=== PATIENT | female | born 1950 | race African-American/Black ===

== ENCOUNTER 2017-02-17 12:38 | Inpatient (IN) | payer MEDICARE, MEDICAID ==
[~2017-02-17] VITALS: Ht 162.6 cm; Wt 47.2 kg
[~2017-02-17 12:38] MED LIST: ALBUTEROL2.5 MG/3 M INH; ASPIRIN EC81 MG ORAL; ASPIRIN81 MG ORAL; ATORVASTATIN CA10 MG ORAL; ATROVENT HFA12.9 GM IH; AZITHROMYCIN250 MG ORAL; AZOR 10-20 MG1 EACH ORAL; BENICAR HCT 201 EACH ORAL; CELEBREX100 MG ORAL; INDOCIN25 MG ORAL; INDOMETHACIN75 MG ORAL; JANUVIA100 MG ORAL; JANUVIA50 MG ORAL; LEVAQUIN500 MG ORAL; LEXAPRO10 MG ORAL; MEDROL DOSEPAK4 MG ORAL; METFORMIN HCL500 M1 ORAL; NEURONTIN100 MG ORAL; NEURONTIN600 MG ORAL; NEXIUM40 MG ORAL; NORCO 10/3251 EA ORAL; NORCO 5-325 TA1 EAC1 ORAL; NORCO 5-325 TA1 EACH ORAL; NORVASC5 MG ORAL; OXYCODONE HCL15 M1 ORAL; PHENAZOPYRIDIN100 MG ORAL; PREDNISONE20 M1 PO; PREDNISONE20 MG ORAL; PROAIR HFA8.5 GM INH; PROMETHAZINE-C118 M1 ORAL; SOMA350 MG PO; SPIRIVA18 MCG INH; STARLIX120 MG ORAL; SUCRALFATE1 GM ORAL; SYMBICORT 1601 PUFFS INH; THEOPHYLLINE A100 MG ORAL; VIGAMOX1 DROP RIGHT EYE
[2017-02-17 12:45] VITALS: BP 164/75
[2017-02-17] MEDS ORDERED: Glucagon 1mg Inj IV ONE (13:00)
[2017-02-17] MEDS ORDERED: Ipratropium 0.02% Inh Soln 2.5ml UD HHN ONE (13:00)
[2017-02-17] MEDS ORDERED: Albuterol ud Inhalation HHN ONE (13:00)
[2017-02-17] MEDS ORDERED: Promethazine/Codeine 5ml UD ORAL PRN (13:30)
[2017-02-17 13:50] LABS: BASOPHILS % (AUTO) 0.9 % (0.0-2.0); EOSINOPHILS % (AUTO) 0.7 % (0.0-3.0); LYMPHOCYTES % (AUTO) 16.1 % (20.0-45.0); MEAN CORPUSCULAR HEMOGLOBIN 32.1 PG (27.0-31.0); MEAN CORPUSCULAR HGB CONC 31.4 G/DL (32.0-36.0); MEAN CORPUSCULAR VOLUME 102 FL (80-99); MEAN PLATELET VOLUME 5.8 FL (6.5-10.1); MONOCYTES % (AUTO) 3.3 % (1.0-10.0); NEUTROPHILS % (AUTO) 78.9 % (45.0-75.0); PLATELET COUNT 388 K/UL (150-450); RED BLOOD COUNT 4.14 M/UL (4.20-5.40)
[2017-02-17 14:00] VITALS: BP 158/68
[2017-02-17 14:09] LABS: TROPONIN I < 0.30 ng/mL (<=0.30)
[2017-02-17 14:12] LABS: ACETAMINOPHEN < 10 ug/mL (10-30); ALANINE AMINOTRANSFERASE 12 U/L (3-33); ALBUMIN/GLOBULIN RATIO 1.2 (1.0-2.7); ALCOHOL < 10 mg/dL; ANION GAP 16 (5-15); ASPARTATE AMINO TRANSFERASE 23 U/L (5-40); CALCIUM 10.9 mg/dL (8.6-10.2); CARBON DIOXIDE 28 mEQ/L (20-30); CHLORIDE 100 mEQ/L (98-107); CREATININE 0.7 mg/dL (0.5-0.9); GLOMERULAR FILTRATION RATE > 60 mL/min (>60); HEMOLYSIS 2; POTASSIUM 3.5 mEQ/L (3.4-4.9); SODIUM 144 mEQ/L (135-145); TOTAL PROTEIN 8.5 g/dL (6.6-8.7)
[2017-02-17 14:15] LABS: REFLEX LACTIC ACID YES OR NO YES
[2017-02-17 14:22] LABS: CKMB 1.7 ng/mL (< 3.8)
[2017-02-17 14:45] LABS: APPEARANCE,URINE CLEAR; KETONES,URINE NEGATIVE (NEGATIVE); LEUKOCYTE ESTERASE ,URINE 1+ (NEGATIVE); NITRITE,URINE NEGATIVE (NEGATIVE); PH,URINE 5 (4.5-8.0); PROTEIN,URINE NEGATIVE (NEGATIVE); UROBILINOGEN,URINE NORMAL MG/DL (0.0-1.0)
[2017-02-17 14:50] LABS: BACTERIA,URINE FEW /HPF; RBC,URINE 0-2 /HPF (0 - 2); SQUAMOUS EPITHELIAL CELL,UR FEW /LPF (NONE/OCC)
--- NOTE | 2017-02-17 15:21 | Diagnostic Imaging Report ---
Indication: Chest Pain Comparison: 06/06/15 A single view chest radiograph was obtained. Findings: No definite infiltrate or pulmonary vascular congestion identified. The heart is enlarged. The aorta is mildly enlarged consistent with atherosclerotic vascular disease. The bones are osteopenic. Impression: No acute disease
[2017-02-17 16:00] VITALS: BP 112/58
--- NOTE | 2017-02-17 16:09 | Emergency Room Report ---
History of Present Illness General Chief Complaint: Generalized Weakness Source: Family Member, EMS Present Illness HPI 66-year-old female presents ED her evaluation. Patient was brought in by EMS from doctor's office. Patient was very lethargic. PMD called 911. Patient Accu-Chek was 71. Patient has history of COPD. Patient has history of substance abuse as per PMD. Son is at bedside and states that patient recent left from a rehabilitation facility. Patient was there after being admitted to [facility] for seizures. Seizures a new onset. Son states that patient's blood sugar this morning was greater than 400 and patient took insulin. No other aggravating or relieving factors. Denies any other associated symptoms Allergies: Coded Allergies: No Known Allergies (Unverified , 08/24/14) Patient History Past Medical History: DM, HTN, asthma, COPD, CVA/TIA, psych hx Past Surgical History: none Pertinent Family History: none Social History: Reports: drug use, Denies: alcohol use, smoking Now: No Immunizations: UTD Reviewed Nursing Documentation: PMH: Agreed, PSxH: Agreed Nursing Documentation-PMH Past Medical History: No History, Except For Hx Cardiac Problems: Yes Hx Hypertension: Yes Hx Pacemaker: No Hx Asthma: Yes Hx COPD: Yes Hx Diabetes: Yes Hx Cancer: No Hx Gastrointestinal Problems: Yes Hx Dialysis: No History Of Psychiatric Problem: Yes - SUBSTANCE ABUSE Hx Neurological Problems: Yes Hx Cerebrovascular Accident: Yes Hx Seizures: Yes Hx Paralysis: Yes - RIGHT SIDE OF THE BODY Hx Speech Problem: Yes - s/p CVA Hx Syncope: Yes Hx Weakness: Yes - RIGHT SIDE Review of Systems All Other Systems: negative except mentioned in HPI Physical Exam Vital Signs Date Time Temp Pulse Resp B/P Pulse Ox O2 Delivery O2 Flow Rate FiO2 02/17/17 12:33 98.2 89 20 199/102 98 Room Air 02/17/17 14:39 21 Sp02 EP Interpretation: reviewed, normal General Appearance: lethargic, thin Head: normocephalic Eyes: bilateral eye PERRL, bilateral eye normal inspection ENT: normal ENT inspection Neck: normal inspection Respiratory: wheezing Cardiovascular #1: regular rate, rhythm, no edema Gastrointestinal: normal bowel sounds, non tender, soft, non-distended, no guarding, no rebound Rectal: deferred Genitourinary: no CVA tenderness Musculoskeletal: normal inspection Neurologic: other - lethargic Psychiatric: other - lethargic Skin: normal inspection Lymphatic: normal inspection Procedures Critical Care Time Critical Care Time i. I feel this is a highly complex case requiring extensive working including EKG/Rhythm strip, Xray/CT/US, Blood/urine lab work, repeat exams while in ED, and administration of strong opiates/narcotics for pain control, admission to hospital or close patient follow up. Total time: 30 min bedside evaluation and treatment excludes procedures (EKG). Reason for critical care: Hypoglycemic, altered Possible complications: hypotension, hypertension, [place], shock, arrhythmias, metabolic acidosis, end organ damage, respiratory failure. Interventions: labs, food. glucagon. utox. nebulizer treatments Course: Patient given food and juice. Given glucagon Accu-Chek critically low. Labs show glucose 24. U. tox negative. Accu-Chek improving after giving food and glucagon. Patient more awake Consultations: nursing staff, EMS, family Performed by: Dr Richardson Tolerated well condition = serious j. because of unstable vital signs this patient had a condition that could potentially threaten life or limb. I feel this is a critical patient who required my full attention while patient was considered critical. Total Critical Care Time excluding procedures was greater than 35 minutes Medical Decision Making Diagnostic Impression: Primary Impression: Hypoglycemia Additional Impressions: Altered level of consciousness COPD exacerbation ER Course Hospital Course 66-year-old female presenting to ED with generalized weakness, low FS in field Differential diagnoses include: dehyration, sepsis, hypoglycemia Clinical course Patient placed on stretcher. 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 After initial history and physical I ordered food, glucagon, labs, nebulizer treatments Labs-glucose 24, electrolytes ok, no leukocytosis, hb/hct stable, Utox negative EKG-normal sinus rhythm no acute changes Chest x-ray unremarkable Repeat Accu-Chek improved. Patient more awake Dr Frost consulted regarding glycemic control Case discussed with Dr. Mendoza and he agreed to accept the patient to his service for further care and support i. I feel this is a highly complex case requiring extensive working including EKG/Rhythm strip, Xray/CT/US, Blood/urine lab work, repeat exams while in ED, and administration of strong opiates/narcotics for pain control, admission to hospital or close patient follow up. diagnosis - hypoglycemia, ALOC, COPD admitted to telemetry in serious condition Labs Test 02/17/17 13:21 5/10/17 14:07 White Blood Count 11.0 K/UL (4.8-10.8) Red Blood Count 4.14 M/UL (4.20-5.40) Hemoglobin 13.3 G/DL (12.0-16.0) Hematocrit 42.3 % (37.0-47.0) Mean Corpuscular Volume 102 FL (80-99) Mean Corpuscular Hemoglobin 32.1 PG (27.0-31.0) Mean Corpuscular Hemoglobin Concent 31.4 G/DL (32.0-36.0) Red Cell Distribution Width 13.0 % (11.6-14.8) Platelet Count 388 K/UL (150-450) Mean Platelet Volume 5.8 FL (6.5-10.1) Neutrophils (%) (Auto) 78.9 % (45.0-75.0) Lymphocytes (%) (Auto) 16.1 % (20.0-45.0) Monocytes (%) (Auto) 3.3 % (1.0-10.0) Eosinophils (%) (Auto) 0.7 % (0.0-3.0) Basophils (%) (Auto) 0.9 % (0.0-2.0) Sodium Level 144 mEQ/L (135-145) Potassium Level 3.5 mEQ/L (3.4-4.9) Chloride Level 100 mEQ/L (98-107) Carbon Dioxide Level 28 mEQ/L (20-30) Anion Gap 16 (5-15) Blood Urea Nitrogen 11 mg/dL (7-23) Creatinine 0.7 mg/dL (0.5-0.9) Estimat Glomerular Filtration Rate > 60 mL/min (>60) Glucose Level 24 mg/dL (74-106) Lactic Acid Level 2.10 mmol/L (0.66-2.22) Calcium Level 10.9 mg/dL (8.6-10.2) Total Bilirubin < 0.2 mg/dL (0.0-1.2) Aspartate Amino Transf (AST/SGOT) 23 U/L (5-40) Alanine Aminotransferase (ALT/SGPT) 12 U/L (3-33) Alkaline Phosphatase 105 U/L (35-104) Total Creatine Kinase 49 U/L (26-140) Creatine Kinase MB 1.7 ng/mL (< 3.8) Creatine Kinase MB Relative Index 3.4 Troponin I < 0.30 ng/mL (<=0.30) Total Protein 8.5 g/dL (6.6-8.7) Albumin 4.8 g/dL (3.5-5.2) Globulin 3.7 g/dL Albumin/Globulin Ratio 1.2 (1.0-2.7) Salicylates Level < 1 mg/dL (10-30) Acetaminophen Level < 10 ug/mL (10-30) Serum Alcohol < 10 mg/dL Urine Color Pale yellow Urine Appearance Clear Urine pH 5 (4.5-8.0) Urine Specific [place] 1.020 (1.005-1.035) Urine Protein Negative (NEGATIVE) Urine Glucose (UA) Negative (NEGATIVE) Urine Ketones Negative (NEGATIVE) Urine Occult Blood Negative (NEGATIVE) Urine Nitrite Negative (NEGATIVE) Urine Bilirubin Negative (NEGATIVE) Urine Urobilinogen Normal MG/DL (0.0-1.0) Urine Leukocyte Esterase 1+ (NEGATIVE) Urine RBC 0-2 /HPF (0 - 2) Urine WBC 2-4 /HPF (0 - 2) Urine Squamous Epithelial Cells Few /LPF (NONE/OCC) Urine Bacteria Few /HPF (NONE) Urine Opiates Screen Negative (NEGATIVE) Urine Barbiturates Screen Negative (NEGATIVE) Phencyclidine (PCP) Screen Negative (NEGATIVE) Urine Amphetamines Screen Negative (NEGATIVE) Urine Benzodiazepines Screen Negative (NEGATIVE) Urine Cocaine Screen Negative (NEGATIVE) Urine Marijuana (THC) Screen Negative (NEGATIVE) EKG Diagnostic Results Rate: normal Rhythm: NSR ST Segments: no acute changes ASA given to the pt in ED: No Rhythm Strip Diag. Results EP Interpretation: yes Rhythm: NSR, no PVC's, no ectopy Chest X-Ray Diagnostic Results EP Interpretation: Yes Findings: no consolidation, no effusion, no pneumothorax, no acute cardiopulmonary disease Number of Views: 1 Last Vital Signs Date Time Temp Pulse Resp B/P Pulse Ox O2 Delivery O2 Flow Rate FiO2 02/17/17 14:53 65 16 98 Room Air 21 02/17/17 12:33 98.2 199/102 Status: improved Disposition: ADMITTED INPATIENT Condition: Serious Referrals: CARLOS A MENDOZA (PCP) PATRICK RICHARDSON M.D. February 17, 2017 16:09
[2017-02-17] MEDS ORDERED: DuoNeb 0.5-3(2.5)mg/3ml neb HHN PRN (18:00)
[2017-02-17 18:47] VITALS: BP 132/72
[2017-02-17] MEDS: DuoNeb 0.5-3(2.5)mg/3ml neb HHN SCH (19:37)
[2017-02-17 20:19] VITALS: BP 133/74
[2017-02-17] MEDS ORDERED: Milk of Magnesia 30ml Ud ORAL PRN (21:00)
[2017-02-17] MEDS: NovoLOG Insulin Flexpen SUBQ SCH (21:29)
[2017-02-17] MEDS: Heparin 5000 units/ml inj SUBQ SCH (21:29)
--- NOTE | 2017-02-17 23:16 | Consultation ---
History of Present Illness General Date patient seen: February 17, 2017 Chief Complaint: Generalized Weakness Referring physician: Dr. Horner Reason for Consultation: Inpatient management Present Illness HPI 66-year-old female with hx of DM, emphysema presents ED with CC of being lethargic with BS of 71. Son is at bedside and states that patient recent left from a rehabilitation facility. No other aggravating or relieving factors. Denies any other associated symptoms Allergies: Coded Allergies: No Known Allergies (Unverified , 08/24/14) Medication History Scheduled Albuterol Sulfate* (Proair Hfa*), 1-2 PUFFS INH Q6H, (Reported) Amlodipine Besylate (Norvasc), 5 MG ORAL DAILY Aspirin Ec* (Aspirin Ec*), 81 MG ORAL DAILY Budesonide/Formoterol Fumarate (Symbicort 160-4.5 Mcg Inhaler), 1 PUFF INH TWICE A DAY Carisoprodol* (Soma*), 350 MG PO BID, (Reported) Escitalopram Oxalate* (Lexapro*), 10 MG ORAL DAILY Esomeprazole Magnesium (Nexium), 40 MG ORAL DAILY, (Reported) Gabapentin* (Neurontin*), 300 MG ORAL THREE TIMES A DAY Indomethacin (Indomethacin), 25 MG ORAL TID, (Reported) Nateglinide (Starlix), 120 MG ORAL THREE TIMES A DAY, (Reported) Sitagliptin (Januvia), 100 MG ORAL DAILY, (Reported) Theophylline (Theodur*), 200 MG ORAL EVERY 12 HOURS Theophylline (Theodur*), 200 MG ORAL EVERY 12 HOURS Tiotropium [place]* (Spiriva*), 1 PUFF INH DAILY Scheduled PRN Hydrocodone Bit/Acetaminophen 5-325* ([place] 5-325 Tablet*), 1 TAB ORAL BID PRN for For Pain, (Reported) Patient History Healthcare decision maker patient Resuscitation status Full Code Advanced Directive on File Past Medical/Surgical History Past Medical/Surgical History: (1) 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 (3) Cocaine abuse (4) HTN (hypertension) (5) CVA, old, ataxia Review of Systems All Other Systems: negative except mentioned in HPI Physical Exam General Appearance: WD/WN Lines, tubes and drains: peripheral HEENT: normocephalic, atraumatic Neck: non-tender, normal alignment Respiratory/Chest: chest wall non-tender Abdomen: normal bowel sounds Genitourinary/Rectal: normal genital exam Extremities: normal range of motion Skin Exam: normal pigmentation 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 Last 24 Hour Vital Signs Date Time Temp Pulse Resp B/P Pulse Ox O2 Delivery O2 Flow Rate FiO2 02/17/17 20:19 97.0 80 20 133/74 100 Room Air 02/17/17 20:00 93 02/17/17 19:45 78 16 99 Room Air 02/17/17 19:37 76 16 97 Room Air 02/17/17 19:11 90 132/72 02/17/17 18:47 97.0 90 18 132/72 98 Room Air 02/17/17 18:40 80 17 122/55 100 Room Air 02/17/17 16:00 98.6 80 18 112/58 100 Room Air 02/17/17 14:53 65 16 98 Room Air 02/17/17 14:39 21 02/17/17 14:39 75 16 95 Room Air 02/17/17 14:39 75 16 Room Air 02/17/17 14:00 98.3 88 17 158/68 100 Room Air 02/17/17 12:45 98.0 77 19 164/75 100 Room Air 02/17/17 12:33 98.2 89 20 199/102 98 Room Air Laboratory Tests Test 02/17/17 13:21 02/17/17 14:07 02/17/17 16:10 White Blood Count 11.0 K/UL (4.8-10.8) H Red Blood Count 4.14 M/UL (4.20-5.40) L Hemoglobin 13.3 G/DL (12.0-16.0) Hematocrit 42.3 % (37.0-47.0) Mean Corpuscular Volume 102 FL (80-99) H Mean Corpuscular Hemoglobin 32.1 PG (27.0-31.0) H Mean Corpuscular Hemoglobin Concent 31.4 G/DL (32.0-36.0) L Red Cell Distribution Width 13.0 % (11.6-14.8) Platelet Count 388 K/UL (150-450) Mean Platelet Volume 5.8 FL (6.5-10.1) L Neutrophils (%) (Auto) 78.9 % (45.0-75.0) H Lymphocytes (%) (Auto) 16.1 % (20.0-45.0) L Monocytes (%) (Auto) 3.3 % (1.0-10.0) Eosinophils (%) (Auto) 0.7 % (0.0-3.0) Basophils (%) (Auto) 0.9 % (0.0-2.0) Sodium Level 144 mEQ/L (135-145) Potassium Level 3.5 mEQ/L (3.4-4.9) Chloride Level 100 mEQ/L (98-107) Carbon Dioxide Level 28 mEQ/L (20-30) Anion Gap 16 (5-15) H Blood Urea Nitrogen 11 mg/dL (7-23) Creatinine 0.7 mg/dL (0.5-0.9) Estimat Glomerular Filtration Rate > 60 mL/min (>60) Glucose Level 24 mg/dL (74-106) *L Lactic Acid Level 2.10 mmol/L (0.66-2.22) 1.90 mmol/L (0.66-2.22) Calcium Level 10.9 mg/dL (8.6-10.2) H Total Bilirubin < 0.2 mg/dL (0.0-1.2) Aspartate Amino Transf (AST/SGOT) 23 U/L (5-40) Alanine Aminotransferase (ALT/SGPT) 12 U/L (3-33) Alkaline Phosphatase 105 U/L (35-104) H Total Creatine Kinase 49 U/L (26-140) Creatine Kinase MB 1.7 ng/mL (< 3.8) Creatine Kinase MB Relative Index 3.4 Troponin I < 0.30 ng/mL (<=0.30) Total Protein 8.5 g/dL (6.6-8.7) Albumin 4.8 g/dL (3.5-5.2) Globulin 3.7 g/dL Albumin/Globulin Ratio 1.2 (1.0-2.7) Salicylates Level < 1 mg/dL (10-30) L Acetaminophen Level < 10 ug/mL (10-30) L Serum Alcohol < 10 mg/dL Urine Color Pale yellow Urine Appearance Clear Urine pH 5 (4.5-8.0) Urine Specific [place] 1.020 (1.005-1.035) Urine Protein Negative (NEGATIVE) Urine Glucose (UA) Negative (NEGATIVE) Urine Ketones Negative (NEGATIVE) Urine Occult Blood Negative (NEGATIVE) Urine Nitrite Negative (NEGATIVE) Urine Bilirubin Negative (NEGATIVE) Urine Urobilinogen Normal MG/DL (0.0-1.0) Urine Leukocyte Esterase 1+ (NEGATIVE) H Urine RBC 0-2 /HPF (0 - 2) Urine WBC 2-4 /HPF (0 - 2) Urine Squamous Epithelial Cells Few /LPF (NONE/OCC) Urine Bacteria Few /HPF (NONE) Urine Opiates Screen Negative (NEGATIVE) Urine Barbiturates Screen Negative (NEGATIVE) Phencyclidine (PCP) Screen Negative (NEGATIVE) Urine Amphetamines Screen Negative (NEGATIVE) Urine Benzodiazepines Screen Negative (NEGATIVE) Urine Cocaine Screen Negative (NEGATIVE) Urine Marijuana (THC) Screen Negative (NEGATIVE) Height (Feet): 5 Height (Inches): 5.00 Weight (Pounds): 104 Medications Current Medications Medications (Trade) Dose Ordered Sig/Sarahi Route PRN Reason Start Time Stop Time Status Last Admin Dose Admin Albuterol/ Ipratropium (DuoNeb 0.5-3(2.5)mg/3ml) 3 ml Q4H PRN HHN Shortness of Breath 02/17/17 18:00 02/22/17 17:59 Albuterol/ Ipratropium (DuoNeb 0.5-3(2.5)mg/3ml) 3 ml Q6HRT HHN 02/17/17 19:00 02/22/17 18:59 02/17/17 19:37 Aspirin (ASA) 81 mg DAILY ORAL 02/18/17 09:00 03/20/17 08:59 Dextrose (Dextrose 50%) STAT PRN IV Hypoglycemia 02/17/17 17:45 03/19/17 17:44 Dextrose (Dextrose 50%) STAT PRN IV Hypoglycemia 02/17/17 18:30 03/19/17 18:29 Heparin Sodium (Porcine) (Heparin 5000 units/ml) 5,000 units EVERY 12 HOURS SUBQ 02/17/17 21:00 03/19/17 20:59 02/17/17 21:29 Insulin Aspart (NovoLOG) BEFORE MEALS AND HS SUBQ 02/17/17 21:00 03/19/17 20:59 02/17/17 21:29 Levetiracetam (Keppra) 500 mg Q12HR ORAL 02/17/17 21:00 03/19/17 20:59 02/17/17 20:15 Lidocaine (Lidoderm 5% PATCH) 1 patch DAILY TDERMAL 02/18/17 09:00 03/20/17 08:59 UNV Magnesium Hydroxide (Mom) 30 ml HSPRN PRN ORAL Constipation 02/17/17 21:00 03/19/17 20:59 Montelukast Sodium (Singulair) 10 mg DAILY@1800 ORAL 02/18/17 21:00 03/20/17 20:59 Pravastatin Sodium (Pravachol) 40 mg BEDTIME ORAL 02/17/17 21:00 03/19/17 20:59 02/17/17 20:15 Promethazine HCl/ Codeine (Phenergan with Codeine) 5 ml Q4H PRN ORAL For Cough 02/17/17 13:30 03/19/17 13:29 Sitagliptin Phosphate (Januvia) 50 mg ACBREAKFAST ORAL 02/18/17 06:30 03/20/17 06:29 Tiotropium [place] (Spiriva Inhaler) 1 puff DAILY INH 02/18/17 09:00 03/20/17 08:59 Assessment/Plan Problem List: (1) Hypoglycemia ICD Codes: E16.2 - Hypoglycemia, unspecified SNOMED: 257827786 (2) End stage COPD ICD Codes: J44.9 - Chronic obstructive pulmonary disease, unspecified SNOMED: 656189016 (3) Severe protein-calorie malnutrition ICD Codes: E43 - Unspecified severe protein-calorie malnutrition SNOMED: 342492232 (4) HTN (hypertension) ICD Codes: I10 - HTN (hypertension) SNOMED: 54457559 Assessment/Plan respiratory treatment sliding scale sputum if any endocrinology evaluation GREG CHAVEZ February 17, 2017 23:16
[2017-02-18] VITALS (7 sets, daily range): BP systolic 104–117; BP diastolic 58–70
[2017-02-18] MEDS: DuoNeb 0.5-3(2.5)mg/3ml neb HHN SCH ×4 (01:12→19:59)
[2017-02-18] MEDS: Norco 5mg/325mg tab ORAL PRN ×4 (01:16→21:17)
[2017-02-18] MEDS: NovoLOG Insulin Flexpen SUBQ SCH ×5 (06:30→21:05)
[2017-02-18] MEDS: sitaGLIPtin 50mg tab ORAL SCH (06:38)
--- NOTE | 2017-02-18 06:52 | General Progress Note ---
Assessment/Plan Problem List: (1) Diabetes mellitus out of control ICD Codes: E11.65 - Diabetes mellitus out of control SNOMED: 733731882 (2) Hypoglycemia ICD Codes: E16.2 - Hypoglycemia, unspecified SNOMED: 928686767 (3) Altered level of consciousness ICD Codes: R40.4 - Transient alteration of awareness SNOMED: 9964733 Assessment/Plan add Levemir 6 units daily continue Januvia 50 mg daily continue Novolog sliding scale ac / hs Subjective Allergies: Coded Allergies: No Known Allergies (Unverified , 08/24/14) All Systems: reviewed and negative except above Subjective admitted with hypoglycemia she is known to me from recent admission to [facility] with COPD exacerbation diabetes was treated with Lantus and Humalog - received diabetes teaching Objective Last 24 Hour Vital Signs Date Time Temp Pulse Resp B/P Pulse Ox O2 Delivery O2 Flow Rate FiO2 02/18/17 04:08 98.1 71 20 104/64 100 Room Air 02/18/17 04:00 100 02/18/17 01:21 89 16 99 Room Air 02/18/17 01:12 90 16 98 Room Air 02/18/17 00:09 97.9 80 20 117/63 100 Room Air 02/18/17 00:00 81 02/17/17 20:19 97.0 80 20 133/74 100 Room Air 02/17/17 20:00 93 02/17/17 19:45 78 16 99 Room Air 02/17/17 19:37 76 16 97 Room Air 02/17/17 19:11 90 132/72 02/17/17 18:47 97.0 90 18 132/72 98 Room Air 02/17/17 18:40 80 17 122/55 100 Room Air 02/17/17 16:00 98.6 80 18 112/58 100 Room Air 21 02/17/17 14:53 65 16 98 Room Air 21 02/17/17 14:39 21 02/17/17 14:39 75 16 95 Room Air 21 02/17/17 14:39 75 16 Room Air 21 02/17/17 14:00 98.3 88 17 158/68 100 Room Air 02/17/17 12:45 98.0 77 19 164/75 100 Room Air 02/17/17 12:33 98.2 89 20 199/102 98 Room Air Intake and Output 02/17/17 02/18/17 19:00 07:00 Intake Total 200 ml Output Total 1150 ml Balance 200 ml -1150 ml Intake Oral 200 ml Output Urine Total 1150 ml # Voids 3 Laboratory Tests 02/17/17 13:21: White Blood Count 11.0H, Red Blood Count 4.14L, Hemoglobin 13.3, Hematocrit 42.3 , Mean Corpuscular Volume 102H, Mean Corpuscular Hemoglobin 32.1H, Mean Corpuscular Hemoglobin Concent 31.4L, Red Cell Distribution Width 13.0, Platelet Count 388, Mean Platelet Volume 5.8L, Neutrophils (%) (Auto) 78.9H, Lymphocytes (%) (Auto) 16.1L, Monocytes (%) (Auto) 3.3, Eosinophils (%) (Auto) 0.7, Basophils (%) (Auto) 0.9, Sodium Level 144, Potassium Level 3.5, Chloride Level 100, Carbon Dioxide Level 28, Anion Gap 16H, Blood Urea Nitrogen 11, Creatinine 0.7, Estimat Glomerular Filtration Rate > 60, Glucose Level 24*L, Lactic Acid Level 2.10, Calcium Level 10.9H, Total Bilirubin < 0.2, Aspartate Amino Transf (AST/SGOT) 23, Alanine Aminotransferase (ALT/SGPT) 12, Alkaline Phosphatase 105H, Total Creatine Kinase 49, Creatine Kinase MB 1.7, Creatine Kinase MB Relative Index 3.4, Troponin I < 0.30, Total Protein 8.5, Albumin 4.8 , Globulin 3.7, Albumin/Globulin Ratio 1.2, Salicylates Level < 1L, Acetaminophen Level < 10L, Serum Alcohol < 10 02/17/17 14:07: Urine Color Pale yellow, Urine Appearance Clear, Urine pH 5, Urine Specific [place] 1.020, Urine Protein Negative, Urine Glucose (UA) Negative, Urine Ketones Negative, Urine Occult Blood Negative, Urine Nitrite Negative, Urine Bilirubin Negative, Urine Urobilinogen Normal, Urine Leukocyte Esterase 1+H, Urine RBC 0-2, Urine WBC 2-4, Urine Squamous Epithelial Cells Few, Urine Bacteria Few, Urine Opiates Screen Negative, Urine Barbiturates Screen Negative , Phencyclidine (PCP) Screen Negative, Urine Amphetamines Screen Negative, Urine Benzodiazepines Screen Negative, Urine Cocaine Screen Negative, Urine Marijuana (THC) Screen Negative 02/17/17 16:10: Lactic Acid Level 1.90 Height (Feet): 5 Height (Inches): 5.00 Weight (Pounds): 104 General Appearance: no apparent distress EENT: pale conjunctivae Neck: normal alignment Cardiovascular: normal rate Respiratory/Chest: decreased breath sounds Abdomen: normal bowel sounds Edema: no edema noted Arm (L), no edema noted Arm (R), no edema noted Leg (L), no edema noted Leg (R), no edema noted Pedal (L), no edema noted Pedal (R), no edema noted Generalized Objective Current Medications Medications (Trade) Dose Ordered Sig/Sarahi Route PRN Reason Start Time Stop Time Status Last Admin Dose Admin Acetaminophen/ Hydrocodone Bitart ([place] 5/325) 1 tab Q4H PRN ORAL Moderate Pain (Pain Scale 4-6) 02/18/17 01:15 02/25/17 01:14 02/18/17 01:16 Albuterol/ Ipratropium (DuoNeb 0.5-3(2.5)mg/3ml) 3 ml Q4H PRN HHN Shortness of Breath 02/17/17 18:00 02/22/17 17:59 Albuterol/ Ipratropium (DuoNeb 0.5-3(2.5)mg/3ml) 3 ml Q6HRT HHN 02/17/17 19:00 02/22/17 18:59 02/18/17 01:12 Aspirin (ASA) 81 mg DAILY ORAL 02/18/17 09:00 03/20/17 08:59 Dextrose (Dextrose 50%) STAT PRN IV Hypoglycemia 02/17/17 17:45 03/19/17 17:44 Heparin Sodium (Porcine) (Heparin 5000 units/ml) 5,000 units EVERY 12 HOURS SUBQ 02/17/17 21:00 03/19/17 20:59 02/17/17 21:29 Insulin Aspart (NovoLOG) BEFORE MEALS AND HS SUBQ 02/17/17 21:00 03/19/17 20:59 02/17/17 21:29 Levetiracetam (Keppra) 500 mg Q12HR ORAL 02/17/17 21:00 03/19/17 20:59 02/17/17 20:15 Lidocaine (Lidoderm 5% PATCH) 1 patch DAILY TDERMAL 02/18/17 09:00 03/20/17 08:59 Magnesium Hydroxide (Mom) 30 ml HSPRN PRN ORAL Constipation 02/17/17 21:00 03/19/17 20:59 Montelukast Sodium (Singulair) 10 mg DAILY@1800 ORAL 02/18/17 21:00 03/20/17 20:59 Pravastatin Sodium (Pravachol) 40 mg BEDTIME ORAL 02/17/17 21:00 03/19/17 20:59 02/17/17 20:15 Promethazine HCl/ Codeine (Phenergan with Codeine) 5 ml Q4H PRN ORAL For Cough 02/17/17 13:30 03/19/17 13:29 Sitagliptin Phosphate (Januvia) 50 mg ACBREAKFAST ORAL 02/18/17 06:30 03/20/17 06:29 02/18/17 06:38 Tiotropium [place] (Spiriva Inhaler) 1 puff DAILY INH 02/18/17 09:00 03/20/17 08:59 Item Value Date Time Bedside Blood Glucose 102 mg/dl 02/18/17 0637 Bedside Blood Glucose 242 mg/dl H 02/17/172128 Bedside Blood Glucose 145 mg/dl H 02/17/17 1809 CHE ALLEN February 18, 2017 06:52
[2017-02-18 08:05] LABS: BASOPHILS % (AUTO) 1.5 % (0.0-2.0); EOSINOPHILS % (AUTO) 1.9 % (0.0-3.0); LYMPHOCYTES % (AUTO) 35.4 % (20.0-45.0); MEAN CORPUSCULAR HGB CONC 32.5 G/DL (32.0-36.0); MEAN CORPUSCULAR VOLUME 99 FL (80-99); MEAN PLATELET VOLUME 6.1 FL (6.5-10.1); MONOCYTES % (AUTO) 6.3 % (1.0-10.0); PLATELET COUNT 283 K/UL (150-450); RED BLOOD COUNT 3.03 M/UL (4.20-5.40); RED CELL DISTRIBUTION WIDTH 12.3 % (11.6-14.8)
[2017-02-18 08:17] LABS: ANION GAP 9 (5-15); CALCIUM 9.6 mg/dL (8.6-10.2); CARBON DIOXIDE 31 mEQ/L (20-30); CHLORIDE 103 mEQ/L (98-107); CHOLESTEROL 198 mg/dL (< 200); CHOLESTEROL/HDL RATIO 2.8 (3.3-4.4); CREATININE 0.6 mg/dL (0.5-0.9); GLOMERULAR FILTRATION RATE > 60 mL/min (>60); HEMOLYSIS 1; LDL CHOLESTEROL (CALC.) 110 mg/dL (60-99); POTASSIUM 3.8 mEQ/L (3.4-4.9); SODIUM 143 mEQ/L (135-145)
[2017-02-18 09:03] LABS: HEMOGLOBIN A1C 9.5 % (< 6.0)
[2017-02-18] MEDS: Aspirin Baby 81mg ORAL SCH (09:10)
[2017-02-18] MEDS: Heparin 5000 units/ml inj SUBQ SCH ×2 (09:14→21:03)
[2017-02-18] MEDS: Levemir Flexpen SUBQ SCH (09:14)
--- NOTE | 2017-02-18 12:46 | Cardiology Report ---
APPROVED REPORT EKG Measurement Heart [id number] MI 130P68 [id number] Normal sinus rhythm Normal ECG
--- NOTE | 2017-02-18 15:49 | Pulmonology Progress Note ---
Assessment/Plan Problems: (1) Hypoglycemia (2) End stage COPD (3) Severe protein-calorie malnutrition (4) HTN (hypertension) Assessment/Plan endo consult appreciated bs better titrate fio2 to sat of 92% med/surg dc planning Subjective ROS Limited/Unobtainable: No Interval Events: comfortable Allergies: Coded Allergies: No Known Allergies (Unverified , 08/24/14) Objective Last 24 Hour Vital Signs Date Time Temp Pulse Resp B/P Pulse Ox O2 Delivery O2 Flow Rate FiO2 02/18/17 13:20 97 16 98 Room Air 02/18/17 13:17 82 14 99 Room Air 02/18/17 12:00 97.0 86 17 117/62 95 Room Air 02/18/17 08:09 91 15 99 Room Air 02/18/17 08:00 84 02/18/17 08:00 98.4 85 17 108/67 99 Room Air 02/18/17 07:58 88 15 99 Room Air 02/18/17 04:08 98.1 71 20 104/64 100 Room Air 02/18/17 04:00 100 02/18/17 01:21 89 16 99 Room Air 02/18/17 01:12 90 16 98 Room Air 02/18/17 00:09 97.9 80 20 117/63 100 Room Air 02/18/17 00:00 81 02/17/17 20:19 97.0 80 20 133/74 100 Room Air 02/17/17 20:00 93 02/17/17 19:45 78 16 99 Room Air 02/17/17 19:37 76 16 97 Room Air 02/17/17 19:11 90 132/72 02/17/17 18:47 97.0 90 18 132/72 98 Room Air 02/17/17 18:40 80 17 122/55 100 Room Air 02/17/17 16:00 98.6 80 18 112/58 100 Room Air 21 Intake and Output 02/17/17 02/18/17 19:00 07:00 Intake Total 200 ml Output Total 1150 ml Balance 200 ml -1150 ml Intake Oral 200 ml Output Urine Total 1150 ml # Voids 3 General Appearance: cachetic HEENT: normocephalic, atraumatic Respiratory/Chest: chest wall non-tender, lungs clear, normal breath sounds Cardiovascular: normal peripheral pulses, normal rate Abdomen: no organomegaly Laboratory Tests 02/17/17 16:10: Lactic Acid Level 1.90 02/18/17 06:55: White Blood Count 5.0#, Red Blood Count 3.03L, Hemoglobin 9.7L, Hematocrit 29.8L , Mean Corpuscular Volume 99, Mean Corpuscular Hemoglobin 32.0H, Mean Corpuscular Hemoglobin Concent 32.5, Red Cell Distribution Width 12.3, Platelet Count 283, Mean Platelet Volume 6.1L, Neutrophils (%) (Auto) 55.0, Lymphocytes ( %) (Auto) 35.4, Monocytes (%) (Auto) 6.3, Eosinophils (%) (Auto) 1.9, Basophils (%) (Auto) 1.5, Sodium Level 143, Potassium Level 3.8, Chloride Level 103, Carbon Dioxide Level 31H, Anion Gap 9, Blood Urea Nitrogen 10, Creatinine 0.6, Estimat Glomerular Filtration Rate > 60, Glucose Level 89, Hemoglobin A1c 9.5H, Calcium Level 9.6, Triglycerides Level 79, Cholesterol Level 198, LDL Cholesterol 110H, HDL Cholesterol 72H, Cholesterol/HDL Ratio 2.8L Current Medications Medications (Trade) Dose Ordered Sig/Sarahi Route PRN Reason Start Time Stop Time Status Last Admin Dose Admin Acetaminophen/ Hydrocodone Bitart ([place] 5/325) 1 tab Q4H PRN ORAL Moderate Pain (Pain Scale 4-6) 02/18/17 01:15 02/25/17 01:14 02/18/17 09:31 Albuterol/ Ipratropium (DuoNeb 0.5-3(2.5)mg/3ml) 3 ml Q4H PRN HHN Shortness of Breath 02/17/17 18:00 02/22/17 17:59 Albuterol/ Ipratropium (DuoNeb 0.5-3(2.5)mg/3ml) 3 ml Q6HRT HHN 02/17/17 19:00 02/22/17 18:59 02/18/17 13:17 Aspirin (ASA) 81 mg DAILY ORAL 02/18/17 09:00 03/20/17 08:59 02/18/17 09:10 Dextrose (Dextrose 50%) STAT PRN IV Hypoglycemia 02/17/17 17:45 03/19/17 17:44 Heparin Sodium (Porcine) (Heparin 5000 units/ml) 5,000 units EVERY 12 HOURS SUBQ 02/17/17 21:00 03/19/17 20:59 02/18/17 09:14 Insulin Aspart (NovoLOG) BEFORE MEALS AND HS SUBQ 02/17/17 21:00 03/19/17 20:59 02/18/17 11:42 Insulin Aspart (NovoLOG) 5 units NOVOTIAC SUBQ 02/18/17 16:50 03/20/17 16:49 Insulin Detemir (Levemir) 6 units DAILY SUBQ 02/18/17 09:00 03/20/17 08:59 02/18/17 09:14 Levetiracetam (Keppra) 500 mg Q12HR ORAL 02/17/17 21:00 03/19/17 20:59 02/18/17 09:09 Lidocaine (Lidoderm 5% PATCH) 1 patch DAILY TDERMAL 02/18/17 09:00 03/20/17 08:59 Magnesium Hydroxide (Mom) 30 ml HSPRN PRN ORAL Constipation 02/17/17 21:00 03/19/17 20:59 Montelukast Sodium (Singulair) 10 mg DAILY@1800 ORAL 02/18/17 21:00 03/20/17 20:59 Pravastatin Sodium (Pravachol) 40 mg BEDTIME ORAL 02/17/17 21:00 03/19/17 20:59 02/17/17 20:15 Promethazine HCl/ Codeine (Phenergan with Codeine) 5 ml Q4H PRN ORAL For Cough 02/17/17 13:30 03/19/17 13:29 Sitagliptin Phosphate (Januvia) 50 mg ACBREAKFAST ORAL 02/18/17 06:30 03/20/17 06:29 02/18/17 06:38 Tiotropium [place] (Spiriva Inhaler) 1 puff DAILY INH 02/18/17 09:00 03/20/17 08:59 GREG CHAVEZ February 18, 2017 15:49
[2017-02-18] MEDS ORDERED: Montelukast 10mg tablet ORAL SCH (21:00)
[2017-02-18] MEDS ORDERED: DiphenhydrAMINE 50mg/ml Inj IVP PRN (22:00)
[2017-02-19] MEDS: DuoNeb 0.5-3(2.5)mg/3ml neb HHN SCH ×4 (01:33→19:43)
[2017-02-19] MEDS: Norco 5mg/325mg tab ORAL PRN ×2 (03:24→19:34)
[2017-02-19 03:51] VITALS: BP 112/63
[2017-02-19] MEDS: NovoLOG Insulin Flexpen SUBQ SCH ×7 (06:17→20:51)
[2017-02-19] MEDS: sitaGLIPtin 50mg tab ORAL SCH (06:17)
--- NOTE | 2017-02-19 07:58 | History and Physical Report ---
DATE OF ADMISSION: 02/17/2017 History Of Present Illness: The patient is an unfortunate 66-year-old female with history of COPD, who is a smoker and continues to smoke, history of 00:29 hypersensitivity, pneumonitis, history of seizure disorder, and history of diabetes, who was recently hospitalized at [facility] with COPD exacerbation and weakness. The patient was treated and eventually transferred to a nursing facility. However, she left against medical advice a few days ago. The patient presented to my office yesterday morning very sweaty and lethargic. Blood sugars prior to that at home was 500. She was given 12 units of insulin. In my office, paramedics were called, Accu-Chek of 71. However, she is slightly lethargic and sweaty suspected hypoglycemia and thus she was taken by paramedics to [facility] where her sugars were noted to be critically low. The patient was started on some dextrose with improvement in her mental status. Cultures were also drawn and substance abuse plan 01:57. Past Medical History: Include a history of COPD, history of diabetes, history of 02:08 chronic abdominal pain, history of prior CVA, history of DJD, history of hypersensitivity, pneumonitis, history of hysterectomy, history of appendectomy, history of CAD, history of CHF with diastolic dysfunction, history of C. difficile in 2012, and history of chronic back pain, she follows with Dr. Cervantes pain management physician, history of severe lumbar stenosis as well as severe spondylosis, 02:31 with severe central canal stenosis, C3=C4, C4=C5-C5-C6 disk bulges and arthropathy, mild bilateral foraminal narrowing seen before by Dr. Ponce and history of seizure disorder probably secondary to cocaine. ALLERGIES: None known. MEDICATIONS: Please see reconciled medication list. SOCIAL HISTORY: The patient is a smoker and continues to smoke. She also has used marijuana on occasions as well as cocaine in the past. FAMILY HISTORY: Noncontributory. REVIEW OF SYSTEMS: The patient currently awake in no apparent distress. PHYSICAL EXAMINATION: GENERAL: She is a frail appearing, in no apparent distress. VITAL SIGNS: Stable. She is afebrile. HEENT: Head normocephalic and atraumatic. Pupils are equal and reactive to light. Extraocular muscles are intact. Eyes are anicteric. NECK: Supple. Full range of motion. No JVP. No bruits. LUNGS: Decreased breath sounds. HEART: Regular rate and rhythm. ABDOMEN: Soft. Positive bowel sounds. EXTREMITIES: No clubbing, cyanosis, or edema. Laboratory And Diagnostic Data: White count of 5, hemoglobin 9,7, hematocrit 29.8, and platelet count 283,000. Her sodium is 133, potassium 3.8, chloride 102, bicarbonate 31, BUN 30, creatinine 0.6 and glucose is 189. 04:16. Lactic acid is 1.9. Troponin is less than 0.3. AST 23 and ALT 12. Calcium is 7.9. Alkaline phosphatase is 105. Albumin is 4.8. Urine 1+ leukocyte esterase, and 2 to 4 WBCs. Tox screening was negative for marijuana or cocaine, and negative for opiates as well. Chest x-ray reveals no acute disease. Assessment And Plan: The patient is an unfortunate 66-year-old female, presented to my office with lethargy and sweaty suspected hypoglycemia. Her blood sugars in the morning were 400 and she was 05:30 insulin 12 units. The patient was brought in by paramedics after noted to have critically low blood sugar starting 05:39 diabetes and hypoglycemia. We gave her respiratory treatment. The patient was given pain medications based on pain regimen. 05:55 considered as well. The patient should be on DVT and ulcer prophylaxis. Ravindra Horner M.D. DR: LENCHO JOB#: [id number] CC:
[2017-02-19 08:00] VITALS: BP 121/72
[2017-02-19] MEDS: Aspirin Baby 81mg ORAL SCH (09:39)
[2017-02-19] MEDS: Heparin 5000 units/ml inj SUBQ SCH ×2 (09:42→20:53)
[2017-02-19] MEDS: Levemir Flexpen SUBQ SCH (09:43)
[2017-02-19] MEDS ORDERED: Meclizine 25mg tab ORAL PRN ×2 (10:15→12:00)
[2017-02-19 11:24] LABS: BASOPHILS % (AUTO) 0.7 % (0.0-2.0); EOSINOPHILS % (AUTO) 5.6 % (0.0-3.0); LYMPHOCYTES % (AUTO) 29.5 % (20.0-45.0); MEAN CORPUSCULAR HEMOGLOBIN 32.2 PG (27.0-31.0); MEAN CORPUSCULAR HGB CONC 32.4 G/DL (32.0-36.0); MEAN CORPUSCULAR VOLUME 99 FL (80-99); MEAN PLATELET VOLUME 6.2 FL (6.5-10.1); MONOCYTES % (AUTO) 11.3 % (1.0-10.0); PLATELET COUNT 300 K/UL (150-450); RED BLOOD COUNT 3.26 M/UL (4.20-5.40); RED CELL DISTRIBUTION WIDTH 12.8 % (11.6-14.8); WHITE BLOOD COUNT 4.6 K/UL (4.8-10.8)
[2017-02-19] MEDS ORDERED: Hydrocortisone 1% Cr 15gm TOPIC PRN (11:30)
[2017-02-19 11:44] LABS: ANION GAP 13 (5-15); CALCIUM 10.2 mg/dL (8.6-10.2); CARBON DIOXIDE 30 mEQ/L (20-30); CHLORIDE 99 mEQ/L (98-107); CREATININE 0.6 mg/dL (0.5-0.9); GLOMERULAR FILTRATION RATE > 60 mL/min (>60); HEMOLYSIS 5; POTASSIUM 3.9 mEQ/L (3.4-4.9); SODIUM 142 mEQ/L (135-145)
[2017-02-19] MEDS ORDERED: DuoNeb 0.5-3(2.5)mg/3ml neb HHN PRN (12:00)
[2017-02-19] MEDS ORDERED: Promethazine/Codeine 5ml UD ORAL PRN (12:00)
[2017-02-19] MEDS ORDERED: DiphenhydrAMINE 50mg/ml Inj IVP PRN (12:00)
--- NOTE | 2017-02-19 13:43 | Consultation ---
Consult Note Consult Note CONSULTATION - NEUROLOGY 02/20/2016 COLORER MACHINE: Dannielle Kemp M.D. REFERRING PHYSICIAN: Ravindra Horner M.D. HISTORY: Ms Alyssa Whittington is a 66-year-old, right-handed, black lady, who does have a past history of hypertension, dyslipidemia, coronary artery disease, congestive heart failure, chronic obstructive pulmonary disease, cerebrovascular disease with a prior stroke associated with right-sided weakness, parainfluenza and influenza at the end of 2014, and episodic loss of consciousness. She was recently discharged for [facility] and was sent to a custodial. She signed out AMA from the custodial and when she got home she felt unwell. She says she did not have her medicines at home and had not taken her insulin for a few days. She was seen by Dr. Horner at his office on 02/17/17 and was feeling ill. Her blood sugars were in the 500s and she was given insulin but her blood sugar then dropped and she felt liike she was becoming hypoglycemic. The paramedics were called in and she was taken to the [facility] ER and has since been admitted. She feels better today but the mind is still not completely clear and she feels light headed when she stands or walks. At this point in time, she denies any increased weakness on one side or the other, numbness on one side or the other, problems with speech, problems with language, or problems with vision. PAST HISTORY: Significant for high blood pressure, dyslipidemia, coronary artery disease, congestive heart failure, chronic obstructive pulmonary disease , cerebrovascular disease with stroke-associated with right-sided weakness a few years ago. FAMILY HISTORY: Her mother of leukemia. Her father of a heart attack. PERSONAL HISTORY: Home: She lives alone. 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 Habits: She used to smoke in the past but stopped smoking quite a few years ago. She used to drink alcohol in moderation in the past but has not had a drink for numerous years. She denies the use of any illicit drugs. PHYSICAL EXAMINATION: GENERAL: She is a well-developed, well-nourished but lean black lady, lying in bed, in no acute distress. VITAL SIGNS: Pulse 95 per minute Blood pressure 121/72 mmHg Respirations 20 per minute Temperature 97.6 degrees Fahrenheit. HEAD: Normocephalic and atraumatic. NECK: No neck rigidity was observed. EENT: Benign. NEUROLOGICAL EXAMINATION: MENTAL STATUS EXAMINATION: She was alert and awake. She was oriented to person, place, and time except for the exact date. She was able to recall 3/3 words immediately after 1 minute, and after 3 minutes on the second trial. She was able to remember presidents Trump and Obama only. Her mathematical skills were fairly good. Her visuospatial function was preserved. SPEECH: She had a mild dysarthria, but it should be noted that numerous teeth were missing. LANGUAGE: She had no aphasia. CRANIAL NERVE EXAMINATION: II: The visual kearney were intact on confrontation testing. III, IV, : The external ocular movements were full, and the pupils 3 mm in diameter, equal, round, regular, and reactive to light. V: She had normal facial sensations, and the temporales, masseters, and pterygoids functioned normally. VII: She had a trace right 7th central facial paresis. VIII: She was able to hear well bilaterally and had no nystagmus. IX: The palate moved symmetrically on phonation. X: She had no hoarseness of voice. XI: The sternocleidomastoids and trapezii functioned normally. XII: The tongue was in the midline, without any fasciculations or atrophy. MOTOR SYSTEM: The tone was normal in all 4 extremities. Examination of muscle mass revealed no focal wasting. Examination of power revealed G 5/5 power, except for G 5-/5 power in the right finger extensors and right iliopsoas;. SENSORY EXAMINATION: She had intact sensations to pinprick, light touch, and graphesthesia. COORDINATION: She performed well on [id number] testing. She had problems performing [id number] testing. REFLEXES: 2+ and bilaterally symmetrical at the biceps, triceps, brachioradialis, and knees; trace positive at both ankles. The plantar responses were flexor bilaterally. STANCE: She needed support to stand. GAIT: She walked with a mildly ataxic gait with support on one side. DIAGNOSTIC IMPRESSION: 1. Ms. Alyssa Whittington is a 66-year-old, right-handed, black lady, who does have a past history of hypertension, diabetes mellitus, dyslipidemia, coronary artery disease, congestive heart failure, chronic obstructive pulmonary disease , and cerebrovascular disease with a prior stroke, and prior episodes of loss of consciousness. She was seen by Dr. Horner at his office on 02/17/17 and was feeling ill. Her blood sugars were in the 500s and she was given insulin but her blood sugar then dropped and she felt liike she was becoming hypoglycemic. The paramedics were called in and she was brought to the [facility] ER and has since been admitted. 2. She feels better today but is still light headed and unsteady on her feet. 3. On neurological examination at this time, she does have problems with recent and remote memory, a mild dysarthria, a mild right hemiparesis involving the face, upper and lower extremities, and an unsteady gait. 4. The patients alteredd mental state and gait unsteadiness is most probably due to a metabolic encephalopathy. RECOMMENDATIONS: 1. Agree with management thus far. 2. Correct toxic metabolic imbalances. 3. Observe closely. 4. The patient should be mobilized as soon as possible. Thank you for entrusting me with the care of Ms Whittington. I shall follow her with you. DANNIELLE KEMP M.D., M.S.P.H. DANNIELLE KEMP February 19, 2017 13:43
--- NOTE | 2017-02-19 15:57 | Pulmonology Progress Note ---
Assessment/Plan Problems: (1) Hypoglycemia (2) End stage COPD (3) Severe protein-calorie malnutrition (4) HTN (hypertension) Assessment/Plan endo consult appreciated bs better titrate fio2 to sat of 92% med/surg h/h dropping stool for OB, hem evaluation Subjective ROS Limited/Unobtainable: No Constitutional: Reports: no symptoms HEENT: Repors: no symptoms Allergies: Uncoded Allergies: electrodes (Allergy, Unknown, Itching, 02/19/17) Objective Last 24 Hour Vital Signs Date Time Temp Pulse Resp B/P Pulse Ox O2 Delivery O2 Flow Rate FiO2 02/19/17 13:53 89 18 100 Room Air 02/19/17 13:40 94 18 99 Room Air 21 02/19/17 08:00 97.6 95 20 121/72 98 Room Air 02/19/17 06:55 87 18 100 Room Air 02/19/17 06:45 87 18 97 Room Air 21 02/19/17 03:51 98.6 75 19 112/63 95 Room Air 02/19/17 01:42 88 18 98 Room Air 21 02/19/17 01:34 93 16 95 Room Air 21 02/18/17 23:51 97.7 83 18 106/68 94 Room Air 02/18/17 20:10 80 18 97 Room Air 21 02/18/17 20:09 98.4 78 19 108/58 93 Room Air 02/18/17 20:00 89 18 95 Room Air 21 02/18/17 16:00 73 02/18/17 16:00 96.8 98 17 115/70 98 Room Air Intake and Output 02/18/17 02/19/17 19:00 07:00 Intake Total 1100 ml Balance 1100 ml Intake Oral 1100 ml # Voids 1 5 General Appearance: WD/WN HEENT: normocephalic, atraumatic Respiratory/Chest: chest wall non-tender, lungs clear Breasts: no masses Cardiovascular: normal peripheral pulses Abdomen: normal bowel sounds, soft, non tender Genitourinary: normal external genitalia Skin: no rash Neurologic/Psychiatric: embossed 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 Complete 02/17/17 16:09 Rectum VRE Culture - Final Enterococcus Faecalis - Vre Complete Laboratory Tests 02/19/17 11:00: White Blood Count 4.6L, Red Blood Count 3.26L, Hemoglobin 10.5L, Hematocrit 32.4L, Mean Corpuscular Volume 99, Mean Corpuscular Hemoglobin 32.2H, Mean Corpuscular Hemoglobin Concent 32.4, Red Cell Distribution Width 12.8, Platelet Count 300, Mean Platelet Volume 6.2L, Neutrophils (%) (Auto) 53.0, Lymphocytes ( %) (Auto) 29.5, Monocytes (%) (Auto) 11.3H, Eosinophils (%) (Auto) 5.6H, Basophils (%) (Auto) 0.7, Sodium Level 142, Potassium Level 3.9, Chloride Level 99, Carbon Dioxide Level 30, Anion Gap 13, Blood Urea Nitrogen 10, Creatinine 0.6, Estimat Glomerular Filtration Rate > 60, Glucose Level 159H, Calcium Level 10.2 Current Medications Medications (Trade) Dose Ordered Sig/Sarahi Route PRN Reason Start Time Stop Time Status Last Admin Dose Admin Acetaminophen/ Hydrocodone Bitart ([place] 5/325) 1 tab Q4H PRN ORAL Moderate Pain (Pain Scale 4-6) 02/19/17 12:00 02/26/17 11:59 Albuterol/ Ipratropium (DuoNeb 0.5-3(2.5)mg/3ml) 3 ml Q4H PRN HHN Shortness of Breath 02/19/17 12:00 02/24/17 11:59 Albuterol/ Ipratropium (DuoNeb 0.5-3(2.5)mg/3ml) 3 ml Q6HRT HHN 02/19/17 13:00 02/24/17 12:59 02/19/17 13:46 Aspirin (ASA) 81 mg DAILY ORAL 02/20/17 09:00 03/22/17 08:59 Dextrose (Dextrose 50%) STAT PRN IV Hypoglycemia 02/19/17 12:00 03/21/17 11:59 Diphenhydramine HCl (Benadryl) 25 mg Q6H PRN ORAL Itching 02/19/17 11:15 03/21/17 11:14 02/19/17 12:00 Heparin Sodium (Porcine) (Heparin 5000 units/ml) 5,000 units EVERY 12 HOURS SUBQ 02/19/17 21:00 03/21/17 20:59 Hydrocortisone (Hydrocortisone) 1 applic Q6H PRN TOPIC Itching 02/19/17 11:30 03/21/17 11:29 Insulin Aspart (NovoLOG) BEFORE MEALS AND HS SUBQ 02/19/17 12:30 03/21/17 12:29 02/19/17 12:30 Insulin Aspart (NovoLOG) 5 units NOVOTIAC SUBQ 02/19/17 11:50 03/21/17 11:49 02/19/17 11:50 Insulin Detemir (Levemir) 6 units DAILY SUBQ 02/20/17 09:00 03/22/17 08:59 Levetiracetam (Keppra) 500 mg Q12HR ORAL 02/19/17 21:00 03/21/17 20:59 Lidocaine (Lidoderm 5% PATCH) 1 patch DAILY TDERMAL 02/20/17 09:00 03/22/17 08:59 Magnesium Hydroxide (Mom) 30 ml HSPRN PRN ORAL Constipation 02/19/17 21:00 03/21/17 20:59 Meclizine HCl (Antivert) 25 mg Q8H PRN ORAL for dizziness 02/19/17 12:00 03/21/17 11:59 Montelukast Sodium (Singulair) 10 mg DAILY@1800 ORAL 02/19/17 18:00 03/21/17 17:59 Pravastatin Sodium (Pravachol) 40 mg BEDTIME ORAL 02/19/17 21:00 03/21/17 20:59 Promethazine HCl/ Codeine (Phenergan with Codeine) 5 ml Q4H PRN ORAL For Cough 02/19/17 12:00 03/21/17 11:59 Sitagliptin Phosphate (Januvia) 50 mg ACBREAKFAST ORAL 02/20/17 06:30 03/22/17 06:29 Tiotropium [place] (Spiriva Inhaler) 1 puff DAILY INH 02/20/17 09:00 03/22/17 08:59 GREG CHAVEZ February 19, 2017 15:57
[2017-02-19 16:15] VITALS: BP 109/67
--- NOTE | 2017-02-19 16:19 | Consultation ---
Consult Note Assessment/Plan HEMATOLOGY EVALUATION DOS: 02/19/17 [facility]: Evaluation of anemia ID: Ms Alyssa Whittington is a 66-year-old, right-handed, black lady, who does have a past history of hypertension, dyslipidemia, coronary artery disease, congestive heart failure, chronic obstructive pulmonary disease, cerebrovascular disease with a prior stroke associated with right-sided weakness, parainfluenza and influenza at the end of 2014, and episodic loss of consciousness. She was recently discharged for [facility] and was [facility] a penitentiary. She signed out AMA from the penitentiary and when she got home she felt unwell. She says she did not have her medicines at home and had not taken her insulin for a few days. She was seen by Dr. Horner at his office on 02/17/17 and was feeling ill. Her blood sugars were in the 500s and she was given insulin but her blood sugar then dropped and she felt liike she was becoming hypoglycemic. The paramedics were called in and she was taken to the [facility] ER and has since been admitted. She was noted to be anemic, currently hgb 10.5, as well as having a decreased wbc, and hematology consult was requested. PAST HISTORY: Significant for high blood pressure, dyslipidemia, coronary artery disease, congestive heart failure, chronic obstructive pulmonary disease , cerebrovascular disease with stroke-associated with right-sided weakness a few years ago. FAMILY HISTORY: Her mother of leukemia. Her father of a heart attack. PERSONAL HISTORY: Home: She lives alone. 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 Habits: She used to smoke in the past but stopped smoking quite a few years ago. She used to drink alcohol in moderation in the past but has not had a drink for numerous years. She denies the use of any illicit drugs. ROS: Constitutional: No fever, no chills, no night sweats, no fatigue Skin: No rashes, lumps, itchiness, dryness HEENT: No KANG, ear ache, visual changes, double vision, nosebleeds, sore throat, lumps, swollen glands Breasts: No lumps, pain, discharge Pulmonary: No cough, sputum, shortness of breath, coughing up blood, hemoptysis Cardiovascular: No chest pain, tightness, palpitations, syncope, claudication, orthopnea, PND GI: No nausea, vomiting, diarrhea, melena, hematochezia, change in appetite, abdominal pain : No dysuria, frequency, urgency, urinary incontinence, foamy urine Musculoskeletal: No joint swelling or muscle pain, trauma, back pain Neurologic: No dizziness, fainting, seizures, changes in smell or taste Psychiatric: No nervousness, stress, or depression, anxiety, hallucinations Endocrine: No weight change, heat or cold intolerance, tremor, insomnia PHYSICAL EXAMINATION: GENERAL: She is a well-developed, well-nourished but lean black lady, lying in bed, in no acute distress. VITAL SIGNS: currently stable, improved PULM: CTAB, no cwr CV: no mgr Abd: soft, nt, nd Ext: No cce Assessment and Recs: #. Anemia secondary to chronic disease - anemia w/u has been sent including tsh , b12, folate, ferritin, retic, iron panel, peripheral smear, cea, currently is pending as well as occult blood of the stool #. Leukopenia - potentially 2/2 infection, will need to closely monitor, evaluate for infection, also peripheral smear ordered, current ANC >2000 # Hypertension # Diabetes mellitus # Dyslipidemia # Coronary artery disease # Congestive heart failure # Chronic obstructive pulmonary disease # Cerebrovascular disease with a prior stroke # Hyperglycemia Vincent Jasso February 19, 2017 16:19
[2017-02-19] MEDS: Hydrocortisone 1% Cr 15gm TOPIC PRN (16:30)
[2017-02-19] MEDS: Montelukast 10mg tablet ORAL SCH (16:45)
[2017-02-19 17:05] LABS: INR 0.9 (0.9-1.1); PROTHROMBIN TIME 9.3 SEC (9.30-11.50)
[2017-02-19 18:23] LABS: BAND NEUTROPHILS % (MANUAL) 0 % (0-8); BASOPHILS % (MANUAL) 1 % (0-2); EOSINOPHILS % (MANUAL) 9 % (0-3); LYMPHOCYTES % (MANUAL) 26 % (20-45); NEUTROPHILS % (MANUAL) 58 % (45-75); PLATELET ESTIMATE ADEQUATE; TOTAL CELLS COUNTED 100
[2017-02-19 18:25] LABS: PLATELET MORPHOLOGY NORMAL
[2017-02-19 18:29] LABS: URIC ACID 3.8 MG/DL (2.6-7.2)
[2017-02-19 18:44] LABS: THYROID STIMULATING HORMONE 0.184 uIU/mL (0.300-4.500)
[2017-02-19 19:19] LABS: PATH BLOOD SMEAR/OMC SENT TO PATHOLOGIST
[2017-02-19 20:00] VITALS: BP 122/71
[2017-02-19] MEDS ORDERED: Milk of Magnesia 30ml Ud ORAL PRN (21:00)
--- NOTE | 2017-02-19 22:34 | General Progress Note ---
Assessment/Plan Assessment/Plan diabetes hypoglycemia chronic back pain COPD per Endo pain control respiratory treatment monito labs patient now agreeable to snf, son looking for places Subjective Allergies: Uncoded Allergies: electrodes (Allergy, Unknown, Itching, 02/19/17) Subjective feels weak but better Objective Last 24 Hour Vital Signs Date Time Temp Pulse Resp B/P Pulse Ox O2 Delivery O2 Flow Rate FiO2 02/19/17 20:39 98.4 02/19/17 20:00 98.4 96 18 122/71 98 Room Air 02/19/17 19:45 81 18 100 Room Air 02/19/17 19:44 81 18 98 Room Air 21 02/19/17 16:15 97.3 84 21 109/67 98 Room Air 02/19/17 13:53 89 18 100 Room Air 02/19/17 13:40 94 18 99 Room Air 21 02/19/17 08:00 97.6 95 20 121/72 98 Room Air 02/19/17 06:55 87 18 100 Room Air 02/19/17 06:45 87 18 97 Room Air 21 02/19/17 03:51 98.6 75 19 112/63 95 Room Air 02/19/17 01:42 88 18 98 Room Air 21 02/19/17 01:34 93 16 95 Room Air 21 02/18/17 23:51 97.7 83 18 106/68 94 Room Air Intake and Output 02/18/17 02/19/17 19:00 07:00 Intake Total 1100 ml Balance 1100 ml Intake Oral 1100 ml # Voids 1 5 Laboratory Tests 02/19/17 11:00: White Blood Count 4.6L, Red Blood Count 3.26L, Hemoglobin 10.5L, Hematocrit 32.4L, Mean Corpuscular Volume 99, Mean Corpuscular Hemoglobin 32.2H, Mean Corpuscular Hemoglobin Concent 32.4, Red Cell Distribution Width 12.8, Platelet Count 300, Mean Platelet Volume 6.2L, Neutrophils (%) (Auto) 53.0, Lymphocytes ( %) (Auto) 29.5, Monocytes (%) (Auto) 11.3H, Eosinophils (%) (Auto) 5.6H, Basophils (%) (Auto) 0.7, Differential Total Cells Counted 100, Neutrophils % ( Manual) 58, Lymphocytes % (Manual) 26, Monocytes % (Manual) 6, Eosinophils % ( Manual) 9H, Basophils % (Manual) 1, Band Neutrophils 0, Platelet Estimate Adequate, Platelet Morphology Normal, Sodium Level 142, Potassium Level 3.9, Chloride Level 99, Carbon Dioxide Level 30, Anion Gap 13, Blood Urea Nitrogen 10 , Creatinine 0.6, Estimat Glomerular Filtration Rate > 60, Glucose Level 159H, Calcium Level 10.2 02/19/17 11:30: Reticulocyte Count 0.4, Prothrombin Time 9.3, Prothromb Time International Ratio 0.9, Fibrinogen 430H, Uric Acid 3.8, Iron Level 107, Total Iron Binding Capacity 324, Percent Iron Saturation 33, Unsaturated Iron Binding 217, Ferritin 48, Carcinoembryonic Antigen 5.7H, Vitamin B12 Level 1367H, Thyroid Stimulating Hormone (TSH) 0.184L Height (Feet): 5 Height (Inches): 5.00 Weight (Pounds): 104 General Appearance: WD/WN Neck: supple Cardiovascular: normal rate Respiratory/Chest: lungs clear Abdomen: soft Neurologic: it lead II-XII grossly normal, alert CARLOS A MENDOZA February 19, 2017 22:34
[2017-02-20] VITALS: BP 125/68
[2017-02-20] MEDS: DuoNeb 0.5-3(2.5)mg/3ml neb HHN SCH ×4 (00:57→19:30)
[2017-02-20 04:00] VITALS: BP 110/69
[2017-02-20] MEDS: NovoLOG Insulin Flexpen SUBQ SCH ×7 (05:59→21:41)
[2017-02-20] MEDS: sitaGLIPtin 50mg tab ORAL SCH (06:02)
[2017-02-20] MEDS: Norco 5mg/325mg tab ORAL PRN ×2 (06:02→13:57)
--- NOTE | 2017-02-20 07:28 | General Progress Note ---
Assessment/Plan Problem List: (1) Diabetes mellitus out of control ICD Codes: E11.65 - Diabetes mellitus out of control SNOMED: 730210677 (2) Hypoglycemia ICD Codes: E16.2 - Hypoglycemia, unspecified SNOMED: 145218626 (3) Altered level of consciousness ICD Codes: R40.4 - Transient alteration of awareness SNOMED: 3282953 (4) Thyroid function study abnormality ICD Codes: R94.6 - Abnormal results of thyroid function studies SNOMED: 041769856 Assessment/Plan glycemic control improved without hypoglycemia - continue Levemir 6 units daily - continue Januvia 50 mg daily - continue Novolog sliding scale ac / hs low TSH, no hx of thyroid disease, most likely due to sick euthyroid - repeat TSH - check free T4 and free T3 - check TSI, ATPO Subjective Allergies: Uncoded Allergies: electrodes (Allergy, Unknown, Itching, 02/19/17) All Systems: reviewed and negative except above Subjective complaining of right flank pain appetite is good glycemic control improved Objective Last 24 Hour Vital Signs Date Time Temp Pulse Resp B/P Pulse Ox O2 Delivery O2 Flow Rate FiO2 02/20/17 04:00 97.7 74 20 110/69 99 Room Air 02/20/17 00:58 85 18 98 Room Air 21 02/20/17 00:58 78 18 100 Room Air 02/20/17 00:00 98.3 93 20 125/68 99 Room Air 02/19/17 20:39 98.4 02/19/17 20:00 98.4 96 18 122/71 98 Room Air 02/19/17 19:45 81 18 100 Room Air 02/19/17 19:44 81 18 98 Room Air 21 02/19/17 16:15 97.3 84 21 109/67 98 Room Air 02/19/17 13:53 89 18 100 Room Air 02/19/17 13:40 94 18 99 Room Air 21 02/19/17 08:00 97.6 95 20 121/72 98 Room Air Intake and Output 02/19/17 02/20/17 19:00 07:00 Intake Total 470 ml 680 ml Balance 470 ml 680 ml Intake Oral 470 ml 680 ml # Voids 3 4 Laboratory Tests 02/19/17 11:00: White Blood Count 4.6L, Red Blood Count 3.26L, Hemoglobin 10.5L, Hematocrit 32.4L, Mean Corpuscular Volume 99, Mean Corpuscular Hemoglobin 32.2H, Mean Corpuscular Hemoglobin Concent 32.4, Red Cell Distribution Width 12.8, Platelet Count 300, Mean Platelet Volume 6.2L, Neutrophils (%) (Auto) 53.0, Lymphocytes ( %) (Auto) 29.5, Monocytes (%) (Auto) 11.3H, Eosinophils (%) (Auto) 5.6H, Basophils (%) (Auto) 0.7, Differential Total Cells Counted 100, Neutrophils % ( Manual) 58, Lymphocytes % (Manual) 26, Monocytes % (Manual) 6, Eosinophils % ( Manual) 9H, Basophils % (Manual) 1, Band Neutrophils 0, Platelet Estimate Adequate, Platelet Morphology Normal, Sodium Level 142, Potassium Level 3.9, Chloride Level 99, Carbon Dioxide Level 30, Anion Gap 13, Blood Urea Nitrogen 10 , Creatinine 0.6, Estimat Glomerular Filtration Rate > 60, Glucose Level 159H, Calcium Level 10.2 02/19/17 11:30: Reticulocyte Count 0.4, Prothrombin Time 9.3, Prothromb Time International Ratio 0.9, Fibrinogen 430H, Uric Acid 3.8, Iron Level 107, Total Iron Binding Capacity 324, Percent Iron Saturation 33, Unsaturated Iron Binding 217, Ferritin 48, Carcinoembryonic Antigen 5.7H, Vitamin B12 Level 1367H, Thyroid Stimulating Hormone (TSH) 0.184L Height (Feet): 5 Height (Inches): 5.00 Weight (Pounds): 104 General Appearance: no apparent distress Neck: normal alignment Cardiovascular: normal rate Respiratory/Chest: lungs clear Abdomen: normal bowel sounds Edema: no edema noted Arm (L), no edema noted Arm (R), no edema noted Leg (L), no edema noted Leg (R), no edema noted Pedal (L), no edema noted Pedal (R), no edema noted Generalized Objective Current Medications Medications (Trade) Dose Ordered Sig/Sarahi Route PRN Reason Start Time Stop Time Status Last Admin Dose Admin Acetaminophen/ Hydrocodone Bitart ([place] 5/325) 1 tab Q4H PRN ORAL Moderate Pain (Pain Scale 4-6) 02/19/17 12:00 02/26/17 11:59 02/20/17 06:02 Albuterol/ Ipratropium (DuoNeb 0.5-3(2.5)mg/3ml) 3 ml Q4H PRN HHN Shortness of Breath 02/19/17 12:00 02/24/17 11:59 Albuterol/ Ipratropium (DuoNeb 0.5-3(2.5)mg/3ml) 3 ml Q6HRT HHN 02/19/17 13:00 02/24/17 12:59 02/20/17 00:57 Aspirin (ASA) 81 mg DAILY ORAL 02/20/17 09:00 03/22/17 08:59 Dextrose (Dextrose 50%) STAT PRN IV Hypoglycemia 02/19/17 12:00 03/21/17 11:59 Diphenhydramine HCl (Benadryl) 25 mg Q6H PRN ORAL Itching 02/19/17 11:15 03/21/17 11:14 02/20/17 06:00 Heparin Sodium (Porcine) (Heparin 5000 units/ml) 5,000 units EVERY 12 HOURS SUBQ 02/19/17 21:00 03/21/17 20:59 02/19/17 20:53 Hydrocortisone (Hydrocortisone) 1 applic Q6H PRN TOPIC Itching 02/19/17 11:30 03/21/17 11:29 02/19/17 16:30 Insulin Aspart (NovoLOG) BEFORE MEALS AND HS SUBQ 02/19/17 12:30 03/21/17 12:29 02/20/17 06:00 Insulin Aspart (NovoLOG) 5 units NOVOTIAC SUBQ 02/19/17 11:50 03/21/17 11:49 02/20/17 05:59 Insulin Detemir (Levemir) 6 units DAILY SUBQ 02/20/17 09:00 03/22/17 08:59 Levetiracetam (Keppra) 500 mg Q12HR ORAL 02/19/17 21:00 03/21/17 20:59 02/19/17 20:53 Lidocaine (Lidoderm 5% PATCH) 1 patch DAILY TDERMAL 02/20/17 09:00 03/22/17 08:59 Magnesium Hydroxide (Mom) 30 ml HSPRN PRN ORAL Constipation 02/19/17 21:00 03/21/17 20:59 Meclizine HCl (Antivert) 25 mg Q8H PRN ORAL for dizziness 02/19/17 12:00 03/21/17 11:59 Montelukast Sodium (Singulair) 10 mg DAILY@1800 ORAL 02/19/17 18:00 03/21/17 17:59 02/19/17 16:45 Pravastatin Sodium (Pravachol) 40 mg BEDTIME ORAL 02/19/17 21:00 03/21/17 20:59 02/19/17 20:54 Promethazine HCl/ Codeine (Phenergan with Codeine) 5 ml Q4H PRN ORAL For Cough 02/19/17 12:00 03/21/17 11:59 Sitagliptin Phosphate (Januvia) 50 mg ACBREAKFAST ORAL 02/20/17 06:30 03/22/17 06:29 02/20/17 06:02 Tiotropium [place] (Spiriva Inhaler) 1 puff DAILY INH 02/20/17 09:00 03/22/17 08:59 Item Value Date Time Bedside Blood Glucose 122 mg/dl H 02/20/17 0631 Bedside Blood Glucose 207 mg/dl H 02/19/17 2109 Bedside Blood Glucose 88 mg/dl 02/19/17 1626 Bedside Blood Glucose 127 mg/dl H 02/19/17 1230 Bedside Blood Glucose 108 mg/dl 02/19/17 0943 Bedside Blood Glucose 108 mg/dl 02/19/17 0630 CHE ALLEN February 20, 2017 07:28
[2017-02-20 08:21] VITALS: BP 108/59
[2017-02-20] MEDS: Aspirin Baby 81mg ORAL SCH (09:02)
[2017-02-20] MEDS: Heparin 5000 units/ml inj SUBQ SCH ×2 (09:04→21:42)
[2017-02-20] MEDS: Levemir Flexpen SUBQ SCH (09:05)
[2017-02-20 10:58] LABS: THYROID STIMULATING HORMONE 0.14 uIU/mL (0.300-4.500)
[2017-02-20 12:04] VITALS: BP 107/71
[2017-02-20] MEDS: Hydrocortisone 1% Cr 15gm TOPIC PRN (12:53)
--- NOTE | 2017-02-20 13:13 | Neurology Progress Note ---
Interim History Interim History Interim History Ms. Whittington feels better. She is less light headed today. She is able to walk better. The mind is clearer. She denies any new neurologic symptoms. Review of Systems Neuro Review of Systems Benign. Objective Physical Exam Last Vital Signs Date Time Temp Pulse Resp B/P Pulse Ox O2 Delivery O2 Flow Rate FiO2 02/20/17 12:04 98.2 68 20 107/71 100 Room Air 02/20/17 10:03 21 Laboratory Tests Test 02/20/17 09:27 Thyroid Stimulating Hormone (TSH) 0.140 uIU/mL (0.300-4.500) Free Thyroxine 1.06 ng/dL (0.86-1.85) Free Triiodothyronine Pending Thyroid Stimulating Immunoglobulin Pending Neurologic Exam Objective PHYSICAL EXAMINATION: GENERAL: She is a well-developed, well-nourished but lean black lady, lying in bed, in no acute distress. HEAD: Normocephalic and atraumatic. NECK: No neck rigidity was observed. EENT: Benign. NEUROLOGICAL EXAMINATION: MENTAL STATUS EXAMINATION: She was alert and awake. She was oriented to person, place, and time except for the exact date. She was able to recall 3/3 words immediately after 1 minute, and after 3 minutes on the second trial. She was able to remember presidents Trump and Obama only. Her mathematical skills were fairly good. Her visuospatial function was preserved. SPEECH: She had a mild dysarthria, but it should be noted that numerous teeth were missing. LANGUAGE: She had no aphasia. CRANIAL NERVE EXAMINATION: II: The visual kearney were intact on confrontation testing. III, IV, : The external ocular movements were full, and the pupils 3 mm in diameter, equal, round, regular, and reactive to light. V: She had normal facial sensations, and the temporales, masseters, and pterygoids functioned normally. VII: She had a trace right 7th central facial paresis. VIII: She was able to hear well bilaterally and had no nystagmus. IX: The palate moved symmetrically on phonation. X: She had no hoarseness of voice. XI: The sternocleidomastoids and trapezii functioned normally. XII: The tongue was in the midline, without any fasciculations or atrophy. MOTOR SYSTEM: The tone was normal in all 4 extremities. Examination of muscle mass revealed no focal wasting. Examination of power revealed G 5/5 power, except for G 5-/5 power in the right finger extensors and right iliopsoas;. SENSORY EXAMINATION: She had intact sensations to pinprick, light touch, and graphesthesia. COORDINATION: She performed well on [id number] testing. She had problems performing [id number] testing. REFLEXES: 2+ and bilaterally symmetrical at the biceps, triceps, brachioradialis , and knees; trace positive at both ankles. The plantar responses were flexor bilaterally. STANCE: She needed contact guard to stand. GAIT: She walked with a mildly ataxic gait with contact guard. Her gait was significantly better. Impression/Recommendations Diagnostic Impression 1. Ms. Alyssa Whittington is a 66-year-old, right-handed, black lady, who does have a past history of hypertension, diabetes mellitus, dyslipidemia, coronary artery disease, congestive heart failure, chronic obstructive pulmonary disease , and cerebrovascular disease with a prior stroke, and prior episodes of loss of consciousness. She was seen by Dr. Horner at his office on 02/17/17 and was feeling ill. Her blood sugars were in the 500s and she was given insulin but her blood sugar then dropped and she felt like she was becoming hypoglycemic. The paramedics were called in and she was brought to the [facility] ER and has since been admitted. 2. She continues to improve and feels better. She is less light headed and steadier on her feet. 3. On neurological examination at this time, she does have problems with recent and remote memory, a mild dysarthria, a mild right hemiparesis involving the face, upper and lower extremities, and an unsteady gait. 4. The patients altered mental state and gait unsteadiness is most probably due to a metabolic encephalopathy. Her encephalopathy is improving. Recommendations 1. Continue present management. 2. Correct toxic metabolic imbalances. 3. Observe closely. 4. Mobilize rapidly. DANNIELLE KEMP M.D., M.S.P.H. DANNIELLE KEMP February 20, 2017 13:13
[2017-02-20 15:50] VITALS: BP 114/65
--- NOTE | 2017-02-20 17:00 | General Progress Note ---
Assessment/Plan Assessment/Plan Assessment and Recs: #. Anemia secondary to chronic disease - anemia w/u has been sent including tsh , b12, folate, ferritin, retic, iron panel, peripheral smear, cea, currently is pending as well as occult blood of the stool #. Leukopenia - potentially 2/2 infection, will need to closely monitor, evaluate for infection, also peripheral smear ordered, current ANC >2000 # Hypertension # Diabetes mellitus # Dyslipidemia # Coronary artery disease # Congestive heart failure # Chronic obstructive pulmonary disease # Cerebrovascular disease with a prior stroke # Hyperglycemia Romero Snow M.D. February 19, 2017 16:19 Subjective Constitutional: Reports: no symptoms HEENT: Reports: no symptoms Cardiovascular: Reports: no symptoms Respiratory: Reports: no symptoms Gastrointestinal/Abdominal: Reports: no symptoms Genitourinary: Reports: no symptoms Neurologic/Psychiatric: Reports: no symptoms Endocrine: Reports: no symptoms Allergies: Uncoded Allergies: electrodes (Allergy, Unknown, Itching, 02/19/17) Objective Last 24 Hour Vital Signs Date Time Temp Pulse Resp B/P Pulse Ox O2 Delivery O2 Flow Rate FiO2 02/20/17 15:50 97.0 90 20 114/65 99 Room Air 02/20/17 13:10 76 18 99 Room Air 02/20/17 13:03 74 14 99 Room Air 21 02/20/17 12:04 98.2 68 20 107/71 100 Room Air 02/20/17 10:03 78 18 98 Room Air 02/20/17 10:03 76 16 98 Room Air 21 02/20/17 08:27 80 18 100 Room Air 02/20/17 08:21 97.9 89 20 108/59 100 Room Air 02/20/17 08:19 86 16 98 Room Air 21 02/20/17 04:00 97.7 74 20 110/69 99 Room Air 02/20/17 00:58 85 18 98 Room Air 21 02/20/17 00:58 78 18 100 Room Air 02/20/17 00:00 98.3 93 20 125/68 99 Room Air 02/19/17 20:39 98.4 02/19/17 20:00 98.4 96 18 122/71 98 Room Air 02/19/17 19:45 81 18 100 Room Air 02/19/17 19:44 81 18 98 Room Air 21 Intake and Output 02/19/17 02/20/17 19:00 07:00 Intake Total 470 ml 680 ml Balance 470 ml 680 ml Intake Oral 470 ml 680 ml # Voids 3 4 Laboratory Tests 02/20/17 09:27: Thyroid Stimulating Hormone (TSH) 0.140L, Free Thyroxine 1.06, Free Triiodothyronine [Pending], Thyroid Stimulating Immunoglobulin [Pending] Height (Feet): 5 Height (Inches): 5.00 Weight (Pounds): 104 General Appearance: alert EENT: TMs normal Neck: supple Cardiovascular: normal rate Respiratory/Chest: lungs clear Abdomen: soft Pelvis: no masses Extremities: non-tender Edema: no edema noted Arm (L), no edema noted Arm (R), no edema noted Leg (L), no edema noted Leg (R), no edema noted Pedal (L), no edema noted Pedal (R), no edema noted Generalized Neurologic: alert Skin: warm/dry Lymphatic: normal anterior cervical (L), normal anterior cervical (R), normal axillary (L), normal axillary (R), normal inguinal (L), normal inguinal (R), normal other, normal posterior cervical (L), normal posterior cervical (R), normal submandibular (L), normal submandibular (R), normal supraclavicular (L), normal supraclavicular (R) JULIUS BRAGG February 20, 2017 17:00
[2017-02-20] MEDS: Montelukast 10mg tablet ORAL SCH (18:05)
[2017-02-20] MEDS: Morphine Sulfate 4mg/ml Inj IM PRN ×2 (18:23→22:34)
[2017-02-20 20:00] VITALS: BP 109/71
--- NOTE | 2017-02-20 22:43 | Pulmonology Progress Note ---
Assessment/Plan Problems: (1) Hypoglycemia (2) End stage COPD (3) Severe protein-calorie malnutrition (4) HTN (hypertension) Assessment/Plan endo consult appreciated bs better titrate fio2 to sat of 92% med/surg h/h dropping stool for OB, hem evaluation Subjective Allergies: Uncoded Allergies: electrodes (Allergy, Unknown, Itching, 02/19/17) Objective Last 24 Hour Vital Signs Date Time Temp Pulse Resp B/P Pulse Ox O2 Delivery O2 Flow Rate FiO2 02/20/17 20:00 97.5 86 20 109/71 100 Room Air 02/20/17 19:34 64 18 100 Room Air 21 02/20/17 19:28 99 20 97 Room Air 21 02/20/17 15:50 97.0 90 20 114/65 99 Room Air 02/20/17 13:10 76 18 99 Room Air 02/20/17 13:03 74 14 99 Room Air 21 02/20/17 12:04 98.2 68 20 107/71 100 Room Air 02/20/17 10:03 78 18 98 Room Air 02/20/17 10:03 76 16 98 Room Air 21 02/20/17 08:27 80 18 100 Room Air 02/20/17 08:21 97.9 89 20 108/59 100 Room Air 02/20/17 08:19 86 16 98 Room Air 02/20/17 04:00 97.7 74 20 110/69 99 Room Air 02/20/17 00:58 85 18 98 Room Air 02/20/17 00:58 78 18 100 Room Air 02/20/17 00:00 98.3 93 20 125/68 99 Room Air Intake and Output 02/19/17 02/20/17 19:00 07:00 Intake Total 470 ml 680 ml Balance 470 ml 680 ml Intake Oral 470 ml 680 ml # Voids 3 4 Laboratory Tests 02/20/17 09:27: Thyroid Stimulating Hormone (TSH) 0.140L, Free Thyroxine 1.06, Free Triiodothyronine [Pending], Thyroid Stimulating Immunoglobulin [Pending] Current Medications Medications (Trade) Dose Ordered Sig/Sarahi Route PRN Reason Start Time Stop Time Status Last Admin Dose Admin Acetaminophen/ Hydrocodone Bitart ([place] 5/325) 1 tab Q4H PRN ORAL Moderate Pain (Pain Scale 4-6) 02/19/17 12:00 02/26/17 11:59 02/20/17 13:57 Albuterol/ Ipratropium (DuoNeb 0.5-3(2.5)mg/3ml) 3 ml Q4H PRN HHN Shortness of Breath 02/19/17 12:00 02/24/17 11:59 Albuterol/ Ipratropium (DuoNeb 0.5-3(2.5)mg/3ml) 3 ml Q6HRT HHN 02/19/17 13:00 02/24/17 12:59 02/20/17 19:30 Aspirin (ASA) 81 mg DAILY ORAL 02/20/17 09:00 03/22/17 08:59 02/20/17 09:02 Dextrose (Dextrose 50%) STAT PRN IV Hypoglycemia 02/19/17 12:00 03/21/17 11:59 Diphenhydramine HCl (Benadryl) 25 mg Q6H PRN ORAL Itching 02/19/17 11:15 03/21/17 11:14 02/20/17 06:00 Heparin Sodium (Porcine) (Heparin 5000 units/ml) 5,000 units EVERY 12 HOURS SUBQ 02/19/17 21:00 03/21/17 20:59 02/20/17 21:42 Hydrocortisone (Hydrocortisone) 1 applic Q6H PRN TOPIC Itching 02/19/17 11:30 03/21/17 11:29 02/20/17 12:53 Insulin Aspart (NovoLOG) BEFORE MEALS AND HS SUBQ 02/19/17 12:30 03/21/17 12:29 02/20/17 21:41 Insulin Aspart (NovoLOG) 5 units NOVOTIAC SUBQ 02/19/17 11:50 03/21/17 11:49 02/20/17 12:49 Insulin Detemir (Levemir) 6 units DAILY SUBQ 02/20/17 09:00 03/22/17 08:59 02/20/17 09:05 Levetiracetam (Keppra) 500 mg Q12HR ORAL 02/19/17 21:00 03/21/17 20:59 02/20/17 21:38 Lidocaine (Lidoderm 5% PATCH) 1 patch DAILY TDERMAL 02/20/17 09:00 03/22/17 08:59 02/20/17 09:13 Magnesium Hydroxide (Mom) 30 ml HSPRN PRN ORAL Constipation 02/19/17 21:00 03/21/17 20:59 Meclizine HCl (Antivert) 25 mg Q8H PRN ORAL for dizziness 02/19/17 12:00 03/21/17 11:59 Montelukast Sodium (Singulair) 10 mg DAILY@1800 ORAL 02/19/17 18:00 03/21/17 17:59 02/20/17 18:05 Morphine Sulfate (Morphine Sulfate) 4 mg Q4H PRN IM Severe Pain (Pain Scale 7-10) 02/20/17 15:15 02/27/17 15:14 02/20/17 22:34 Pravastatin Sodium (Pravachol) 40 mg BEDTIME ORAL 02/19/17 21:00 03/21/17 20:59 02/20/17 21:38 Promethazine HCl/ Codeine (Phenergan with Codeine) 5 ml Q4H PRN ORAL For Cough 02/19/17 12:00 03/21/17 11:59 Sitagliptin Phosphate (Januvia) 50 mg ACBREAKFAST ORAL 02/20/17 06:30 03/22/17 06:29 02/20/17 06:02 Tiotropium [place] (Spiriva Inhaler) 1 puff DAILY INH 02/20/17 09:00 03/22/17 08:59 02/20/17 10:03 GREG CHAVEZ February 20, 2017 22:43
[2017-02-21] VITALS (8 sets, daily range): BP systolic 101–119; BP diastolic 64–75
--- NOTE | 2017-02-21 00:06 | General Progress Note ---
Assessment/Plan Assessment/Plan diabetes hypoglycemia chronic back pain COPD abdominal pain per Endo pain control respiratory treatment monitor labs gi evaluation patient now agreeable to snf, son looking for places Subjective Allergies: Uncoded Allergies: electrodes (Allergy, Unknown, Itching, 02/19/17) Subjective feels weak but better co abdominal pain po bm some nausea Objective Last 24 Hour Vital Signs Date Time Temp Pulse Resp B/P Pulse Ox O2 Delivery O2 Flow Rate FiO2 02/20/17 20:00 97.5 86 20 109/71 100 Room Air 02/20/17 19:34 64 18 100 Room Air 21 02/20/17 19:28 99 20 97 Room Air 21 02/20/17 15:50 97.0 90 20 114/65 99 Room Air 02/20/17 13:10 76 18 99 Room Air 02/20/17 13:03 74 14 99 Room Air 02/20/17 12:04 98.2 68 20 107/71 100 Room Air 02/20/17 10:03 78 18 98 Room Air 02/20/17 10:03 76 16 98 Room Air 02/20/17 08:27 80 18 100 Room Air 02/20/17 08:21 97.9 89 20 108/59 100 Room Air 02/20/17 08:19 86 16 98 Room Air 02/20/17 04:00 97.7 74 20 110/69 99 Room Air 02/20/17 00:58 85 18 98 Room Air 02/20/17 00:58 78 18 100 Room Air Intake and Output 02/20/17 02/21/17 19:00 07:00 Intake Total 720 ml Balance 720 ml Intake Oral 720 ml # Voids 3 Laboratory Tests 02/20/17 09:27: Thyroid Stimulating Hormone (TSH) 0.140L, Free Thyroxine 1.06, Free Triiodothyronine [Pending], Thyroid Stimulating Immunoglobulin [Pending] Height (Feet): 5 Height (Inches): 5.00 Weight (Pounds): 104 General Appearance: WD/WN, no apparent distress Neck: supple Cardiovascular: normal rate Respiratory/Chest: lungs clear Abdomen: normal bowel sounds, soft CARLOS A MENDOZA February 21, 2017 00:06
[2017-02-21] MEDS: DuoNeb 0.5-3(2.5)mg/3ml neb HHN SCH ×4 (01:21→19:39)
[2017-02-21] MEDS: sitaGLIPtin 50mg tab ORAL SCH (06:11)
[2017-02-21] MEDS: NovoLOG Insulin Flexpen SUBQ SCH ×7 (06:16→21:00)
[2017-02-21] MEDS: Morphine Sulfate 4mg/ml Inj IM PRN (08:02)
[2017-02-21] MEDS: Levemir Flexpen SUBQ SCH (09:00)
[2017-02-21] MEDS: Aspirin Baby 81mg ORAL SCH (09:06)
[2017-02-21] MEDS: Heparin 5000 units/ml inj SUBQ SCH ×2 (09:07→21:52)
[2017-02-21] MEDS ORDERED: Morphine Sulfate 4mg/ml Inj IVP PRN (10:00)
--- NOTE | 2017-02-21 10:54 | Neurology Progress Note ---
Interim History Interim History Interim History Ms. Whittington feels better generally. She just got back from a walk and feels a little light headed. She is able to walk better. The mind is clearer. She denies any new neurologic symptoms. Review of Systems Neuro Review of Systems Benign. Objective Physical Exam Last Vital Signs Date Time Temp Pulse Resp B/P Pulse Ox O2 Delivery O2 Flow Rate FiO2 02/21/17 08:55 109 18 95 Room Air 02/21/17 07:22 21 02/21/17 06:00 97.9 101/70 Neurologic Exam Objective PHYSICAL EXAMINATION: GENERAL: She is a well-developed, well-nourished but lean black lady, lying in bed, in no acute distress. HEAD: Normocephalic and atraumatic. NECK: No neck rigidity was observed. EENT: Benign. NEUROLOGICAL EXAMINATION: MENTAL STATUS EXAMINATION: She was alert and awake. She was oriented to person, place, and time. She was able to recall 3/3 words immediately after 1 minute, and after 3 minutes on the second trial. She was able to remember presidents Trump and Obama only. Her mathematical skills were fairly good. Her visuospatial function was preserved. SPEECH: She had a mild dysarthria, but it should be noted that numerous teeth were missing. LANGUAGE: She had no aphasia. CRANIAL NERVE EXAMINATION: II: The visual kearney were intact on confrontation testing. III, IV, : The external ocular movements were full, and the pupils 3 mm in diameter, equal, round, regular, and reactive to light. V: She had normal facial sensations, and the temporales, masseters, and pterygoids functioned normally. VII: She had a trace right 7th central facial paresis. VIII: She was able to hear well bilaterally and had no nystagmus. IX: The palate moved symmetrically on phonation. X: She had no hoarseness of voice. XI: The sternocleidomastoids and trapezii functioned normally. XII: The tongue was in the midline, without any fasciculations or atrophy. MOTOR SYSTEM: The tone was normal in all 4 extremities. Examination of muscle mass revealed no focal wasting. Examination of power revealed G 5/5 power, except for G 5-/5 power in the right finger extensors and right iliopsoas;. SENSORY EXAMINATION: She had intact sensations to pinprick, light touch, and graphesthesia. COORDINATION: She performed well on [id number] testing. She had problems performing [id number] testing. REFLEXES: 2+ and bilaterally symmetrical at the biceps, triceps, brachioradialis , and knees; trace positive at both ankles. The plantar responses were flexor bilaterally. STANCE: She needed contact guard to stand. GAIT: She walked with a mildly ataxic gait with contact guard. Her gait was significantly better. Impression/Recommendations Diagnostic Impression 1. Ms. Alyssa Whittington is a 66-year-old, right-handed, black lady, who does have a past history of hypertension, diabetes mellitus, dyslipidemia, coronary artery disease, congestive heart failure, chronic obstructive pulmonary disease , and cerebrovascular disease with a prior stroke, and prior episodes of loss of consciousness. She was seen by Dr. Horner at his office on 02/17/17 and was feeling ill. Her blood sugars were in the 500s and she was given insulin but her blood sugar then dropped and she felt like she was becoming hypoglycemic. The paramedics were called in and she was brought to the [facility] and has since been admitted. 2. She continues to improve and feels better. She however is a little more light headed following a walk. She conttinues to be steadier on her feet. 3. On neurological examination at this time, she does have problems with recent and remote memory, a mild dysarthria, a mild right hemiparesis involving the face, upper and lower extremities, and an unsteady gait. 4. The patients altered mental state and gait unsteadiness is most probably due to a metabolic encephalopathy. Her encephalopathy is improving. Recommendations 1. Continue present management. 2. Correct toxic metabolic imbalances. 3. Observe closely. 4. Mobilize rapidly. DANNIELLE KEMP M.D., M.S.P.H. DANNIELLE KEMP February 21, 2017 10:54
--- NOTE | 2017-02-21 13:39 | General Progress Note ---
Assessment/Plan Assessment/Plan #. Anemia secondary to iron deficiency - begin on iv iron treatment today #. Leukopenia - potentially 2/2 infection, will need to closely monitor, evaluate for infection, also peripheral smear ordered, current ANC >2000 # Hypertension # Diabetes mellitus # Dyslipidemia # Coronary artery disease # Congestive heart failure # Chronic obstructive pulmonary disease # Cerebrovascular disease with a prior stroke # Hyperglycemia Subjective Constitutional: Reports: no symptoms HEENT: Reports: no symptoms Cardiovascular: Reports: no symptoms Respiratory: Reports: no symptoms Gastrointestinal/Abdominal: Reports: poor appetite Genitourinary: Reports: no symptoms Neurologic/Psychiatric: Reports: no symptoms Endocrine: Reports: no symptoms Hematologic/Lymphatic: Reports: anemia Allergies: Uncoded Allergies: electrodes (Allergy, Unknown, Itching, 02/19/17) Subjective stable, no events overnight, no fevers or chills Objective Last 24 Hour Vital Signs Date Time Temp Pulse Resp B/P Pulse Ox O2 Delivery O2 Flow Rate FiO2 02/21/17 12:50 117 20 97 Room Air 02/21/17 12:50 21 02/21/17 12:50 117 20 98 Room Air 02/21/17 12:00 97.5 83 18 119/66 96 Room Air 02/21/17 08:55 109 18 95 Room Air 02/21/17 08:54 109 18 95 Room Air 02/21/17 08:00 96.7 100 18 114/75 98 Room Air 02/21/17 07:22 112 15 98 Room Air 02/21/17 07:12 21 02/21/17 07:12 111 15 97 Room Air 02/21/17 06:00 97.9 87 20 101/70 97 Room Air 02/21/17 04:00 97.9 87 20 101/70 Room Air 02/21/17 01:28 85 15 98 Room Air 02/21/17 01:22 21 02/21/17 01:21 86 15 98 Room Air 02/21/17 00:00 98.1 89 20 109/64 97 Room Air 02/20/17 20:00 97.5 86 20 109/71 100 Room Air 02/20/17 19:34 64 18 100 Room Air 21 02/20/17 19:28 99 20 97 Room Air 02/20/17 15:50 97.0 90 20 114/65 99 Room Air Intake and Output 02/20/17 02/21/17 19:00 07:00 Intake Total 720 ml 120 ml Balance 720 ml 120 ml Intake Oral 720 ml 120 ml # Voids 3 1 Height (Feet): 5 Height (Inches): 5.00 Weight (Pounds): 104 General Appearance: alert EENT: normal ENT inspection Neck: supple Cardiovascular: normal rate Respiratory/Chest: lungs clear Abdomen: soft Extremities: normal range of motion Edema: mild edema Neurologic: alert Skin: normal pigmentation Vincent Jasso February 21, 2017 13:39
--- NOTE | 2017-02-21 16:49 | Consultation ---
DATE OF CONSULTATION: 02/11/2017 GASTROENTEROLOGY CONSULTATION CHIEF COMPLAINT: Anemia and abdominal pain. HISTORY OF PRESENT ILLNESS: This is a very pleasant unfortunate 66-year-old female with multiple medical problems and history of polysubstance abuse. Apparently recently, she was discharged from [facility], after having seizures. Currently, the patient was at rehabilitation was brought by the family after the patient was very weak. According to the patient, she has had history of total colectomy many years ago. Since then, every time she eats she has loose stools. Denies any gastrointestinal bleeding. No nausea. No vomiting. No dysphagia. No odynophagia. PAST MEDICAL HISTORY: 1. Diabetes. 2. History of polysubstance abuse. 3. Chronic obstructive pulmonary disease. 4. Asthma. 5. Hypertension. 6. History of CVA. 7. History of psychiatric disorder. 8. Seizure disorder. PAST SURGICAL HISTORY: The patient had total colectomy. MEDICATIONS: Please see medication reconciliation list. ALLERGIES: No known drug allergies. SOCIAL HISTORY: The patient has a prior history of polysubstance abuse. There is no recent history of alcohol, tobacco, or IV drug abuse. FAMILY HISTORY: Noncontributory. REVIEW OF SYSTEMS: A 10-point review of system was performed and pertinent positives in history of present illness. PHYSICAL EXAMINATION: GENERAL: Mildly cachectic looking female, in no acute distress. VITAL SIGNS: Temperature 97.9 degrees, pulse 87, respiratory rate 20, and blood pressure . HEENT: Normocephalic and atraumatic. Sclerae anicteric. NECK: Supple. No lymphadenopathy. CARDIOVASCULAR: Regular rhythm. Plus S1 and S2. LUNGS: Decreased breath sounds bilaterally based on the supine exam. ABDOMEN: Soft. There is a minimal tenderness to palpation in the epigastric area. No rebound. No guarding. No peritoneal sign. EXTREMITIES: No cyanosis. No clubbing. No edema. LABORATORY DATA: White count is 12.6, hemoglobin 10.5, hematocrit 32, and platelet count is 300,000. Chem-7 grossly normal. ASSESSMENT AND PLAN: This is a 66-year-old female with prior history of total colectomy, admitted in the hospital with weakness, was found to be having a normocytic anemia without any obvious gastrointestinal bleeding and also some epigastric abdominal pain of unknown etiology. Given significant weight loss, we will plan to get a CT of the abdomen and pelvis with contrast for evaluation of malignancy. The patient also had one elevated CEA. Meanwhile, follow laboratories, anemia workup, and as I mentioned, we are going to order CT and follow results. I want to thank, Dr. Ravindra Horner, for this kind referral. Jc Haney M.D. DR: MEY JOB#: [id number] CC: Ravindra Horner M.D.; Fax#: [phone]
[2017-02-21] MEDS: Montelukast 10mg tablet ORAL SCH (17:34)
[2017-02-21] MEDS: Iron Sucrose 100 MG in NS 55 ML IVPB SCH (21:44)
--- NOTE | 2017-02-21 22:16 | Pulmonology Progress Note ---
Assessment/Plan Problems: (1) Hypoglycemia (2) End stage COPD (3) Severe protein-calorie malnutrition (4) HTN (hypertension) Assessment/Plan endo consult appreciated bs better titrate fio2 to sat of 92% med/surg h/h dropping stool for OB, hem evaluation Subjective Allergies: Uncoded Allergies: electrodes (Allergy, Unknown, Itching, 02/19/17) Objective Last 24 Hour Vital Signs Date Time Temp Pulse Resp B/P Pulse Ox O2 Delivery O2 Flow Rate FiO2 02/21/17 20:00 97.0 93 18 112/72 100 Room Air 02/21/17 19:50 92 18 98 Room Air 02/21/17 19:41 95 20 96 Room Air 21 02/21/17 19:41 21 02/21/17 16:00 98.4 93 21 113/67 Room Air 02/21/17 12:50 117 20 97 Room Air 02/21/17 12:50 21 02/21/17 12:50 117 20 98 Room Air 02/21/17 12:00 97.5 83 18 119/66 96 Room Air 02/21/17 08:55 109 18 95 Room Air 02/21/17 08:54 109 18 95 Room Air 02/21/17 08:00 96.7 100 18 114/75 98 Room Air 02/21/17 07:22 112 15 98 Room Air 02/21/17 07:12 21 02/21/17 07:12 111 15 97 Room Air 02/21/17 06:00 97.9 87 20 101/70 97 Room Air 02/21/17 04:00 97.9 87 20 101/70 Room Air 02/21/17 01:28 85 15 98 Room Air 02/21/17 01:22 21 02/21/17 01:21 86 15 98 Room Air 02/21/17 00:00 98.1 89 20 109/64 97 Room Air Intake and Output 02/20/17 02/21/17 19:00 07:00 Intake Total 720 ml 120 ml Balance 720 ml 120 ml Intake Oral 720 ml 120 ml # Voids 3 1 Current Medications Medications (Trade) Dose Ordered Sig/Sarahi Route PRN Reason Start Time Stop Time Status Last Admin Dose Admin Acetaminophen/ Hydrocodone Bitart ([place] 5/325) 1 tab Q4H PRN ORAL Moderate Pain (Pain Scale 4-6) 02/19/17 12:00 02/26/17 11:59 02/20/17 13:57 Albuterol/ Ipratropium (DuoNeb 0.5-3(2.5)mg/3ml) 3 ml Q4H PRN HHN Shortness of Breath 02/19/17 12:00 02/24/17 11:59 Albuterol/ Ipratropium (DuoNeb 0.5-3(2.5)mg/3ml) 3 ml Q6HRT HHN 02/19/17 13:00 02/24/17 12:59 02/21/17 19:39 Aspirin (ASA) 81 mg DAILY ORAL 02/20/17 09:00 03/22/17 08:59 02/21/17 09:06 Dextrose (Dextrose 50%) STAT PRN IV Hypoglycemia 02/19/17 12:00 03/21/17 11:59 Diphenhydramine HCl 25 mg 25 mg Q6H PRN ORAL Itching 02/19/17 11:15 03/21/17 11:14 02/20/17 06:00 Heparin Sodium (Porcine) (Heparin 5000 units/ml) 5,000 units EVERY 12 HOURS SUBQ 02/19/17 21:00 03/21/17 20:59 02/21/17 21:52 Hydrocortisone (Hydrocortisone) 1 applic Q6H PRN TOPIC Itching 02/19/17 11:30 03/21/17 11:29 02/20/17 12:53 Insulin Aspart (NovoLOG) BEFORE MEALS AND HS SUBQ 02/19/17 12:30 03/21/17 12:29 02/21/17 17:35 Insulin Aspart (NovoLOG) 5 units NOVOTIAC SUBQ 02/19/17 11:50 03/21/17 11:49 02/20/17 12:49 Insulin Detemir (Levemir) 6 units DAILY SUBQ 02/20/17 09:00 03/22/17 08:59 02/20/17 09:05 Iron Sucrose/ Sodium Chloride (Venofer/Sodium Chloride) 60 ml @ 240 mls/hr BEDTIME IVPB 02/21/17 21:00 02/25/17 21:14 02/21/17 21:44 Levetiracetam (Keppra) 500 mg Q12HR ORAL 02/19/17 21:00 03/21/17 20:59 02/21/17 09:06 Lidocaine (Lidoderm 5% PATCH) 1 patch DAILY TDERMAL 02/20/17 09:00 03/22/17 08:59 02/21/17 09:07 Magnesium Hydroxide (Mom) 30 ml HSPRN PRN ORAL Constipation 02/19/17 21:00 03/21/17 20:59 Meclizine HCl (Antivert) 25 mg Q8H PRN ORAL for dizziness 02/19/17 12:00 03/21/17 11:59 Montelukast Sodium (Singulair) 10 mg DAILY@1800 ORAL 02/19/17 18:00 03/21/17 17:59 02/21/17 17:34 Morphine Sulfate (Morphine Sulfate) 4 mg Q4H PRN IVP Severe Pain (Pain Scale 7-10) 02/21/17 20:00 02/28/17 19:59 Ondansetron HCl (Zofran) 4 mg Q4H PRN IVP Nausea & Vomiting 02/21/17 14:00 03/23/17 13:59 02/21/17 20:33 Pravastatin Sodium (Pravachol) 40 mg BEDTIME ORAL 02/19/17 21:00 03/21/17 20:59 02/20/17 21:38 Promethazine HCl/ Codeine (Phenergan with Codeine) 5 ml Q4H PRN ORAL For Cough 02/19/17 12:00 03/21/17 11:59 Sitagliptin Phosphate (Januvia) 50 mg ACBREAKFAST ORAL 02/20/17 06:30 03/22/17 06:29 02/21/17 06:11 Tiotropium [place] (Spiriva Inhaler) 1 puff DAILY INH 02/20/17 09:00 03/22/17 08:59 02/21/17 08:54 GREG CHAVEZ February 21, 2017 22:16
--- NOTE | 2017-02-21 23:22 | General Progress Note ---
Assessment/Plan Assessment/Plan diabetes hypoglycemia chronic back pain COPD abdominal pain per Endo pain control respiratory treatment monitor labs gi evaluation appreciated patient now agreeable to snf, son looking for places Subjective Allergies: Uncoded Allergies: electrodes (Allergy, Unknown, Itching, 02/19/17) Subjective feels better overall still with abdominal pain Objective Last 24 Hour Vital Signs Date Time Temp Pulse Resp B/P Pulse Ox O2 Delivery O2 Flow Rate FiO2 02/21/17 20:00 97.0 93 18 112/72 100 Room Air 02/21/17 19:50 92 18 98 Room Air 02/21/17 19:41 95 20 96 Room Air 02/21/17 19:41 21 02/21/17 16:00 98.4 93 21 113/67 Room Air 02/21/17 12:50 117 20 97 Room Air 02/21/17 12:50 21 02/21/17 12:50 117 20 98 Room Air 02/21/17 12:00 97.5 83 18 119/66 96 Room Air 02/21/17 08:55 109 18 95 Room Air 02/21/17 08:54 109 18 95 Room Air 02/21/17 08:00 96.7 100 18 114/75 98 Room Air 02/21/17 07:22 112 15 98 Room Air 02/21/17 07:12 21 02/21/17 07:12 111 15 97 Room Air 02/21/17 06:00 97.9 87 20 101/70 97 Room Air 02/21/17 04:00 97.9 87 20 101/70 Room Air 02/21/17 01:28 85 15 98 Room Air 02/21/17 01:22 21 02/21/17 01:21 86 15 98 Room Air 02/21/17 00:00 98.1 89 20 109/64 97 Room Air Intake and Output 02/20/17 02/21/17 19:00 07:00 Intake Total 720 ml 120 ml Balance 720 ml 120 ml Intake Oral 720 ml 120 ml # Voids 3 1 Height (Feet): 5 Height (Inches): 5.00 Weight (Pounds): 104 Neck: supple Cardiovascular: normal rate Respiratory/Chest: lungs clear Abdomen: normal bowel sounds Edema: no edema noted Arm (L), no edema noted Arm (R), no edema noted Leg (L), no edema noted Leg (R), no edema noted Pedal (L), no edema noted Pedal (R), no edema noted Generalized CARLOS A MENDOZA February 21, 2017 23:22
[2017-02-22] MEDS: DuoNeb 0.5-3(2.5)mg/3ml neb HHN SCH ×4 (01:12→19:57)
[2017-02-22 04:00] VITALS: BP 114/66
[2017-02-22 06:30] LABS: MAGNESIUM 1.9 mg/dL (1.7-2.5); PHOSPHORUS 4.8 mg/dL (2.5-4.8)
[2017-02-22] MEDS: NovoLOG Insulin Flexpen SUBQ SCH ×5 (06:30→21:00)
[2017-02-22 06:34] LABS: ALANINE AMINOTRANSFERASE 18 U/L (3-33); ALBUMIN/GLOBULIN RATIO 1.1 (1.0-2.7); ANION GAP 16 (5-15); ASPARTATE AMINO TRANSFERASE 33 U/L (5-40); CALCIUM 10.3 mg/dL (8.6-10.2); CARBON DIOXIDE 25 mEQ/L (20-30); CHLORIDE 94 mEQ/L (98-107); CREATININE 0.8 mg/dL (0.5-0.9); GLOMERULAR FILTRATION RATE > 60 mL/min (>60); HEMOLYSIS 6; POTASSIUM 5.6 mEQ/L (3.4-4.9); SODIUM 135 mEQ/L (135-145); TOTAL PROTEIN 7.6 g/dL (6.6-8.7)
[2017-02-22] MEDS: sitaGLIPtin 50mg tab ORAL SCH (06:45)
[2017-02-22 07:09] LABS: BASOPHILS % (AUTO) 0.9 % (0.0-2.0); LYMPHOCYTES % (AUTO) 25.4 % (20.0-45.0); MEAN CORPUSCULAR HEMOGLOBIN 33.9 PG (27.0-31.0); MEAN CORPUSCULAR HGB CONC 34.3 G/DL (32.0-36.0); MEAN CORPUSCULAR VOLUME 99 FL (80-99); MEAN PLATELET VOLUME 6.7 FL (6.5-10.1); MONOCYTES % (AUTO) 7.5 % (1.0-10.0); NEUTROPHILS % (AUTO) 61.3 % (45.0-75.0); PLATELET COUNT 337 K/UL (150-450); RED BLOOD COUNT 3.69 M/UL (4.20-5.40); RED CELL DISTRIBUTION WIDTH 12.3 % (11.6-14.8); WHITE BLOOD COUNT 6.2 K/UL (4.8-10.8)
--- NOTE | 2017-02-22 08:06 | General Progress Note ---
Assessment/Plan Problem List: (1) Diabetes mellitus out of control ICD Codes: E11.65 - Diabetes mellitus out of control SNOMED: 521818890 (2) Hypoglycemia ICD Codes: E16.2 - Hypoglycemia, unspecified SNOMED: 787566960 (3) Altered level of consciousness ICD Codes: R40.4 - Transient alteration of awareness SNOMED: 5536170 (4) Thyroid function study abnormality ICD Codes: R94.6 - Abnormal results of thyroid function studies SNOMED: 942029938 Assessment/Plan glycemic control stable without hypoglycemia, oral intake is poor - continue Levemir 6 units daily - DC Novolog 5 units ac tid - continue Januvia 50 mg daily - continue Novolog sliding scale ac / hs low TSH, normal free T4 and free T3 no hx of thyroid disease, most likely due to sick euthyroid - follow TSI, ATPO - sent pending results - no need for medical therapy Subjective Allergies: Uncoded Allergies: electrodes (Allergy, Unknown, Itching, 02/19/17) All Systems: reviewed and negative except above Subjective events noted Objective Last 24 Hour Vital Signs Date Time Temp Pulse Resp B/P Pulse Ox O2 Delivery O2 Flow Rate FiO2 02/22/17 07:31 110 18 100 Room Air 02/22/17 07:29 110 18 100 Room Air 02/22/17 07:29 110 18 100 Room Air 02/22/17 07:20 112 18 100 Room Air 21 02/22/17 07:20 21 02/22/17 04:00 97.6 91 18 114/66 97 Room Air 02/22/17 01:23 96 18 98 Room Air 02/22/17 01:12 95 18 98 Room Air 02/22/17 01:12 21 02/21/17 23:38 96.6 98 18 118/69 97 Room Air 02/21/17 20:00 97.0 93 18 112/72 100 Room Air 02/21/17 19:50 92 18 98 Room Air 21 02/21/17 19:41 95 20 96 Room Air 02/21/17 19:41 21 02/21/17 16:00 98.4 93 21 113/67 Room Air 02/21/17 12:50 117 20 97 Room Air 02/21/17 12:50 21 02/21/17 12:50 117 20 98 Room Air 21 02/21/17 12:00 97.5 83 18 119/66 96 Room Air 02/21/17 08:55 109 18 95 Room Air 02/21/17 08:54 109 18 95 Room Air Intake and Output 02/21/17 02/22/17 19:00 07:00 Intake Total 280 ml Output Total 250 ml Balance 30 ml Intake Oral 220 ml IV Total 60 ml Emesis 250 ml # Voids 5 Laboratory Tests 02/22/17 05:35: White Blood Count 6.2, Red Blood Count 3.69L, Hemoglobin 12.5, Hematocrit 36.5L , Mean Corpuscular Volume 99, Mean Corpuscular Hemoglobin 33.9H, Mean Corpuscular Hemoglobin Concent 34.3, Red Cell Distribution Width 12.3, Platelet Count 337, Mean Platelet Volume 6.7, Neutrophils (%) (Auto) 61.3, Lymphocytes (% ) (Auto) 25.4, Monocytes (%) (Auto) 7.5, Eosinophils (%) (Auto) 5.0H, Basophils (%) (Auto) 0.9, Sodium Level 135, Potassium Level 5.6H, Chloride Level 94L, Carbon Dioxide Level 25, Anion Gap 16H, Blood Urea Nitrogen 21, Creatinine 0.8, Estimat Glomerular Filtration Rate > 60, Glucose Level 136H, Calcium Level 10.3H , Phosphorus Level 4.8, Magnesium Level 1.9, Total Bilirubin < 0.2, Aspartate Amino Transf (AST/SGOT) 33, Alanine Aminotransferase (ALT/SGPT) 18, Alkaline Phosphatase 81, Total Protein 7.6, Albumin 4.1, Globulin 3.5, Albumin/Globulin Ratio 1.1, Vitamin B12 Level 1464H, Folate [Pending] Height (Feet): 5 Height (Inches): 5.00 Weight (Pounds): 104 General Appearance: no apparent distress Neck: normal alignment Cardiovascular: normal rate Respiratory/Chest: lungs clear Abdomen: normal bowel sounds Edema: no edema noted Arm (L), no edema noted Arm (R), no edema noted Leg (L), no edema noted Leg (R), no edema noted Pedal (L), no edema noted Pedal (R), no edema noted Generalized Objective Current Medications Medications (Trade) Dose Ordered Sig/Sarahi Route PRN Reason Start Time Stop Time Status Last Admin Dose Admin Acetaminophen/ Hydrocodone Bitart ([place] 5/325) 1 tab Q4H PRN ORAL Moderate Pain (Pain Scale 4-6) 02/19/17 12:00 02/26/17 11:59 02/20/17 13:57 Albuterol/ Ipratropium (DuoNeb 0.5-3(2.5)mg/3ml) 3 ml Q4H PRN HHN Shortness of Breath 02/19/17 12:00 02/24/17 11:59 Albuterol/ Ipratropium (DuoNeb 0.5-3(2.5)mg/3ml) 3 ml Q6HRT HHN 02/19/17 13:00 02/24/17 12:59 02/22/17 07:22 Aspirin (ASA) 81 mg DAILY ORAL 02/20/17 09:00 03/22/17 08:59 02/21/17 09:06 Dextrose (Dextrose 50%) STAT PRN IV Hypoglycemia 02/19/17 12:00 03/21/17 11:59 Diphenhydramine HCl 25 mg 25 mg Q6H PRN ORAL Itching 02/19/17 11:15 03/21/17 11:14 02/20/17 06:00 Heparin Sodium (Porcine) (Heparin 5000 units/ml) 5,000 units EVERY 12 HOURS SUBQ 02/19/17 21:00 03/21/17 20:59 02/21/17 21:52 Hydrocortisone (Hydrocortisone) 1 applic Q6H PRN TOPIC Itching 02/19/17 11:30 03/21/17 11:29 02/20/17 12:53 Insulin Aspart (NovoLOG) BEFORE MEALS AND HS SUBQ 02/19/17 12:30 03/21/17 12:29 02/22/17 06:47 Insulin Aspart (NovoLOG) 5 units NOVOTIAC SUBQ 02/19/17 11:50 03/21/17 11:49 02/20/17 12:49 Insulin Detemir (Levemir) 6 units DAILY SUBQ 02/20/17 09:00 03/22/17 08:59 02/20/17 09:05 Iron Sucrose/ Sodium Chloride (Venofer/Sodium Chloride) 60 ml @ 240 mls/hr BEDTIME IVPB 02/21/17 21:00 02/25/17 21:14 02/21/17 21:44 Levetiracetam (Keppra) 500 mg Q12HR ORAL 02/19/17 21:00 03/21/17 20:59 02/21/17 09:06 Lidocaine (Lidoderm 5% PATCH) 1 patch DAILY TDERMAL 02/20/17 09:00 03/22/17 08:59 02/21/17 09:07 Magnesium Hydroxide (Mom) 30 ml HSPRN PRN ORAL Constipation 02/19/17 21:00 03/21/17 20:59 Meclizine HCl (Antivert) 25 mg Q8H PRN ORAL for dizziness 02/19/17 12:00 03/21/17 11:59 Montelukast Sodium (Singulair) 10 mg DAILY@1800 ORAL 02/19/17 18:00 03/21/17 17:59 02/21/17 17:34 Morphine Sulfate (Morphine Sulfate) 4 mg Q4H PRN IVP Severe Pain (Pain Scale 7-10) 02/21/17 20:00 02/28/17 19:59 Ondansetron HCl (Zofran) 4 mg Q4H PRN IVP Nausea & Vomiting 02/21/17 14:00 03/23/17 13:59 02/22/17 06:50 Pravastatin Sodium (Pravachol) 40 mg BEDTIME ORAL 02/19/17 21:00 03/21/17 20:59 02/20/17 21:38 Promethazine HCl/ Codeine (Phenergan with Codeine) 5 ml Q4H PRN ORAL For Cough 02/19/17 12:00 03/21/17 11:59 Sitagliptin Phosphate (Januvia) 50 mg ACBREAKFAST ORAL 02/20/17 06:30 03/22/17 06:29 02/22/17 06:45 Tiotropium [place] (Spiriva Inhaler) 1 puff DAILY INH 02/20/17 09:00 03/22/17 08:59 02/22/17 07:22 Item Value Date Time Bedside Blood Glucose 132 mg/dl H 02/22/17 0647 Bedside Blood Glucose 93 mg/dl 02/21/17 2100 Bedside Blood Glucose 159 mg/dl H 02/21/17 1735 Bedside Blood Glucose 116 mg/dl 02/21/17 1130 Bedside Blood Glucose 129 mg/dl H 02/21/17 0900 CHE ALLEN February 22, 2017 08:06
[2017-02-22] MEDS: Aspirin Baby 81mg ORAL SCH (08:34)
[2017-02-22] MEDS: Morphine Sulfate 4mg/ml Inj IVP PRN ×3 (08:34→21:01)
[2017-02-22] MEDS: Heparin 5000 units/ml inj SUBQ SCH ×2 (08:36→21:00)
[2017-02-22] MEDS: Levemir Flexpen SUBQ SCH (08:37)
[2017-02-22 08:55] VITALS: BP 123/76
[2017-02-22] MEDS ORDERED: Sodium Polystyrene Sulfonate 15gm Powder ORAL ONE (10:00)
--- NOTE | 2017-02-22 10:18 | Diagnostic Imaging Report ---
Indication: Abdominal pain Technique: Continuous helical transaxial imaging of the abdomen and pelvis was obtained from the lung bases to the pubic symphysis during intravenous contrast administration. Coronal 2-D reformats were also obtained. Study obtained in a Siemens sensation [address] Total Dose length Product (DLP): [address] Dose Index Volume (CTDIvol): 11 mGy Comparison: 05/05/14 Findings: The lung bases are clear. There is trace pericardial fluid. The stomach is fluid-filled and markedly distended. Consider placement of a nasogastric tube. There is severe fecal retention within the colon with distal stool impaction distending the rectum. Small bowel is not dilated. There is a small hypodense mass demonstrated in the anterior aspect of the right kidney measuring about 1 cm. The mass shows possible enhancement along the borders of the mass. This is seen on the previous occasion as well and is probably unchanged. There is no change with regard to the size or gross characteristics of this mass since 2013. Bones are osteopenic in keeping with the patient's age. Impression: Fecal impaction. Distended fluid-filled stomach. Consider NG tube placement. 1 cm solid, probably enhancing mass in the anterior aspect of the right kidney unchanged from 05/05 14. Difficult to fully evaluate due to the small size. Recommend follow up. Apparent radiopaque foreign body in the right hemipelvis. The CT scanner at [facility] is accredited by the [employer] and the scans are performed using dose optimization techniques as appropriate to a performed exam including Automatic Exposure control.
--- NOTE | 2017-02-22 11:05 | Neurology Progress Note ---
Interim History Interim History Interim History Ms. Whittington feels better generally. However she is again lightheaded. She says she vomited a few times last night. She just got back from a walk. She is able to walk better. She is up in a chair now. The mind is clearer. She denies any new neurologic symptoms. Review of Systems Neuro Review of Systems Benign. Objective Physical Exam Last Vital Signs Date Time Temp Pulse Resp B/P Pulse Ox O2 Delivery O2 Flow Rate FiO2 02/22/17 09:04 97.9 02/22/17 08:55 120 20 123/76 95 Room Air 02/22/17 07:29 21 Laboratory Tests Test 02/22/17 05:35 White Blood Count 6.2 K/UL (4.8-10.8) Red Blood Count 3.69 M/UL (4.20-5.40) L Hemoglobin 12.5 G/DL (12.0-16.0) Hematocrit 36.5 % (37.0-47.0) L Mean Corpuscular Volume 99 FL (80-99) Mean Corpuscular Hemoglobin 33.9 PG (27.0-31.0) H Mean Corpuscular Hemoglobin Concent 34.3 G/DL (32.0-36.0) Red Cell Distribution Width 12.3 % (11.6-14.8) Platelet Count 337 K/UL (150-450) Mean Platelet Volume 6.7 FL (6.5-10.1) Neutrophils (%) (Auto) 61.3 % (45.0-75.0) Lymphocytes (%) (Auto) 25.4 % (20.0-45.0) Monocytes (%) (Auto) 7.5 % (1.0-10.0) Eosinophils (%) (Auto) 5.0 % (0.0-3.0) H Basophils (%) (Auto) 0.9 % (0.0-2.0) Sodium Level 135 mEQ/L (135-145) Potassium Level 5.6 mEQ/L (3.4-4.9) H Chloride Level 94 mEQ/L (98-107) L Carbon Dioxide Level 25 mEQ/L (20-30) Anion Gap 16 (5-15) H Blood Urea Nitrogen 21 mg/dL (7-23) Creatinine 0.8 mg/dL (0.5-0.9) Estimat Glomerular Filtration Rate > 60 mL/min (>60) Glucose Level 136 mg/dL (74-106) H Calcium Level 10.3 mg/dL (8.6-10.2) H Phosphorus Level 4.8 mg/dL (2.5-4.8) Magnesium Level 1.9 mg/dL (1.7-2.5) Total Bilirubin < 0.2 mg/dL (0.0-1.2) Aspartate Amino Transf (AST/SGOT) 33 U/L (5-40) Alanine Aminotransferase (ALT/SGPT) 18 U/L (3-33) Alkaline Phosphatase 81 U/L (35-104) Total Protein 7.6 g/dL (6.6-8.7) Albumin 4.1 g/dL (3.5-5.2) Globulin 3.5 g/dL Albumin/Globulin Ratio 1.1 (1.0-2.7) Vitamin B12 Level 1464 pg/mL (211-946) H Folate Pending Neurologic Exam Objective PHYSICAL EXAMINATION: GENERAL: She is a well-developed, well-nourished but lean black lady, sitting up in a chair, in no acute distress. HEAD: Normocephalic and atraumatic. NECK: No neck rigidity was observed. EENT: Benign. NEUROLOGICAL EXAMINATION: MENTAL STATUS EXAMINATION: She was alert and awake. She was oriented to person, place, and time. She was able to recall 3/3 words immediately after 1 minute, and after 3 minutes. She was able to remember presidents Trump and Obama only. Her mathematical skills were fairly good. Her visuospatial function was preserved. SPEECH: She had a mild dysarthria, but it should be noted that numerous teeth were missing. LANGUAGE: She had no aphasia. CRANIAL NERVE EXAMINATION: II: The visual kearney were intact on confrontation testing. III, IV, : The external ocular movements were full, and the pupils 3 mm in diameter, equal, round, regular, and reactive to light. V: She had normal facial sensations, and the temporales, masseters, and pterygoids functioned normally. VII: She had a trace right 7th central facial paresis. VIII: She was able to hear well bilaterally and had no nystagmus. IX: The palate moved symmetrically on phonation. X: She had no hoarseness of voice. XI: The sternocleidomastoids and trapezii functioned normally. XII: The tongue was in the midline, without any fasciculations or atrophy. MOTOR SYSTEM: The tone was normal in all 4 extremities. Examination of muscle mass revealed no focal wasting. Examination of power revealed G 5/5 power, except for G 5-/5 power in the right finger extensors and right iliopsoas;. SENSORY EXAMINATION: She had intact sensations to pinprick, light touch, and graphesthesia. COORDINATION: She performed well on [id number] testing. She had problems performing [id number] testing. REFLEXES: 2+ and bilaterally symmetrical at the biceps, triceps, brachioradialis , and knees; trace positive at both ankles. The plantar responses were flexor bilaterally. STANCE: She needed contact guard to stand. GAIT: She walked with a mildly ataxic gait with contact guard. Her gait was significantly better. Impression/Recommendations Diagnostic Impression 1. Ms. Alyssa Whittington is a 66-year-old, right-handed, black lady, who does have a past history of hypertension, diabetes mellitus, dyslipidemia, coronary artery disease, congestive heart failure, chronic obstructive pulmonary disease , and cerebrovascular disease with a prior stroke, and prior episodes of loss of consciousness. She was seen by Dr. Horner at his office on 02/17/17 and was feeling ill. Her blood sugars were in the 500s and she was given insulin but her blood sugar then dropped and she felt like she was becoming hypoglycemic. The paramedics were called in and she was brought to the [facility] ER and has since been admitted. 2. She feels unwell due to a night punctuated by multiple bouts of vomiting. She is still light headed when she stands and walks. She however continues to be steadier on her feet. 3. On neurological examination at this time, she does have problems with recent and remote memory, a mild dysarthria, a mild right hemiparesis involving the face, upper and lower extremities, and an unsteady gait. 4. The patients altered mental state and gait unsteadiness is most probably due to a metabolic encephalopathy. Her encephalopathy is improving. Recommendations 1. Continue present management. 2. Correct toxic metabolic imbalances. 3. Keep well hydrated. 4. Keep active. 5. Mobilize rapidly. 6. Observe closely. DANNIELLE KEMP M.D., M.S.P.Giovana. DANNIELLE KEMP February 22, 2017 11:05
[2017-02-22 12:19] VITALS: BP 122/76
--- NOTE | 2017-02-22 12:39 | General Progress Note ---
Assessment/Plan Assessment/Plan # Anemia secondary to iron deficiency - continue iv iron at the moment, improved # Leukopenia - potentially 2/2 infection, will need to closely monitor, evaluate for infection, also peripheral smear ordered, current ANC >2000, has improved # Hypertension # Diabetes mellitus # Dyslipidemia # Coronary artery disease # Congestive heart failure # Chronic obstructive pulmonary disease # Cerebrovascular disease with a prior stroke # Hyperglycemia Subjective Constitutional: Reports: no symptoms HEENT: Reports: mouth swelling Cardiovascular: Reports: no symptoms Respiratory: Reports: no symptoms Gastrointestinal/Abdominal: Reports: no symptoms Genitourinary: Reports: no symptoms Neurologic/Psychiatric: Reports: no symptoms Endocrine: Reports: no symptoms Hematologic/Lymphatic: Reports: anemia Allergies: Uncoded Allergies: electrodes (Allergy, Unknown, Itching, 02/19/17) Subjective stable, no events overnight, no fevers or chills, mental status better Objective Last 24 Hour Vital Signs Date Time Temp Pulse Resp B/P Pulse Ox O2 Delivery O2 Flow Rate FiO2 02/22/17 12:19 97.9 105 20 122/76 96 Room Air 02/22/17 09:04 97.9 02/22/17 08:55 97.9 120 20 123/76 95 Room Air 02/22/17 07:31 110 18 100 Room Air 02/22/17 07:29 110 18 100 Room Air 02/22/17 07:29 110 18 100 Room Air 21 02/22/17 07:20 112 18 100 Room Air 21 02/22/17 07:20 21 02/22/17 04:00 97.6 91 18 114/66 97 Room Air 02/22/17 01:23 96 18 98 Room Air 21 02/22/17 01:12 95 18 98 Room Air 21 02/22/17 01:12 21 02/21/17 23:38 96.6 98 18 118/69 97 Room Air 02/21/17 20:00 97.0 93 18 112/72 100 Room Air 02/21/17 19:50 92 18 98 Room Air 21 02/21/17 19:41 95 20 96 Room Air 21 02/21/17 19:41 21 02/21/17 16:00 98.4 93 21 113/67 Room Air 02/21/17 12:50 117 20 97 Room Air 21 02/21/17 12:50 21 02/21/17 12:50 117 20 98 Room Air 21 Intake and Output 02/21/17 02/22/17 19:00 07:00 Intake Total 280 ml Output Total 250 ml Balance 30 ml Intake Oral 220 ml IV Total 60 ml Emesis 250 ml # Voids 5 Laboratory Tests 02/22/17 05:35: White Blood Count 6.2, Red Blood Count 3.69L, Hemoglobin 12.5, Hematocrit 36.5L , Mean Corpuscular Volume 99, Mean Corpuscular Hemoglobin 33.9H, Mean Corpuscular Hemoglobin Concent 34.3, Red Cell Distribution Width 12.3, Platelet Count 337, Mean Platelet Volume 6.7, Neutrophils (%) (Auto) 61.3, Lymphocytes (% ) (Auto) 25.4, Monocytes (%) (Auto) 7.5, Eosinophils (%) (Auto) 5.0H, Basophils (%) (Auto) 0.9, Sodium Level 135, Potassium Level 5.6H, Chloride Level 94L, Carbon Dioxide Level 25, Anion Gap 16H, Blood Urea Nitrogen 21, Creatinine 0.8, Estimat Glomerular Filtration Rate > 60, Glucose Level 136H, Calcium Level 10.3H , Phosphorus Level 4.8, Magnesium Level 1.9, Total Bilirubin < 0.2, Aspartate Amino Transf (AST/SGOT) 33, Alanine Aminotransferase (ALT/SGPT) 18, Alkaline Phosphatase 81, Total Protein 7.6, Albumin 4.1, Globulin 3.5, Albumin/Globulin Ratio 1.1, Vitamin B12 Level 1464H, Folate [Pending] Height (Feet): 5 Height (Inches): 5.00 Weight (Pounds): 104 General Appearance: alert EENT: TMs normal Neck: normal alignment Cardiovascular: regular rhythm Respiratory/Chest: lungs clear Abdomen: non tender Extremities: non-tender Edema: no edema noted Leg (L), no edema noted Leg (R) Edema: mild edema Neurologic: alert Skin: warm/dry Vincent Jasso February 22, 2017 12:39
[2017-02-22 16:10] VITALS: BP 118/75
[2017-02-22] MEDS: Montelukast 10mg tablet ORAL SCH (17:58)
[2017-02-22] MEDS: Metoclopramide 10mg/2ml Inj IVP PRN (17:58)
[2017-02-22] MEDS: D5 1/2NS 1,000 ML IV SCH (18:08)
[2017-02-22 20:00] VITALS: BP 111/83
--- NOTE | 2017-02-22 21:00 | General Progress Note ---
Assessment/Plan Assessment/Plan diabetes hypoglycemia chronic back pain COPD abdominal pain per Endo pain control respiratory treatment monitor labs gi evaluation appreciated antiemetics prn will need endoscopy dw dr Flores patient now agreeable to snf, son looking for places Subjective Allergies: Uncoded Allergies: electrodes (Allergy, Unknown, Itching, 02/19/17) Subjective feels better overall still with abdominal pain having n/v Objective Last 24 Hour Vital Signs Date Time Temp Pulse Resp B/P Pulse Ox O2 Delivery O2 Flow Rate FiO2 02/22/17 20:00 97.4 101 18 111/83 96 Room Air 02/22/17 19:59 90 18 Room Air 02/22/17 19:58 90 18 100 Room Air 21 02/22/17 19:58 96 18 98 Room Air 21 02/22/17 19:58 21 02/22/17 16:10 97.0 109 20 118/75 96 Room Air 02/22/17 14:22 97.9 02/22/17 13:40 100 18 100 Room Air 02/22/17 13:30 103 18 100 Room Air 21 02/22/17 13:30 21 02/22/17 12:19 97.9 105 20 122/76 96 Room Air 02/22/17 08:55 97.9 120 20 123/76 95 Room Air 02/22/17 07:31 110 18 100 Room Air 02/22/17 07:29 110 18 100 Room Air 02/22/17 07:29 110 18 100 Room Air 02/22/17 07:20 112 18 100 Room Air 21 02/22/17 07:20 21 02/22/17 04:00 97.6 91 18 114/66 97 Room Air 02/22/17 01:23 96 18 98 Room Air 21 02/22/17 01:12 95 18 98 Room Air 21 02/22/17 01:12 21 02/21/17 23:38 96.6 98 18 118/69 97 Room Air Intake and Output 02/21/17 02/22/17 19:00 07:00 Intake Total 280 ml Output Total 250 ml Balance 30 ml Intake Oral 220 ml IV Total 60 ml Emesis 250 ml # Voids 5 Laboratory Tests 02/22/17 05:35: White Blood Count 6.2, Red Blood Count 3.69L, Hemoglobin 12.5, Hematocrit 36.5L , Mean Corpuscular Volume 99, Mean Corpuscular Hemoglobin 33.9H, Mean Corpuscular Hemoglobin Concent 34.3, Red Cell Distribution Width 12.3, Platelet Count 337, Mean Platelet Volume 6.7, Neutrophils (%) (Auto) 61.3, Lymphocytes (% ) (Auto) 25.4, Monocytes (%) (Auto) 7.5, Eosinophils (%) (Auto) 5.0H, Basophils (%) (Auto) 0.9, Sodium Level 135, Potassium Level 5.6H, Chloride Level 94L, Carbon Dioxide Level 25, Anion Gap 16H, Blood Urea Nitrogen 21, Creatinine 0.8, Estimat Glomerular Filtration Rate > 60, Glucose Level 136H, Calcium Level 10.3H , Phosphorus Level 4.8, Magnesium Level 1.9, Total Bilirubin < 0.2, Aspartate Amino Transf (AST/SGOT) 33, Alanine Aminotransferase (ALT/SGPT) 18, Alkaline Phosphatase 81, Total Protein 7.6, Albumin 4.1, Globulin 3.5, Albumin/Globulin Ratio 1.1, Vitamin B12 Level 1464H, Folate [Pending] Height (Feet): 5 Height (Inches): 5.00 Weight (Pounds): 104 General Appearance: WD/WN Neck: supple Cardiovascular: normal rate Respiratory/Chest: lungs clear Abdomen: soft CARLOS A MENDOZA February 22, 2017 21:00
[2017-02-22] MEDS: Iron Sucrose 100 MG in NS 55 ML IVPB SCH (21:09)
[2017-02-22] MEDS ORDERED: NS 275ml ONE (21:34)
[2017-02-22] MEDS ORDERED: Tubing IV Secondary IV ONE (21:34)
--- NOTE | 2017-02-22 23:10 | Pulmonology Progress Note ---
Assessment/Plan Problems: (1) Ileus (2) Hypoglycemia (3) Severe protein-calorie malnutrition (4) Anemia (5) Hyperkalemia (6) Diabetes mellitus out of control (7) Neuropathic pain (8) HTN (hypertension) (9) End stage COPD Assessment/Plan On NG tube now CT abdomen reviewed bs better titrate fio2 to sat of 92% med/surg h/h dropping stool for OB, hem evaluation f/u GI recommendations Subjective ROS Limited/Unobtainable: No Constitutional: Reports: no symptoms HEENT: Repors: no symptoms Respiratory: Reports: no symptoms Cardiovascular: Reports: no symptoms Allergies: Uncoded Allergies: electrodes (Allergy, Unknown, Itching, 02/19/17) Objective Last 24 Hour Vital Signs Date Time Temp Pulse Resp B/P Pulse Ox O2 Delivery O2 Flow Rate FiO2 02/22/17 21:41 97.4 02/22/17 20:00 97.4 101 18 111/83 96 Room Air 02/22/17 19:59 90 18 Room Air 02/22/17 19:58 90 18 100 Room Air 02/22/17 19:58 96 18 98 Room Air 21 02/22/17 19:58 21 02/22/17 16:10 97.0 109 20 118/75 96 Room Air 02/22/17 13:40 100 18 100 Room Air 02/22/17 13:30 103 18 100 Room Air 21 02/22/17 13:30 21 02/22/17 12:19 97.9 105 20 122/76 96 Room Air 02/22/17 08:55 97.9 120 20 123/76 95 Room Air 02/22/17 07:31 110 18 100 Room Air 02/22/17 07:29 110 18 100 Room Air 02/22/17 07:29 110 18 100 Room Air 02/22/17 07:20 112 18 100 Room Air 02/22/17 07:20 21 02/22/17 04:00 97.6 91 18 114/66 97 Room Air 02/22/17 01:23 96 18 98 Room Air 21 02/22/17 01:12 95 18 98 Room Air 21 02/22/17 01:12 21 02/21/17 23:38 96.6 98 18 118/69 97 Room Air Intake and Output 02/21/17 02/22/17 19:00 07:00 Intake Total 280 ml Output Total 250 ml Balance 30 ml Intake Oral 220 ml IV Total 60 ml Emesis 250 ml # Voids 5 General Appearance: cachetic HEENT: normocephalic, atraumatic Respiratory/Chest: chest wall non-tender, lungs clear Breasts: no masses Cardiovascular: normal peripheral pulses Abdomen: normal bowel sounds, soft, non tender Extremities: no cyanosis Laboratory Tests 02/22/17 05:35: White Blood Count 6.2, Red Blood Count 3.69L, Hemoglobin 12.5, Hematocrit 36.5L , Mean Corpuscular Volume 99, Mean Corpuscular Hemoglobin 33.9H, Mean Corpuscular Hemoglobin Concent 34.3, Red Cell Distribution Width 12.3, Platelet Count 337, Mean Platelet Volume 6.7, Neutrophils (%) (Auto) 61.3, Lymphocytes (% ) (Auto) 25.4, Monocytes (%) (Auto) 7.5, Eosinophils (%) (Auto) 5.0H, Basophils (%) (Auto) 0.9, Sodium Level 135, Potassium Level 5.6H, Chloride Level 94L, Carbon Dioxide Level 25, Anion Gap 16H, Blood Urea Nitrogen 21, Creatinine 0.8, Estimat Glomerular Filtration Rate > 60, Glucose Level 136H, Calcium Level 10.3H , Phosphorus Level 4.8, Magnesium Level 1.9, Total Bilirubin < 0.2, Aspartate Amino Transf (AST/SGOT) 33, Alanine Aminotransferase (ALT/SGPT) 18, Alkaline Phosphatase 81, Total Protein 7.6, Albumin 4.1, Globulin 3.5, Albumin/Globulin Ratio 1.1, Vitamin B12 Level 1464H, Folate [Pending] Current Medications Medications (Trade) Dose Ordered Sig/Sarahi Route PRN Reason Start Time Stop Time Status Last Admin Dose Admin Acetaminophen/ Hydrocodone Bitart ([place] 5/325) 1 tab Q4H PRN ORAL Moderate Pain (Pain Scale 4-6) 02/19/17 12:00 02/26/17 11:59 02/20/17 13:57 Albuterol/ Ipratropium (DuoNeb 0.5-3(2.5)mg/3ml) 3 ml Q4H PRN HHN Shortness of Breath 02/19/17 12:00 02/24/17 11:59 Albuterol/ Ipratropium (DuoNeb 0.5-3(2.5)mg/3ml) 3 ml Q6HRT HHN 02/19/17 13:00 02/24/17 12:59 02/22/17 19:57 Aspirin (ASA) 81 mg DAILY ORAL 02/20/17 09:00 03/22/17 08:59 02/22/17 08:34 Dextrose (Dextrose 50%) STAT PRN IV Hypoglycemia 02/19/17 12:00 03/21/17 11:59 Dextrose/Sodium Chloride (D5 0.45% NS) 1,000 ml @ 100 mls/hr Q10H IV 02/22/17 18:00 03/24/17 17:59 02/22/17 18:08 Diphenhydramine HCl 25 mg 25 mg Q6H PRN ORAL Itching 02/19/17 11:15 03/21/17 11:14 02/20/17 06:00 Heparin Sodium (Porcine) (Heparin 5000 units/ml) 5,000 units EVERY 12 HOURS SUBQ 02/19/17 21:00 03/21/17 20:59 02/22/17 08:36 Hydrocortisone (Hydrocortisone) 1 applic Q6H PRN TOPIC Itching 02/19/17 11:30 03/21/17 11:29 02/20/17 12:53 Insulin Aspart (NovoLOG) BEFORE MEALS AND HS SUBQ 02/19/17 12:30 03/21/17 12:29 02/22/17 11:49 Insulin Detemir (Levemir) 6 units DAILY SUBQ 02/20/17 09:00 03/22/17 08:59 02/22/17 08:37 Iron Sucrose/ Sodium Chloride (Venofer/Sodium Chloride) 60 ml @ 240 mls/hr BEDTIME IVPB 02/21/17 21:00 02/25/17 21:14 02/22/17 21:09 Levetiracetam (Keppra) 500 mg Q12HR ORAL 02/19/17 21:00 03/21/17 20:59 02/22/17 08:35 Lidocaine (Lidoderm 5% PATCH) 1 patch DAILY TDERMAL 02/20/17 09:00 03/22/17 08:59 02/22/17 08:34 Magnesium Hydroxide (Mom) 30 ml HSPRN PRN ORAL Constipation 02/19/17 21:00 03/21/17 20:59 Meclizine HCl (Antivert) 25 mg Q8H PRN ORAL for dizziness 02/19/17 12:00 03/21/17 11:59 Metoclopramide HCl 10 mg 10 mg Q6H PRN IVP Nausea & Vomiting 02/22/17 17:30 03/24/17 17:29 02/22/17 17:58 Montelukast Sodium (Singulair) 10 mg DAILY@1800 ORAL 02/19/17 18:00 03/21/17 17:59 02/22/17 17:58 Morphine Sulfate (Morphine Sulfate) 4 mg Q4H PRN IVP Severe Pain (Pain Scale 7-10) 02/21/17 20:00 02/28/17 19:59 02/22/17 21:01 Ondansetron HCl (Zofran) 4 mg Q4H PRN IVP Nausea & Vomiting 02/21/17 14:00 03/23/17 13:59 02/22/17 21:01 Pravastatin Sodium (Pravachol) 40 mg BEDTIME ORAL 02/19/17 21:00 03/21/17 20:59 02/20/17 21:38 Promethazine HCl/ Codeine (Phenergan with Codeine) 5 ml Q4H PRN ORAL For Cough 02/19/17 12:00 03/21/17 11:59 Sitagliptin Phosphate (Januvia) 50 mg ACBREAKFAST ORAL 02/20/17 06:30 03/22/17 06:29 02/22/17 06:45 Tiotropium [place] (Spiriva Inhaler) 1 puff DAILY INH 02/20/17 09:00 03/22/17 08:59 02/22/17 07:22 GREG CHAVEZ February 22, 2017 23:10
[2017-02-23] VITALS (9 sets, daily range): BP systolic 105–131; BP diastolic 67–86
[2017-02-23] MEDS: DuoNeb 0.5-3(2.5)mg/3ml neb HHN SCH ×4 (01:03→20:11)
[2017-02-23] MEDS: Metoclopramide 10mg/2ml Inj IVP PRN (01:14)
[2017-02-23] MEDS: Morphine Sulfate 4mg/ml Inj IVP PRN ×3 (01:14→17:50)
[2017-02-23] MEDS: D5 1/2NS 1,000 ML IV SCH ×2 (04:21→17:35)
[2017-02-23] MEDS: NovoLOG Insulin Flexpen SUBQ SCH ×4 (06:30→20:39)
[2017-02-23] MEDS: sitaGLIPtin 50mg tab ORAL SCH (06:30)
[2017-02-23] MEDS ORDERED: NS 550ML IV ONE (06:59)
--- NOTE | 2017-02-23 07:01 | General Progress Note ---
Assessment/Plan Assessment/Plan Assessment Nausea / vomiting s/p colectomy DM CAD CVA Recommendations NPO x meds IVF EGD to evaluate cause of vomiting (Delayed entry for 02/22/17 visit) Subjective Allergies: Uncoded Allergies: electrodes (Allergy, Unknown, Itching, 02/19/17) Subjective c/o nausea d/w RN c/o N/V CT reviewed Objective Last 24 Hour Vital Signs Date Time Temp Pulse Resp B/P Pulse Ox O2 Delivery O2 Flow Rate FiO2 02/23/17 06:33 96.6 02/23/17 04:00 96.6 82 21 105/72 97 Room Air 02/23/17 01:05 85 18 100 Room Air 21 02/23/17 01:05 21 02/23/17 01:03 85 18 96 Room Air 21 02/23/17 00:00 98.1 76 19 124/67 98 Room Air 02/22/17 20:00 97.4 101 18 111/83 96 Room Air 02/22/17 19:59 90 18 Room Air 21 02/22/17 19:58 90 18 100 Room Air 21 02/22/17 19:58 96 18 98 Room Air 21 02/22/17 19:58 21 02/22/17 16:10 97.0 109 20 118/75 96 Room Air 02/22/17 13:40 100 18 100 Room Air 02/22/17 13:30 103 18 100 Room Air 21 02/22/17 13:30 21 02/22/17 12:19 97.9 105 20 122/76 96 Room Air 02/22/17 08:55 97.9 120 20 123/76 95 Room Air 02/22/17 07:31 110 18 100 Room Air 02/22/17 07:29 110 18 100 Room Air 02/22/17 07:29 110 18 100 Room Air 21 02/22/17 07:20 112 18 100 Room Air 02/22/17 07:20 21 Intake and Output 02/22/17 02/23/17 19:00 07:00 Intake Total 220 ml 1060 ml Output Total 200 ml Balance 20 ml 1060 ml Intake Oral 120 ml IV Total 100 ml 1060 ml Output Urine Total 200 ml # Voids 1 2 Laboratory Tests 02/23/17 06:00: White Blood Count [Pending], Red Blood Count [Pending], Hemoglobin [Pending], Hematocrit [Pending], Mean Corpuscular Volume [Pending], Mean Corpuscular Hemoglobin [Pending], Mean Corpuscular Hemoglobin Concent [Pending], Red Cell Distribution Width [Pending], Platelet Count [Pending], Mean Platelet Volume [ Pending], Neutrophils (%) (Auto) [Pending], Lymphocytes (%) (Auto) [Pending], Monocytes (%) (Auto) [Pending], Eosinophils (%) (Auto) [Pending], Basophils (%) (Auto) [Pending], Sodium Level [Pending], Potassium Level [Pending], Chloride Level [Pending], Carbon Dioxide Level [Pending], Blood Urea Nitrogen [Pending], Creatinine [Pending], Estimat Glomerular Filtration Rate [Pending], Glucose Level [Pending], Calcium Level [Pending], Phosphorus Level [Pending], Magnesium Level [Pending] Height (Feet): 5 Height (Inches): 4.00 Weight (Pounds): 104 Objective Thin WW NCAT supple CTA RRR soft ND NT no edema nonfocal JUNAID TAVEARS February 23, 2017 07:01
--- NOTE | 2017-02-23 07:02 | Pre-Procedure Note/Attestation ---
Pre-Procedure Note/Attestation Complete Prior to Procedure Planned Procedure: not applicable Procedure Narrative: EGD Indications for Procedure Pre-Operative Diagnosis: Vomiting Attestation I attest that I discussed the nature of the procedure; its benefits; risks and complications; and alternatives (and the risks and benefits of such alternatives ), prior to the procedure, with the patient (or the patient's legal farm loan representative). I attest that, if there was a reasonable possibility of needing a blood transfusion, the patient (or the patient's legal farm loan representative) was given the [facility] standardized written summary, pursuant to the Josh Josefa Blood Safety Act ([place] Health and Safety Code # 1645, as amended). I attest that I re-evaluated the patient just prior to the surgery and that there has been no change in the patient's H&P, except as documented below: JUNAID TAVERAS February 23, 2017 07:02
[2017-02-23 07:04] LABS: BASOPHILS % (AUTO) 0.9 % (0.0-2.0); EOSINOPHILS % (AUTO) 5.1 % (0.0-3.0); LYMPHOCYTES % (AUTO) 37.9 % (20.0-45.0); MEAN CORPUSCULAR HEMOGLOBIN 32.5 PG (27.0-31.0); MEAN CORPUSCULAR HGB CONC 32.3 G/DL (32.0-36.0); MEAN CORPUSCULAR VOLUME 101 FL (80-99); MEAN PLATELET VOLUME 6.8 FL (6.5-10.1); MONOCYTES % (AUTO) 12.7 % (1.0-10.0); NEUTROPHILS % (AUTO) 43.4 % (45.0-75.0); PLATELET COUNT 310 K/UL (150-450); RED BLOOD COUNT 3.47 M/UL (4.20-5.40); RED CELL DISTRIBUTION WIDTH 12.4 % (11.6-14.8); WHITE BLOOD COUNT 3.5 K/UL (4.8-10.8)
--- NOTE | 2017-02-23 07:12 | Endoscopy Procedure Note ---
Endoscopy Procedure Note Indication for Procedure: Vomiting Procedures Performed: EGD Operative Findings/Diagnosis: Normal, s/p bx antrum and mid esophagus Specimen: yes Pt Tolerated Procedure Well: Yes Estimated Blood Loss: none Anesthesiologist: see report Anesthesia: MAC Medication Given: see anesthesia record Implant(s) used?: No 50 yrs or older w/o bx or poly: Not Applicable 10yrs. F/U not recommended: Not Applicable If not recommended, why?: JUNAID TAVERAS February 23, 2017 07:12
--- NOTE | 2017-02-23 07:14 | Brief Operative Note ---
Immediate Post Operative Note Operative Note Chief Complaint: vomiting Pre-op Diagnosis: Vomiting Procedure: EGD/Bx Post-op Diagnosis: Normal, s/p bx antrum and mid esophagus Surgeon: olive Anesthesiologist: see report Anesthesia: MAC Specimen: yes Complications: none Condition: stable Estimated Blood Loss: none Drains: none Implant(s) used?: No JUNAID TAVERAS February 23, 2017 07:14
--- NOTE | 2017-02-23 07:25 | Immediate Post-Op Evaluation ---
Immediate Post-Op Evalulation Immediate Post-Op Evalulation Procedure: EGD Date of Evaluation: February 23, 2017 Time of Evaluation: 07:25 Blood Pressure Systolic: 118 Blood Pressure Diastolic: 86 Pulse Rate: 79 Respiratory Rate: 14 O2 Sat by Pulse Oximetry: 100 Temperature (Fahrenheit): 97.4 Nausea: No Vomiting: No Complications none Patient Status: awake, reacts, patent Drug: none GLEN HOOD CRNA February 23, 2017 07:25
--- NOTE | 2017-02-23 07:28 | Anethesia Preoperative Eval ---
Anesthesia Pre-op PMH/ROS General Date of Evaluation: February 23, 2017 Time of Evaluation: 07:00 Anesthesiologist: jeb ASA Score: ASA 3 Mallampati Score Class I : Soft palate, uvula, fauces, pillars visible Class II: Soft palate, uvula, fauces visible Class III: Soft palate, base of uvula visible Class IV: Only hard plate visible Surgeon: Enrico Diagnosis: Gastritis Surgical Procedure: EGD Anesthesia History: none Social History: smoking, current smoker, drug use Family History: no anesthesia problems Allergies: Uncoded Allergies: electrodes (Allergy, Unknown, Itching, 02/19/17) Medications: see eMAR Past Medical History Cardiovascular: Reports: CAD, HTN, ID Pulmonary: Reports: COPD Gastrointestinal/Genitourinary: Reports: GERD Neurologic/Psychiatric: Reports: CVA Endocrine: Reports: DM HEENT: Denies: [place] (L), [place] (R), cataract (L), cataract (R), glaucoma, other Hematology/Immune: Reports: anemia Musculoskeletal/Integumentary: Denies: DDD, DJD, OA, RA, edema, other PSxH Narrative: colon surgery Anesthesia Pre-op Phys. Exam Physician Exam Last Vital Signs Date Time Temp Pulse Resp B/P Pulse Ox O2 Delivery O2 Flow Rate FiO2 02/23/17 06:33 96.6 02/23/17 04:00 82 21 105/72 97 Room Air 02/23/17 01:05 21 Constitutional: NAD Neurologic: CN 2-12 intact Cardiovascular: RRR Respiratory: CTA Gastrointestinal: S/NT/ND Airway Exam Mallampati Classification 2 Mallampati Score: Class II ROM: full Teeth: missing Dentures: upper Anesthesia Pre-op A/P Labs Hematology Test 02/23/17 06:00 White Blood Count Pending Red Blood Count Pending Hemoglobin Pending Hematocrit Pending Mean Corpuscular Volume Pending Mean Corpuscular Hemoglobin Pending Mean Corpuscular Hemoglobin Concent Pending Red Cell Distribution Width Pending Platelet Count Pending Mean Platelet Volume Pending Neutrophils (%) (Auto) Pending Lymphocytes (%) (Auto) Pending Monocytes (%) (Auto) Pending Eosinophils (%) (Auto) Pending Basophils (%) (Auto) Pending Chemistry Test 02/23/17 06:00 Sodium Level Pending Potassium Level Pending Chloride Level Pending Carbon Dioxide Level Pending Blood Urea Nitrogen Pending Creatinine Pending Estimat Glomerular Filtration Rate Pending Glucose Level Pending Calcium Level Pending Phosphorus Level Pending Magnesium Level Pending Studies Pre-op Studies: EKG - sr Risk Assessment & Plan Plan: mac Status Change Before Surgery: No Pre-Antibiotics Drug: none GLEN HOOD CRNA February 23, 2017 07:28
[2017-02-23 07:32] LABS: ANION GAP 13 (5-15); CARBON DIOXIDE 29 mEQ/L (20-30); CHLORIDE 94 mEQ/L (98-107); CREATININE 0.9 mg/dL (0.5-0.9); GLOMERULAR FILTRATION RATE > 60 mL/min (>60); HEMOLYSIS 4; POTASSIUM 4.5 mEQ/L (3.4-4.9); SODIUM 136 mEQ/L (135-145)
--- NOTE | 2017-02-23 07:57 | 48 Hour Post Anesthesia Eval ---
Post Anesthesia Evaluation Procedure: EGD Date of Evaluation: February 23, 2017 Time of Evaluation: 07:57 Blood Pressure Systolic: 121 0: 70 Pulse Rate: 78 Respiratory Rate: 14 O2 Sat by Pulse Oximetry: 99 Airway: patent Nausea: No Vomiting: No Hydration Status: adequate Mental Status/LOC: patient returned to baseline Post-Anesthesia Complications: none Follow-up care needed: N/A GLEN HOOD CRNA February 23, 2017 07:57
[2017-02-23] MEDS ORDERED: Sorbitol Solution UD 30ml ORAL ONE (08:00)
[2017-02-23 08:09] LABS: PHOSPHORUS 3.9 mg/dL (2.5-4.8)
[2017-02-23] MEDS: Heparin 5000 units/ml inj SUBQ SCH ×2 (09:00→20:40)
[2017-02-23] MEDS: Aspirin Baby 81mg ORAL SCH (10:30)
[2017-02-23] MEDS: Levemir Flexpen SUBQ SCH (10:35)
--- NOTE | 2017-02-23 11:38 | Operative Note - Dictated ---
DATE OF OPERATION: 02/23/2017 GASTROENTEROLOGY PROCEDURE REPORT PROCEDURE: Upper gastroendoscopy with biopsy. SURGEON: Nieves Weston M.D. ANESTHESIA: Please see the separate anesthesiologist notes for details. PRE-ENDOSCOPIC DIAGNOSIS: 1. Vomiting. POST-ENDOSCOPIC DIAGNOSES: 1. Normal upper endoscopy, status post random biopsies of the antrum and midesophagus DESCRIPTION OF PROCEDURE: The procedure, its risks, indications, alternatives, and possible complications were explained the patient and informed consent was obtained. The patient was then sedated in the left lateral decubitus position. A diagnostic upper endoscope was introduced through the oropharynx and advanced to the duodenum. The endoscope was then gradually withdrawn. The mucosa examined carefully. Examination of the upper gastric mucosa revealed no abnormalities. Biopsies of the antrum and midesophagus was sent to pathology for review. The endoscope was removed. The patient was sent to recovery in good condition. COMPLICATIONS: None. ASSESSMENT: There were no abnormalities. examination will explain the patient's nausea and vomiting. The symptoms however could be due to be diabetic gastroparesis. Further evaluation will be done and will be considered including a nuclear medicine gastric emptying study. RECOMMENDATIONS: 1. Follow up biopsy results. 2. Resume oral diet and start on clear liquids. 3. Follow symptoms. Nieves Weston M.D. DR: Aimee JOB#: [id number] CC:
--- NOTE | 2017-02-23 14:11 | Neurology Progress Note ---
Interim History Interim History Interim History Ms. Whittington feels unwell. She had her GI work-up this morning. She has had nothing to eat today and feels lightheaded. She nos not walked today. She is in bed now. The mind is clear. She denies any new neurologic symptoms. Review of Systems Neuro Review of Systems Benign. Objective Physical Exam Last Vital Signs Date Time Temp Pulse Resp B/P Pulse Ox O2 Delivery O2 Flow Rate FiO2 02/23/17 13:09 87 18 100 Room Air 21 02/23/17 11:36 98.2 126/73 02/23/17 07:25 3.0 Laboratory Tests Test 02/23/17 06:00 White Blood Count 3.5 K/UL (4.8-10.8) L Red Blood Count 3.47 M/UL (4.20-5.40) L Hemoglobin 11.3 G/DL (12.0-16.0) L Hematocrit 34.8 % (37.0-47.0) L Mean Corpuscular Volume 101 FL (80-99) H Mean Corpuscular Hemoglobin 32.5 PG (27.0-31.0) H Mean Corpuscular Hemoglobin Concent 32.3 G/DL (32.0-36.0) Red Cell Distribution Width 12.4 % (11.6-14.8) Platelet Count 310 K/UL (150-450) Mean Platelet Volume 6.8 FL (6.5-10.1) Neutrophils (%) (Auto) 43.4 % (45.0-75.0) L Lymphocytes (%) (Auto) 37.9 % (20.0-45.0) Monocytes (%) (Auto) 12.7 % (1.0-10.0) H Eosinophils (%) (Auto) 5.1 % (0.0-3.0) H Basophils (%) (Auto) 0.9 % (0.0-2.0) Sodium Level 136 mEQ/L (135-145) Potassium Level 4.5 mEQ/L (3.4-4.9) Chloride Level 94 mEQ/L (98-107) L Carbon Dioxide Level 29 mEQ/L (20-30) Anion Gap 13 (5-15) Blood Urea Nitrogen 19 mg/dL (7-23) Creatinine 0.9 mg/dL (0.5-0.9) Estimat Glomerular Filtration Rate > 60 mL/min (>60) Glucose Level 168 mg/dL (74-106) H Calcium Level 10.0 mg/dL (8.6-10.2) Phosphorus Level 3.9 mg/dL (2.5-4.8) Magnesium Level 2.0 mg/dL (1.7-2.5) Neurologic Exam Objective PHYSICAL EXAMINATION: GENERAL: She is a well-developed, well-nourished but lean black lady, lying in bed, in no acute distress. HEAD: Normocephalic and atraumatic. NECK: No neck rigidity was observed. EENT: Benign. NEUROLOGICAL EXAMINATION: MENTAL STATUS EXAMINATION: She was alert and awake. She was oriented to person, place, and time. She was able to recall 3/3 words immediately after 1 minute, and after 3 minutes. She was able to remember presidents Trump and Obama only. Her mathematical skills were fairly good. Her visuospatial function was preserved. SPEECH: She had a mild dysarthria, but it should be noted that numerous teeth were missing. LANGUAGE: She had no aphasia. CRANIAL NERVE EXAMINATION: II: The visual kearney were intact on confrontation testing. III, IV, : The external ocular movements were full, and the pupils 3 mm in diameter, equal, round, regular, and reactive to light. V: She had normal facial sensations, and the temporales, masseters, and pterygoids functioned normally. VII: She had a trace right 7th central facial paresis. VIII: She was able to hear well bilaterally and had no nystagmus. IX: The palate moved symmetrically on phonation. X: She had no hoarseness of voice. XI: The sternocleidomastoids and trapezii functioned normally. XII: The tongue was in the midline, without any fasciculations or atrophy. MOTOR SYSTEM: The tone was normal in all 4 extremities. Examination of muscle mass revealed no focal wasting. Examination of power revealed G 5/5 power, except for G 5-/5 power in the right finger extensors and right iliopsoas;. SENSORY EXAMINATION: She had intact sensations to pinprick, light touch, and graphesthesia. COORDINATION: She performed well on [id number] testing. She had problems performing [id number] testing. REFLEXES: 2+ and bilaterally symmetrical at the biceps, triceps, brachioradialis , and knees; trace positive at both ankles. The plantar responses were flexor bilaterally. STANCE: She needed contact guard to stand. GAIT: She walked with a mildly ataxic gait with contact guard. Impression/Recommendations Diagnostic Impression 1. Ms. Alyssa Whittington is a 66-year-old, right-handed, black lady, who does have a past history of hypertension, diabetes mellitus, dyslipidemia, coronary artery disease, congestive heart failure, chronic obstructive pulmonary disease , and cerebrovascular disease with a prior stroke, and prior episodes of loss of consciousness. She was seen by Dr. Horner at his office on 02/17/17 and was feeling ill. Her blood sugars were in the 500s and she was given insulin but her blood sugar then dropped and she felt like she was becoming hypoglycemic. The paramedics were called in and she was brought to the [facility] and has since been admitted. 2. She feels unwell due to hunger. She is still light headed when she stands and walks. She however continues to be steadier on her feet. 3. On neurological examination at this time, she does have problems with recent and remote memory, a mild dysarthria, a mild right hemiparesis involving the face, upper and lower extremities, and an unsteady gait. 4. The patients altered mental state and gait unsteadiness is most probably due to a metabolic encephalopathy. Her encephalopathy is improving. Recommendations 1. Continue present management. 2. Correct toxic metabolic imbalances. 3. Keep well hydrated. 4. Keep active. 5. Mobilize rapidly. 6. Await results of GI work-up. 7. Observe closely. DANNIELLE KEMP M.D., M.S.P.Giovana. DANNIELLE KEMP February 23, 2017 14:11
[2017-02-23] MEDS: Montelukast 10mg tablet ORAL SCH (17:38)
--- NOTE | 2017-02-23 18:19 | General Progress Note ---
Assessment/Plan Assessment/Plan # Anemia secondary to iron deficiency - continue iv iron at the moment, improved # Leukopenia - potentially 2/2 infection, will need to closely monitor, evaluate for infection, also peripheral smear ordered, current ANC >2000, has improved # Right kidney small 1cm mass, will be re-evaluated in future, but unchanged in 2+ years # Hypertension # Diabetes mellitus # Dyslipidemia # Coronary artery disease # Congestive heart failure # Chronic obstructive pulmonary disease # Cerebrovascular disease with a prior stroke # Hyperglycemia Subjective Constitutional: Reports: no symptoms HEENT: Reports: no symptoms Cardiovascular: Reports: no symptoms Respiratory: Reports: no symptoms Genitourinary: Reports: no symptoms Neurologic/Psychiatric: Reports: no symptoms Endocrine: Reports: no symptoms Hematologic/Lymphatic: Reports: no symptoms Allergies: Uncoded Allergies: electrodes (Allergy, Unknown, Itching, 02/19/17) Subjective stable, no events overnight, no fevers or chills, mental status improved Objective Last 24 Hour Vital Signs Date Time Temp Pulse Resp B/P Pulse Ox O2 Delivery O2 Flow Rate FiO2 02/23/17 16:00 97.7 101 18 131/70 99 Room Air 02/23/17 13:09 87 18 100 Room Air 21 02/23/17 13:00 80 18 100 Room Air 21 02/23/17 13:00 21 02/23/17 11:36 98.2 78 16 126/73 97 Room Air 02/23/17 07:57 78 14 99 02/23/17 07:49 Room Air 02/23/17 07:48 Room Air 02/23/17 07:48 Room Air 02/23/17 07:47 Room Air 02/23/17 07:40 98.4 77 17 126/85 98 Room Air 02/23/17 07:30 76 16 125/86 97 Room Air 02/23/17 07:25 77 18 128/85 100 Nasal Cannula 3.0 02/23/17 07:25 79 14 100 02/23/17 07:20 98.5 78 16 126/82 100 Nasal Cannula 3.0 02/23/17 06:33 96.6 02/23/17 04:00 96.6 82 21 105/72 97 Room Air 02/23/17 01:05 85 18 100 Room Air 21 02/23/17 01:05 21 02/23/17 01:03 85 18 96 Room Air 21 02/23/17 00:00 98.1 76 19 124/67 98 Room Air 02/22/17 20:00 97.4 101 18 111/83 96 Room Air 02/22/17 19:59 90 18 Room Air 21 02/22/17 19:58 90 18 100 Room Air 21 02/22/17 19:58 96 18 98 Room Air 21 02/22/17 19:58 21 Intake and Output 02/22/17 02/23/17 19:00 07:00 Intake Total 220 ml 1160 ml Output Total 200 ml Balance 20 ml 1160 ml Intake Oral 120 ml IV Total 100 ml 1160 ml Output Urine Total 200 ml # Voids 1 2 Laboratory Tests 02/23/17 06:00: White Blood Count 3.5L, Red Blood Count 3.47L, Hemoglobin 11.3L, Hematocrit 34.8L, Mean Corpuscular Volume 101H, Mean Corpuscular Hemoglobin 32.5H, Mean Corpuscular Hemoglobin Concent 32.3, Red Cell Distribution Width 12.4, Platelet Count 310, Mean Platelet Volume 6.8, Neutrophils (%) (Auto) 43.4L, Lymphocytes ( %) (Auto) 37.9, Monocytes (%) (Auto) 12.7H, Eosinophils (%) (Auto) 5.1H, Basophils (%) (Auto) 0.9, Sodium Level 136, Potassium Level 4.5, Chloride Level 94L, Carbon Dioxide Level 29, Anion Gap 13, Blood Urea Nitrogen 19, Creatinine 0.9, Estimat Glomerular Filtration Rate > 60, Glucose Level 168H, Calcium Level 10.0, Phosphorus Level 3.9, Magnesium Level 2.0 Height (Feet): 5 Height (Inches): 4.00 Weight (Pounds): 104 General Appearance: no apparent distress EENT: TMs normal Neck: normal alignment Cardiovascular: normal rate Respiratory/Chest: lungs clear Extremities: normal inspection Edema: 1+ Arm (L), 1+ Arm (R), 1+ Leg (L), 1+ Leg (R), 1+ Pedal (L) Edema: mild edema Neurologic: alert Skin: warm/dry Vincent Jasso February 23, 2017 18:19
--- NOTE | 2017-02-23 18:47 | General Progress Note ---
Assessment/Plan Assessment/Plan Assessment Nausea / vomiting - resolved, now asking for solid food Anemia - declines colonoscopy, understands risk of colon CA DM CAD CVA Recommendations resume PO solids check stool OB monitor CBC Fe replacement Subjective Allergies: Uncoded Allergies: electrodes (Allergy, Unknown, Itching, 02/19/17) Subjective Seen earlier today in GI lab rectal exam prior to procedure w/o e/o impaction Endoscopy normal - no lesion to explain anemia patient declines to take any GI preparation medication for colonoscopy Declines to have NGT for GI prep medication understands risk of Colon Cancer, ifrah in setting of anemia understands CT scan shows she does have a colon despite history she gave Objective Last 24 Hour Vital Signs Date Time Temp Pulse Resp B/P Pulse Ox O2 Delivery O2 Flow Rate FiO2 02/23/17 16:00 97.7 101 18 131/70 99 Room Air 02/23/17 13:09 87 18 100 Room Air 21 02/23/17 13:00 80 18 100 Room Air 21 02/23/17 13:00 21 02/23/17 11:36 98.2 78 16 126/73 97 Room Air 02/23/17 07:57 78 14 99 02/23/17 07:49 Room Air 02/23/17 07:48 Room Air 02/23/17 07:48 Room Air 02/23/17 07:47 Room Air 02/23/17 07:40 98.4 77 17 126/85 98 Room Air 02/23/17 07:30 76 16 125/86 97 Room Air 02/23/17 07:25 77 18 128/85 100 Nasal Cannula 3.0 02/23/17 07:25 79 14 100 02/23/17 07:20 98.5 78 16 126/82 100 Nasal Cannula 3.0 02/23/17 06:33 96.6 02/23/17 04:00 96.6 82 21 105/72 97 Room Air 02/23/17 01:05 85 18 100 Room Air 21 02/23/17 01:05 21 02/23/17 01:03 85 18 96 Room Air 21 02/23/17 00:00 98.1 76 19 124/67 98 Room Air 02/22/17 20:00 97.4 101 18 111/83 96 Room Air 02/22/17 19:59 90 18 Room Air 21 02/22/17 19:58 90 18 100 Room Air 21 02/22/17 19:58 96 18 98 Room Air 21 02/22/17 19:58 21 Intake and Output 02/22/17 02/23/17 19:00 07:00 Intake Total 220 ml 1160 ml Output Total 200 ml Balance 20 ml 1160 ml Intake Oral 120 ml IV Total 100 ml 1160 ml Output Urine Total 200 ml # Voids 1 2 Laboratory Tests 02/23/17 06:00: White Blood Count 3.5L, Red Blood Count 3.47L, Hemoglobin 11.3L, Hematocrit 34.8L, Mean Corpuscular Volume 101H, Mean Corpuscular Hemoglobin 32.5H, Mean Corpuscular Hemoglobin Concent 32.3, Red Cell Distribution Width 12.4, Platelet Count 310, Mean Platelet Volume 6.8, Neutrophils (%) (Auto) 43.4L, Lymphocytes ( %) (Auto) 37.9, Monocytes (%) (Auto) 12.7H, Eosinophils (%) (Auto) 5.1H, Basophils (%) (Auto) 0.9, Sodium Level 136, Potassium Level 4.5, Chloride Level 94L, Carbon Dioxide Level 29, Anion Gap 13, Blood Urea Nitrogen 19, Creatinine 0.9, Estimat Glomerular Filtration Rate > 60, Glucose Level 168H, Calcium Level 10.0, Phosphorus Level 3.9, Magnesium Level 2.0 Height (Feet): 5 Height (Inches): 4.00 Weight (Pounds): 104 Objective Thin WW NCAT supple CTA RRR soft ND NT no edema nonfocal JUNAID TAVERAS February 23, 2017 18:47
[2017-02-23] MEDS: Iron Sucrose 100 MG in NS 55 ML IVPB SCH (20:42)
--- NOTE | 2017-02-23 21:53 | General Progress Note ---
Assessment/Plan Assessment/Plan diabetes hypoglycemia chronic back pain COPD abdominal pain per Endo pain control respiratory treatment monitor labs gi evaluation appreciated antiemetics prn will need endoscopy dw dr Flores wnl, planning on colonospy tomorrow if agreeable patient now agreeable to snf, son looking for places Subjective Allergies: Uncoded Allergies: electrodes (Allergy, Unknown, Itching, 02/19/17) Subjective feels better overall still with abdominal pain sp EGD dw Dr Mark macdonald, considering colonospy for tomorrow Objective Last 24 Hour Vital Signs Date Time Temp Pulse Resp B/P Pulse Ox O2 Delivery O2 Flow Rate FiO2 02/23/17 20:26 97.5 75 17 120/68 98 Room Air 02/23/17 20:13 21 02/23/17 20:13 100 18 100 Room Air 21 02/23/17 20:13 101 18 98 Room Air 21 02/23/17 16:00 97.7 101 18 131/70 99 Room Air 02/23/17 13:09 87 18 100 Room Air 21 02/23/17 13:00 80 18 100 Room Air 21 02/23/17 13:00 21 02/23/17 11:36 98.2 78 16 126/73 97 Room Air 02/23/17 07:57 78 14 99 02/23/17 07:49 Room Air 02/23/17 07:48 Room Air 02/23/17 07:48 Room Air 02/23/17 07:47 Room Air 02/23/17 07:40 98.4 77 17 126/85 98 Room Air 02/23/17 07:30 76 16 125/86 97 Room Air 02/23/17 07:25 77 18 128/85 100 Nasal Cannula 3.0 02/23/17 07:25 79 14 100 02/23/17 07:20 98.5 78 16 126/82 100 Nasal Cannula 3.0 02/23/17 06:33 96.6 02/23/17 04:00 96.6 82 21 105/72 97 Room Air 02/23/17 01:05 85 18 100 Room Air 21 02/23/17 01:05 21 02/23/17 01:03 85 18 96 Room Air 21 02/23/17 00:00 98.1 76 19 124/67 98 Room Air Intake and Output 02/22/17 02/23/17 19:00 07:00 Intake Total 220 ml 1160 ml Output Total 200 ml Balance 20 ml 1160 ml Intake Oral 120 ml IV Total 100 ml 1160 ml Output Urine Total 200 ml # Voids 1 2 Laboratory Tests 02/23/17 06:00: White Blood Count 3.5L, Red Blood Count 3.47L, Hemoglobin 11.3L, Hematocrit 34.8L, Mean Corpuscular Volume 101H, Mean Corpuscular Hemoglobin 32.5H, Mean Corpuscular Hemoglobin Concent 32.3, Red Cell Distribution Width 12.4, Platelet Count 310, Mean Platelet Volume 6.8, Neutrophils (%) (Auto) 43.4L, Lymphocytes ( %) (Auto) 37.9, Monocytes (%) (Auto) 12.7H, Eosinophils (%) (Auto) 5.1H, Basophils (%) (Auto) 0.9, Sodium Level 136, Potassium Level 4.5, Chloride Level 94L, Carbon Dioxide Level 29, Anion Gap 13, Blood Urea Nitrogen 19, Creatinine 0.9, Estimat Glomerular Filtration Rate > 60, Glucose Level 168H, Calcium Level 10.0, Phosphorus Level 3.9, Magnesium Level 2.0 Height (Feet): 5 Height (Inches): 4.00 Weight (Pounds): 104 General Appearance: WD/WN, no apparent distress Cardiovascular: normal rate Respiratory/Chest: normal breath sounds CARLOS A MENDOZA February 23, 2017 21:53
--- NOTE | 2017-02-23 22:25 | Pulmonology Progress Note ---
Assessment/Plan Problems: (1) Ileus (2) Hypoglycemia (3) Severe protein-calorie malnutrition (4) Anemia (5) Hyperkalemia (6) Diabetes mellitus out of control (7) Neuropathic pain (8) HTN (hypertension) (9) End stage COPD Assessment/Plan On NG tube now CT abdomen reviewed bs better titrate fio2 to sat of 92% med/surg h/h dropping stool for OB, hem evaluation f/u GI recommendations Subjective Allergies: Uncoded Allergies: electrodes (Allergy, Unknown, Itching, 02/19/17) Objective Last 24 Hour Vital Signs Date Time Temp Pulse Resp B/P Pulse Ox O2 Delivery O2 Flow Rate FiO2 02/23/17 20:26 97.5 75 17 120/68 98 Room Air 02/23/17 20:13 21 02/23/17 20:13 100 18 100 Room Air 21 02/23/17 20:13 101 18 98 Room Air 21 02/23/17 16:00 97.7 101 18 131/70 99 Room Air 02/23/17 13:09 87 18 100 Room Air 02/23/17 13:00 80 18 100 Room Air 21 02/23/17 13:00 21 02/23/17 11:36 98.2 78 16 126/73 97 Room Air 02/23/17 07:57 78 14 99 02/23/17 07:49 Room Air 02/23/17 07:48 Room Air 02/23/17 07:48 Room Air 02/23/17 07:47 Room Air 02/23/17 07:40 98.4 77 17 126/85 98 Room Air 02/23/17 07:30 76 16 125/86 97 Room Air 02/23/17 07:25 77 18 128/85 100 Nasal Cannula 3.0 02/23/17 07:25 79 14 100 02/23/17 07:20 98.5 78 16 126/82 100 Nasal Cannula 3.0 02/23/17 06:33 96.6 02/23/17 04:00 96.6 82 21 105/72 97 Room Air 02/23/17 01:05 85 18 100 Room Air 21 02/23/17 01:05 21 02/23/17 01:03 85 18 96 Room Air 21 02/23/17 00:00 98.1 76 19 124/67 98 Room Air Intake and Output 02/22/17 02/23/17 18:59 06:59 Intake Total 120 ml 1260 ml Output Total 200 ml Balance -80 ml 1260 ml Intake Oral 120 ml IV Total 1260 ml Output Urine Total 200 ml # Voids 1 2 Laboratory Tests 02/23/17 06:00: White Blood Count 3.5L, Red Blood Count 3.47L, Hemoglobin 11.3L, Hematocrit 34.8L, Mean Corpuscular Volume 101H, Mean Corpuscular Hemoglobin 32.5H, Mean Corpuscular Hemoglobin Concent 32.3, Red Cell Distribution Width 12.4, Platelet Count 310, Mean Platelet Volume 6.8, Neutrophils (%) (Auto) 43.4L, Lymphocytes ( %) (Auto) 37.9, Monocytes (%) (Auto) 12.7H, Eosinophils (%) (Auto) 5.1H, Basophils (%) (Auto) 0.9, Sodium Level 136, Potassium Level 4.5, Chloride Level 94L, Carbon Dioxide Level 29, Anion Gap 13, Blood Urea Nitrogen 19, Creatinine 0.9, Estimat Glomerular Filtration Rate > 60, Glucose Level 168H, Calcium Level 10.0, Phosphorus Level 3.9, Magnesium Level 2.0 Current Medications Medications (Trade) Dose Ordered Sig/Sarahi Route PRN Reason Start Time Stop Time Status Last Admin Dose Admin Acetaminophen/ Hydrocodone Bitart ([place] 5/325) 1 tab Q4H PRN ORAL Moderate Pain (Pain Scale 4-6) 02/19/17 12:00 02/26/17 11:59 02/20/17 13:57 Albuterol/ Ipratropium (DuoNeb 0.5-3(2.5)mg/3ml) 3 ml Q4H PRN HHN Shortness of Breath 02/19/17 12:00 02/24/17 11:59 Albuterol/ Ipratropium (DuoNeb 0.5-3(2.5)mg/3ml) 3 ml Q6HRT HHN 02/19/17 13:00 02/24/17 12:59 02/23/17 20:11 Aspirin (ASA) 81 mg DAILY ORAL 02/20/17 09:00 03/22/17 08:59 02/23/17 10:30 Dextrose (Dextrose 50%) STAT PRN IV Hypoglycemia 02/19/17 12:00 6//17 11:59 Dextrose/Sodium Chloride (D5 0.45% NS) 1,000 ml @ 100 mls/hr Q10H IV 02/22/17 18:00 03/24/17 17:59 02/23/17 17:35 Diphenhydramine HCl 25 mg 25 mg Q6H PRN ORAL Itching 02/19/17 11:15 03/21/17 11:14 02/20/17 06:00 Heparin Sodium (Porcine) (Heparin 5000 units/ml) 5,000 units EVERY 12 HOURS SUBQ 02/19/17 21:00 03/21/17 20:59 02/23/17 20:40 Hydrocortisone (Hydrocortisone) 1 applic Q6H PRN TOPIC Itching 02/19/17 11:30 03/21/17 11:29 02/20/17 12:53 Insulin Aspart (NovoLOG) BEFORE MEALS AND HS SUBQ 02/19/17 12:30 03/21/17 12:29 02/23/17 20:39 Insulin Detemir (Levemir) 6 units DAILY SUBQ 02/20/17 09:00 03/22/17 08:59 02/23/17 10:35 Iron Sucrose/ Sodium Chloride (Venofer/Sodium Chloride) 60 ml @ 240 mls/hr BEDTIME IVPB 02/21/17 21:00 02/25/17 21:14 02/23/17 20:42 Levetiracetam (Keppra) 500 mg Q12HR ORAL 02/19/17 21:00 03/21/17 20:59 02/23/17 20:39 Lidocaine (Lidoderm 5% PATCH) 1 patch DAILY TDERMAL 02/20/17 09:00 03/22/17 08:59 02/23/17 10:31 Magnesium Hydroxide (Mom) 30 ml HSPRN PRN ORAL Constipation 02/19/17 21:00 03/21/17 20:59 Meclizine HCl (Antivert) 25 mg Q8H PRN ORAL for dizziness 02/19/17 12:00 03/21/17 11:59 Metoclopramide HCl 10 mg 10 mg Q6H PRN IVP Nausea & Vomiting 02/22/17 17:30 03/24/17 17:29 02/23/17 01:14 Montelukast Sodium (Singulair) 10 mg DAILY@1800 ORAL 02/19/17 18:00 03/21/17 17:59 02/23/17 17:38 Morphine Sulfate (Morphine Sulfate) 4 mg Q4H PRN IVP Severe Pain (Pain Scale 7-10) 02/21/17 20:00 02/28/17 19:59 02/23/17 17:50 Ondansetron HCl (Zofran) 4 mg Q4H PRN IVP Nausea & Vomiting 02/21/17 14:00 03/23/17 13:59 02/23/17 05:50 Pravastatin Sodium (Pravachol) 40 mg BEDTIME ORAL 02/19/17 21:00 03/21/17 20:59 02/23/17 20:39 Promethazine HCl/ Codeine (Phenergan with Codeine) 5 ml Q4H PRN ORAL For Cough 02/19/17 12:00 03/21/17 11:59 Sitagliptin Phosphate (Januvia) 50 mg ACBREAKFAST ORAL 02/20/17 06:30 03/22/17 06:29 02/22/17 06:45 Tiotropium [place] (Spiriva Inhaler) 1 puff DAILY INH 02/20/17 09:00 03/22/17 08:59 02/22/17 07:22 GREG CHAVEZ February 23, 2017 22:25
[2017-02-24] VITALS (7 sets, daily range): BP systolic 100–133; BP diastolic 58–79
[2017-02-24] MEDS: DuoNeb 0.5-3(2.5)mg/3ml neb HHN SCH ×2 (01:26→07:26)
[2017-02-24] MEDS: Morphine Sulfate 4mg/ml Inj IVP PRN ×4 (01:56→22:37)
[2017-02-24] MEDS: D5 1/2NS 1,000 ML IV SCH ×3 (02:01→13:15)
[2017-02-24] MEDS: sitaGLIPtin 50mg tab ORAL SCH (05:51)
[2017-02-24] MEDS: NovoLOG Insulin Flexpen SUBQ SCH ×4 (05:51→21:52)
[2017-02-24 06:39] LABS: MEAN CORPUSCULAR HEMOGLOBIN 33.3 PG (27.0-31.0); MEAN CORPUSCULAR HGB CONC 32.7 G/DL (32.0-36.0); MEAN CORPUSCULAR VOLUME 102 FL (80-99); MEAN PLATELET VOLUME 7.1 FL (6.5-10.1); PLATELET COUNT 288 K/UL (150-450); RED BLOOD COUNT 3.13 M/UL (4.20-5.40); RED CELL DISTRIBUTION WIDTH 12.2 % (11.6-14.8); WHITE BLOOD COUNT 3.3 K/UL (4.8-10.8)
--- NOTE | 2017-02-24 07:05 | General Progress Note ---
Assessment/Plan Assessment/Plan Assessment Nausea / vomiting - resolved Anemia - can try to do tomorrow if patient willing to take prep DM CAD CVA Recommendations clear liquids check stool OB monitor CBC Fe replacement possible colonoscopy tomorrow, if agrees to take prep Subjective Allergies: Uncoded Allergies: electrodes (Allergy, Unknown, Itching, 02/19/17) Subjective Feels OK (+) BM yesterday now wants to consider colonoscopy says will try to take colon prep advised again re colon CA risk with anemia discussed with patient sister, at pt request Objective Last 24 Hour Vital Signs Date Time Temp Pulse Resp B/P Pulse Ox O2 Delivery O2 Flow Rate FiO2 02/24/17 04:44 97.7 90 16 107/62 95 Room Air 02/24/17 01:27 21 02/24/17 01:27 92 18 98 Room Air 21 02/24/17 01:27 95 18 100 Room Air 21 02/24/17 00:21 97.3 75 17 100/58 99 Room Air 02/23/17 20:26 97.5 75 17 120/68 98 Room Air 02/23/17 20:13 21 02/23/17 20:13 100 18 100 Room Air 21 02/23/17 20:13 101 18 98 Room Air 21 02/23/17 16:00 97.7 101 18 131/70 99 Room Air 02/23/17 13:09 87 18 100 Room Air 21 02/23/17 13:00 80 18 100 Room Air 21 02/23/17 13:00 21 02/23/17 11:36 98.2 78 16 126/73 97 Room Air 02/23/17 07:57 78 14 99 02/23/17 07:49 Room Air 02/23/17 07:48 Room Air 02/23/17 07:48 Room Air 02/23/17 07:47 Room Air 02/23/17 07:40 98.4 77 17 126/85 98 Room Air 02/23/17 07:30 76 16 125/86 97 Room Air 02/23/17 07:25 77 18 128/85 100 Nasal Cannula 3.0 02/23/17 07:25 79 14 100 02/23/17 07:20 98.5 78 16 126/82 100 Nasal Cannula 3.0 Intake and Output 02/23/17 02/24/17 19:00 07:00 Intake Total 1420 ml 1060 ml Output Total 0 ml Balance 1420 ml 1060 ml Intake Oral 120 ml IV Total 1300 ml 1060 ml Estimated Blood Loss 0 ml # Voids 2 5 # Bowel Movements 1 2 Laboratory Tests 02/24/17 05:50: White Blood Count 3.3L, Red Blood Count 3.13L, Hemoglobin 10.4L, Hematocrit 31.8L, Mean Corpuscular Volume 102H, Mean Corpuscular Hemoglobin 33.3H, Mean Corpuscular Hemoglobin Concent 32.7, Red Cell Distribution Width 12.2, Platelet Count 288, Mean Platelet Volume 7.1, Neutrophils (%) (Auto) , Lymphocytes (%) ( Auto) , Monocytes (%) (Auto) , Eosinophils (%) (Auto) , Basophils (%) (Auto) , Neutrophils % (Manual) [Pending], Lymphocytes % (Manual) [Pending], Platelet Estimate [Pending], Platelet Morphology [Pending], Sodium Level [Pending], Potassium Level [Pending], Chloride Level [Pending], Carbon Dioxide Level [ Pending], Blood Urea Nitrogen [Pending], Creatinine [Pending], Estimat Glomerular Filtration Rate [Pending], Glucose Level [Pending], Calcium Level [ Pending], Total Bilirubin [Pending], Aspartate Amino Transf (AST/SGOT) [Pending] , Alanine Aminotransferase (ALT/SGPT) [Pending], Alkaline Phosphatase [Pending] , Total Protein [Pending], Albumin [Pending], Globulin [Pending] Height (Feet): 5 Height (Inches): 4.00 Weight (Pounds): 104 Objective Thin WW NCAT supple CTA RRR soft ND NT no edema nonfocal JUNAID TAVERAS February 24, 2017 07:05
[2017-02-24 07:06] LABS: ALANINE AMINOTRANSFERASE 15 U/L (3-33); ALBUMIN/GLOBULIN RATIO 1.3 (1.0-2.7); ANION GAP 13 (5-15); ASPARTATE AMINO TRANSFERASE 24 U/L (5-40); CALCIUM 9.6 mg/dL (8.6-10.2); CARBON DIOXIDE 26 mEQ/L (20-30); CHLORIDE 99 mEQ/L (98-107); CREATININE 0.6 mg/dL (0.5-0.9); GLOMERULAR FILTRATION RATE > 60 mL/min (>60); HEMOLYSIS 6; POTASSIUM 3.9 mEQ/L (3.4-4.9); SODIUM 138 mEQ/L (135-145); TOTAL PROTEIN 6.5 g/dL (6.6-8.7)
[2017-02-24] MEDS ORDERED: Fleet's Enema 133ml RECTAL ONE ×2 (08:30→18:00)
[2017-02-24] MEDS ORDERED: Magnesium Citrate Liq Btl ORAL ONE (08:30)
[2017-02-24] MEDS ORDERED: Bisacodyl EC 5mg tab ORAL ONE ×3 (08:30→18:00)
[2017-02-24] MEDS: Heparin 5000 units/ml inj SUBQ SCH ×2 (08:31→21:51)
[2017-02-24] MEDS: Levemir Flexpen SUBQ SCH (08:36)
[2017-02-24] MEDS: Norco 5mg/325mg tab ORAL PRN (09:17)
[2017-02-24 10:43] LABS: BAND NEUTROPHILS % (MANUAL) 0 % (0-8); BASOPHILS % (MANUAL) 0 % (0-2); EOSINOPHILS % (MANUAL) 4 % (0-3); LYMPHOCYTES % (MANUAL) 39 % (20-45); NEUTROPHILS % (MANUAL) 49 % (45-75); PLATELET ESTIMATE ADEQUATE; PLATELET MORPHOLOGY NORMAL; TOTAL CELLS COUNTED 100
[2017-02-24 10:45] LABS: MACROCYTES 1+
[2017-02-24] MEDS: Montelukast 10mg tablet ORAL SCH (18:25)
--- NOTE | 2017-02-24 19:19 | Neurology Progress Note ---
Interim History Interim History Interim History Ms. Whittington feels better. She was given an enema a few minutes ago.. Plans are for a colonoscopy tomorrow. She feels less lightheaded. She has not walked today. She is in bed now. The mind is clear. She denies any new neurologic symptoms. Review of Systems Neuro Review of Systems Benign. Objective Physical Exam Last Vital Signs Date Time Temp Pulse Resp B/P Pulse Ox O2 Delivery O2 Flow Rate FiO2 02/24/17 16:00 97.9 82 18 110/60 96 Room Air 02/24/17 07:33 21 02/23/17 07:25 3.0 Laboratory Tests Test 02/24/17 05:50 White Blood Count 3.3 K/UL (4.8-10.8) L Red Blood Count 3.13 M/UL (4.20-5.40) L Hemoglobin 10.4 G/DL (12.0-16.0) L Hematocrit 31.8 % (37.0-47.0) L Mean Corpuscular Volume 102 FL (80-99) H Mean Corpuscular Hemoglobin 33.3 PG (27.0-31.0) H Mean Corpuscular Hemoglobin Concent 32.7 G/DL (32.0-36.0) Red Cell Distribution Width 12.2 % (11.6-14.8) Platelet Count 288 K/UL (150-450) Mean Platelet Volume 7.1 FL (6.5-10.1) Neutrophils (%) (Auto) % (45.0-75.0) Lymphocytes (%) (Auto) % (20.0-45.0) Monocytes (%) (Auto) % (1.0-10.0) Eosinophils (%) (Auto) % (0.0-3.0) Basophils (%) (Auto) % (0.0-2.0) Differential Total Cells Counted 100 Neutrophils % (Manual) 49 % (45-75) Lymphocytes % (Manual) 39 % (20-45) Monocytes % (Manual) 8 % (1-10) Eosinophils % (Manual) 4 % (0-3) H Basophils % (Manual) 0 % (0-2) Band Neutrophils 0 % (0-8) Platelet Estimate Adequate Platelet Morphology Normal Macrocytosis 1+ Sodium Level 138 mEQ/L (135-145) Potassium Level 3.9 mEQ/L (3.4-4.9) Chloride Level 99 mEQ/L (98-107) Carbon Dioxide Level 26 mEQ/L (20-30) Anion Gap 13 (5-15) Blood Urea Nitrogen 9 mg/dL (7-23) Creatinine 0.6 mg/dL (0.5-0.9) Estimat Glomerular Filtration Rate > 60 mL/min (>60) Glucose Level 160 mg/dL (74-106) H Calcium Level 9.6 mg/dL (8.6-10.2) Total Bilirubin 0.3 mg/dL (0.0-1.2) Aspartate Amino Transf (AST/SGOT) 24 U/L (5-40) Alanine Aminotransferase (ALT/SGPT) 15 U/L (3-33) Alkaline Phosphatase 67 U/L (35-104) Total Protein 6.5 g/dL (6.6-8.7) L Albumin 3.7 g/dL (3.5-5.2) Globulin 2.8 g/dL Albumin/Globulin Ratio 1.3 (1.0-2.7) Neurologic Exam Objective PHYSICAL EXAMINATION: GENERAL: She is a well-developed, well-nourished but lean black lady, lying in bed, in no acute distress. HEAD: Normocephalic and atraumatic. NECK: No neck rigidity was observed. EENT: Benign. NEUROLOGICAL EXAMINATION: MENTAL STATUS EXAMINATION: She was alert and awake. She was oriented to person, place, and time. She was able to recall 3/3 words immediately after 1 minute, and after 3 minutes. She was able to remember presidents Trump and Obama only. Her mathematical skills were fairly good. Her visuospatial function was preserved. SPEECH: She had a mild dysarthria, but it should be noted that numerous teeth were missing. LANGUAGE: She had no aphasia. CRANIAL NERVE EXAMINATION: II: The visual kearney were intact on confrontation testing. III, IV, : The external ocular movements were full, and the pupils 3 mm in diameter, equal, round, regular, and reactive to light. V: She had normal facial sensations, and the temporales, masseters, and pterygoids functioned normally. VII: She had a trace right 7th central facial paresis. VIII: She was able to hear well bilaterally and had no nystagmus. IX: The palate moved symmetrically on phonation. X: She had no hoarseness of voice. XI: The sternocleidomastoids and trapezii functioned normally. XII: The tongue was in the midline, without any fasciculations or atrophy. MOTOR SYSTEM: The tone was normal in all 4 extremities. Examination of muscle mass revealed no focal wasting. Examination of power revealed G 5/5 power, except for G 5-/5 power in the right finger extensors and right iliopsoas;. SENSORY EXAMINATION: She had intact sensations to pinprick, light touch, and graphesthesia. COORDINATION: She performed well on [id number] testing. She had problems performing [id number] testing. REFLEXES: 2+ and bilaterally symmetrical at the biceps, triceps, brachioradialis , and knees; trace positive at both ankles. The plantar responses were flexor bilaterally. STANCE: She needed contact guard to stand. GAIT: She walked with a mildly ataxic gait with contact guard. Impression/Recommendations Diagnostic Impression 1. Ms. Alyssa Whittington is a 66-year-old, right-handed, black lady, who does have a past history of hypertension, diabetes mellitus, dyslipidemia, coronary artery disease, congestive heart failure, chronic obstructive pulmonary disease , and cerebrovascular disease with a prior stroke, and prior episodes of loss of consciousness. She was seen by Dr. Horner at his office on 02/17/17 and was feeling ill. Her blood sugars were in the 500s and she was given insulin but her blood sugar then dropped and she felt like she was becoming hypoglycemic. The paramedics were called in and she was brought to the [facility] ER and has since been admitted. 2. She feels unwell due to hunger. She is still light headed when she stands and walks. She however continues to be steadier on her feet. 3. On neurological examination at this time, she does have problems with recent and remote memory, a mild dysarthria, a mild right hemiparesis involving the face, upper and lower extremities, and an unsteady gait. 4. The patients altered mental state and gait unsteadiness is most probably due to a metabolic encephalopathy. Her encephalopathy is improving. Recommendations 1. Continue present management. 2. Correct toxic metabolic imbalances. 3. Keep well hydrated. 4. Keep active. 5. Mobilize rapidly. 6. Observe closely. DANNIELLE KEMP M.D., M.S.P.H. DANNIELLE KEMP February 24, 2017 19:19
[2017-02-24] MEDS: Iron Sucrose 100 MG in NS 55 ML IVPB SCH (21:48)
--- NOTE | 2017-02-24 22:23 | Pulmonology Progress Note ---
Assessment/Plan Problems: (1) Ileus (2) Hypoglycemia (3) Severe protein-calorie malnutrition (4) Anemia (5) Hyperkalemia (6) Diabetes mellitus out of control (7) Neuropathic pain (8) HTN (hypertension) (9) End stage COPD Assessment/Plan On NG tube now CT abdomen reviewed bs better titrate fio2 to sat of 92% med/surg h/h dropping stool for OB, hem evaluation f/u GI recommendations Subjective Allergies: Uncoded Allergies: electrodes (Allergy, Unknown, Itching, 02/19/17) Objective Last 24 Hour Vital Signs Date Time Temp Pulse Resp B/P Pulse Ox O2 Delivery O2 Flow Rate FiO2 02/24/17 20:00 97.5 81 18 133/79 99 Room Air 02/24/17 16:00 97.9 82 18 110/60 96 Room Air 02/24/17 14:34 97.9 02/24/17 11:59 97.9 79 13 108/58 99 Room Air 02/24/17 07:35 94 18 100 Room Air 02/24/17 07:34 94 18 100 Room Air 02/24/17 07:33 94 18 100 Room Air 21 02/24/17 07:28 97.7 87 12 112/66 98 Room Air 02/24/17 07:22 90 18 98 Room Air 21 02/24/17 07:22 21 02/24/17 04:44 97.7 90 16 107/62 95 Room Air 02/24/17 01:27 21 02/24/17 01:27 92 18 98 Room Air 21 02/24/17 01:27 95 18 100 Room Air 21 02/24/17 00:21 97.3 75 17 100/58 99 Room Air Intake and Output 02/23/17 02/24/17 19:00 07:00 Intake Total 1420 ml 1160 ml Output Total 0 ml Balance 1420 ml 1160 ml Intake Oral 120 ml IV Total 1300 ml 1160 ml Estimated Blood Loss 0 ml # Voids 2 5 # Bowel Movements 1 2 Laboratory Tests 02/24/17 05:50: White Blood Count 3.3L, Red Blood Count 3.13L, Hemoglobin 10.4L, Hematocrit 31.8L, Mean Corpuscular Volume 102H, Mean Corpuscular Hemoglobin 33.3H, Mean Corpuscular Hemoglobin Concent 32.7, Red Cell Distribution Width 12.2, Platelet Count 288, Mean Platelet Volume 7.1, Neutrophils (%) (Auto) , Lymphocytes (%) ( Auto) , Monocytes (%) (Auto) , Eosinophils (%) (Auto) , Basophils (%) (Auto) , Differential Total Cells Counted 100, Neutrophils % (Manual) 49, Lymphocytes % ( Manual) 39, Monocytes % (Manual) 8, Eosinophils % (Manual) 4H, Basophils % ( Manual) 0, Band Neutrophils 0, Platelet Estimate Adequate, Platelet Morphology Normal, Macrocytosis 1+, Sodium Level 138, Potassium Level 3.9, Chloride Level 99, Carbon Dioxide Level 26, Anion Gap 13, Blood Urea Nitrogen 9, Creatinine 0.6 , Estimat Glomerular Filtration Rate > 60, Glucose Level 160H, Calcium Level 9.6 , Total Bilirubin 0.3, Aspartate Amino Transf (AST/SGOT) 24, Alanine Aminotransferase (ALT/SGPT) 15, Alkaline Phosphatase 67, Total Protein 6.5L, Albumin 3.7, Globulin 2.8, Albumin/Globulin Ratio 1.3 Current Medications Medications (Trade) Dose Ordered Sig/Sarahi Route PRN Reason Start Time Stop Time Status Last Admin Dose Admin Acetaminophen/ Hydrocodone Bitart ([place] 5/325) 1 tab Q4H PRN ORAL Moderate Pain (Pain Scale 4-6) 02/19/17 12:00 02/26/17 11:59 02/20/17 13:57 Dextrose (Dextrose 50%) STAT PRN IV Hypoglycemia 02/19/17 12:00 03/21/17 11:59 Dextrose/Sodium Chloride (D5 0.45% NS) 1,000 ml @ 100 mls/hr Q10H IV 02/22/17 18:00 03/24/17 17:59 02/24/17 13:15 Diphenhydramine HCl 25 mg 25 mg Q6H PRN ORAL Itching 02/19/17 11:15 03/21/17 11:14 02/20/17 06:00 Heparin Sodium (Porcine) (Heparin 5000 units/ml) 5,000 units EVERY 12 HOURS SUBQ 02/19/17 21:00 03/21/17 20:59 02/24/17 21:51 Hydrocortisone (Hydrocortisone) 1 applic Q6H PRN TOPIC Itching 02/19/17 11:30 03/21/17 11:29 02/20/17 12:53 Insulin Aspart (NovoLOG) BEFORE MEALS AND HS SUBQ 02/19/17 12:30 03/21/17 12:29 02/24/17 21:52 Insulin Detemir (Levemir) 6 units DAILY SUBQ 02/20/17 09:00 03/22/17 08:59 02/24/17 08:36 Iron Sucrose/ Sodium Chloride (Venofer/Sodium Chloride) 60 ml @ 240 mls/hr BEDTIME IVPB 02/21/17 21:00 02/25/17 21:14 02/24/17 21:48 Levetiracetam (Keppra) 500 mg Q12HR ORAL 02/19/17 21:00 03/21/17 20:59 02/24/17 21:47 Lidocaine (Lidoderm 5% PATCH) 1 patch DAILY TDERMAL 02/20/17 09:00 03/22/17 08:59 02/24/17 08:34 Magnesium Hydroxide (Mom) 30 ml HSPRN PRN ORAL Constipation 02/19/17 21:00 03/21/17 20:59 Meclizine HCl (Antivert) 25 mg Q8H PRN ORAL for dizziness 02/19/17 12:00 03/21/17 11:59 Metoclopramide HCl 10 mg 10 mg Q6H PRN IVP Nausea & Vomiting 02/22/17 17:30 03/24/17 17:29 02/23/17 01:14 Montelukast Sodium (Singulair) 10 mg DAILY@1800 ORAL 02/19/17 18:00 03/21/17 17:59 02/24/17 18:25 Morphine Sulfate (Morphine Sulfate) 4 mg Q4H PRN IVP Severe Pain (Pain Scale 7-10) 02/21/17 20:00 02/28/17 19:59 02/24/17 14:04 Ondansetron HCl (Zofran) 4 mg Q4H PRN IVP Nausea & Vomiting 02/21/17 14:00 03/23/17 13:59 02/23/17 05:50 Pravastatin Sodium (Pravachol) 40 mg BEDTIME ORAL 02/19/17 21:00 03/21/17 20:59 02/24/17 21:47 Promethazine HCl/ Codeine (Phenergan with Codeine) 5 ml Q4H PRN ORAL For Cough 02/19/17 12:00 03/21/17 11:59 Sitagliptin Phosphate (Januvia) 50 mg ACBREAKFAST ORAL 02/20/17 06:30 03/22/17 06:29 02/24/17 05:51 Tiotropium [place] (Spiriva Inhaler) 1 puff DAILY INH 02/20/17 09:00 03/22/17 08:59 02/24/17 07:26 GREG CHAVEZ February 24, 2017 22:23
--- NOTE | 2017-02-24 22:54 | General Progress Note ---
Assessment/Plan Assessment/Plan diabetes hypoglycemia chronic back pain COPD abdominal pain per Endo pain control respiratory treatment monitor labs gi evaluation appreciated antiemetics prn will need endoscopy dw dr Flores wnl, planning on colonospy tomorrow patient now agreeable to snf, ga plans Subjective Allergies: Uncoded Allergies: electrodes (Allergy, Unknown, Itching, 02/19/17) Subjective feels better overall still with abdominal pain sp EGD dw Dr Flores normal dw sone and Dr Lacy patient to get colonospy tomorrow, refused before Objective Last 24 Hour Vital Signs Date Time Temp Pulse Resp B/P Pulse Ox O2 Delivery O2 Flow Rate FiO2 02/24/17 20:00 97.5 81 18 133/79 99 Room Air 02/24/17 16:00 97.9 82 18 110/60 96 Room Air 02/24/17 14:34 97.9 02/24/17 11:59 97.9 79 13 108/58 99 Room Air 02/24/17 07:35 94 18 100 Room Air 02/24/17 07:34 94 18 100 Room Air 02/24/17 07:33 94 18 100 Room Air 21 02/24/17 07:28 97.7 87 12 112/66 98 Room Air 02/24/17 07:22 90 18 98 Room Air 21 02/24/17 07:22 21 02/24/17 04:44 97.7 90 16 107/62 95 Room Air 02/24/17 01:27 21 02/24/17 01:27 92 18 98 Room Air 21 02/24/17 01:27 95 18 100 Room Air 21 02/24/17 00:21 97.3 75 17 100/58 99 Room Air Intake and Output 02/23/17 02/24/17 19:00 07:00 Intake Total 1420 ml 1160 ml Output Total 0 ml Balance 1420 ml 1160 ml Intake Oral 120 ml IV Total 1300 ml 1160 ml Estimated Blood Loss 0 ml # Voids 2 5 # Bowel Movements 1 2 Laboratory Tests 02/24/17 05:50: White Blood Count 3.3L, Red Blood Count 3.13L, Hemoglobin 10.4L, Hematocrit 31.8L, Mean Corpuscular Volume 102H, Mean Corpuscular Hemoglobin 33.3H, Mean Corpuscular Hemoglobin Concent 32.7, Red Cell Distribution Width 12.2, Platelet Count 288, Mean Platelet Volume 7.1, Neutrophils (%) (Auto) , Lymphocytes (%) ( Auto) , Monocytes (%) (Auto) , Eosinophils (%) (Auto) , Basophils (%) (Auto) , Differential Total Cells Counted 100, Neutrophils % (Manual) 49, Lymphocytes % ( Manual) 39, Monocytes % (Manual) 8, Eosinophils % (Manual) 4H, Basophils % ( Manual) 0, Band Neutrophils 0, Platelet Estimate Adequate, Platelet Morphology Normal, Macrocytosis 1+, Sodium Level 138, Potassium Level 3.9, Chloride Level 99, Carbon Dioxide Level 26, Anion Gap 13, Blood Urea Nitrogen 9, Creatinine 0.6 , Estimat Glomerular Filtration Rate > 60, Glucose Level 160H, Calcium Level 9.6 , Total Bilirubin 0.3, Aspartate Amino Transf (AST/SGOT) 24, Alanine Aminotransferase (ALT/SGPT) 15, Alkaline Phosphatase 67, Total Protein 6.5L, Albumin 3.7, Globulin 2.8, Albumin/Globulin Ratio 1.3 Height (Feet): 5 Height (Inches): 4.00 Weight (Pounds): 104 General Appearance: WD/WN Neck: supple Cardiovascular: normal rate Respiratory/Chest: lungs clear Abdomen: soft CARLOS A MENDOZA February 24, 2017 22:54
--- NOTE | 2017-02-24 22:57 | General Progress Note ---
Assessment/Plan Assessment/Plan # Anemia secondary to iron deficiency - continue iv iron at the moment, improved , goal is hgb >7 # Leukopenia - potentially 2/2 infection, will need to closely monitor, evaluate for infection, also peripheral smear ordered, current ANC >2000, has improved # Right kidney small 1cm mass, will be re-evaluated in future, but unchanged in 2+ years # Hypertension # Diabetes mellitus # Dyslipidemia # Coronary artery disease # Congestive heart failure # Chronic obstructive pulmonary disease # Cerebrovascular disease with a prior stroke # Hyperglycemia Subjective Constitutional: Reports: no symptoms HEENT: Reports: no symptoms Cardiovascular: Reports: no symptoms Respiratory: Reports: no symptoms Gastrointestinal/Abdominal: Reports: no symptoms Genitourinary: Reports: no symptoms Neurologic/Psychiatric: Reports: no symptoms Endocrine: Reports: no symptoms Hematologic/Lymphatic: Reports: anemia Allergies: Uncoded Allergies: electrodes (Allergy, Unknown, Itching, 02/19/17) Subjective stable, no events overnight, no fevers or chills Objective Last 24 Hour Vital Signs Date Time Temp Pulse Resp B/P Pulse Ox O2 Delivery O2 Flow Rate FiO2 02/24/17 20:00 97.5 81 18 133/79 99 Room Air 02/24/17 16:00 97.9 82 18 110/60 96 Room Air 02/24/17 14:34 97.9 02/24/17 11:59 97.9 79 13 108/58 99 Room Air 02/24/17 07:35 94 18 100 Room Air 02/24/17 07:34 94 18 100 Room Air 02/24/17 07:33 94 18 100 Room Air 02/24/17 07:28 97.7 87 12 112/66 98 Room Air 02/24/17 07:22 90 18 98 Room Air 21 02/24/17 07:22 21 02/24/17 04:44 97.7 90 16 107/62 95 Room Air 02/24/17 01:27 21 02/24/17 01:27 92 18 98 Room Air 21 02/24/17 01:27 95 18 100 Room Air 21 02/24/17 00:21 97.3 75 17 100/58 99 Room Air Intake and Output 02/23/17 02/24/17 19:00 07:00 Intake Total 1420 ml 1160 ml Output Total 0 ml Balance 1420 ml 1160 ml Intake Oral 120 ml IV Total 1300 ml 1160 ml Estimated Blood Loss 0 ml # Voids 2 5 # Bowel Movements 1 2 Laboratory Tests 02/24/17 05:50: White Blood Count 3.3L, Red Blood Count 3.13L, Hemoglobin 10.4L, Hematocrit 31.8L, Mean Corpuscular Volume 102H, Mean Corpuscular Hemoglobin 33.3H, Mean Corpuscular Hemoglobin Concent 32.7, Red Cell Distribution Width 12.2, Platelet Count 288, Mean Platelet Volume 7.1, Neutrophils (%) (Auto) , Lymphocytes (%) ( Auto) , Monocytes (%) (Auto) , Eosinophils (%) (Auto) , Basophils (%) (Auto) , Differential Total Cells Counted 100, Neutrophils % (Manual) 49, Lymphocytes % ( Manual) 39, Monocytes % (Manual) 8, Eosinophils % (Manual) 4H, Basophils % ( Manual) 0, Band Neutrophils 0, Platelet Estimate Adequate, Platelet Morphology Normal, Macrocytosis 1+, Sodium Level 138, Potassium Level 3.9, Chloride Level 99, Carbon Dioxide Level 26, Anion Gap 13, Blood Urea Nitrogen 9, Creatinine 0.6 , Estimat Glomerular Filtration Rate > 60, Glucose Level 160H, Calcium Level 9.6 , Total Bilirubin 0.3, Aspartate Amino Transf (AST/SGOT) 24, Alanine Aminotransferase (ALT/SGPT) 15, Alkaline Phosphatase 67, Total Protein 6.5L, Albumin 3.7, Globulin 2.8, Albumin/Globulin Ratio 1.3 Height (Feet): 5 Height (Inches): 4.00 Weight (Pounds): 104 General Appearance: no apparent distress EENT: TMs normal Neck: normal alignment Cardiovascular: regular rhythm Respiratory/Chest: normal breath sounds Abdomen: no mass Extremities: non-tender Edema: 1+ Leg (L), 1+ Leg (R) Edema: mild edema Neurologic: oriented x 3 Vincent Jasso February 24, 2017 22:57
[2017-02-25 04:00] VITALS: BP 138/73
[2017-02-25] MEDS: sitaGLIPtin 50mg tab ORAL SCH (05:46)
[2017-02-25] MEDS: D5 1/2NS 1,000 ML IV SCH (05:46)
[2017-02-25] MEDS: NovoLOG Insulin Flexpen SUBQ SCH ×4 (05:49→21:00)
--- NOTE | 2017-02-25 07:19 | Anethesia Preoperative Eval ---
Anesthesia Pre-op PMH/ROS General Date of Evaluation: February 25, 2017 Time of Evaluation: 06:37 Anesthesiologist: jose ASA Score: ASA 3 Mallampati Score Class I : Soft palate, uvula, fauces, pillars visible Class II: Soft palate, uvula, fauces visible Class III: Soft palate, base of uvula visible Class IV: Only hard plate visible Mallampati Classification: Class II Surgeon: olive Diagnosis: GERD Surgical Procedure: colonoscopy Anesthesia History: other - delayed emergence Allergies: Uncoded Allergies: electrodes (Allergy, Unknown, Itching, 02/19/17) Medications: see eMAR Past Medical History Cardiovascular: Reports: HTN, PR, other - hypercholesterolemia Pulmonary: Reports: COPD, other - pneumonia, bronchitis Gastrointestinal/Genitourinary: Reports: GERD, other - bowel rresection, obstructive bowel, appendectomy Neurologic/Psychiatric: Reports: CVA, other - seizures, tremors Endocrine: Reports: DM HEENT: Reports: other - decreased visual acuity, tonsillectomy, neck pain Hematology/Immune: Reports: anemia Musculoskeletal/Integumentary: Reports: OA, other - gout, joint pain PSxH Narrative: hysterectomy, tonsillectomy Anesthesia Pre-op Phys. Exam Physician Exam Last Vital Signs Date Time Temp Pulse Resp B/P Pulse Ox O2 Delivery O2 Flow Rate FiO2 02/25/17 04:00 97.3 100 18 138/73 96 Room Air 02/24/17 07:33 21 02/23/17 07:25 3.0 Constitutional: NAD Neurologic: CN 2-12 intact Cardiovascular: RRR Respiratory: CTA Gastrointestinal: S/NT/ND Airway Exam Mallampati Score: Class II Neck: supple Teeth: missing Dentures: upper Anesthesia Pre-op A/P Labs Labs Test 02/23/17 06:00 02/23/17 09:30 02/24/17 05:50 White Blood Count 3.5 K/UL (4.8-10.8) 3.3 K/UL (4.8-10.8) Red Blood Count 3.47 M/UL (4.20-5.40) 3.13 M/UL (4.20-5.40) Hemoglobin 11.3 G/DL (12.0-16.0) 10.4 G/DL (12.0-16.0) Hematocrit 34.8 % (37.0-47.0) 31.8 % (37.0-47.0) Mean Corpuscular Volume 101 FL (80-99) 102 FL (80-99) Mean Corpuscular Hemoglobin 32.5 PG (27.0-31.0) 33.3 PG (27.0-31.0) Mean Corpuscular Hemoglobin Concent 32.3 G/DL (32.0-36.0) 32.7 G/DL (32.0-36.0) Red Cell Distribution Width 12.4 % (11.6-14.8) 12.2 % (11.6-14.8) Platelet Count 310 K/UL (150-450) 288 K/UL (150-450) Mean Platelet Volume 6.8 FL (6.5-10.1) 7.1 FL (6.5-10.1) Neutrophils (%) (Auto) 43.4 % (45.0-75.0) % (45.0-75.0) Lymphocytes (%) (Auto) 37.9 % (20.0-45.0) % (20.0-45.0) Monocytes (%) (Auto) 12.7 % (1.0-10.0) % (1.0-10.0) Eosinophils (%) (Auto) 5.1 % (0.0-3.0) % (0.0-3.0) Basophils (%) (Auto) 0.9 % (0.0-2.0) % (0.0-2.0) Sodium Level 136 mEQ/L (135-145) 138 mEQ/L (135-145) Potassium Level 4.5 mEQ/L (3.4-4.9) 3.9 mEQ/L (3.4-4.9) Chloride Level 94 mEQ/L (98-107) 99 mEQ/L (98-107) Carbon Dioxide Level 29 mEQ/L (20-30) 26 mEQ/L (20-30) Anion Gap 13 (5-15) 13 (5-15) Blood Urea Nitrogen 19 mg/dL (7-23) 9 mg/dL (7-23) Creatinine 0.9 mg/dL (0.5-0.9) 0.6 mg/dL (0.5-0.9) Estimat Glomerular Filtration Rate > 60 mL/min (>60) > 60 mL/min (>60) Glucose Level 168 mg/dL (74-106) 160 mg/dL (74-106) Calcium Level 10.0 mg/dL (8.6-10.2) 9.6 mg/dL (8.6-10.2) Phosphorus Level 3.9 mg/dL (2.5-4.8) Magnesium Level 2.0 mg/dL (1.7-2.5) Stool Occult Blood Positive (NEGATIVE) Differential Total Cells Counted 100 Neutrophils % (Manual) 49 % (45-75) Lymphocytes % (Manual) 39 % (20-45) Monocytes % (Manual) 8 % (1-10) Eosinophils % (Manual) 4 % (0-3) Basophils % (Manual) 0 % (0-2) Band Neutrophils 0 % (0-8) Platelet Estimate Adequate Platelet Morphology Normal Macrocytosis 1+ Total Bilirubin 0.3 mg/dL (0.0-1.2) Aspartate Amino Transf (AST/SGOT) 24 U/L (5-40) Alanine Aminotransferase (ALT/SGPT) 15 U/L (3-33) Alkaline Phosphatase 67 U/L (35-104) Total Protein 6.5 g/dL (6.6-8.7) Albumin 3.7 g/dL (3.5-5.2) Globulin 2.8 g/dL Albumin/Globulin Ratio 1.3 (1.0-2.7) Risk Assessment & Plan Assessment: GERD, anemia Plan: colonoscopy Status Change Before Surgery: JAIRO Alexis February 25, 2017 07:19
--- NOTE | 2017-02-25 07:47 | General Progress Note ---
Assessment/Plan Assessment/Plan Assessment Nausea / vomiting - resolved Anemia OB (+) stools DM CAD CVA Recommendations NPO monitor CBC Fe replacement colonoscopy today Subjective Allergies: Uncoded Allergies: electrodes (Allergy, Unknown, Itching, 02/19/17) Subjective seen in GI lab pre op now OB (+) (+) BM with prep difficult IV access - multiple sticks Objective Last 24 Hour Vital Signs Date Time Temp Pulse Resp B/P Pulse Ox O2 Delivery O2 Flow Rate FiO2 02/25/17 04:00 97.3 100 18 138/73 96 Room Air 02/24/17 23:45 97.2 73 18 113/75 96 Room Air 02/24/17 23:07 97.2 02/24/17 20:00 97.5 81 18 133/79 99 Room Air 02/24/17 16:00 97.9 82 18 110/60 96 Room Air 02/24/17 11:59 97.9 79 13 108/58 99 Room Air Intake and Output 02/24/17 02/25/17 19:00 07:00 Intake Total 1100 ml 560 ml Balance 1100 ml 560 ml IV Total 1100 ml 560 ml # Voids 3 # Bowel Movements 4 Height (Feet): 5 Height (Inches): 4.00 Weight (Pounds): 104 Objective Thin WW NCAT supple CTA RRR soft ND NT no edema nonfocal JUNAID TAVERAS February 25, 2017 07:47
[2017-02-25] MEDS ORDERED: Bisacodyl EC 5mg tab ORAL ONE ×3 (08:15→20:15)
[2017-02-25] MEDS: D5 1/2NS w/KCL 10meq 1,000 ML IV SCH ×5 (08:58→17:30)
[2017-02-25] MEDS: Heparin 5000 units/ml inj SUBQ SCH ×2 (09:01→20:43)
[2017-02-25] MEDS: Levemir Flexpen SUBQ SCH (09:03)
[2017-02-25] MEDS: Norco 5mg/325mg tab ORAL PRN (09:09)
[2017-02-25] MEDS ORDERED: Lidocaine 1% Plain 30 ml INJ PRN (09:30)
[2017-02-25] MEDS ORDERED: Sodium Bicarbonate 8.4% 50ml Carp IV ONE (09:30)
[2017-02-25] MEDS ORDERED: Heparin 2000 units/Ns 1000ml IV PRN (09:30)
[2017-02-25 11:43] VITALS: BP 97/62
--- NOTE | 2017-02-25 12:39 | Neurology Progress Note ---
Interim History Interim History Interim History Ms. Whittington feels unwell. Her GI procedure was cancelled as venous access could not be obtained. She feels less lightheaded. She has not walked today. She is in bed now. The mind is clear. She denies any new neurologic symptoms. Review of Systems Neuro Review of Systems Benign. Objective Physical Exam Last Vital Signs Date Time Temp Pulse Resp B/P Pulse Ox O2 Delivery O2 Flow Rate FiO2 02/25/17 11:43 97.4 91 18 97/62 96 Room Air 02/24/17 07:33 21 02/23/17 07:25 3.0 Neurologic Exam Objective PHYSICAL EXAMINATION: GENERAL: She is a well-developed, well-nourished but lean black lady, lying in bed, in no acute distress. HEAD: Normocephalic and atraumatic. NECK: No neck rigidity was observed. EENT: Benign. NEUROLOGICAL EXAMINATION: MENTAL STATUS EXAMINATION: She was alert and awake. She was oriented to person, place, and time. She was able to recall 3/3 words immediately after 1 minute, and after 3 minutes. She was able to remember presidents Trump and Obama only. Her mathematical skills were fairly good. Her visuospatial function was preserved. SPEECH: She had a mild dysarthria, but it should be noted that numerous teeth were missing. LANGUAGE: She had no aphasia. CRANIAL NERVE EXAMINATION: II: The visual kearney were intact on confrontation testing. III, IV, : The external ocular movements were full, and the pupils 3 mm in diameter, equal, round, regular, and reactive to light. V: She had normal facial sensations, and the temporales, masseters, and pterygoids functioned normally. VII: She had a trace right 7th central facial paresis. VIII: She was able to hear well bilaterally and had no nystagmus. IX: The palate moved symmetrically on phonation. X: She had no hoarseness of voice. XI: The sternocleidomastoids and trapezii functioned normally. XII: The tongue was in the midline, without any fasciculations or atrophy. MOTOR SYSTEM: The tone was normal in all 4 extremities. Examination of muscle mass revealed no focal wasting. Examination of power revealed G 5/5 power, except for G 5-/5 power in the right finger extensors and right iliopsoas;. SENSORY EXAMINATION: She had intact sensations to pinprick, light touch, and graphesthesia. COORDINATION: She performed well on axotop-zo-ywvs testing. She had problems performing mfll-id-nhpa testing. REFLEXES: 2+ and bilaterally symmetrical at the biceps, triceps, brachioradialis , and knees; trace positive at both ankles. The plantar responses were flexor bilaterally. STANCE & GAIT: She did not want to get out of bed. Impression/Recommendations Diagnostic Impression 1. Ms. Alyssa Whittington is a 66-year-old, right-handed, black lady, who does have a past history of hypertension, diabetes mellitus, dyslipidemia, coronary artery disease, congestive heart failure, chronic obstructive pulmonary disease , and cerebrovascular disease with a prior stroke, and prior episodes of loss of consciousness. She was seen by Dr. Horner at his office on 02/17/17 and was feeling ill. Her blood sugars were in the 500s and she was given insulin but her blood sugar then dropped and she felt like she was becoming hypoglycemic. The paramedics were called in and she was brought to the [facility] ER and has since been admitted. 2. She feels unwell due to her GI procedure being cancelled. She is still mildly light headed. 3. On neurological examination at this time, she does have problems with recent and remote memory, a mild dysarthria, a mild right hemiparesis involving the face, upper and lower extremities, and an unsteady gait. 4. The patients altered mental state and gait unsteadiness is most probably due to a metabolic encephalopathy. Her encephalopathy is stable. Recommendations 1. Continue present management. 2. Correct toxic metabolic imbalances. 3. Keep well hydrated. 4. Keep active. 5. Mobilize. 6. Observe closely. DANNIELLE KEMP M.D., M.S.P.H. DANNIELLE KEMP February 25, 2017 12:39
[2017-02-25] MEDS: Morphine Sulfate 4mg/ml Inj IVP PRN ×2 (14:18→20:55)
[2017-02-25 16:00] VITALS: BP 119/77
--- NOTE | 2017-02-25 16:24 | General Progress Note ---
Assessment/Plan Assessment/Plan # Anemia secondary to iron deficiency - continue iv iron at the moment, improved , goal is hgb >7, sp egd and colo, no evidence of malignancy, recommend iv iron as outpatient # Leukopenia - potentially 2/2 infection, will need to closely monitor, evaluate for infection, also peripheral smear ordered, current ANC >2000, has improved # Right kidney small 1cm mass, will be re-evaluated in future, but unchanged in 2+ years # Hypertension # Diabetes mellitus # Dyslipidemia # Coronary artery disease # Congestive heart failure # Chronic obstructive pulmonary disease # Cerebrovascular disease with a prior stroke # Hyperglycemia Subjective Constitutional: Reports: no symptoms HEENT: Reports: no symptoms Cardiovascular: Reports: no symptoms Respiratory: Reports: no symptoms Gastrointestinal/Abdominal: Reports: no symptoms Genitourinary: Reports: no symptoms Neurologic/Psychiatric: Reports: no symptoms Endocrine: Reports: no symptoms Hematologic/Lymphatic: Reports: anemia Allergies: Uncoded Allergies: electrodes (Allergy, Unknown, Itching, 02/19/17) Subjective stable, no events overnight, no fevers or chills, on iv iron Objective Last 24 Hour Vital Signs Date Time Temp Pulse Resp B/P Pulse Ox O2 Delivery O2 Flow Rate FiO2 02/25/17 16:00 97.7 89 18 119/77 99 Room Air 02/25/17 14:48 97.4 02/25/17 11:43 97.4 91 18 97/62 96 Room Air 02/25/17 10:08 97.3 02/25/17 09:27 85 18 100 Room Air 02/25/17 09:22 85 16 98 Room Air 02/25/17 04:00 97.3 100 18 138/73 96 Room Air 02/24/17 23:45 97.2 73 18 113/75 96 Room Air 02/24/17 20:00 97.5 81 18 133/79 99 Room Air Intake and Output 02/24/17 02/25/17 19:00 07:00 Intake Total 1100 ml 560 ml Balance 1100 ml 560 ml IV Total 1100 ml 560 ml # Voids 3 # Bowel Movements 4 Height (Feet): 5 Height (Inches): 4.00 Weight (Pounds): 104 General Appearance: alert EENT: normal ENT inspection Neck: normal inspection Cardiovascular: regular rhythm Respiratory/Chest: lungs clear Abdomen: non tender Extremities: non-tender Edema: 1+ Leg (L), 1+ Leg (R) Edema: mild edema Neurologic: no motor/sensory deficits Skin: warm/dry Vincent Jasso February 25, 2017 16:24
[2017-02-25] MEDS: Montelukast 10mg tablet ORAL SCH (16:59)
[2017-02-25 20:00] VITALS: BP 121/78
[2017-02-25] MEDS: Iron Sucrose 100 MG in NS 55 ML IVPB SCH (20:53)
[2017-02-25] MEDS ORDERED: D5 1/2NS 1000ml IV ONE (22:34)
--- NOTE | 2017-02-25 22:39 | General Progress Note ---
Assessment/Plan Assessment/Plan diabetes hypoglycemia chronic back pain COPD abdominal pain per Endo pain control respiratory treatment monitor labs gi evaluation appreciated antiemetics prn egd wnl colonpsy today dc to snf [facility] today Subjective Allergies: Uncoded Allergies: electrodes (Allergy, Unknown, Itching, 02/19/17) Subjective awaiting colonospy Objective Last 24 Hour Vital Signs Date Time Temp Pulse Resp B/P Pulse Ox O2 Delivery O2 Flow Rate FiO2 02/25/17 21:25 97.7 02/25/17 20:00 97.5 65 20 121/78 98 Room Air 02/25/17 16:00 97.7 89 18 119/77 99 Room Air 02/25/17 11:43 97.4 91 18 97/62 96 Room Air 02/25/17 10:08 97.3 02/25/17 09:27 85 18 100 Room Air 02/25/17 09:22 85 16 98 Room Air 02/25/17 04:00 97.3 100 18 138/73 96 Room Air 02/24/17 23:45 97.2 73 18 113/75 96 Room Air Intake and Output 02/24/17 02/25/17 19:00 07:00 Intake Total 1100 ml 560 ml Balance 1100 ml 560 ml IV Total 1100 ml 560 ml # Voids 3 # Bowel Movements 4 Height (Feet): 5 Height (Inches): 4.00 Weight (Pounds): 104 CARLOS A MENDOZA February 25, 2017 22:39
--- NOTE | 2017-02-25 23:12 | Pulmonology Progress Note ---
Assessment/Plan Problems: (1) Ileus (2) Hypoglycemia (3) Severe protein-calorie malnutrition (4) Anemia (5) Hyperkalemia (6) Diabetes mellitus out of control (7) Neuropathic pain (8) HTN (hypertension) (9) End stage COPD Assessment/Plan On NG tube now CT abdomen reviewed bs better titrate fio2 to sat of 92% med/surg h/h dropping stool for OB, hem evaluation f/u GI recommendations Subjective Allergies: Uncoded Allergies: electrodes (Allergy, Unknown, Itching, 02/19/17) Objective Last 24 Hour Vital Signs Date Time Temp Pulse Resp B/P Pulse Ox O2 Delivery O2 Flow Rate FiO2 02/25/17 21:25 97.7 02/25/17 20:00 97.5 65 20 121/78 98 Room Air 02/25/17 16:00 97.7 89 18 119/77 99 Room Air 02/25/17 11:43 97.4 91 18 97/62 96 Room Air 02/25/17 10:08 97.3 02/25/17 09:27 85 18 100 Room Air 02/25/17 09:22 85 16 98 Room Air 02/25/17 04:00 97.3 100 18 138/73 96 Room Air 02/24/17 23:45 97.2 73 18 113/75 96 Room Air Intake and Output 02/24/17 02/25/17 19:00 07:00 Intake Total 1100 ml 560 ml Balance 1100 ml 560 ml IV Total 1100 ml 560 ml # Voids 3 # Bowel Movements 4 Current Medications Medications (Trade) Dose Ordered Sig/Sarahi Route PRN Reason Start Time Stop Time Status Last Admin Dose Admin Acetaminophen/ Hydrocodone Bitart ([place] 5/325) 1 tab Q4H PRN ORAL Moderate Pain (Pain Scale 4-6) 02/19/17 12:00 02/26/17 11:59 02/25/17 09:09 Dextrose (Dextrose 50%) STAT PRN IV Hypoglycemia 02/19/17 12:00 03/21/17 11:59 Dextrose/ Electrolytes (D5 0.45% NS w/ KCL 10meq) 1,000 ml @ 125 mls/hr Q8H IV 02/25/17 09:30 03/27/17 09:29 02/25/17 11:25 Diphenhydramine HCl (Benadryl) 25 mg Q6H PRN ORAL Itching 02/19/17 11:15 03/21/17 11:14 02/25/17 20:53 Heparin Sodium (Porcine) (Heparin 5000 units/ml) 5,000 units EVERY 12 HOURS SUBQ 02/19/17 21:00 03/21/17 20:59 02/25/17 20:43 Heparin Sodium/ Sodium Chloride (Heparin 2000 units/Ns 1000ml premix) 2,000 unit ONCE PRN IV PICC PLACEMENT 02/25/17 09:30 02/26/17 23:59 Hydrocortisone (Hydrocortisone) 1 applic Q6H PRN TOPIC Itching 02/19/17 11:30 03/21/17 11:29 02/20/17 12:53 Insulin Aspart (NovoLOG) BEFORE MEALS AND HS SUBQ 02/19/17 12:30 03/21/17 12:29 02/25/17 16:58 Insulin Detemir (Levemir) 6 units DAILY SUBQ 02/20/17 09:00 03/22/17 08:59 02/25/17 09:03 Levetiracetam (Keppra) 500 mg Q12HR ORAL 02/19/17 21:00 03/21/17 20:59 02/25/17 20:36 Lidocaine (Lidoderm 5% PATCH) 1 patch DAILY TDERMAL 02/20/17 09:00 03/22/17 08:59 02/24/17 08:34 Lidocaine HCl (Xylocaine 1% 30ml) 30 ml ONCE PRN INJ PICC PLACEMENT 02/25/17 09:30 02/26/17 23:59 Magnesium Hydroxide (Mom) 30 ml HSPRN PRN ORAL Constipation 02/19/17 21:00 03/21/17 20:59 Meclizine HCl (Antivert) 25 mg Q8H PRN ORAL for dizziness 02/19/17 12:00 03/21/17 11:59 Metoclopramide HCl 10 mg 10 mg Q6H PRN IVP Nausea & Vomiting 02/22/17 17:30 03/24/17 17:29 02/23/17 01:14 Montelukast Sodium (Singulair) 10 mg DAILY@1800 ORAL 02/19/17 18:00 03/21/17 17:59 02/25/17 16:59 Morphine Sulfate (Morphine Sulfate) 4 mg Q4H PRN IVP Severe Pain (Pain Scale 7-10) 02/21/17 20:00 02/28/17 19:59 02/25/17 20:55 Ondansetron HCl (Zofran) 4 mg Q4H PRN IVP Nausea & Vomiting 02/21/17 14:00 03/23/17 13:59 02/23/17 05:50 Pravastatin Sodium (Pravachol) 40 mg BEDTIME ORAL 02/19/17 21:00 03/21/17 20:59 02/25/17 20:35 Promethazine HCl/ Codeine (Phenergan with Codeine) 5 ml Q4H PRN ORAL For Cough 02/19/17 12:00 03/21/17 11:59 Sitagliptin Phosphate (Januvia) 50 mg ACBREAKFAST ORAL 02/20/17 06:30 03/22/17 06:29 02/25/17 05:46 Sodium Phosphate (Fleet's Sodium Phosl Enema) 133 ml ONCE ONCE RECTAL 02/26/17 05:00 02/26/17 05:01 Tiotropium [place] (Spiriva Inhaler) 1 puff DAILY INH 02/20/17 09:00 03/22/17 08:59 02/25/17 09:11 GREG CHAVEZ February 25, 2017 23:12
[2017-02-26] VITALS (7 sets, daily range): BP systolic 114–149; BP diastolic 66–96
[2017-02-26] MEDS: D5 1/2NS w/KCL 10meq 1,000 ML IV SCH ×2 (01:00→11:00)
[2017-02-26] MEDS ORDERED: Fleet's Enema 133ml RECTAL ONE (05:00)
[2017-02-26] MEDS: sitaGLIPtin 50mg tab ORAL SCH (06:30)
[2017-02-26] MEDS: NovoLOG Insulin Flexpen SUBQ SCH ×2 (06:30→12:09)
[2017-02-26] MEDS ORDERED: NS 550ML IV ONE (07:00)
[2017-02-26] MEDS ORDERED: Propofol 10mg/ml 20ml IV ONE (07:00)
[2017-02-26] MEDS ORDERED: Lidocaine 1% MPF 10mg/ml 5ml ONE (07:00)
--- NOTE | 2017-02-26 07:05 | General Progress Note ---
Assessment/Plan Assessment/Plan Assessment Nausea / vomiting - resolved Anemia OB (+) stools DM CAD CVA Recommendations NPO monitor CBC Fe replacement colonoscopy today Subjective Allergies: Uncoded Allergies: electrodes (Allergy, Unknown, Itching, 02/19/17) Subjective seen in GI lab pre op now OB (+) (+) BM with prep difficult IV access - multiple sticks Objective Last 24 Hour Vital Signs Date Time Temp Pulse Resp B/P Pulse Ox O2 Delivery O2 Flow Rate FiO2 02/26/17 04:00 97.1 102 22 140/66 99 02/26/17 00:00 97.5 68 20 114/70 98 Room Air 02/25/17 21:25 97.7 02/25/17 20:00 97.5 65 20 121/78 98 Room Air 02/25/17 16:00 97.7 89 18 119/77 99 Room Air 02/25/17 11:43 97.4 91 18 97/62 96 Room Air 02/25/17 10:08 97.3 02/25/17 09:27 85 18 100 Room Air 02/25/17 09:22 85 16 98 Room Air Intake and Output 02/25/17 02/26/17 19:00 07:00 Intake Total 1470 ml 1240 ml Balance 1470 ml 1240 ml Intake Oral 720 ml 240 ml IV Total 750 ml 1000 ml # Voids 3 2 # Bowel Movements 2 3 Height (Feet): 5 Height (Inches): 4.00 Weight (Pounds): 104 Objective Thin WW NCAT supple CTA RRR soft ND NT no edema nonfocal JUNAID TAVERAS February 26, 2017 07:05
--- NOTE | 2017-02-26 07:06 | Pre-Procedure Note/Attestation ---
Pre-Procedure Note/Attestation Complete Prior to Procedure Planned Procedure: not applicable Procedure Narrative: colon Indications for Procedure Pre-Operative Diagnosis: heme (+) Attestation I attest that I discussed the nature of the procedure; its benefits; risks and complications; and alternatives (and the risks and benefits of such alternatives ), prior to the procedure, with the patient (or the patient's legal investment representative). I attest that, if there was a reasonable possibility of needing a blood transfusion, the patient (or the patient's legal investment representative) was given the [facility] standardized written summary, pursuant to the [place] Blood Safety Act ([place] Health and Safety Code # 1645, as amended). I attest that I re-evaluated the patient just prior to the surgery and that there has been no change in the patient's H&P, except as documented below: JUNAID TAVERAS February 26, 2017 07:05
--- NOTE | 2017-02-26 07:13 | Anethesia Preoperative Eval ---
Anesthesia Pre-op PMH/ROS General Date of Evaluation: February 26, 2017 Time of Evaluation: 07:00 Anesthesiologist: Jas Schultz ASA Score: ASA 3 Mallampati Score Class I : Soft palate, uvula, fauces, pillars visible Class II: Soft palate, uvula, fauces visible Class III: Soft palate, base of uvula visible Class IV: Only hard plate visible Mallampati Classification: Class II Surgeon: Enrico Diagnosis: Anemia, Bloody Stool Surgical Procedure: Colonoscopy Anesthesia History: other - No problems Social History: smoking - Quit Family History: no anesthesia problems Allergies: Uncoded Allergies: electrodes (Allergy, Unknown, Itching, 02/19/17) Medications: see eMAR Past Medical History Cardiovascular: Reports: CAD, HTN, other - CHF Pulmonary: Reports: COPD Neurologic/Psychiatric: Reports: CVA Endocrine: Reports: DM Hematology/Immune: Reports: anemia Musculoskeletal/Integumentary: Reports: DJD PSxH Narrative: Hysterectomy,Appendectomy Anesthesia Pre-op Phys. Exam Physician Exam Last Vital Signs Date Time Temp Pulse Resp B/P Pulse Ox O2 Delivery O2 Flow Rate FiO2 02/26/17 04:00 97.1 102 22 140/66 99 02/26/17 00:00 Room Air 02/24/17 07:33 21 02/23/17 07:25 3.0 Constitutional: NAD Cardiovascular: RRR Respiratory: CTA Airway Exam Mallampati Score: Class II MO: full ROM: full Teeth: missing Dentures: lower, upper JAS SCHULTZ M.D. February 26, 2017 07:13
[2017-02-26] MEDS ORDERED: fentaNYL 100 mcg/2 mL IV PRN (07:15)
[2017-02-26] MEDS ORDERED: DiphenhydrAMINE 50mg/ml Inj IVP PRN (07:15)
--- NOTE | 2017-02-26 07:52 | Immediate Post-Op Evaluation ---
Immediate Post-Op Evalulation Immediate Post-Op Evalulation Procedure: Colonoscopy Date of Evaluation: February 26, 2017 Time of Evaluation: 07:46 IV Fluids: 250ml Blood Products: 0 Estimated Blood Loss: 0 Urinary Output: 0 Blood Pressure Systolic: 115 Blood Pressure Diastolic: 78 Pulse Rate: 81 Respiratory Rate: 20 O2 Sat by Pulse Oximetry: 99 Temperature (Fahrenheit): 98.6 Pain Score (1-10): 0 Nausea: No Vomiting: No Complications None Patient Status: awake, reacts, patent, none Hydration Status: adequate JAS PRIDE M.D. February 26, 2017 07:52
[2017-02-26] MEDS: Heparin 5000 units/ml inj SUBQ SCH (09:00)
--- NOTE | 2017-02-26 10:27 | Neurology Progress Note ---
Interim History Interim History Interim History Ms. Whittington feels better. She just got back from her colonoscopy. She denies any lightheadedness but has not been out of bed yet.. She has not walked today. She is in bed now. The mind is clear. She denies any new neurologic symptoms. Review of Systems Neuro Review of Systems Benign. Objective Physical Exam Last Vital Signs Date Time Temp Pulse Resp B/P Pulse Ox O2 Delivery O2 Flow Rate FiO2 02/26/17 08:03 98.0 84 20 124/77 96 Room Air 02/26/17 07:45 3.0 02/24/17 07:33 21 Neurologic Exam Objective PHYSICAL EXAMINATION: GENERAL: She is a well-developed, well-nourished but lean black lady, lying in bed, in no acute distress. HEAD: Normocephalic and atraumatic. NECK: No neck rigidity was observed. EENT: Benign. NEUROLOGICAL EXAMINATION: MENTAL STATUS EXAMINATION: She was alert and awake. She was oriented to person, place, and time. She was able to recall 3/3 words immediately after 1 minute, and after 3 minutes. She was able to remember presidents Trump and Obama only. Her mathematical skills were fairly good. Her visuospatial function was preserved. SPEECH: She had a mild dysarthria, but it should be noted that numerous teeth were missing. LANGUAGE: She had no aphasia. CRANIAL NERVE EXAMINATION: II: The visual kearney were intact on confrontation testing. III, IV, : The external ocular movements were full, and the pupils 3 mm in diameter, equal, round, regular, and reactive to light. V: She had normal facial sensations, and the temporales, masseters, and pterygoids functioned normally. VII: She had a trace right 7th central facial paresis. VIII: She was able to hear well bilaterally and had no nystagmus. IX: The palate moved symmetrically on phonation. X: She had no hoarseness of voice. XI: The sternocleidomastoids and trapezii functioned normally. XII: The tongue was in the midline, without any fasciculations or atrophy. MOTOR SYSTEM: The tone was normal in all 4 extremities. Examination of muscle mass revealed no focal wasting. Examination of power revealed G 5/5 power, except for G 5-/5 power in the right finger extensors and right iliopsoas;. SENSORY EXAMINATION: She had intact sensations to pinprick, light touch, and graphesthesia. COORDINATION: She performed well on [id number]-pm-[id number] testing. She had problems performing [id number]-mj-[id number] testing. REFLEXES: 2+ and bilaterally symmetrical at the biceps, triceps, brachioradialis , and knees; trace positive at both ankles. The plantar responses were flexor bilaterally. STANCE & GAIT: Were deferred as she did not want to get out of bed. Impression/Recommendations Diagnostic Impression 1. Ms. Alyssa Whittington is a 66-year-old, right-handed, black lady, who does have a past history of hypertension, diabetes mellitus, dyslipidemia, coronary artery disease, congestive heart failure, chronic obstructive pulmonary disease , and cerebrovascular disease with a prior stroke, and prior episodes of loss of consciousness. She was seen by Dr. Horner at his office on 02/17/17 and was feeling ill. Her blood sugars were in the 500s and she was given insulin but her blood sugar then dropped and she felt like she was becoming hypoglycemic. The paramedics were called in and she was brought to the [facility] ER and has since been admitted. 2. She feels better today and just got back from her colonoscopy. She is not light headed doday but has not been out of bed yet. 3. On neurological examination at this time, she does have problems with recent and remote memory, a mild dysarthria, a mild right hemiparesis involving the face, upper and lower extremities, and an unsteady gait. 4. The patients altered mental state and gait unsteadiness is most probably due to a metabolic encephalopathy. Her encephalopathy is stable. Recommendations 1. Continue present management. 2. Correct toxic metabolic imbalances. 3. Keep well hydrated. 4. Keep active. 5. Mobilize. 6. Observe closely. DANNIELLE KEMP M.D., M.S.P.H. DANNIELLE KEMP February 26, 2017 10:27
--- NOTE | 2017-02-26 10:29 | Pulmonology Progress Note ---
Assessment/Plan Assessment/Plan ASSESSMENT ileus-resolved s/p EGD with biopsy end stage COPD metabolic encephalopathy severe protein calorie malnutrition HTN DM OOC neuropathic pain anemia of chronic disease hyperkalemia fecal impaction PLAN OF CARE MS floor IVF GI follows s/p EGD, biopsy negative for H pylori, dysplasia, metaplasia, mild reactive changes esophagus s/p colonoscopy today ( stool OB +) , results pending after procedure diet as tolerated dietary eval, check prealbumin a/emetic prn O2 HHN prn antitussive prn CXR negative continue Singular and Spiriva pain management anemia workup noted on IV Venofer stool OB +, await colonoscopy results heme follows monitor HH transfuse prn bowel regimen DVT prophylaxis neuro follows BS management with Levemir, Januvia and SS of insulin prn , [id number] not at goal BP monitoring, currently off any anti HTN medications s/p Rx for hyperkalemia , K stable monitor lytes and correct as needed dc plan soon case discussed and evaluated by supervising physician Subjective Allergies: Uncoded Allergies: electrodes (Allergy, Unknown, Itching, 02/19/17) Subjective denies chest pain, no signs of respiratory distress just completed colonoscopy hungry Objective Last 24 Hour Vital Signs Date Time Temp Pulse Resp B/P Pulse Ox O2 Delivery O2 Flow Rate FiO2 02/26/17 08:03 98.0 84 20 124/77 96 Room Air 02/26/17 07:55 85 21 134/75 98 Room Air 02/26/17 07:52 81 20 99 02/26/17 07:45 83 18 119/77 97 Nasal Cannula 3.0 02/26/17 07:41 98.6 83 15 115/78 100 Nasal Cannula 3.0 02/26/17 04:00 97.1 102 22 140/66 99 02/26/17 00:00 97.5 68 20 114/70 98 Room Air 02/25/17 21:25 97.7 02/25/17 20:00 97.5 65 20 121/78 98 Room Air 02/25/17 16:00 97.7 89 18 119/77 99 Room Air 02/25/17 11:43 97.4 91 18 97/62 96 Room Air Intake and Output 02/25/17 02/26/17 19:00 07:00 Intake Total 1470 ml 1240 ml Balance 1470 ml 1240 ml Intake Oral 720 ml 240 ml IV Total 750 ml 1000 ml # Voids 3 3 # Bowel Movements 2 3 General Appearance: cachetic HEENT: normocephalic, atraumatic, anicteric Respiratory/Chest: no respiratory distress, no accessory muscle use, decreased breath sounds Cardiovascular: normal peripheral pulses, normal rate, regular rhythm, no JVD Abdomen: normal bowel sounds, soft, non tender, non distended Genitourinary: normal external genitalia Extremities: no edema, pedal pulses normal Neurologic/Psychiatric: abnormal gait, alert, responsive Musculoskeletal: atrophy - BLE Current Medications Medications (Trade) Dose Ordered Sig/Sarahi Route PRN Reason Start Time Stop Time Status Last Admin Dose Admin Acetaminophen/ Hydrocodone Bitart ([place] 5/325) 1 tab Q4H PRN ORAL Moderate Pain (Pain Scale 4-6) 02/19/17 12:00 02/26/17 11:59 02/25/17 09:09 Dextrose (Dextrose 50%) STAT PRN IV Hypoglycemia 02/19/17 12:00 03/21/17 11:59 Dextrose/ Electrolytes (D5 0.45% NS w/ KCL 10meq) 1,000 ml @ 125 mls/hr Q8H IV 02/25/17 09:30 03/27/17 09:29 02/26/17 01:00 Diphenhydramine HCl (Benadryl) 25 mg Q15M PRN IVP Itching 02/26/17 07:15 02/26/17 13:20 Diphenhydramine HCl (Benadryl) 25 mg Q6H PRN ORAL Itching 02/19/17 11:15 03/21/17 11:14 02/25/17 20:53 Fentanyl Citrate (Sublimaze 100 mcg/2 mL) 25 mcg Q10M PRN IV Moderate Pain (Pain Scale 4-6) 02/26/17 07:15 02/26/17 13:20 Heparin Sodium (Porcine) (Heparin 5000 units/ml) 5,000 units EVERY 12 HOURS SUBQ 02/19/17 21:00 03/21/17 20:59 02/25/17 20:43 Heparin Sodium/ Sodium Chloride (Heparin 2000 units/Ns 1000ml premix) 2,000 unit ONCE PRN IV PICC PLACEMENT 02/25/17 09:30 02/26/17 23:59 Hydrocortisone (Hydrocortisone) 1 applic Q6H PRN TOPIC Itching 02/19/17 11:30 03/21/17 11:29 02/20/17 12:53 Insulin Aspart (NovoLOG) BEFORE MEALS AND HS SUBQ 02/19/17 12:30 03/21/17 12:29 02/25/17 16:58 Insulin Detemir (Levemir) 6 units DAILY SUBQ 02/20/17 09:00 03/22/17 08:59 02/25/17 09:03 Levetiracetam (Keppra) 500 mg Q12HR ORAL 02/19/17 21:00 03/21/17 20:59 02/25/17 20:36 Lidocaine (Lidoderm 5% PATCH) 1 patch DAILY TDERMAL 02/20/17 09:00 03/22/17 08:59 02/24/17 08:34 Lidocaine HCl 30 ml 30 ml ONCE PRN INJ PICC PLACEMENT 02/25/17 09:30 02/26/17 23:59 Magnesium Hydroxide (Mom) 30 ml HSPRN PRN ORAL Constipation 02/19/17 21:00 03/21/17 20:59 Meclizine HCl (Antivert) 25 mg Q8H PRN ORAL for dizziness 02/19/17 12:00 03/21/17 11:59 Metoclopramide HCl 10 mg 10 mg Q6H PRN IVP Nausea & Vomiting 02/22/17 17:30 03/24/17 17:29 02/23/17 01:14 Montelukast Sodium (Singulair) 10 mg DAILY@1800 ORAL 02/19/17 18:00 03/21/17 17:59 02/25/17 16:59 Morphine Sulfate (Morphine Sulfate) 4 mg Q4H PRN IVP Severe Pain (Pain Scale 7-10) 02/21/17 20:00 02/28/17 19:59 02/25/17 20:55 Ondansetron HCl (Zofran) 4 mg Q1H PRN IVP Nausea & Vomiting 02/26/17 07:15 02/26/17 13:20 Ondansetron HCl (Zofran) 4 mg Q4H PRN IVP Nausea & Vomiting 02/21/17 14:00 03/23/17 13:59 02/23/17 05:50 Pravastatin Sodium (Pravachol) 40 mg BEDTIME ORAL 02/19/17 21:00 03/21/17 20:59 02/25/17 20:35 Promethazine HCl/ Codeine (Phenergan with Codeine) 5 ml Q4H PRN ORAL For Cough 02/19/17 12:00 03/21/17 11:59 Sitagliptin Phosphate (Januvia) 50 mg ACBREAKFAST ORAL 02/20/17 06:30 03/22/17 06:29 02/25/17 05:46 Sodium Chloride (Sodium Chloride 1000ml bag) 1,000 ml @ 10 mls/hr Q24H IVLG 02/26/17 07:13 02/26/17 12:30 Tiotropium [place] (Spiriva Inhaler) 1 puff DAILY INH 02/20/17 09:00 03/22/17 08:59 02/26/17 09:09 Kul[place]inder ([facility])Helen NP February 26, 2017 10:29
[2017-02-26] MEDS: Levemir Flexpen SUBQ SCH (10:31)
[2017-02-26] MEDS: Morphine Sulfate 4mg/ml Inj IVP PRN (10:38)
--- NOTE | 2017-02-26 11:27 | Diagnostic Imaging Report ---
Indications: Long-term central IV access required for intravenous therapy Technique: The procedure indications, risks, and alternatives were explained to the patient who understands and gives consent to proceed. Strict aseptic technique was utilized, including hand washing, use of hat and mask, use of sterile gown and gloves, sterile ultrasound gel and probe cover, prepping of left arm skin with 2% chlorhexidine solution, and application of full body sterile barrier over this area. Skin and subcutaneous soft tissues were infiltrated with 1% lidocaine and sodium bicarbonate. A small dermatotomy was made, through which the larger of two patent, adequate size left brachial veins was punctured percutaneously under direct sonographic guidance with a 21-gauge needle . Exchange was made over a 0.018 inch guidewire for a 5 Swedish peel-away sheath. A [employer]-PICC 5 [place] dual lumen central venous catheter was cut to appropriate length, then advanced through the sheath over the guidewire under direct fluoroscopic guidance into the superior vena cava. Guidewire and sheath were removed. Both catheter ports were aspirated, then flushed with heparinized saline. Final image was obtained. Catheter was secured the skin with adhesive dressing. Patient tolerated procedure well without immediate complications. Total fluoroscopy time: 0.1 minutes. Dose-area product: 2 dGy-cm2 Findings: Final image demonstrates tip of the central venous catheter at the level of superior vena cava-right atrial junction, 37 cm in from the skin. Both ports aspirate and flush freely. IMPRESSION: Placement of peripherally inserted central venous catheter via left brachial vein, working well.
[2017-02-26] MEDS ORDERED: BENADRYL ALLERG25 M1 PO (13:41)
[2017-02-26] MEDS ORDERED: HEPARIN SO5000 UNIT2 SUBQ (13:42)
[2017-02-26] MEDS ORDERED: HYDROCORTISON28.4 G5 RC (13:44)
[2017-02-26] MEDS ORDERED: NOVOLOG100 UNIT/4 SQ (13:45)
[2017-02-26] MEDS ORDERED: LEVEMIR FL100 UNIT/1 SUBQ ×2 (13:48)
[2017-02-26] MEDS ORDERED: MECLIZINE HCL25 MG ORAL (13:49)
[2017-02-26] MEDS ORDERED: LIDODERM700 M1 TOPIC (13:49)
[2017-02-26] MEDS ORDERED: REGLAN10 MG IVP (13:51)
[2017-02-26] MEDS ORDERED: SINGULAIR10 MG ORAL (13:52)
[2017-02-26] MEDS ORDERED: MILK OF MA400 MG/51 ORAL (13:52)
[2017-02-26] MEDS ORDERED: MORPHINE 22 MG/1 ML IV (13:53)
[2017-02-26] MEDS ORDERED: ZOFRAN 4 MG4 MG/2 ML IV (13:54)
[2017-02-26] MEDS ORDERED: PRAVASTATIN SOD20 M1 ORAL (13:55)
[2017-02-26] MEDS ORDERED: PROMETH-CODEIN 65 ML PO (13:55)
[2017-02-26] MEDS ORDERED: KEPPRA500 M4 ORAL (13:56)
--- NOTE | 2017-02-26 18:01 | General Progress Note ---
Assessment/Plan Assessment/Plan # Anemia secondary to iron deficiency - continue iv iron at the moment, improved , goal is hgb >7, sp egd and colo, no evidence of malignancy, recommend iv iron as outpatient # Leukopenia - potentially 2/2 infection, will need to closely monitor, evaluate for infection, also peripheral smear ordered, current ANC >2000, has improved # Right kidney small 1cm mass, will be re-evaluated in future, but unchanged in 2+ years # Hypertension # Diabetes mellitus # Dyslipidemia # Coronary artery disease # Congestive heart failure # Chronic obstructive pulmonary disease # Cerebrovascular disease with a prior stroke # Hyperglycemia Subjective Constitutional: Reports: no symptoms HEENT: Reports: no symptoms Cardiovascular: Reports: no symptoms Respiratory: Reports: no symptoms Gastrointestinal/Abdominal: Reports: no symptoms Genitourinary: Reports: no symptoms Neurologic/Psychiatric: Reports: no symptoms Endocrine: Reports: no symptoms Hematologic/Lymphatic: Reports: no symptoms Allergies: Uncoded Allergies: electrodes (Allergy, Unknown, Itching, 02/19/17) Subjective stable, no events overnight, no fevers or chills, stable for discharge Objective Last 24 Hour Vital Signs Date Time Temp Pulse Resp B/P Pulse Ox O2 Delivery O2 Flow Rate FiO2 02/26/17 12:15 97.6 96 20 149/96 98 Room Air 02/26/17 09:00 86 18 98 Room Air 02/26/17 09:00 84 18 98 Room Air 02/26/17 08:03 98.0 84 20 124/77 96 Room Air 02/26/17 07:55 85 21 134/75 98 Room Air 02/26/17 07:52 81 20 99 02/26/17 07:45 83 18 119/77 97 Nasal Cannula 3.0 02/26/17 07:41 98.6 83 15 115/78 100 Nasal Cannula 3.0 02/26/17 04:00 97.1 102 22 140/66 99 02/26/17 00:00 97.5 68 20 114/70 98 Room Air 02/25/17 21:25 97.7 02/25/17 20:00 97.5 65 20 121/78 98 Room Air Intake and Output 02/25/17 02/26/17 19:00 07:00 Intake Total 1470 ml 1240 ml Balance 1470 ml 1240 ml Intake Oral 720 ml 240 ml IV Total 750 ml 1000 ml # Voids 3 3 # Bowel Movements 2 3 Height (Feet): 5 Height (Inches): 4.00 Weight (Pounds): 104 General Appearance: WD/WN, no apparent distress EENT: normal ENT inspection Neck: normal alignment Cardiovascular: normal rate Respiratory/Chest: chest wall non-tender Abdomen: non tender Extremities: non-tender Edema: no edema noted Leg (L), no edema noted Leg (R) Neurologic: alert Skin: warm/dry Vincent Jasso February 26, 2017 18:01
--- NOTE | 2017-02-27 08:40 | Endoscopy Procedure Note ---
Endoscopy Procedure Note Indication for Procedure: anemia Procedures Performed: colonoscopy Operative Findings/Diagnosis: s/p (R) partial colectomy, polypoid masses vs prolapsed mucosa - biopsy,RND Specimen: yes Pt Tolerated Procedure Well: Yes Estimated Blood Loss: none Anesthesiologist: see list Anesthesia: MAC Medication Given: see anesthesia record Implant(s) used?: No 50 yrs or older w/o bx or poly: Not Applicable 10yrs. F/U not recommended: Not Applicable If not recommended, why?: JUNAID TAVERAS February 27, 2017 08:40
--- NOTE | 2017-02-27 08:42 | Brief Operative Note ---
Immediate Post Operative Note Operative Note Chief Complaint: Heme (+), anemia Pre-op Diagnosis: heme (+) Procedure: colon/Bx Post-op Diagnosis: Normal, s/p bx antrum and mid esophagus Surgeon: olive Anesthesiologist: see list Anesthesia: MAC, moderate sedation Specimen: yes Complications: none Condition: stable Estimated Blood Loss: none Drains: none Implant(s) used?: No JUNAID TAVERAS February 27, 2017 08:42
--- NOTE | 2017-02-27 19:16 | Operative Note - Dictated ---
DATE OF OPERATION: 02/26/2017 GASTROENTEROLOGY PROCEDURE REPORT: PROCEDURE: Colonoscopy with biopsy. SURGEON: Nieves Weston M.D. ANESTHESIA: Please see the separate anesthesiologist notes for details. PRE-ENDOSCOPIC DIAGNOSES: 1. Heme-positive stools. 2. Anemia. POST-ENDOSCOPIC DIAGNOSES: 1. Status post cecal dysfunction with partial right hemicolectomy. 2. There are two polypoid masses seen near the cecal area. prolapsed tissue, perhaps a prolapsed diverticulum. They are both biopsied and biopsies were sent to Pathology for review. within normal limits. Random biopsy Pathology for review. Retroflexed view of rectum was unremarkable. The colonoscope was removed. The patient was sent to recovery in good condition. COMPLICATIONS: None. ASSESSMENT: The patient presents with two polypoid tissue masses, which were smooth surface and then measured approximately 2 to 3 cm each. There appeared to be lying prolapsed tissue, perhaps a prolapsed diverticulum and therefore they were not removed. Gentle biopsies were done from the surface and these were evaluated for pathological change. Biopsies of the ascending colon were also sent. Once the results are available further recommendations can be made. There was no active bleeding identified. RECOMMENDATIONS: 1. Resume oral diet. 2. Follow up biopsy results. 3. The above was discussed with the patient's sister. Nieves Weston M.D. DR: Jose JOB#: [id number] CC:
[2017-03-01 09:43] VITALS: BP 149/96
--- NOTE | 2017-03-01 09:44 | 48 Hour Post Anesthesia Eval ---
Post Anesthesia Evaluation Procedure: Colonoscopy Date of Evaluation: February 26, 2017 Time of Evaluation: 12:16 Blood Pressure Systolic: 149 0: 96 Pulse Rate: 96 Respiratory Rate: 20 Temperature (Fahrenheit): 97.6 O2 Sat by Pulse Oximetry: 98 Airway: patent Nausea: No Vomiting: No Pain Intensity: 0 Hydration Status: adequate Cardiopulmonary Status: WNL Mental Status/LOC: patient returned to baseline Follow-up Care/Observations: No problems Post-Anesthesia Complications: None Follow-up care needed: N/A JAS PRIDE M.D. March 01, 2017 09:43
== END 2017-02-26 17:00 | DRG 637 ==
LOC: EDBD 12:38 → EMR 13:25 → 2E 14:01 → EDBEDREQ 16:05 → 4W 02-19 11:31
PROC: 0DB68ZX Excision of Stomach, Via Natural or Artificial Opening Endoscopic, Diagnostic (ICD-10-PCS; principal; 2017-02-23 07:06)
PROC: 0DB28ZX Excision of Middle Esophagus, Via Natural or Artificial Opening Endoscopic, Diagnostic (ICD-10-PCS; principal; 2017-02-23 07:06)
PROC: 02HV33Z Insertion of Infusion Device into Superior Vena Cava, Percutaneous Approach (ICD-10-PCS; 2017-02-25)
PROC: 0DBK8ZX Excision of Ascending Colon, Via Natural or Artificial Opening Endoscopic, Diagnostic (ICD-10-PCS; 2017-02-26)
PROC: 0DBH8ZX Excision of Cecum, Via Natural or Artificial Opening Endoscopic, Diagnostic (ICD-10-PCS; 2017-02-26)
DX: E11.649 Type 2 diabetes mellitus with hypoglycemia without coma (principal); E43 Unspecified severe protein-calorie malnutrition; G93.41 Metabolic encephalopathy; I69.351 Hemiplegia and hemiparesis following cerebral infarction affecting right dominant side; J44.9 Chronic obstructive pulmonary disease, unspecified; I50.9 Heart failure, unspecified; R56.9 Unspecified convulsions; I10 Essential (primary) hypertension; F19.21 Other psychoactive substance dependence, in remission; D50.9 Iron deficiency anemia, unspecified; K56.7 Ileus, unspecified; Z68.1 Body mass index [BMI] 19.9 or less, adult; M19.90 Unspecified osteoarthritis, unspecified site; I25.10 Atherosclerotic heart disease of native coronary artery without angina pectoris; D64.9 Anemia, unspecified; I69.393 Ataxia following cerebral infarction; E78.5 Hyperlipidemia, unspecified; D63.8 Anemia in other chronic diseases classified elsewhere; Z90.49 Acquired absence of other specified parts of digestive tract; R11.2 Nausea with vomiting, unspecified; Z79.4 Long term (current) use of insulin; R94.6 Abnormal results of thyroid function studies; E07.81 Sick-euthyroid syndrome; M54.9 Dorsalgia, unspecified; G89.29 Other chronic pain; M79.2 Neuralgia and neuritis, unspecified; Z91.19 Patient's noncompliance with other medical treatment and regimen; M48.06 Spinal stenosis, lumbar region; F17.200 Nicotine dependence, unspecified, uncomplicated
CPT/HCPCS: 36415; 36569; 71010; 74177; 76937; 80048; 80053; 80061; 80299; 80300; 80329; 81003; 82270; 82378; 82550; 82553; 82607; 82728; 82746; 82962; 83036; 83540; 83550; 83605; 83735; 84100; 84436; 84439; 84443; 84481; 84484; 84550; 85007; 85025; 85044; 85060; 85384; 85610; 87040; 87081; 93005; 94003; 94150; 94640; 94664; 97802; J1815; J2405; J2765; J7620; S5561

== ENCOUNTER → 2017-04-22 | Outpatient (CLI) | payer MEDICARE, MEDICAID ==
[~2017-04-22] MED LIST changes: +BENADRYL ALLERG25 M1 PO; +HEPARIN SO5000 UNIT2 SUBQ; +HYDROCORTISON28.4 G5 RC; +KEPPRA500 M4 ORAL; +LEVEMIR FL100 UNIT/1 SUBQ; +LIDODERM700 M1 TOPIC; +MECLIZINE HCL25 MG ORAL; +MILK OF MA400 MG/51 ORAL; +MORPHINE 22 MG/1 ML IV; +NOVOLOG100 UNIT/4 SQ; +PRAVASTATIN SOD20 M1 ORAL; +PROMETH-CODEIN 65 ML PO; +REGLAN10 MG IVP; +SINGULAIR10 MG ORAL; +ZOFRAN 4 MG4 MG/2 ML IV
== END | disposition home or self-care (01) ==
LOC: LAB 12:45
DX: G40.909 Epilepsy, unspecified, not intractable, without status epilepticus (principal)
CPT/HCPCS: 36415; 80185

== ENCOUNTER 2017-10-09 18:37 | Inpatient (IN) | payer MEDICARE, MEDICAID ==
[~2017-10-09] VITALS: Ht 165.1 cm; Wt 48.1 kg
[2017-10-09] MEDS ORDERED: Sodium Chloride 500ML 500 ML IV ONE (18:55)
[2017-10-09] MEDS ORDERED: Solu-MEDROL 125mg Inj IVP ONE (19:00)
[2017-10-09] MEDS: Albuterol ud Inhalation HHN SCH ×3 (19:32→20:16)
[2017-10-09] MEDS: Ipratropium 0.02% Inh Soln 2.5ml UD HHN SCH ×3 (19:33→20:17)
[2017-10-09 20:30] VITALS: BP_SYST 126; BP_SYST 180; BP_DIAS 60; BP_DIAS 92
[2017-10-09 20:37] LABS: HEMATOCRIT 41.6 % (37.0-47.0); HEMOGLOBIN 13.7 G/DL (12.0-16.0); MEAN CORPUSCULAR VOLUME 102 FL (80-99); PLATELET COUNT 285 K/UL (150-450); RED BLOOD COUNT 4.08 M/UL (4.20-5.40); WHITE BLOOD COUNT 12.8 K/UL (4.8-10.8)
[2017-10-09 20:52] LABS: ANION GAP 8 mmol/L (5-15); BLOOD UREA NITROGEN 14 mg/dL (7-18); CALCIUM 8.9 MG/DL (8.5-10.1); CARBON DIOXIDE 27 MMOL/L (21-32); CHLORIDE 110 MMOL/L (98-107); CREATININE 0.9 MG/DL (0.55-1.30); POTASSIUM 4.2 MMOL/L (3.5-5.1); SODIUM 145 MMOL/L (136-145)
[2017-10-09 20:54] LABS: APPEARANCE,URINE CLEAR; BILIRUBIN, URINE NEGATIVE (NEGATIVE); COLOR,URINE PALE YELLOW; GLUCOSE, URINE (UA) NEGATIVE (NEGATIVE); KETONES,URINE NEGATIVE (NEGATIVE); LEUKOCYTE ESTERASE ,URINE 2+ (NEGATIVE); NITRITE,URINE POSITIVE (NEGATIVE); PH,URINE 5 (4.5-8.0); PROTEIN,URINE NEGATIVE (NEGATIVE); UROBILINOGEN,URINE NORMAL MG/DL (0.0-1.0)
[2017-10-09 21:00] VITALS: BP 159/56
[2017-10-09] MEDS ORDERED: Morphine Sulfate 4mg/ml Inj IVP ONE (21:00)
[2017-10-09 21:07] LABS: ALANINE AMINOTRANSFERASE 26 U/L (12-78); ALKALINE PHOSPHATASE 134 U/L (46-116); ASPARTATE AMINO TRANSFERASE 28 U/L (15-37); BILIRUBIN,TOTAL 0.4 MG/DL (0.2-1.0); CKMB 0.9 NG/ML (0.0-3.6); CREATINE KINASE 135 U/L (26-308)
--- NOTE | 2017-10-09 22:24 | Emergency Room Report ---
History of Present Illness General Chief Complaint: Dyspnea/Respdistress Source: Patient, Medical Record Present Illness HPI 66-year-old female presents ED complaining of shortness of breath and cough x1 day. In triage O2 sats were low. Patient has history of COPD. Denies fevers or chills. Denies chest pain. Denies sick contacts or recent travel. No other aggravating relieving factors. Denies any other associated symptoms Allergies: Uncoded Allergies: electrodes (Allergy, Unknown, Itching, 02/19/17) Patient History Past Medical History: HTN, COPD, CVA/TIA Past Surgical History: other - bowel resection Pertinent Family History: none Social History: Denies: smoking, alcohol use, drug use Now: No Immunizations: UTD Reviewed Nursing Documentation: PMH: Agreed, PSxH: Agreed Nursing Documentation-PMH Past Medical History: No History, Except For Hx Cardiac Problems: No Hx Hypertension: Yes Hx Pacemaker: No Hx Asthma: No Hx COPD: Yes Hx Diabetes: Yes - developed within the last year Hx Cancer: No Hx Gastrointestinal Problems: Yes - bowel resection 1981 Hx Dialysis: No Hx Neurological Problems: Yes Hx Cerebrovascular Accident: Yes - pt reports CVA in 2006 or 2007 Hx Transient Ischemic Attacks: No Hx Dementia: No Hx Alzheimer's Disease: No Hx Parkinson's Disease: No Hx Meningitis: No Hx Encephalitis: No Hx Seizures: Yes - last seizure 01/24/2017, treated at [facility] Hx Multiple Sclerosis: No Hx Cerebral Palsy: No Hx Amyotrophic Lat Sclerosis: No Hx [place] Syndrome: No Hx Paralysis: No Hx Peripheral Neuropathy: No Hx Spinal Cord Injury: No Hx Head Trauma: No Hx Traumatic Brain Injury: No Hx Memory Loss: No Hx Concentration Difficulty: Yes - pt reports mild difficulty Hx Speech Problem: Yes - s/p CVA Hx Tremors: Yes - mild at RUE Hx Vertigo: No Hx Dizziness: No Hx Syncope: No Hx Headaches: Yes Hx Dysphasia: No Hx Numbness: Yes - some numbness on RT side s/p CVA Hx Weakness: Yes - RT side s/p CVA Hx Fatigue: No Hx Neurologic Surgery: No Hx Brain Shunt: No Review of Systems All Other Systems: negative except mentioned in HPI Physical Exam Vital Signs Date Time Temp Pulse Resp B/P (MAP) Pulse Ox O2 Delivery O2 Flow Rate FiO2 10/09/17 18:47 98.8 89 18 180/92 98 Nasal Cannula 2.0 10/09/17 19:28 28 Sp02 EP Interpretation: reviewed, normal General Appearance: no apparent distress, alert, GCS 15, non-toxic Head: normocephalic, atraumatic Eyes: bilateral eye normal inspection, bilateral eye PERRL ENT: hearing grossly normal, normal pharynx, no angioedema, normal voice Neck: full range of motion, supple/symm/no masses Respiratory: chest non-tender, decreased breath sounds, speaking full sentences , wheezing Cardiovascular #1: regular rate, rhythm, no edema Cardiovascular #2: 2+ carotid (R), 2+ carotid (L), 2+ radial (R), 2+ radial (L) , 2+ dorsalis pedis (R), 2+ dorsalis pedis (L) Gastrointestinal: normal bowel sounds, non tender, soft, non-distended, no guarding, no rebound Rectal: deferred Genitourinary: normal inspection, no CVA tenderness Musculoskeletal: back normal, gait/station normal, normal range of motion, non- tender Neurologic: alert, oriented x3, responsive, motor strength/tone normal, sensory intact, speech normal Psychiatric: judgement/insight normal, memory normal, mood/affect normal, no suicidal/homicidal ideation Reflexes: 3+ bicep (R), 3+ bicep (L), 3+ tricep (R), 3+ tricep (L), 3+ knee (R) , 3+ knee (L) Skin: normal color, no rash, warm/dry, well hydrated Lymphatic: no adenopathy Medical Decision Making Diagnostic Impression: Primary Impression: COPD exacerbation ER Course Hospital Course 66-year-old F presenting to ED with SOB. h/o COPD Differential diagnoses include: Pneumonia, CHF exacerbation, pneumothorax, fluid overload Clinical course Patient placed on stretcher. On threat monitoring analyst with stable vitals. After initial history and physical, I ordered nebulizer treatments. I ordered labs, IV fluids, EKG, chest x-ray, blood cultures, UA. Labs - noted leukocytosis, hemoglobin/hematocrit stable, electrolytes okay, lactate okay, troponins negative CXR - hyperinflated lungs. no infiltrates EKG - NSR, no acute ischemic chainges interpreted by me abx given Case discussed with Dr. Lyons (covering for Dr Horner) and he agreed to the patient to his service for further care and support I feel this is a highly complex case requiring extensive working including EKG/ Rhythm strip, Xray/CT/US, Blood/urine lab work, repeat exams while in ED, and administration of strong opiates/narcotics for pain control, admission to hospital or close patient follow up. Diagnosis - COPD exacerbation Patient admitted to telemetry in serious condition Labs Test 10/09/17 20:25 10/09/17 20:40 White Blood Count 12.8 K/UL (4.8-10.8) Red Blood Count 4.08 M/UL (4.20-5.40) Hemoglobin 13.7 G/DL (12.0-16.0) Hematocrit 41.6 % (37.0-47.0) Mean Corpuscular Volume 102 FL (80-99) Mean Corpuscular Hemoglobin 33.5 PG (27.0-31.0) Mean Corpuscular Hemoglobin Concent 32.8 G/DL (32.0-36.0) Red Cell Distribution Width 12.0 % (11.6-14.8) Platelet Count 285 K/UL (150-450) Mean Platelet Volume 6.9 FL (6.5-10.1) Neutrophils (%) (Auto) % (45.0-75.0) Lymphocytes (%) (Auto) % (20.0-45.0) Monocytes (%) (Auto) % (1.0-10.0) Eosinophils (%) (Auto) % (0.0-3.0) Basophils (%) (Auto) % (0.0-2.0) Differential Total Cells Counted 100 Neutrophils % (Manual) 12 % (45-75) Lymphocytes % (Manual) 28 % (20-45) Monocytes % (Manual) 2 % (1-10) Eosinophils % (Manual) 58 % (0-3) Basophils % (Manual) 0 % (0-2) Band Neutrophils 0 % (0-8) Platelet Estimate Adequate Platelet Morphology Normal Anisocytosis 1+ Macrocytosis 1+ Sodium Level 145 MMOL/L (136-145) Potassium Level 4.2 MMOL/L (3.5-5.1) Chloride Level 110 MMOL/L (98-107) Carbon Dioxide Level 27 MMOL/L (21-32) Anion Gap 8 mmol/L (5-15) Blood Urea Nitrogen 14 mg/dL (7-18) Creatinine 0.9 MG/DL (0.55-1.30) Estimat Glomerular Filtration Rate > 60 mL/min (>60) Glucose Level 132 MG/DL (74-106) Calcium Level 8.9 MG/DL (8.5-10.1) Total Bilirubin 0.4 MG/DL (0.2-1.0) Aspartate Amino Transf (AST/SGOT) 28 U/L (15-37) Alanine Aminotransferase (ALT/SGPT) 26 U/L (12-78) Alkaline Phosphatase 134 U/L (46-116) Total Creatine Kinase 135 U/L (26-308) Creatine Kinase MB 0.9 NG/ML (0.0-3.6) Creatine Kinase MB Relative Index 0.6 Troponin I 0.033 ng/mL (0.000-0.056) Pro-B-Type Natriuretic Peptide 143 pg/mL (0-125) Total Protein 7.9 G/DL (6.4-8.2) Albumin 4.0 G/DL (3.4-5.0) Globulin 3.9 g/dL Albumin/Globulin Ratio 1.0 (1.0-2.7) Urine Color Pale yellow Urine Appearance Clear Urine pH 5 (4.5-8.0) Urine Specific [facility] 1.020 (1.005-1.035) Urine Protein Negative (NEGATIVE) Urine Glucose (UA) Negative (NEGATIVE) Urine Ketones Negative (NEGATIVE) Urine Occult Blood Negative (NEGATIVE) Urine Nitrite Positive (NEGATIVE) Urine Bilirubin Negative (NEGATIVE) Urine Urobilinogen Normal MG/DL (0.0-1.0) Urine Leukocyte Esterase 2+ (NEGATIVE) Urine RBC 0-2 /HPF (0 - 2) Urine WBC 2-4 /HPF (0 - 2) Urine Squamous Epithelial Cells Few /LPF (NONE/OCC) Urine Bacteria Few /HPF (NONE) EKG Diagnostic Results Rate: normal Rhythm: NSR ST Segments: no acute changes ASA given to the pt in ED: No Rhythm Strip Diag. Results EP Interpretation: yes Rhythm: NSR, no PVC's, no ectopy Chest X-Ray Diagnostic Results Chest X-Ray Diagnostic Results : Chest X-Ray Ordered: Yes # of Views/Limited/Complete: 1 View Indication: Shortness of Breath EP Interpretation: Yes Interpretation: no consolidation, no effusion, no pneumothorax, no acute cardiopulmonary disease, other - hyperinflated lungs Impression: Other - copd Electronically Signed by: Electronically signed by Kwesi Richardson MD Last Vital Signs Date Time Temp Pulse Resp B/P (MAP) Pulse Ox O2 Delivery O2 Flow Rate FiO2 10/09/17 20:38 89 18 98 Nasal Cannula 2.0 28 10/09/17 18:47 98.8 180/92 Status: improved Disposition: ADMITTED INPATIENT Condition: Serious Referrals: NOT CHOSEN BASSAM/,REFERRING (PCP) KWESI RICHARDSON M.D. Oct 09, 2017 22:24
[2017-10-09 22:30] VITALS: BP 145/65
[2017-10-09 23:10] VITALS: BP 142/77
[2017-10-10] MEDS ORDERED: Morphine Sulfate 2mg/ml Inj IVP PRN (02:15)
[2017-10-10] MEDS: Promethazine/Codeine 5ml UD ORAL PRN (02:20)
[2017-10-10] MEDS: Albuterol/Ipratropium 3ml neb HHN SCH ×6 (02:26→22:45)
[2017-10-10 04:00] VITALS: BP_SYST 135; BP_SYST 142; BP_DIAS 77
[2017-10-10] MEDS: NovoLOG Insulin Flexpen SUBQ SCH ×4 (05:39→20:55)
[2017-10-10 06:36] VITALS: BP 130/72
[2017-10-10 08:00] VITALS: BP 127/68
[2017-10-10] MEDS ORDERED: Azithromycin 250mg tab ORAL SCH (09:00)
[2017-10-10] MEDS: Irbesartan 150mg tablet ORAL SCH (09:04)
[2017-10-10] MEDS: oxyCODONE 15mg IR tab ORAL SCH ×3 (09:05→17:50)
[2017-10-10] MEDS: Indomethacin 25mg cap ORAL SCH ×3 (10:53→17:50)
--- NOTE | 2017-10-10 13:10 | Diagnostic Imaging Report ---
Indication: Shortness of breath Technique: XRAY Chest 1v Comparison: 02/17/2017 Findings: Heart size and mediastinal contours are within normal limits and stable compared to the prior exam. There is hyperinflation with flattening of the diaphragms. There is subtle asymmetric haziness in the right lower lung which may be related to vascular crowding however developing pneumonia is not entirely excluded. No pleural effusion or pneumothorax. Left lung is essentially clear. No acute osseous abnormality seen. Impression: Findings suggestive of COPD. Hazy opacity in the right lower lung may be artifactual related to vascular crowding however developing pneumonia is not entirely excluded. Clinical correlation and follow-up exam recommended. Study obtained via the emergency department however patient admitted to the hospital at time of final dictation.
--- NOTE | 2017-10-10 13:31 | History and Physical ---
History of Present Illness General Date patient seen: Oct 10, 2017 Time patient seen: 13:31 Reason for Hospitalization: Dyspnea/Respdistress Present Illness HPI 66y/o female with pmh of COPD, DM2, HTN, seizure d/o, HLD, GERD who presents with SOB and cough. Pt c/o shortness of breath and cough x1 day. Cough is productive of yellow sputum. Denies f/c, n/v, d/c, chest pain, abd pain. Denies recent travel. States multiple family members were sick and had URI symptoms. In triage O2 sats were low. Patient has history of COPD. Denies fevers or chills. Denies chest pain. Denies sick contacts or recent travel. No other aggravating relieving factors. Denies any other associated symptoms Allergies: Uncoded Allergies: electrodes (Allergy, Mild, Itching, 10/10/17) skin redness and itching Medication History Scheduled Albuterol Sulfate* (Proair Hfa*), 1-2 PUFFS INH Q6H, (Reported) Amlodipine Besylate (Norvasc), 5 MG ORAL DAILY Aspirin Ec* (Aspirin Ec*), 81 MG ORAL DAILY Budesonide/Formoterol Fumarate (Symbicort 160-4.5 Mcg Inhaler), 1 PUFF INH TWICE A DAY Carisoprodol* (Soma*), 350 MG PO BID, (Reported) Escitalopram Oxalate* (Lexapro*), 10 MG ORAL DAILY Esomeprazole Magnesium (Nexium), 40 MG ORAL DAILY, (Reported) Gabapentin* (Neurontin*), 300 MG ORAL THREE TIMES A DAY Heparin Sod (Porcine) (Heparin Sodium*), 5,000 UNITS SUBQ EVERY 12 HOURS, ( Reported) Indomethacin (Indomethacin), 25 MG ORAL TID, (Reported) Insulin Detemir (Levemir Flexpen), 6 SUBQ DAILY, (Reported) Levetiracetam (Keppra), 500 MG ORAL EVERY 12 HOURS, (Reported) Lidocaine (Lidoderm), 1 PATCH TOPIC DAILY, (Reported) Montelukast Sodium* (Singulair*), 10 MG ORAL DAILY, (Reported) Nateglinide (Starlix), 120 MG ORAL THREE TIMES A DAY, (Reported) Pravastatin Sod* (Pravastatin Sod*), 40 MG ORAL BEDTIME, (Reported) Sitagliptin (Januvia), 100 MG ORAL DAILY, (Reported) Theophylline (Theodur*), 200 MG ORAL EVERY 12 HOURS Theophylline (Theodur*), 200 MG ORAL EVERY 12 HOURS Tiotropium [place]* (Spiriva*), 1 PUFF INH DAILY Scheduled PRN Diphenhydramine Hcl (Benadryl Allergy), 25 MG PO EVERY 6 HOURS PRN for Itching, (Reported) Hydrocodone Bit/Acetaminophen 5-325* ([place] 5-325 Tablet*), 1 TAB ORAL BID PRN for For Pain, (Reported) Hydrocortisone 1% cream (Hydrocortisone 1% cream), 28.4 GM RC EVERY 6 HOURS PRN for Itching, (Reported) Magnesium Hydroxide* (Milk Of Magnesia*), 30 ML ORAL DAILY PRN for Constipation, (Reported) Meclizine Hcl* (Meclizine*), 25 MG ORAL EVERY 8 HOURS PRN for for dizziness, ( Reported) Metoclopramide Hcl* (Reglan*), 10 MG IVP EVERY 6 HOURS PRN for Abdominal cramps, (Reported) Morphine Sulfate* (Morphine Sulfate*), 4 MG IV EVERY 4 HOURS PRN for For Pain, ( Reported) Ondansetron* (Zofran*), 4 MG IV EVERY 4 HOURS PRN for Nausea & Vomiting, ( Reported) Promethazine HCl/Codeine (Prometh-Codein 6.25-10 mg/5 ml), 5 ML PO EVERY 4 HOURS PRN for For Cough, (Reported) Miscellaneous Medications Insulin Aspart (Novolog), 100 UNIT SQ, (Reported) Patient History History Provided By: Patient, Medical Record, PMD Healthcare decision maker Resuscitation status Full Code Advanced Directive on File No Past Medical/Surgical History Past Medical/Surgical History: (1) COPD (chronic obstructive pulmonary disease) (2) HLD (hyperlipidemia) (3) DM2 (diabetes mellitus, type 2) (4) GERD (gastroesophageal reflux disease) (5) HTN (hypertension) (6) Hyperlipemia Family History Family History: Patient reports no known family medical history. Social History Social History: (1) lives at home Review of Systems Constitutional: Reports: malaise Eye: Reports: no symptoms ENT: Reports: no symptoms Respiratory: Reports: cough, shortness of breath Cardiovascular: Reports: no symptoms Gastrointestinal: Reports: no symptoms Genitourinary: Reports: no symptoms Musculoskeletal: Reports: no symptoms Skin: Reports: no symptoms Psychiatric: Reports: no symptoms Neurological: Reports: no symptoms Endocrine: Reports: no symptoms Hematologic/Lymphatic: Reports: no symptoms Physical Exam Physical Exam Narrative General: alert, cooperative, no distress, appears stated age Head: normocephalic, without obvious abnormality, atraumatic Eyes: conjunctivae/corneas clear. PERRL, EOM's intact Throat: lips, mucosa, and tongue normal. MMM Neck: supple, symmetrical, trachea midline, and no JVD Lungs: +wheezing b/l Heart: regular rate and rhythm, S1, S2 normal, no murmur, click, rub or gallop Abdomen: soft, non-tender, non-distended, bowel sounds normal; no masses or organomegaly Extremities: extremities normal, atraumatic, no cyanosis or edema Pulses: 2+ and symmetric Skin: skin color, texture, turgor normal; no rashes or lesions Neurologic: grossly normal, no focal deficits Last 24 Hour Vital Signs Date Time Temp Pulse Resp B/P (MAP) Pulse Ox O2 Delivery O2 Flow Rate FiO2 10/10/17 11:22 89 18 100 Nasal Cannula 2.0 10/10/17 11:13 93 18 99 Nasal Cannula 2.0 10/10/17 09:04 127/68 10/10/17 09:03 83 127/68 10/10/17 08:00 96.8 83 20 127/68 99 Nasal Cannula 2.0 10/10/17 07:53 88 18 99 Nasal Cannula 2.0 10/10/17 07:53 99 Nasal Cannula 2.0 10/10/17 07:53 Nasal Cannula 2.0 10/10/17 07:50 92 20 100 Nasal Cannula 2.0 10/10/17 06:36 97.3 96 21 130/72 96 Room Air 10/10/17 04:00 98.0 98 20 135/77 98 Room Air 10/10/17 02:27 108 20 100 Nasal Cannula 2.0 10/10/17 02:27 104 20 99 Nasal Cannula 2.0 10/09/17 23:10 98.0 98 20 142/77 98 Room Air 10/09/17 22:50 99 15 145/65 99 Nasal Cannula 2.0 10/09/17 22:30 98.8 99 16 145/65 99 Nasal Cannula 2.0 28 10/09/17 21:00 98.6 95 16 159/56 95 Nasal Cannula 2.0 28 10/09/17 20:38 89 18 98 Nasal Cannula 2.0 28 10/09/17 20:30 98.5 96 14 126/60 98 Nasal Cannula 2.0 96 10/09/17 20:30 96 14 Nasal Cannula 2.0 96 10/09/17 20:15 89 18 98 Nasal Cannula 2.0 28 10/09/17 20:15 28 10/09/17 20:15 89 18 98 Nasal Cannula 2.0 28 10/09/17 19:45 89 18 98 Nasal Cannula 2.0 28 10/09/17 19:45 89 18 98 Nasal Cannula 2.0 28 10/09/17 19:45 28 10/09/17 19:30 28 10/09/17 19:30 89 18 98 Nasal Cannula 2.0 10/09/17 19:28 89 18 Nasal Cannula 2.0 10/09/17 18:47 98.8 89 18 180/92 98 Nasal Cannula 2.0 Intake and Output 10/09/17 10/10/17 19:00 07:00 Intake Total 620 ml Output Total 350 ml Balance 270 ml Intake Oral 620 ml Output Urine Total 350 ml # Voids 1 Laboratory Tests Test 10/09/17 20:25 10/09/17 20:40 White Blood Count 12.8 K/UL (4.8-10.8) H Red Blood Count 4.08 M/UL (4.20-5.40) L Hemoglobin 13.7 G/DL (12.0-16.0) Hematocrit 41.6 % (37.0-47.0) Mean Corpuscular Volume 102 FL (80-99) H Mean Corpuscular Hemoglobin 33.5 PG (27.0-31.0) H Mean Corpuscular Hemoglobin Concent 32.8 G/DL (32.0-36.0) Red Cell Distribution Width 12.0 % (11.6-14.8) Platelet Count 285 K/UL (150-450) Mean Platelet Volume 6.9 FL (6.5-10.1) Neutrophils (%) (Auto) % (45.0-75.0) Lymphocytes (%) (Auto) % (20.0-45.0) Monocytes (%) (Auto) % (1.0-10.0) Eosinophils (%) (Auto) % (0.0-3.0) Basophils (%) (Auto) % (0.0-2.0) Differential Total Cells Counted 100 Neutrophils % (Manual) 12 % (45-75) L Lymphocytes % (Manual) 28 % (20-45) Monocytes % (Manual) 2 % (1-10) Eosinophils % (Manual) 58 % (0-3) H Basophils % (Manual) 0 % (0-2) Band Neutrophils 0 % (0-8) Platelet Estimate Adequate Platelet Morphology Normal Anisocytosis 1+ Macrocytosis 1+ Sodium Level 145 MMOL/L (136-145) Potassium Level 4.2 MMOL/L (3.5-5.1) Chloride Level 110 MMOL/L (98-107) H Carbon Dioxide Level 27 MMOL/L (21-32) Anion Gap 8 mmol/L (5-15) Blood Urea Nitrogen 14 mg/dL (7-18) Creatinine 0.9 MG/DL (0.55-1.30) Estimat Glomerular Filtration Rate > 60 mL/min (>60) Glucose Level 132 MG/DL (74-106) H Calcium Level 8.9 MG/DL (8.5-10.1) Total Bilirubin 0.4 MG/DL (0.2-1.0) Aspartate Amino Transf (AST/SGOT) 28 U/L (15-37) Alanine Aminotransferase (ALT/SGPT) 26 U/L (12-78) Alkaline Phosphatase 134 U/L (46-116) H Total Creatine Kinase 135 U/L (26-308) Creatine Kinase MB 0.9 NG/ML (0.0-3.6) Creatine Kinase MB Relative Index 0.6 Troponin I 0.033 ng/mL (0.000-0.056) Pro-B-Type Natriuretic Peptide 143 pg/mL (0-125) H Total Protein 7.9 G/DL (6.4-8.2) Albumin 4.0 G/DL (3.4-5.0) Globulin 3.9 g/dL Albumin/Globulin Ratio 1.0 (1.0-2.7) Urine Color Pale yellow Urine Appearance Clear Urine pH 5 (4.5-8.0) Urine Specific Thermal 1.020 (1.005-1.035) Urine Protein Negative (NEGATIVE) Urine Glucose (UA) Negative (NEGATIVE) Urine Ketones Negative (NEGATIVE) Urine Occult Blood Negative (NEGATIVE) Urine Nitrite Positive (NEGATIVE) H Urine Bilirubin Negative (NEGATIVE) Urine Urobilinogen Normal MG/DL (0.0-1.0) Urine Leukocyte Esterase 2+ (NEGATIVE) H Urine RBC 0-2 /HPF (0 - 2) Urine WBC 2-4 /HPF (0 - 2) Urine Squamous Epithelial Cells Few /LPF (NONE/OCC) Urine Bacteria Few /HPF (NONE) Height (Feet): 5 Height (Inches): 5.00 Weight (Pounds): 106 Medications Current Medications Medications (Trade) Dose Ordered Sig/Sarahi Route PRN Reason Start Time Stop Time Status Last Admin Dose Admin Albuterol/ Ipratropium (Albuterol/ Ipratropium) 3 ml Q4HRT HHN 10/10/17 03:00 10/15/17 02:59 10/10/17 11:15 Amlodipine Besylate (Norvasc) 5 mg DAILY ORAL 10/10/17 09:00 11/09/17 08:59 10/10/17 09:03 Azithromycin (Zithromax) 500 mg DAILY ORAL 10/10/17 09:00 10/17/17 08:59 10/10/17 09:04 Budesonide/ Formoterol Fumarate (Symbicort 160/ 4.5) 2 puff TWICE A DAY INH 10/10/17 09:00 11/09/17 08:59 Dextrose (Dextrose 50%) STAT PRN IV Hypoglycemia 10/10/17 01:15 11/09/17 01:14 Indomethacin (Indocin) 25 mg THREE TIMES A DAY ORAL 10/10/17 09:00 11/09/17 08:59 10/10/17 10:53 Insulin Aspart (NovoLOG) BEFORE MEALS AND HS SUBQ 10/10/17 06:30 11/09/17 06:29 10/10/17 11:38 Irbesartan (Avapro) 150 mg DAILY ORAL 10/10/17 09:00 11/09/17 08:59 10/10/17 09:04 Levetiracetam (Keppra) 500 mg Q12HR ORAL 10/10/17 09:00 11/09/17 08:59 10/10/17 09:04 Morphine Sulfate (Morphine Sulfate) 2 mg Q4H PRN IVP For Pain 10/10/17 02:15 10/17/17 02:14 Oxycodone HCl (Roxicodone) 30 mg TID ORAL 10/10/17 09:00 10/17/17 08:59 10/10/17 09:05 Prednisone (predniSONE) 40 mg DAILY ORAL 10/10/17 09:00 11/09/17 08:59 10/10/17 09:05 Promethazine HCl/ Codeine (Phenergan with Codeine) 5 ml Q4H PRN ORAL For Cough 10/10/17 02:15 11/09/17 02:14 10/10/17 02:20 Assessment/Plan Problem List: (1) COPD with acute exacerbation ICD Codes: J44.1 - Chronic obstructive pulmonary disease with (acute) exacerbation SNOMED: 416352859 (2) Acute respiratory failure with hypoxia ICD Codes: J96.01 - Acute respiratory failure with hypoxia SNOMED: 82590842, 651997234 (3) DM2 (diabetes mellitus, type 2) ICD Codes: E11.9 - Type 2 diabetes mellitus without complications SNOMED: 58326373 (4) HLD (hyperlipidemia) ICD Codes: E78.5 - Hyperlipidemia, unspecified SNOMED: 81806849 (5) HTN (hypertension) ICD Codes: I10 - HTN (hypertension) SNOMED: 90434545 (6) GERD (gastroesophageal reflux disease) ICD Codes: K21.9 - GERD (gastroesophageal reflux disease) SNOMED: 845724104 Status: stable Assessment/Plan Admit inpt Pulmonology consulted Cont prednisone per pulm Cont empiric levaquin Cont O2 and wean as tolerated Nebs ATC and PRN IVFs Cont home meds DVT Prophylaxis: SCD, HSQ Code Status: Full Hospital Classification Declaration: Based on this initial evaluation, and depending on the patient's clinical course, I anticipate that this patient will require hospitalization for 2-3 days for COPD exacerbation, hypoxia and close respiratory/hemodynamic monitoring. Disposition: Once the patient is stable to leave the hospital, I anticipate the patient will likely be discharged to the following environment: home with vs SNF I spent 70 minutes on this patient's case, and 39 minutes were dedicated to counseling and/or care coordination. Discussed with patient/family, nursing staff, SW/CM, pulm regarding clinical status, treatment course, and disposition planning. Time of note may not reflect time of encounter. Moy Manning M.D. Oct 10, 2017 13:31
[2017-10-10] MEDS ORDERED: Promethazine/Codeine 5ml UD ORAL PRN (13:45)
[2017-10-10] MEDS ORDERED: Solu-MEDROL 125mg Inj IV SCH (14:00)
[2017-10-10 16:00] VITALS: BP 162/93
[2017-10-10] MEDS ORDERED: Levofloxacin 500mg tab ORAL ONE (17:00)
[2017-10-10 20:00] VITALS: BP 140/93
[2017-10-10] MEDS: Theophylline ER 100mg ORAL SCH (20:54)
[2017-10-11] VITALS (7 sets, daily range): BP systolic 92–146; BP diastolic 50–79
[2017-10-11] MEDS: Promethazine/Codeine 5ml UD ORAL PRN ×2 (02:29→18:26)
[2017-10-11] MEDS: Albuterol/Ipratropium 3ml neb HHN SCH ×6 (03:06→22:51)
[2017-10-11] MEDS: NovoLOG Insulin Flexpen SUBQ SCH ×4 (06:25→20:25)
[2017-10-11 07:23] LABS: HEMATOCRIT 31.7 % (37.0-47.0); HEMOGLOBIN 10.4 G/DL (12.0-16.0); MEAN CORPUSCULAR VOLUME 101 FL (80-99); PLATELET COUNT 319 K/UL (150-450); RED BLOOD COUNT 3.13 M/UL (4.20-5.40); RED CELL DISTRIBUTION WIDTH 12.3 % (11.6-14.8); WHITE BLOOD COUNT 12.9 K/UL (4.8-10.8)
[2017-10-11 07:36] LABS: ANION GAP 10 mmol/L (5-15); BLOOD UREA NITROGEN 23 mg/dL (7-18); CALCIUM 8.1 MG/DL (8.5-10.1); CARBON DIOXIDE 25 MMOL/L (21-32); CHLORIDE 104 MMOL/L (98-107); POTASSIUM 4.3 MMOL/L (3.5-5.1); SODIUM 139 MMOL/L (136-145)
[2017-10-11] MEDS: Indomethacin 25mg cap ORAL SCH ×3 (09:40→18:12)
[2017-10-11] MEDS: Theophylline ER 100mg ORAL SCH ×2 (09:41→20:24)
[2017-10-11] MEDS: Aspirin EC 81mg tab ORAL SCH (09:42)
[2017-10-11] MEDS: oxyCODONE 15mg IR tab ORAL SCH ×3 (09:43→18:12)
[2017-10-11] MEDS: Irbesartan 150mg tablet ORAL SCH (09:48)
[2017-10-11] MEDS ORDERED: Levofloxacin 250mg/D5W 50ml IVPB SCH (15:00)
--- NOTE | 2017-10-11 18:42 | General Progress Note ---
Assessment/Plan Problem List: (1) COPD exacerbation ICD Codes: J44.1 - Chronic obstructive pulmonary disease with (acute) exacerbation SNOMED: 526640533 (2) Hyperlipemia ICD Codes: E78.5 - Hyperlipemia SNOMED: 62857484 (3) HTN (hypertension) ICD Codes: I10 - HTN (hypertension) SNOMED: 60923128 (4) DM2 (diabetes mellitus, type 2) ICD Codes: E11.9 - Type 2 diabetes mellitus without complications SNOMED: 84203283 (5) Acute respiratory failure with hypoxia ICD Codes: J96.01 - Acute respiratory failure with hypoxia SNOMED: 14655043, 418089778 (6) GERD (gastroesophageal reflux disease) ICD Codes: K21.9 - GERD (gastroesophageal reflux disease) SNOMED: 629448472 Status: progressing Assessment/Plan Pulmonology consulted F/u blood cultures F/u influenza F/u sputum cultures Cont prednisone per pulm Cont empiric levaquin Cont O2 and wean as tolerated Nebs ATC and PRN IVFs Cont home meds DVT Prophylaxis: SCD, HSQ Code Status: Full Hospital Classification Declaration: Based on this initial evaluation, and depending on the patient's clinical course, I anticipate that this patient will require hospitalization for 2-3 days for COPD exacerbation, hypoxia and close respiratory/hemodynamic monitoring. Disposition: Once the patient is stable to leave the hospital, I anticipate the patient will likely be discharged to the following environment: home with HH vs SNF I spent 70 minutes on this patient's case, and 39 minutes were dedicated to counseling and/or care coordination. Discussed with patient/family, nursing staff, SW/CM, pulm regarding clinical status, treatment course, and disposition planning. Time of note may not reflect time of encounter. Subjective Date patient seen: Oct 11, 2017 Allergies: Uncoded Allergies: electrodes (Allergy, Mild, Itching, 10/10/17) skin redness and itching Subjective -reports feeling better. states she feels less SOB but still with cough. denies cp - AF, HDS Objective Last 24 Hour Vital Signs Date Time Temp Pulse Resp B/P (MAP) Pulse Ox O2 Delivery O2 Flow Rate FiO2 10/11/17 16:15 97.1 93 22 146/72 97 Room Air 10/11/17 15:41 93 16 95 Room Air 21 10/11/17 15:32 93 16 92 Room Air 21 10/11/17 12:09 97.9 89 20 143/76 99 Room Air 10/11/17 11:45 80 16 99 Room Air 21 10/11/17 11:37 80 16 96 Room Air 21 10/11/17 09:49 80 108/53 10/11/17 09:48 108/53 10/11/17 08:15 97.7 80 20 108/53 99 Room Air 10/11/17 07:38 76 16 99 Room Air 21 10/11/17 07:35 21 10/11/17 07:35 92 Room Air 21 10/11/17 07:32 74 16 92 Room Air 21 10/11/17 06:03 76 109/50 10/11/17 04:00 97.5 82 21 92/52 95 10/11/17 04:00 Nasal Cannula 2.0 10/11/17 03:14 101 18 99 Room Air 21 10/11/17 03:06 101 16 96 Room Air 21 10/11/17 00:00 Nasal Cannula 2.0 10/11/17 00:00 97.6 83 21 121/58 94 10/10/17 22:55 103 18 99 Room Air 21 10/10/17 22:46 105 20 99 Room Air 21 10/10/17 22:00 103 10/10/17 20:00 97.5 124 22 140/93 97 10/10/17 20:00 Nasal Cannula 2.0 10/10/17 19:23 103 20 99 Room Air 21 10/10/17 19:13 96 Room Air 21 10/10/17 19:13 Room Air 21 10/10/17 19:13 101 19 96 Room Air 21 Intake and Output 10/10/17 10/11/17 19:00 07:00 Intake Total 720 ml Balance 720 ml Intake Oral 720 ml # Voids 3 2 # Bowel Movements 1 Laboratory Tests 10/11/17 04:40: White Blood Count 12.9H, Red Blood Count 3.13L, Hemoglobin 10.4L, Hematocrit 31.7L, Mean Corpuscular Volume 101H, Mean Corpuscular Hemoglobin 33.1H, Mean Corpuscular Hemoglobin Concent 32.7, Red Cell Distribution Width 12.3, Platelet Count 319, Mean Platelet Volume 6.7, Neutrophils (%) (Auto) , Lymphocytes (%) ( Auto) , Monocytes (%) (Auto) , Eosinophils (%) (Auto) , Basophils (%) (Auto) , Differential Total Cells Counted 100, Neutrophils % (Manual) 89H, Lymphocytes % (Manual) 7L, Monocytes % (Manual) 4, Eosinophils % (Manual) 0, Basophils % ( Manual) 0, Band Neutrophils 0, Platelet Estimate Adequate, Platelet Morphology Normal, Hypochromasia 1+, Anisocytosis 1+, Macrocytosis 1+, Sodium Level 139, Potassium Level 4.3, Chloride Level 104, Carbon Dioxide Level 25, Anion Gap 10, Blood Urea Nitrogen 23H, Creatinine 1.0, Estimat Glomerular Filtration Rate > 60 , Glucose Level 254#H, Calcium Level 8.1L, Magnesium Level 1.8 Height (Feet): 5 Height (Inches): 5.00 Weight (Pounds): 106 General Appearance: no apparent distress, alert EENT: PERRL/EOMI, normal ENT inspection Neck: non-tender, normal alignment, supple Cardiovascular: normal peripheral pulses, normal rate, regular rhythm Respiratory/Chest: crackles/rales, rhonchi - bilaterally Abdomen: normal bowel sounds, non tender, soft Neurologic: o and m supervisor II-XII grossly normal, no motor/sensory deficits, alert, oriented x 3 Ainsley Drake N.P. Oct 11, 2017 18:42
[2017-10-12 00:45] VITALS: BP 104/43
[2017-10-12] MEDS: Albuterol/Ipratropium 3ml neb HHN SCH ×6 (03:11→23:16)
[2017-10-12 04:00] VITALS: BP 131/81
[2017-10-12] MEDS: NovoLOG Insulin Flexpen SUBQ SCH ×4 (06:18→22:29)
[2017-10-12 07:21] LABS: BASOPHILS % (AUTO) 0.6 % (0.0-2.0); HEMATOCRIT 33.1 % (37.0-47.0); HEMOGLOBIN 10.7 G/DL (12.0-16.0); LYMPHOCYTES % (AUTO) 21.8 % (20.0-45.0); MEAN CORPUSCULAR VOLUME 102 FL (80-99); MONOCYTES % (AUTO) 4.1 % (1.0-10.0); NEUTROPHILS % (AUTO) 73.4 % (45.0-75.0); PLATELET COUNT 319 K/UL (150-450); RED BLOOD COUNT 3.25 M/UL (4.20-5.40); RED CELL DISTRIBUTION WIDTH 12.5 % (11.6-14.8); WHITE BLOOD COUNT 10.3 K/UL (4.8-10.8)
[2017-10-12 07:49] LABS: ANION GAP 7 mmol/L (5-15); BLOOD UREA NITROGEN 30 mg/dL (7-18); CALCIUM 8.2 MG/DL (8.5-10.1); CARBON DIOXIDE 28 MMOL/L (21-32); CHLORIDE 106 MMOL/L (98-107); SODIUM 141 MMOL/L (136-145)
[2017-10-12 08:00] VITALS: BP 126/81
[2017-10-12] MEDS: Indomethacin 25mg cap ORAL SCH ×3 (08:36→17:28)
[2017-10-12] MEDS: Theophylline ER 100mg ORAL SCH ×2 (08:36→22:27)
[2017-10-12] MEDS: Irbesartan 150mg tablet ORAL SCH (08:36)
[2017-10-12] MEDS: Aspirin EC 81mg tab ORAL SCH (08:36)
[2017-10-12] MEDS: oxyCODONE 15mg IR tab ORAL SCH ×3 (08:37→17:26)
--- NOTE | 2017-10-12 09:01 | General Progress Note ---
Assessment/Plan Assessment/Plan copd exacerbation ho substance abuse ho allergies diabetes ho seizure disorder pumonayr hygiene pulm fup monitor accuchecks ambulate PT dvt and ulcer prohylaxis Subjective Allergies: Uncoded Allergies: electrodes (Allergy, Mild, Itching, 10/10/17) skin redness and itching Subjective co wheezing no cp Objective Last 24 Hour Vital Signs Date Time Temp Pulse Resp B/P (MAP) Pulse Ox O2 Delivery O2 Flow Rate FiO2 10/12/17 08:37 100 131/81 10/12/17 08:36 131/81 10/12/17 08:17 100 20 96 Room Air 10/12/17 08:12 21 10/12/17 08:10 100 20 96 Room Air 10/12/17 08:07 Room Air 10/12/17 08:06 96 Room Air 10/12/17 08:00 97.2 77 20 126/81 97 Room Air 10/12/17 04:00 97.5 100 20 131/81 96 Room Air 10/12/17 03:18 89 16 100 Room Air 10/12/17 03:11 86 16 96 Room Air 10/12/17 00:45 97.7 83 20 104/43 93 Room Air 10/11/17 23:00 86 18 100 Room Air 10/11/17 22:50 74 16 Room Air 10/11/17 20:16 97.3 79 20 144/79 94 Room Air 10/11/17 19:34 84 18 100 Room Air 10/11/17 19:30 21 10/11/17 19:21 78 16 95 Room Air 10/11/17 19:20 96 Room Air 10/11/17 16:15 97.1 93 22 146/72 97 Room Air 10/11/17 15:41 93 16 95 Room Air 10/11/17 15:32 93 16 92 Room Air 10/11/17 12:09 97.9 89 20 143/76 99 Room Air 10/11/17 11:45 80 16 99 Room Air 10/11/17 11:37 80 16 96 Room Air 21 10/11/17 09:49 80 108/53 10/11/17 09:48 108/53 Intake and Output 10/11/17 10/12/17 19:00 07:00 Intake Total 720 ml 240 ml Balance 720 ml 240 ml Intake Oral 720 ml 240 ml # Voids 3 2 Laboratory Tests 10/12/17 05:40: White Blood Count 10.3, Red Blood Count 3.25L, Hemoglobin 10.7L, Hematocrit 33.1L, Mean Corpuscular Volume 102H, Mean Corpuscular Hemoglobin 32.8H, Mean Corpuscular Hemoglobin Concent 32.2, Red Cell Distribution Width 12.5, Platelet Count 319, Mean Platelet Volume 6.1L, Neutrophils (%) (Auto) 73.4, Lymphocytes ( %) (Auto) 21.8, Monocytes (%) (Auto) 4.1, Eosinophils (%) (Auto) 0.0, Basophils (%) (Auto) 0.6, Sodium Level 141, Potassium Level 4.0, Chloride Level 106, Carbon Dioxide Level 28, Anion Gap 7, Blood Urea Nitrogen 30H, Creatinine 1.0, Estimat Glomerular Filtration Rate > 60, Glucose Level 153#H, Calcium Level 8.2L Height (Feet): 5 Height (Inches): 5.00 Weight (Pounds): 106 General Appearance: WD/WN, no apparent distress Neck: supple Cardiovascular: normal rate Respiratory/Chest: decreased breath sounds, expiratory wheezing Abdomen: soft Edema: no edema noted Arm (L), no edema noted Arm (R), no edema noted Leg (L), no edema noted Leg (R), no edema noted Pedal (L), no edema noted Pedal (R), no edema noted Generalized CARLOS A MENDOZA Oct 12, 2017 09:01
[2017-10-12 11:56] VITALS: BP 120/74
[2017-10-12 16:00] VITALS: BP 134/87
[2017-10-12 20:00] VITALS: BP 127/66
[2017-10-13] VITALS: BP 136/76
[2017-10-13] MEDS: Albuterol/Ipratropium 3ml neb HHN SCH ×5 (03:53→19:00)
[2017-10-13 04:00] VITALS: BP 123/75
[2017-10-13] MEDS: NovoLOG Insulin Flexpen SUBQ SCH ×3 (07:12→16:33)
[2017-10-13 07:30] LABS: BASOPHILS % (AUTO) 0.5 % (0.0-2.0); EOSINOPHILS % (AUTO) 0.4 % (0.0-3.0); HEMATOCRIT 30.3 % (37.0-47.0); LYMPHOCYTES % (AUTO) 30.2 % (20.0-45.0); MEAN CORPUSCULAR VOLUME 102 FL (80-99); PLATELET COUNT 307 K/UL (150-450); RED BLOOD COUNT 2.98 M/UL (4.20-5.40); RED CELL DISTRIBUTION WIDTH 12.5 % (11.6-14.8); WHITE BLOOD COUNT 7.4 K/UL (4.8-10.8)
[2017-10-13 08:02] LABS: ALANINE AMINOTRANSFERASE 15 U/L (12-78); ALKALINE PHOSPHATASE 91 U/L (46-116); ANION GAP 7 mmol/L (5-15); ASPARTATE AMINO TRANSFERASE 14 U/L (15-37); BILIRUBIN,TOTAL 0.3 MG/DL (0.2-1.0); BLOOD UREA NITROGEN 22 mg/dL (7-18); CALCIUM 7.8 MG/DL (8.5-10.1); CARBON DIOXIDE 29 MMOL/L (21-32); CHLORIDE 106 MMOL/L (98-107); CHOLESTEROL 224 MG/DL (< 200); HDL CHOLESTEROL 79 MG/DL (40-60); POTASSIUM 4.4 MMOL/L (3.5-5.1); SODIUM 142 MMOL/L (136-145); TRIGLYCERIDES 68 MG/DL (30-150)
[2017-10-13 08:49] VITALS: BP 112/64
[2017-10-13] MEDS: Aspirin EC 81mg tab ORAL SCH (09:55)
[2017-10-13] MEDS: Irbesartan 150mg tablet ORAL SCH (09:55)
[2017-10-13] MEDS: Theophylline ER 100mg ORAL SCH (09:55)
[2017-10-13] MEDS: oxyCODONE 15mg IR tab ORAL SCH ×3 (09:55→17:21)
[2017-10-13] MEDS: Indomethacin 25mg cap ORAL SCH ×3 (09:55→17:21)
[2017-10-13 11:33] VITALS: BP 125/69
[2017-10-13] MEDS: Promethazine/Codeine 5ml UD ORAL PRN (13:54)
[2017-10-13 16:00] VITALS: BP 128/72
[2017-10-13] MEDS ORDERED: LEVOFLOXACIN500 MG ORAL (18:11)
[2017-10-13] MEDS ORDERED: ROBITUSSIN COU118 M1 PO (18:12)
[2017-10-13] MEDS ORDERED: ALBUTEROL2.5 MG/3 M INH (18:17)
--- NOTE | 2017-10-13 19:27 | Cardiology Report ---
APPROVED REPORT EKG Measurement Heart [id number] Normal sinus rhythm Possible Left atrial enlargement Left axis deviation Septal infarct, age undetermined Abnormal ECG
--- NOTE | 2017-10-14 11:14 | Discharge Summary ---
Discharge Summary Hospital Course Date of Admission Oct 09, 2017 at 20:31 Date of Discharge Oct 13, 2017 at 19:10 Admitting Diagnosis COPD LARISSA Whittington is a 66 year old female who was admitted on Oct 09, 2017 at 20:31 for Chronic Obstructive Pulmonary Disease Hospital Course [id number] Discharge Discharge Disposition Patient was discharged to Home (01) Discharge Diagnoses: Flor Mcmanus NP Oct 14, 2017 11:14
--- NOTE | 2017-10-14 13:11 | Diagnostic Imaging Report ---
APPROVED REPORT CPT Code: 36102 Present Symptoms Lower Extremity Pain: Comments: R/O DVT. BILATERAL LOWER EXTREMITY: Imaging reveals a patent deep venous system bilaterally. There is no evidence of thrombus within the femoral, popliteal or tibial segments. The greater saphenous veins are also within normal limits. Doppler indicates normal spontaneous flow within these segments.
--- NOTE | 2017-10-14 13:12 | Diagnostic Imaging Report ---
APPROVED REPORT CPT Code: 38048 Present Symptoms Upper Extremity Pain: Comments: R/O DVT. BILATERAL UPPER EXTREMITY: Imaging reveals patency of the internal jugular, subclavian, axillary and brachial veins. The cephalic and basilic veins are also patent. Doppler indicates normal spontaneous flow within these venous segments, bilaterally.
--- NOTE | 2017-10-15 00:45 | Discharge Summary 2 SIG ---
DATE OF ADMISSION: 10/09/2017 DATE OF DISCHARGE: 10/13/2017 BRIEF HOSPITAL COURSE: The patient is a 66-year-old female with medical history of chronic obstructive pulmonary disease, diabetes mellitus type 2, hypertension, seizure disorder, hyperlipidemia, and gastroesophageal reflux disease, presented to ED with shortness of breath and cough. The patient had cough productive of yellow sputum. Denied nausea, vomiting, diarrhea, or constipation. No chest pain or abdominal pain. She had multiple family members, who were sick and had an upper respiratory infection. On evaluation at ED, O2 sats were low. Laboratories showed slight leukocytosis. Chest x-ray showed hyperinflated lungs with no infiltrates. EKG showed normal sinus rhythm with no acute ischemic changes. She was admitted for acute chronic obstructive pulmonary disease exacerbation and was started empirically on Levaquin and prednisone. She was given nebulizer treatment. Influenza A and B screen was negative. She was given pulmonary hygiene and was given physical therapy. She was placed on DVT and ulcer prophylaxis. She was eventually discharged home. FINAL DIAGNOSES: 1. Acute chronic obstructive pulmonary disease exacerbation. 2. History of substance abuse. 3. Diabetes mellitus. 4. History of seizure disorder. 5. Hypertension. 6. Hyperlipidemia. 7. Gastroesophageal reflux disease. 8. Acute respiratory failure with hypoxia. DISPOSITION: The patient was discharged home. DISCHARGE MEDICATIONS: Continue with Levaquin 500 mg x5 days. See medication list. DISCHARGE INSTRUCTIONS: Follow up with PMD as outpatient. Ravindra Horner M.D. I have been assigned to dictate discharge summary on this account and I was not involved in the patient's management. Flor Mcmanus N.P. DR: CALISTA JOB#: [id number] CC: TRUE
== END 2017-10-13 19:10 | disposition home or self-care (01) | DRG 190 ==
LOC: EMR 18:55 → 2W 20:31 → EDBEDREQ 21:18 → 4E 10-10 06:23
DX: J44.1 Chronic obstructive pulmonary disease with (acute) exacerbation (principal); J96.01 Acute respiratory failure with hypoxia; I10 Essential (primary) hypertension; E11.9 Type 2 diabetes mellitus without complications; E78.5 Hyperlipidemia, unspecified; K21.9 Gastro-esophageal reflux disease without esophagitis; G40.909 Epilepsy, unspecified, not intractable, without status epilepticus; Z86.73 Personal history of transient ischemic attack (TIA), and cerebral infarction without residual deficits; Z79.4 Long term (current) use of insulin
CPT/HCPCS: 36415; 71010; 80048; 80053; 80061; 80299; 81003; 82550; 82553; 82962; 83735; 83880; 84484; 85007; 85025; 86710; 87040; 93005; 93970; 94640; 94664; 94760; 99285; J1815; J7620

== ENCOUNTER 2017-12-30 16:26 | Emergency (ER) | payer MEDICARE, MEDICAID ==
[~2017-12-30] VITALS: Ht 165.1 cm; Wt 49.9 kg
[~2017-12-30 16:26] MED LIST changes: +LEVOFLOXACIN500 MG ORAL; +ROBITUSSIN COU118 M1 PO
[2017-12-30 16:46] VITALS: BP 166/95
[2017-12-30] MEDS: Albuterol/Ipratropium 3ml neb HHN ONE (16:53)
[2017-12-30] MEDS: Norco 5mg/325mg tab ORAL ONE (18:12)
[2017-12-30 18:13] VITALS: BP 154/67
[2017-12-30] MEDS ORDERED: OXYCODONE HCL15 M1 ORAL (18:28)
[2017-12-30] MEDS ORDERED: UNOBMED (18:28)
[2017-12-30 19:21] LABS: HEMOGLOBIN 13.3 G/DL (12.0-16.0); MEAN CORPUSCULAR VOLUME 98 FL (80-99); PLATELET COUNT 342 K/UL (150-450); RED CELL DISTRIBUTION WIDTH 11.1 % (11.6-14.8); WHITE BLOOD COUNT 6.6 K/UL (4.8-10.8)
[2017-12-30 19:29] LABS: INR 0.9 (0.9-1.1)
[2017-12-30 19:41] LABS: ANION GAP 7 mmol/L (5-15); BLOOD UREA NITROGEN 10 mg/dL (7-18); CALCIUM 9.3 MG/DL (8.5-10.1); CARBON DIOXIDE 29 MMOL/L (21-32); CHLORIDE 108 MMOL/L (98-107); CREATININE 0.8 MG/DL (0.55-1.30); POTASSIUM 3.8 MMOL/L (3.5-5.1); SODIUM 144 MMOL/L (136-145)
[2017-12-30] MEDS: Morphine Sulfate 4mg/ml Inj IVP ONE (19:47)
[2017-12-30 19:51] LABS: ALANINE AMINOTRANSFERASE 18 U/L (12-78); ALBUMIN 3.8 G/DL (3.4-5.0); ALBUMIN/GLOBULIN RATIO 0.9 (1.0-2.7); ALKALINE PHOSPHATASE 145 U/L (46-116); ASPARTATE AMINO TRANSFERASE 23 U/L (15-37); BILIRUBIN,TOTAL 0.3 MG/DL (0.2-1.0)
[2017-12-30] MEDS: Solu-MEDROL 125mg Inj IVP ONE (19:55)
[2017-12-30] MEDS ORDERED: ADULT WAL-100 MG/5 M ORAL (20:35)
[2017-12-30] MEDS ORDERED: HYDROCORTISONE28 G2 TP (20:47)
[2017-12-30] MEDS ORDERED: PROAIR HFA8.5 GM INH (20:47)
[2017-12-30] MEDS ORDERED: ADVAIR 250-501 EACH INH (20:47)
[2017-12-30 20:50] VITALS: BP 133/80
[2017-12-30 21:05] VITALS: BP 133/80
--- NOTE | 2017-12-31 10:38 | Diagnostic Imaging Report ---
Indication: Shortness of breath Technique: One view of the chest Comparison: 2016 Findings: Lungs and pleural spaces are clear. Heart size is normal. There is no significant interim change Impression: No acute process
--- NOTE | 2018-01-02 07:45 | Emergency Room Report ---
History of Present Illness General Chief Complaint: Dyspnea/Respdistress Source: Medical Record Present Illness HPI Patient is a 67-year-old female who presented after increased difficulty breathing and cough. Patient prior history of COPD. She reports having increased cough worse at night. Patient had reportedly been taking inhalers which include Spiriva as well as albuterol. The patient denies any fever. She reports having similar symptoms recently. She reports having some chest pain which is been present for several days. Allergies: Uncoded Allergies: electrodes (Allergy, Mild, Itching, 10/10/17) skin redness and itching Patient History Past Medical History: see triage record Now: No : 2 Reviewed Nursing Documentation: PMH: Agreed; PSxH: Agreed Nursing Documentation-[facility] Hx Cardiac Problems: No Hx Hypertension: Yes Hx Pacemaker: No Hx Asthma: No Hx COPD: Yes Hx Diabetes: Yes - developed within the last year Hx Cancer: No Hx Gastrointestinal Problems: Yes - bowel resection 1981 Hx Dialysis: No Hx Neurological Problems: Yes Hx Cerebrovascular Accident: Yes - pt reports CVA in 2006 or 2007 Hx Transient Ischemic Attacks: No Hx Dementia: No Hx Alzheimer's Disease: No Hx Parkinson's Disease: No Hx Meningitis: No Hx Encephalitis: No Hx Seizures: Yes - last seizure 01/24/2017, treated at [facility] Multiple Sclerosis: No Hx Cerebral Palsy: No Hx Amyotrophic Lat Sclerosis: No Hx Guillian-[place] Syndrome: No Hx Paralysis: No Hx Peripheral Neuropathy: No Hx Spinal Cord Injury: No Hx Head Trauma: No Hx Traumatic Brain Injury: No Hx Memory Loss: No Hx Concentration Difficulty: Yes - pt reports mild difficulty Hx Speech Problem: Yes - s/p CVA Hx Tremors: Yes - mild at E Hx Vertigo: No Hx Dizziness: No Hx Syncope: No Hx Headaches: Yes Hx Dysphasia: No Hx Numbness: Yes - some numbness on RT side s/p CVA Hx Weakness: Yes - RT side s/p CVA Hx Fatigue: No Hx Neurologic Surgery: No Hx Brain Shunt: No Review of Systems All Other Systems: negative except mentioned in HPI Physical Exam Vital Signs Date Time Temp Pulse Resp B/P (MAP) Pulse Ox O2 Delivery O2 Flow Rate FiO2 12/30/17 16:36 98.2 72 23 146/89 100 Room Air 98.2 Sp02 EP Interpretation: reviewed, normal General Appearance: normal inspection, well appearing, no apparent distress, alert, GCS 15, non-toxic Head: normocephalic, atraumatic ENT: normal ENT inspection, hearing grossly normal, normal voice Neck: normal inspection, full range of motion, supple, no bony tend Respiratory: normal inspection, no respiratory distress, no retraction, wheezing Cardiovascular #1: regular rate, rhythm, no edema Gastrointestinal: normal inspection, normal bowel sounds, non tender, soft, no guarding, no hernia Genitourinary: no CVA tenderness Musculoskeletal: normal inspection, back normal, normal range of motion Neurologic: normal inspection, alert, oriented x3, responsive, brilliandeer lopper III-XII nml as tested, speech normal Psychiatric: normal inspection, judgement/insight normal, mood/affect normal Skin: normal inspection, normal color, no rash Medical Decision Making Diagnostic Impression: Primary Impression: COPD (chronic obstructive pulmonary disease) Additional Impression: Arthritis ER Course Patient presented for shortness of breath.Differential included but was not limited to anemia, pneumonia, pneumothorax, myocardial infarction, pericardial effusion, congestive heart failure, acidosis. Because of complexity of patient' s case laboratory testing and imaging studies were ordered. The patient is given breathing treatments with improvement in her wheezing. The patient was given pain medication for her right upper extremity pain. Laboratory testing was unremarkable. The patient was noted to have negative troponin.The patient was given prescriptions for cough medications as well as inhalers. She was given prescription for guaifenesin syrup for cough. Patient subsequently demanded codeine containing cough syrup. Given the patient's prior history of COPD this would be unsafe and advised her to see her primary care physician if she desired such medications. The patient subsequently stated that her primary care physician did not want to give that to her either. The patient is advised to follow up with primary care doctor in 1-2 days. Patient is advised to return if any worsening condition or if any changes in status that are concerning. This report is dictated with [employer] highway traffic control technician software which may occasionally lead to discrepancies related to use of this software. Labs Test 12/30/17 18:55 White Blood Count 6.6 K/UL (4.8-10.8) Red Blood Count 4.10 M/UL (4.20-5.40) Hemoglobin 13.3 G/DL (12.0-16.0) Hematocrit 40.0 % (37.0-47.0) Mean Corpuscular Volume 98 FL (80-99) Mean Corpuscular Hemoglobin 32.4 PG (27.0-31.0) Mean Corpuscular Hemoglobin Concent 33.2 G/DL (32.0-36.0) Red Cell Distribution Width 11.1 % (11.6-14.8) Platelet Count 342 K/UL (150-450) Mean Platelet Volume 6.1 FL (6.5-10.1) Neutrophils (%) (Auto) % (45.0-75.0) Lymphocytes (%) (Auto) % (20.0-45.0) Monocytes (%) (Auto) % (1.0-10.0) Eosinophils (%) (Auto) % (0.0-3.0) Basophils (%) (Auto) % (0.0-2.0) Differential Total Cells Counted 100 Neutrophils % (Manual) 34 % (45-75) Lymphocytes % (Manual) 33 % (20-45) Monocytes % (Manual) 4 % (1-10) Eosinophils % (Manual) 28 % (0-3) Basophils % (Manual) 1 % (0-2) Band Neutrophils 0 % (0-8) Platelet Estimate Adequate Platelet Morphology Normal Macrocytosis 1+ Prothrombin Time 9.7 SEC (9.30-11.50) Prothromb Time International Ratio 0.9 (0.9-1.1) Activated Partial Thromboplast Time 24 SEC (23-33) Sodium Level 144 MMOL/L (136-145) Potassium Level 3.8 MMOL/L (3.5-5.1) Chloride Level 108 MMOL/L (98-107) Carbon Dioxide Level 29 MMOL/L (21-32) Anion Gap 7 mmol/L (5-15) Blood Urea Nitrogen 10 mg/dL (7-18) Creatinine 0.8 MG/DL (0.55-1.30) Estimat Glomerular Filtration Rate > 60 mL/min (>60) Glucose Level 99 MG/DL (74-106) Calcium Level 9.3 MG/DL (8.5-10.1) Total Bilirubin 0.3 MG/DL (0.2-1.0) Aspartate Amino Transf (AST/SGOT) 23 U/L (15-37) Alanine Aminotransferase (ALT/SGPT) 18 U/L (12-78) Alkaline Phosphatase 145 U/L (46-116) Troponin I 0.013 ng/mL (0.000-0.056) Pro-B-Type Natriuretic Peptide 74 pg/mL (0-125) Total Protein 7.8 G/DL (6.4-8.2) Albumin 3.8 G/DL (3.4-5.0) Globulin 4.0 g/dL Albumin/Globulin Ratio 0.9 (1.0-2.7) EKG Diagnostic Results Rate: normal Rhythm: NSR ST Segments: no acute changes Last Vital Signs Date Time Temp Pulse Resp B/P (MAP) Pulse Ox O2 Delivery O2 Flow Rate FiO2 12/30/17 21:05 97.4 66 14 133/80 99 Room Air 208.8 Status: improved Disposition: HOME, SELF-CARE Condition: Stable Scripts Hydrocortisone Acetate 1% Onit (HYDROCORTISONE 1% OINT) Y Oint 28 GM TP DAILY, #28 GM Prov: Nghia Duran 12/30/17 Fluticasone/Salmeterol (Advair 250-50 Diskus) 1 Each Blst.w.dev 1 PUFF INH EVERY 12 HOURS, #1 EA Prov: Nghia Duran 12/30/17 Albuterol Sulfate* (PROAIR HFA*) 8.5 Gm Hfa.aer.ad 1-2 PUFFS INH Q6H, #1 EA 0 Refills Prov: Nghia Duran 12/30/17 Guaifenesin* (ADULT WAL-TUSSIN*) 100 Mg/5 Ml Liquid 10 ML ORAL Q4H, #120 ML Prov: Nghia Duran 12/30/17 Referrals: NOT CHOSEN IPA/MD,REFERRING (PCP) Patient Instructions: Chronic Obstructive Pulmonary Disease Exacerbation Nghia Duran Jan 02, 2018 07:45
== END 2017-12-30 21:05 | disposition home or self-care (01) ==
LOC: EMR 16:46
DX: J44.9 Chronic obstructive pulmonary disease, unspecified (principal); I10 Essential (primary) hypertension; I69.351 Hemiplegia and hemiparesis following cerebral infarction affecting right dominant side; M19.90 Unspecified osteoarthritis, unspecified site
CPT/HCPCS: 36415; 71045; 80053; 83880; 84484; 85007; 85025; 85610; 85730; 93005; 94640; 94664; 96374; 96375; 99284; J2270; J2930; J7620

== ENCOUNTER 2018-01-05 11:07 | Outpatient (CLI) | payer MEDICARE, MEDICAID ==
[~2018-01-05 11:07] MED LIST changes: +ADULT WAL-100 MG/5 M ORAL; +ADVAIR 250-501 EACH INH; +HYDROCORTISONE28 G2 TP; +UNOBMED
--- NOTE | 2018-01-05 14:28 | Diagnostic Imaging Report ---
Indication: Back pain, radiculopathy Technique: Sagittal T1 and T2 fast spin echo, sagittal STIR, axial T1 and T2 fast spin-echo images of the lumbar spine Comparison: 08/07/2014 Findings: The bony alignment is normal. The vertebral body marrow signal is normal. Vertebral body heights are preserved. The disc spaces are preserved. There is slight multilevel disc desiccation. The conus medullaris terminates at the L1 level. At L2-3, there is iptu-ev-jchrqohq left, mild right neural foraminal stenosis, predominantly due to facet arthrosis. This may have progressed somewhat since the prior exam No significant disc bulge or protrusion or spinal stenosis At L3-4, there is at least moderate left neural foraminal stenosis due to facet arthrosis, suspect slightly increased from the prior exam.. There is mild right neural foraminal stenosis. At L4-5, there is mild circumferential annular bulge. There is vvoe-kl-[id number] narrowing of the bilateral neural foramina due to the annular bulge and facet arthrosis. This is this may have progressed slightly from the previous exam. At L5-S1, no significant disc bulge or protrusion, spinal stenosis, or neural foraminal stenosis. The included extra spinal soft tissues are unremarkable Impression: No acute process Mild degenerative changes as detailed level by level basis above, slightly progressive from prior study of 07/30/2014
--- NOTE | 2018-01-05 14:40 | Diagnostic Imaging Report ---
Indication: Neck pain Technique: Sagittal T1 FLAIR PROPELLER, sagittal T2 PROPELLOR, sagittal STIR, axial T2 PROPELLER, axial 3D COSMIC ASPIR images were obtained through the cervical spine Comparison: No comparison prior MRIs. Reference is made to a cervical spine CT dated 05/20/2015 Findings: Bony alignment is normal. Vertebral body heights are preserved. Disc spaces are preserved. Vertebral body marrow signal is normal. The intrinsic cord signal is normal. At C2-3, the disc space is preserved. There is slight posterior disc protrusion and thickening of the posterior longitudinal ligament. This does not significantly narrow the spinal canal or impinge upon the cord. The bilateral neural foramina are patent At C3-4, there is moderate to severe spinal stenosis. This is due to a combination of short pedicles, central posterior disc protrusion, posterior longitudinal ligament hypertrophy, and ligamentum flavum hypertrophy. Centrally, the spinal canal is narrowed to 5 mm AP diameter, and there is impingement on the central aspect of the cord uncinate hypertrophy and facet arthrosis result in moderate to severe bilateral neural foraminal stenosis. At C4-5, there is moderate to severe spinal stenosis. There is evidence of posterior central disc protrusion, disc protruding approximately 3 mm beyond the posterior margin of the vertebral body, and a high intensity zone within the protruding disc is suggested on the axial images. There is also thickening of the posterior longitudinal ligament and of the ligamentum flavum. This, in combination with short pedicles, results in at least moderate narrowing the spinal canal, to 4 or 5 mm minimum AP dimension, and impingement upon the anterior aspect of the cord. Uncinate and facet hypertrophy result in moderate right and severe left neural foraminal stenosis at this level. At C5-6, there is degenerative disc narrowing. There is generalized circumferential annular bulge and broad-based posterior disc protrusion. This, in combination with thickening of the posterior longitudinal ligament and ligamenta flava as well as short pedicles results in moderate narrowing of the spinal canal, which is narrowed to 6 mm minimum AP dimension. There is moderate to severe right and severe left neural foraminal stenosis at this level due to facet arthrosis and uncinate hypertrophy. At C6-7, there is minimal degenerative narrowing of the disc. Broad-based central posterior disc protrusion results in mild narrowing of the spinal canal. There is mild left and severe right neural foraminal stenosis. At C7-T1, no significant disc bulge or protrusion, spinal stenosis, or neural foraminal stenosis. The included extra spinal soft tissues are unremarkable. Impression: Multilevel degenerative changes, as detailed a level by level basis above. This results in multilevel spinal stenosis, moderate to severe at C3-4 and C4-5. Multilevel neural foraminal stenosis, as detailed above No acute bony trauma
== END 2018-01-05 13:07 | disposition home or self-care (01) ==
LOC: MRI 11:07
DX: M54.9 Dorsalgia, unspecified (principal); M48.061 Spinal stenosis, lumbar region without neurogenic claudication; M48.02 Spinal stenosis, cervical region
CPT/HCPCS: 72141; 72148

== ENCOUNTER 2019-02-05 11:57 | Inpatient (IN) | payer MEDICARE, MEDICAID ==
[~2019-02-05] VITALS: Ht 165.1 cm; Wt 50.0 kg
--- NOTE | 2019-02-05 12:05 | Emergency Room Report ---
History of Present Illness General Chief Complaint: Multiple Trauma/Fall Source: Patient Present Illness HPI Patient fell last night. She hit her right knee. She's been unable to ambulate since that time. She can't get up either. The pain is severe and is swelling in the knee. She can't bend it due to pain and is unable to lift her leg straight. She also feels dehydrated. She denies any loss of consciousness. There is no numbness in the leg. No fevers, chills, chest pain, palpitations, nausea, vomiting, diarrhea, dysuria , abdominal pain, shortness of breath, depression, visual changes, headache. H/O IDDM H/O COPD H/O seizures, on Keppra Allergies: Uncoded Allergies: electrodes (Allergy, Mild, Itching, 10/10/17) skin redness and itching Patient History Past Medical History: see triage record Social History: Denies: smoking, alcohol use, drug use Social History Narrative at home Now: No Reviewed Nursing Documentation: PMH: Agreed; PSxH: Agreed Nursing Documentation-PMH Past Medical History: No History, Except For Hx Cardiac Problems: No Hx Hypertension: Yes Hx Pacemaker: No Hx Asthma: No Hx COPD: Yes Hx Diabetes: Yes - developed within the last year Hx Cancer: No Hx Gastrointestinal Problems: Yes - bowel resection 1981 Hx Dialysis: No Hx Neurological Problems: Yes Hx Cerebrovascular Accident: Yes - pt reports CVA in 2006 or 2007 Hx Transient Ischemic Attacks: No Hx Dementia: No Hx Alzheimer's Disease: No Hx Parkinson's Disease: No Hx Meningitis: No Hx Encephalitis: No Hx Seizures: Yes - last seizure 01/24/2017, treated at [facility] Hx Multiple Sclerosis: No Hx Cerebral Palsy: No Hx Amyotrophic Lat Sclerosis: No Hx Guillian-[place] Syndrome: No Hx Paralysis: No Hx Peripheral Neuropathy: No Hx Spinal Cord Injury: No Hx Head Trauma: No Hx Traumatic Brain Injury: No Hx Memory Loss: No Hx Concentration Difficulty: Yes - pt reports mild difficulty Hx Speech Problem: Yes - s/p CVA Hx Tremors: Yes - mild at RUE Hx Vertigo: No Hx Dizziness: No Hx Syncope: No Hx Headaches: Yes Hx Dysphasia: No Hx Numbness: Yes - some numbness on RT side s/p CVA Hx Weakness: Yes - RT side s/p CVA Hx Fatigue: No Hx Neurologic Surgery: No Hx Brain Shunt: No Review of Systems All Other Systems: negative except mentioned in HPI Physical Exam Vital Signs Date Time Temp Pulse Resp B/P (MAP) Pulse Ox O2 Delivery O2 Flow Rate FiO2 02/05/19 12:01 97.9 95 20 163/75 98 Room Air Sp02 EP Interpretation: reviewed, normal General Appearance: thin, other - frail and in pain, Chronically Ill Head: normocephalic Eyes: bilateral eye normal inspection, bilateral eye PERRL ENT: moist mucus membranes Neck: supple Respiratory: chest non-tender, lungs clear, normal breath sounds Cardiovascular #1: regular rate, rhythm Cardiovascular #2: 2+ radial (R), 2+ dorsalis pedis (R) - Good capillary refill Gastrointestinal: normal inspection, normal bowel sounds, non tender, no mass, non-distended Musculoskeletal: back normal, digits/nails normal, normal range of motion, no calf tenderness, pelvis stable, swelling - Knee with lateral ligaments stable but decreased range of motion due to tenderness and swelling Neurologic: alert, oriented x3, grossly normal Psychiatric: mood/affect normal Skin: normal inspection, warm/dry Medical Decision Making Diagnostic Impression: Primary Impression: Patellar fracture Qualified Codes: S82.021A - Displaced longitudinal fracture of right patella, initial encounter for closed fracture Additional Impression: DM2 (diabetes mellitus, type 2) Qualified Codes: E11.8 - Type 2 diabetes mellitus with unspecified complications; 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 Differential includes fracture, contusion, abrasion ligament injury. Based on exam suspicion of fractures high as she's not ambulatory at this time. The patient will be evaluated with labs and also x-ray of the knee. An EKG will be obtained. Patient retreated with pain medication. Also tetanus is indicated. Patellar fx. EKG without injury, labs unremarkable. Urine not obtained in the emergency department. Poorly tolerating pain and unable to ambulate. Admit med Dr. Dupree. Consult Dr. Jones. Knee immobilizer placed by [employer]. Position excellent with relief of pain. Distal neurovascular exam normal as checked by me. Laboratory Tests Test 02/05/19 12:10 02/05/19 12:35 Sodium Level 142 MMOL/L (136-145) Potassium Level 3.4 MMOL/L (3.5-5.1) L Chloride Level 105 MMOL/L (98-107) Carbon Dioxide Level 27 MMOL/L (21-32) Anion Gap 10 mmol/L (5-15) Blood Urea Nitrogen 8 mg/dL (7-18) Creatinine 0.8 MG/DL (0.55-1.30) Estimate Glomerular Filtration Rate > 60 mL/min (>60) Glucose Level 128 MG/DL (74-106) H Calcium Level 9.6 MG/DL (8.5-10.1) Total Bilirubin 0.6 MG/DL (0.2-1.0) Aspartate Amino Transferase (AST) 20 U/L (15-37) Alanine Aminotransferase (ALT) 15 U/L (12-78) Alkaline Phosphatase 148 U/L (46-116) H Total Protein 7.7 G/DL (6.4-8.2) Albumin 3.9 G/DL (3.4-5.0) Globulin 3.8 g/dL Albumin/Globulin Ratio 1.0 (1.0-2.7) Serum Alcohol < 3 mg/dL White Blood Count 7.7 K/UL (4.8-10.8) Red Blood Count 3.66 M/UL (4.20-5.40) L Hemoglobin 11.7 G/DL (12.0-16.0) L Hematocrit 35.3 % (37.0-47.0) L Mean Corpuscular Volume 97 FL (80-99) Mean Corpuscular Hemoglobin 32.1 PG (27.0-31.0) H Mean Corpuscular Hemoglobin Concent 33.2 G/DL (32.0-36.0) Red Cell Distribution Width 11.5 % (11.6-14.8) L Platelet Count 319 K/UL (150-450) Mean Platelet Volume 5.8 FL (6.5-10.1) L Neutrophils (%) (Auto) % (45.0-75.0) Lymphocytes (%) (Auto) % (20.0-45.0) Monocytes (%) (Auto) % (1.0-10.0) Eosinophils (%) (Auto) % (0.0-3.0) Basophils (%) (Auto) % (0.0-2.0) Differential Total Cells Counted 100 Neutrophils % (Manual) 53 % (45-75) Lymphocytes % (Manual) 18 % (20-45) L Monocytes % (Manual) 8 % (1-10) Eosinophils % (Manual) 19 % (0-3) H Basophils % (Manual) 0 % (0-2) Band Neutrophils 2 % (0-8) Platelet Estimate Adequate Platelet Morphology Normal Red Blood Cell Morphology Normal Prothrombin Time 10.5 SEC (9.30-11.50) Prothrombin Time INR 1.0 (0.9-1.1) PTT 21 SEC (23-33) L EKG Diagnostic Results Rate: normal Rhythm: NSR ST Segments: no acute changes - LAE, LAD Rhythm Strip Diag. Results EP Interpretation: yes Rhythm: NSR, no PVC's, no ectopy Chest X-Ray Diagnostic Results Chest X-Ray Diagnostic Results : Chest X-Ray Ordered: Yes # of Views/Limited/Complete: 1 View Indication: Other EP Interpretation: Yes Interpretation: no consolidation, no effusion, no pneumothorax Impression: No acute disease Electronically Signed by: Junior Bolton MD Other X-Ray Diagnostic Results Other X-Ray Diagnostic Results : X-Ray ordered: R knee # of Views/Limited Vs Complete: 3 View Indication: Other EP Interpretation: Yes Interpretation: no dislocation, other - fx patella with effusion Impression: Other Electronically Signed by: Electronically signed by Junior Bolton MD Last Vital Signs Date Time Temp Pulse Resp B/P (MAP) Pulse Ox O2 Delivery O2 Flow Rate FiO2 02/05/19 20:00 98.1 67 18 160/77 (104) 97 02/05/19 19:55 Room Air 21 Status: improved Disposition: ADMITTED INPATIENT Condition: Serious Junior Bolton MD Feb 05, 2019 12:05
[2019-02-05 12:09] VITALS: BP 158/70
--- NOTE | 2019-02-05 12:13 | NUR ---
ED Nurse Note: Patient present at ER c Addendum: 02/05/19 at 1213 by [email or web address] ED Nurse Note: Patient present at ER as stating fall incident yesterday by 1600 at home. pt aao x4 and cooperative. pt c/o Rt knee pain 10/10 and edema and bruise but no bleeding noted. no open wound noted and pt denied head injury.
[2019-02-05] MEDS ORDERED: Ketorolac 30mg Inj IV ONE (12:15)
[2019-02-05] MEDS ORDERED: Morphine Sulfate 2mg/ml Inj(IV/IM USE ONLY) IM ONE (12:15)
[2019-02-05] MEDS ORDERED: Tetanus/Diptheria/Pertussis IM ONE (12:15)
[2019-02-05] MEDS ORDERED: Neosporin Oint Ud Pkt TOP ONE (12:15)
[2019-02-05 12:27] LABS: ANION GAP 10 mmol/L (5-15); BLOOD UREA NITROGEN 8 mg/dL (7-18); CALCIUM 9.6 MG/DL (8.5-10.1); CARBON DIOXIDE 27 MMOL/L (21-32); CHLORIDE 105 MMOL/L (98-107); CREATININE 0.8 MG/DL (0.55-1.30); POTASSIUM 3.4 MMOL/L (3.5-5.1); SODIUM 142 MMOL/L (136-145)
[2019-02-05] MEDS ORDERED: Morphine Sulfate 2mg/ml Inj(IV/IM USE ONLY) IVP ONE (12:30)
[2019-02-05] MEDS ORDERED: Sodium Chloride 550 ML IV SCH (12:30)
[2019-02-05 12:31] LABS: ALANINE AMINOTRANSFERASE 15 U/L (12-78); ALBUMIN 3.9 G/DL (3.4-5.0); ALKALINE PHOSPHATASE 148 U/L (46-116); ASPARTATE AMINO TRANSFERASE 20 U/L (15-37); BILIRUBIN,TOTAL 0.6 MG/DL (0.2-1.0)
[2019-02-05 12:53] LABS: HEMATOCRIT 35.3 % (37.0-47.0); HEMOGLOBIN 11.7 G/DL (12.0-16.0); MEAN CORPUSCULAR VOLUME 97 FL (80-99); PLATELET COUNT 319 K/UL (150-450); RED BLOOD COUNT 3.66 M/UL (4.20-5.40); RED CELL DISTRIBUTION WIDTH 11.5 % (11.6-14.8); WHITE BLOOD COUNT 7.7 K/UL (4.8-10.8)
[2019-02-05] MEDS ORDERED: Morphine Sulfate 4mg/ml Inj (IV USE ONLY) IVP ONE (13:00)
--- NOTE | 2019-02-05 13:43 | NUR ---
ED Nurse Note: CALLED RADIOLOGY TO REQUEST FOR DISC COPY OF RADIOLOGY RESULT
--- NOTE | 2019-02-05 14:09 | NUR ---
ED Nurse Note: per ERMD it is ok for pt to be admitted without urine sample.
[2019-02-05 14:30] VITALS: BP 142/74
--- NOTE | 2019-02-05 14:30 | NUR ---
ED Nurse Note: pt left department in stable condition with 1 pharmacy technician assistant.
--- NOTE | 2019-02-05 14:36 | NUR ---
ED Nurse Note: Report given to NAM Bartholomew.
--- NOTE | 2019-02-05 15:00 | NUR ---
NURSE NOTES: I received report from ER nurse, Van Perez over the phone, patient arrived by naldormp, vitals taken upon arraival to the floor. IV Right-Wrist, flushes well; belonging lists signed by transporter and receiving nurse. Right knee had immobilizer. bed at lowest position, side rails up x2, breaks engaged. will keep monitoring.
[2019-02-05 15:04] VITALS: BP 160/74
[2019-02-05] MEDS ORDERED: Albuterol 90mcg Inhaler 8gm INH SCH (16:15)
[2019-02-05] MEDS ORDERED: HYDROcodone/Acetamin 5/325 tab ORAL PRN (16:15)
[2019-02-05] MEDS ORDERED: Milk of Magnesia 30ml Ud ORAL PRN (16:15)
[2019-02-05] MEDS ORDERED: guaiFENesin 100mg/5ml Liq ud ORAL PRN (16:15)
[2019-02-05] MEDS ORDERED: Albuterol ud Inhalation HHN PRN (16:15)
[2019-02-05] MEDS ORDERED: Meclizine 25mg tab ORAL PRN (16:15)
[2019-02-05] MEDS ORDERED: Indomethacin 25mg cap ORAL SCH (16:15)
--- NOTE | 2019-02-05 16:30 | NUR ---
NURSE NOTES: Urine collecting container provided to patient.
[2019-02-05] MEDS ORDERED: AZOR 5-20 MG T1 EACH ORAL (17:25)
[2019-02-05] MEDS ORDERED: THEOPHYLLINE A100 MG ORAL (17:53)
[2019-02-05] MEDS: oxyCODONE 15mg IR tab ORAL PRN (18:29)
--- NOTE | 2019-02-05 19:42 | NUR ---
HAND-OFF: Report given to NAM Alberts.
--- NOTE | 2019-02-05 19:44 | NUR ---
NURSE NOTES: Pt alerta and oriented x4 sitting in semi fowlers. Right-Wrist, flushes well, patent asymptomatic. Rt knee immobilizer in place. Bed is locked in lowest position, side rails x2. Bed alarm on. Pt has phone at her bedside, talking to family members frequently. Will continue to monitor. Does report some pain at this time. Fall precautions in place.
[2019-02-05 20:00] VITALS: BP 160/77
--- NOTE | 2019-02-05 20:00 | NUR ---
NURSE NOTES: Pt reported a history of 1 seizure. I implemented seizure precautions at this time when I noted patient was on Keppra for seizure prevention
[2019-02-05] MEDS: Morphine Sulfate 4mg/ml Inj (IV USE ONLY) IV PRN (20:11)
[2019-02-05] MEDS: Theophylline ER 100mg ORAL SCH (20:12)
[2019-02-05] MEDS: NovoLOG Insulin Flexpen SUBQ SCH (20:17)
[2019-02-05] MEDS: Heparin 5000 units/ml inj SUBQ SCH (20:19)
[2019-02-05] MEDS ORDERED: Heparin 5000 units/ml inj SUBQ SCH (21:00)
[2019-02-05] MEDS ORDERED: Theophylline ER 100mg ORAL SCH (21:00)
[2019-02-05] MEDS ORDERED: Wixela 250/50 Inhaler - 60 dose INH SCH (21:00)
[2019-02-06] VITALS: BP 141/79
[2019-02-06] MEDS: Morphine Sulfate 4mg/ml Inj (IV USE ONLY) IV PRN ×2 (01:10→08:46)
--- NOTE | 2019-02-06 01:15 | History and Physical Report ---
DATE OF ADMISSION: 02/05/2019 HISTORY OF PRESENT ILLNESS: The patient is an unfortunate 68-year-old female with history of COPD, diabetes, gout, history of substance abuse including cocaine and marijuana, history of previous CVAs, history of nonobstructive CAD, history of chronic pain who presented to the emergency room status post mechanical fall. She tripped on the sidewalk she states with severe right knee pain. She denies any loss of consciousness. No chest pain or shortness of breath. No palpitations. No seizure stigmata. No bowel or bladder incontinence. She states she was alert and awake. She denies any fevers or chills. No headaches. No sore throat. No chest pain. No shortness of breath. She does admit to a cough. PAST MEDICAL HISTORY: Includes a history of nonobstructive CAD, history of polysubstance abuse including cocaine and marijuana, history of COPD, history of pneumonitis, history of gout, history of , history of hypersensitivity pneumonitis, history of hysterectomy, history of appendectomy, history of congestive heart failure with diastolic dysfunction, history of parainfluenza and influenza infections in the past, history of chronic back pain, she sees pain management, history of severe lumbar stenosis as well as severe cervical spondylosis with cord compression and severe central canal stenosis at C3-C4, C4-C5, C5-C6 as well as broad disk bulges and arthropathy resulting in mild bilateral foraminal narrowing. She is followed by Dr. Waqas Ponce and also Dr. 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 ALLERGIES: She is allergic to adhesive tape. MEDICATIONS: Please see reconciled medication list. REVIEW OF SYSTEMS: A 12-point review of systems reviewed and negative except for above. PHYSICAL EXAMINATION: GENERAL: She is well appearing, currently in no apparent distress. VITAL SIGNS: Revealed a blood pressure 160/74, pulse 52, respirations 16, temperature 98 on room air. HEENT: Head is normocephalic and atraumatic. Pupils are equal and reactive to light. Extraocular muscles are intact. Eyes are anicteric. NECK: Supple. No JVP. No bruits. LUNGS: Clear. HEART: Regular rate and rhythm. ABDOMEN: Soft. Positive bowel sounds. EXTREMITIES: No clubbing or cyanosis, nontender with range of motion. Neurovascularly intact. LABORATORY AND DIAGNOSTIC DATA: White count 7.7, hemoglobin 11.7, hematocrit 35.3, platelet count 319. Sodium 142, potassium 3.4, BUN of 8, creatinine 0.8, glucose 128. X-ray of the knee currently unavailable on the computer, however, per the ER physician, she does have a patellar fracture. EKG noted. ASSESSMENT AND PLAN: The patient is a 68-year-old female who presents status post mechanical fall. She does have a patellar fracture. I discussed with Dr. Kramer. The patient will need to see pain control and surgery. I have asked Cardiology consultation, Dr. Avalos to see her for cardiac clearance as well as pulmonary clearance from Dr. Bee. I will also ask Dr. Asa Gayle from Neurology to see her as well for a clearance from his perspective for further cervical stenosis developing. The patient should be on DVT and ulcer prophylaxis. Ravindra Horner M.D. DR: Kostas JOB#: [id number] CC:
--- NOTE | 2019-02-06 03:42 | NUR ---
NURSE NOTES: Pt had episode of nausea and vomited. Zofran not yet due. Will continue to monitor and administer as soon as is due.
[2019-02-06 04:00] VITALS: BP 155/68
[2019-02-06] MEDS: NovoLOG Insulin Flexpen SUBQ SCH ×4 (06:17→21:10)
[2019-02-06 06:49] LABS: HEMATOCRIT 32.4 % (37.0-47.0); MEAN CORPUSCULAR VOLUME 96 FL (80-99); PLATELET COUNT 311 K/UL (150-450); RED BLOOD COUNT 3.37 M/UL (4.20-5.40); RED CELL DISTRIBUTION WIDTH 11.9 % (11.6-14.8); WHITE BLOOD COUNT 6.7 K/UL (4.8-10.8)
[2019-02-06 07:11] LABS: ALANINE AMINOTRANSFERASE 15 U/L (12-78); ALBUMIN 3.5 G/DL (3.4-5.0); ALBUMIN/GLOBULIN RATIO 0.9 (1.0-2.7); ALKALINE PHOSPHATASE 138 U/L (46-116); ANION GAP 6 mmol/L (5-15); ASPARTATE AMINO TRANSFERASE 17 U/L (15-37); BILIRUBIN,TOTAL 0.7 MG/DL (0.2-1.0); BLOOD UREA NITROGEN 12 mg/dL (7-18); CALCIUM 9.3 MG/DL (8.5-10.1); CARBON DIOXIDE 32 MMOL/L (21-32); CHLORIDE 106 MMOL/L (98-107); CREATININE 0.9 MG/DL (0.55-1.30); POTASSIUM 3.4 MMOL/L (3.5-5.1); SODIUM 144 MMOL/L (136-145)
--- NOTE | 2019-02-06 07:52 | Consultation ---
Consult Note Consult Note patient seen and evaluated. Right Displaced Patella Fracture Recommend ORIF Risk, benefit, complications discussed and patient agrees. Full Consult dictated. Jamie Kramer MD Feb 06, 2019 07:52
[2019-02-06 08:00] VITALS: BP 127/65
--- NOTE | 2019-02-06 08:12 | NUR ---
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
[2019-02-06] MEDS: Aspirin EC 81mg tab ORAL SCH (08:45)
[2019-02-06] MEDS: Theophylline ER 100mg ORAL SCH (08:45)
[2019-02-06] MEDS: Irbesartan 150mg tablet ORAL SCH (08:45)
[2019-02-06] MEDS: Heparin 5000 units/ml inj SUBQ SCH ×2 (08:49→20:30)
[2019-02-06] MEDS ORDERED: Hydrocortisone 1% Cr 30gm TOPIC SCH (09:00)
[2019-02-06] MEDS ORDERED: Montelukast 10mg tablet ORAL SCH (09:00)
[2019-02-06] MEDS ORDERED: Levofloxacin 500mg tab ORAL SCH (09:00)
[2019-02-06 10:23] LABS: APPEARANCE,URINE SLIGHTLY CLOUDY; BILIRUBIN, URINE 1+ (NEGATIVE); GLUCOSE, URINE (UA) NEGATIVE (NEGATIVE); KETONES,URINE 1+ (NEGATIVE); LEUKOCYTE ESTERASE ,URINE 2+ (NEGATIVE); NITRITE,URINE NEGATIVE (NEGATIVE); PH,URINE 5 (4.5-8.0); PROTEIN,URINE 1+ (NEGATIVE); UROBILINOGEN,URINE 1 MG/DL (0.0-1.0)
[2019-02-06 10:33] LABS: COLOR,URINE YELLOW
--- NOTE | 2019-02-06 10:51 | NUR ---
NURSE NOTES: Lab called and verbalized results of urine drug screen. Pt tested positive for opioids, cocaine and THC. Will follow up and report to physician.
--- NOTE | 2019-02-06 11:02 | NUR ---
NURSE NOTES: Contacted MD Horner and advised him of patient potassium level and drug screen results. New orders received and placed.
[2019-02-06 12:00] VITALS: BP 122/69
--- NOTE | 2019-02-06 12:02 | Cardiac Electrophysiology PN ---
Subjective Subjective [id number] Objective Last 24 Hour Vital Signs Date Time Temp Pulse Resp B/P (MAP) Pulse Ox O2 Delivery O2 Flow Rate FiO2 02/06/19 10:53 Room Air 02/06/19 10:52 Room Air 02/06/19 09:16 98.6 02/06/19 09:00 Room Air 02/06/19 08:45 127/65 02/06/19 08:45 75 127/65 02/06/19 08:00 97.6 75 18 127/65 (85) 95 02/06/19 04:00 98.6 68 18 155/68 (97) 96 02/06/19 00:00 98.0 78 16 141/79 (99) 95 02/05/19 21:00 Room Air 02/05/19 20:00 98.1 67 18 160/77 (104) 97 02/05/19 19:55 74 18 94 Room Air 21 02/05/19 19:52 74 16 Room Air 02/05/19 19:48 74 18 94 Room Air 21 02/05/19 15:32 Room Air 02/05/19 15:04 98.1 62 16 160/74 (102) 98 02/05/19 14:30 97.9 75 16 142/74 98 Room Air 02/05/19 14:30 97.9 72 16 142/74 98 Room Air 02/05/19 13:49 97.9 02/05/19 12:49 97.9 02/05/19 12:48 97.9 02/05/19 12:09 72 16 Room Air 02/05/19 12:09 97.9 72 16 158/70 98 Room Air Intake and Output 02/05/19 02/06/19 19:00 07:00 Intake Total 550 ml 240 ml Output Total 300 ml Balance 250 ml 240 ml Intake Oral 240 ml IV Total 550 ml Output Urine Total 300 ml Laboratory Tests Test 02/05/19 12:10 02/05/19 12:35 02/06/19 05:15 02/06/19 09:50 Sodium Level 142 MMOL/L (136-145) 144 MMOL/L (136-145) Potassium Level 3.4 MMOL/L (3.5-5.1) L 3.4 MMOL/L (3.5-5.1) L Chloride Level 105 MMOL/L (98-107) 106 MMOL/L (98-107) Carbon Dioxide Level 27 MMOL/L (21-32) 32 MMOL/L (21-32) Anion Gap 10 mmol/L (5-15) 6 mmol/L (5-15) Blood Urea Nitrogen 8 mg/dL (7-18) 12 mg/dL (7-18) Creatinine 0.8 MG/DL (0.55-1.30) 0.9 MG/DL (0.55-1.30) Estimat Glomerular Filtration Rate > 60 mL/min (>60) > 60 mL/min (>60) Glucose Level 128 MG/DL (74-106) H 110 MG/DL (74-106) H Calcium Level 9.6 MG/DL (8.5-10.1) 9.3 MG/DL (8.5-10.1) Total Bilirubin 0.6 MG/DL (0.2-1.0) 0.7 MG/DL (0.2-1.0) Aspartate Amino Transf (AST/SGOT) 20 U/L (15-37) 17 U/L (15-37) Alanine Aminotransferase (ALT/SGPT) 15 U/L (12-78) 15 U/L (12-78) Alkaline Phosphatase 148 U/L (46-116) H 138 U/L (46-116) H Total Protein 7.7 G/DL (6.4-8.2) 7.3 G/DL (6.4-8.2) Albumin 3.9 G/DL (3.4-5.0) 3.5 G/DL (3.4-5.0) Globulin 3.8 g/dL 3.8 g/dL Albumin/Globulin Ratio 1.0 (1.0-2.7) 0.9 (1.0-2.7) L Serum Alcohol < 3 mg/dL White Blood Count 7.7 K/UL (4.8-10.8) 6.7 K/UL (4.8-10.8) Red Blood Count 3.66 M/UL (4.20-5.40) L 3.37 M/UL (4.20-5.40) L Hemoglobin 11.7 G/DL (12.0-16.0) L 11.0 G/DL (12.0-16.0) L Hematocrit 35.3 % (37.0-47.0) L 32.4 % (37.0-47.0) L Mean Corpuscular Volume 97 FL (80-99) 96 FL (80-99) Mean Corpuscular Hemoglobin 32.1 PG (27.0-31.0) H 32.7 PG (27.0-31.0) H Mean Corpuscular Hemoglobin Concent 33.2 G/DL (32.0-36.0) 34.0 G/DL (32.0-36.0) Red Cell Distribution Width 11.5 % (11.6-14.8) L 11.9 % (11.6-14.8) Platelet Count 319 K/UL (150-450) 311 K/UL (150-450) Mean Platelet Volume 5.8 FL (6.5-10.1) L 6.0 FL (6.5-10.1) L Neutrophils (%) (Auto) % (45.0-75.0) % (45.0-75.0) Lymphocytes (%) (Auto) % (20.0-45.0) % (20.0-45.0) Monocytes (%) (Auto) % (1.0-10.0) % (1.0-10.0) Eosinophils (%) (Auto) % (0.0-3.0) % (0.0-3.0) Basophils (%) (Auto) % (0.0-2.0) % (0.0-2.0) Differential Total Cells Counted 100 100 Neutrophils % (Manual) 53 % (45-75) 32 % (45-75) L Lymphocytes % (Manual) 18 % (20-45) L 32 % (20-45) Monocytes % (Manual) 8 % (1-10) 3 % (1-10) Eosinophils % (Manual) 19 % (0-3) H 33 % (0-3) H Basophils % (Manual) 0 % (0-2) 0 % (0-2) Band Neutrophils 2 % (0-8) 0 % (0-8) Platelet Estimate Adequate Adequate Platelet Morphology Normal Normal Red Blood Cell Morphology Normal Prothrombin Time 10.5 SEC (9.30-11.50) Prothromb Time International Ratio 1.0 (0.9-1.1) Activated Partial Thromboplast Time 21 SEC (23-33) L Macrocytosis 1+ Lipase 99 U/L (73-393) Urine Color Yellow Urine Appearance Slightly cloudy Urine pH 5 (4.5-8.0) Urine Specific [place] 1.020 (1.005-1.035) Urine Protein 1+ (NEGATIVE) H Urine Glucose (UA) Negative (NEGATIVE) Urine Ketones 1+ (NEGATIVE) H Urine Blood Negative (NEGATIVE) Urine Nitrite Negative (NEGATIVE) Urine Bilirubin 1+ (NEGATIVE) H Urine Ictotest Negative (NEGATIVE) Urine Urobilinogen 1 MG/DL (0.0-1.0) H Urine Leukocyte Esterase 2+ (NEGATIVE) H Urine RBC 0-2 /HPF (0 - 2) Urine WBC 2-4 /HPF (0 - 2) Urine Squamous Epithelial Cells Few /LPF (NONE/OCC) Urine Calcium Oxalate Crystals Few /LPF (NONE) Urine Bacteria Many /HPF (NONE) H Urine Opiates Screen Positive (NEGATIVE) H Urine Barbiturates Screen Negative (NEGATIVE) Phencyclidine (PCP) Screen Negative (NEGATIVE) Urine Amphetamines Screen Negative (NEGATIVE) Urine Benzodiazepines Screen Negative (NEGATIVE) Urine Cocaine Screen Positive (NEGATIVE) H Urine Marijuana (THC) Screen Positive (NEGATIVE) H Todd Avalos MD Feb 06, 2019 12:02
--- NOTE | 2019-02-06 12:03 | NUR ---
NURSE NOTES: Patient alert x4, on room air, no sign of distress and shortness of breath; no sign of chest pain; Right-knee immoblizer in place; IV right-wrist flushes well; bed at lowest position, side rails up x2, breaks engaged; bed alarm on, call light within reach; will keep monitoring.
[2019-02-06] MEDS ORDERED: Lexiscan 0.4mg/5ml syringe IV PRN (12:04)
--- NOTE | 2019-02-06 12:18 | Diagnostic Imaging Report ---
Indication: Trauma, pain Technique: 3 views of the right knee Comparison: None Findings: There is a transverse slightly distracted fracture of the patella. There is evidence of a large joint effusion. There is swelling of the soft tissues overlying the patella. The joint spaces are preserved. No femoral, tibial, or fibular fracture demonstrated Impression: Positive for patellar fracture Evidence of sizable joint effusion and overlying soft tissue swelling
--- NOTE | 2019-02-06 12:35 | Diagnostic Imaging Report ---
Indication: Chest pain Technique: One view of the chest Comparison: 12/30/2018 Findings: Lungs and pleural spaces are clear. Heart size is normal. No significant interim change Impression: No acute process
--- NOTE | 2019-02-06 12:45 | Consultation ---
DATE OF CONSULTATION: 02/06/2019 ORTHOPEDIC CONSULTATION CONSULTING PHYSICIAN: Jamie Kramer M.D. REASON FOR CONSULTATION: Right-sided patella fracture. BRIEF HISTORY: The patient is a 68-year-old female with history of COPD, diabetes, gout, history of substance abuse including cocaine and marijuana, history of previous CVA, coronary artery disease, and chronic pain, presents to the ER for status post a mechanical fall. She tripped on the sidewalk. Again, she states she had severe pain in the knee. X-rays were obtained. X-ray showed a transverse displaced patella fracture. Orthopedic consultation was obtained. PAST MEDICAL HISTORY: Significant as above. As of note, the patient also has had multiple cervical stenosis and issues and she has seen Dr. Ponce. PAST SURGICAL HISTORY: None available. ALLERGIES: She is allergic to adhesive tapes. MEDICATIONS: Please see chart. SOCIAL HISTORY: She does not do any excessive drinking or smoking at this point. REVIEW OF SYSTEMS: Noncontributory. PHYSICAL EXAMINATION: GENERAL: Examination of the patient today reveals she is a pleasant lady, cooperative with examination. EXTREMITIES: Examination of the right knee reveals got some swelling about the knee. She cannot bend her knee and neurological examination was intact. She has some swelling. There are no open fractures. DIAGNOSTIC DATA: X-rays and MRIs, x-ray of the right knee is reviewed. There is a transverse displaced patella fracture. IMPRESSION: Right knee transverse displaced patella fracture in a 68-year-old female, who was ambulatory. PLAN: At this time, I discussed with the patient. I explained to her my findings. I recommend proceeding with right knee patella open reduction and internal fixation. All risks, benefits, and complications were discussed with her. Risks of infection, bleeding, neurovascular complication were discussed. The patient understands and agrees. All questions were answered. I will see her back in approximately two weeks in followup in the office. We will go ahead and set this up, once she has clearance. Dr. Horner has asked for pulmonary as well as cardiac/neurological clearance and hopefully this will be done. We can proceed tomorrow. Jamie Kramer M.D. DR: ANA M JOB#: [id number] CC: TRUE
--- NOTE | 2019-02-06 13:13 | NUR ---
RD ASSESSMENT & RECOMMENDATIONS SEE CARE ACTIVITY FOR COMPLETE ASSESSMENT DAILY ESTIMATED NEEDS: Needs based on DM, Underweight (Actual 46kg) 30-35 kcals/kg 0135-4386 total kcals 1-1.5 g protein/kg 46-69 g total protein 25-30 mL/kg 7372-5919 total fluid mLs NUTRITION DIAGNOSIS: 1) Increased kcal and protein needs r/t underweight status and pending surgery as evidenced by BMI 16.9, @ 81% IBW, w/ pending ORIF s/p fall. CURRENT DIET:[facility] MED- NPO after [place] PO DIET RECOMMENDATIONS: CCHO LOW + DOUBLE PROTEINS + Glucerna daily ADDITIONAL RECOMMENDATIONS: 1) Glucerna 1 can daily (for wt gain/stabilization) 2) Updated HgbA1c 3) Calibrated bed scale or standing scale for wt assessment 4) Check lytes daily, replete as needed (Low K) .
--- NOTE | 2019-02-06 14:09 | Consultation ---
History of Present Illness General Date patient seen: Feb 06, 2019 Time patient seen: 13:57 Chief Complaint: Multiple Trauma/Fall Referring physician: Ravindra Horner MD Reason for Consultation: COPD Present Illness HPI May Janet Whittington is a 68 F smoker with a history of COPD, chronic cough, HP S/P treatment, cocaine and MJ use, Sz DO p/w a GLF and patellar fx. She has been seen by ortho and will require operative repair. She is fairly stable from a respiratory standpoint. + cough @ baseline no SOB occ wheezing no CP no FC no NVDC no abd pain or urinary complaints. RLE in brace. Her regimen includes Singular, Flonase, Spiriva, Advair, daliresp and PRN HHN's at home though she has been non-compliant. Allergies: Uncoded Allergies: electrodes (Allergy, Mild, Itching, 10/10/17) skin redness and itching Medication History Scheduled Amlodipine Bes/Olmesartan Med 5-20 Mg Tablet (Alethea 5-20 Mg Tablet), 1 TAB ORAL DAILY, (Reported) Budesonide/Formoterol Fumarate (Symbicort 160-4.5 Mcg Inhaler), 1 PUFF INH TWICE A DAY Escitalopram Oxalate* (Lexapro*), 10 MG ORAL DAILY Heparin Sod (Porcine) (Heparin Sodium*), 5,000 UNITS SUBQ EVERY 12 HOURS, ( Reported) Indomethacin (Indomethacin), 25 MG ORAL TID, (Reported) Levetiracetam (Keppra), 500 MG ORAL EVERY 12 HOURS, (Reported) Pravastatin Sod* (Pravastatin Sod*), 40 MG ORAL BEDTIME, (Reported) Theophylline (Theodur*), 100 MG ORAL TWICE A DAY, (Reported) Tiotropium Bronson* (Spiriva*), 1 PUFF INH DAILY Scheduled PRN Albuterol Sulfate* (Albuterol Sulfate Hhn*), 3 ML INH Q8H PRN for Shortness of Breath, (Reported) Diphenhydramine Hcl (Benadryl Allergy), 25 MG PO EVERY 6 HOURS PRN for Itching, (Reported) Hydrocodone Bit/Acetaminophen 5-325* (Stuart 5-325 Tablet*), 1 TAB ORAL BID PRN for For Pain, (Reported) Magnesium Hydroxide* (Milk Of Magnesia*), 30 ML ORAL DAILY PRN for Constipation, (Reported) Meclizine Hcl* (Meclizine*), 25 MG ORAL EVERY 8 HOURS PRN for for dizziness, ( Reported) Metoclopramide Hcl* (Reglan*), 10 MG IVP EVERY 6 HOURS PRN for Abdominal cramps, (Reported) Morphine Sulfate* (Morphine Sulfate*), 4 MG IV EVERY 4 HOURS PRN for For Pain, ( Reported) Ondansetron* (Zofran*), 4 MG IV EVERY 4 HOURS PRN for Nausea & Vomiting, ( Reported) Miscellaneous Medications Insulin Aspart (Novolog), 100 UNIT SQ, (Reported) Discontinued Medications Albuterol Sulfate* (Proair Hfa*), 1-2 PUFFS INH Q6H Discontinued Reason: Medication dose changed Amlodipine Besylate (Norvasc), 5 MG ORAL DAILY Discontinued Reason: Pt stopped taking med Aspirin Ec* (Aspirin Ec*), 81 MG ORAL DAILY Discontinued Reason: Pt stopped taking med Carisoprodol* (Soma*), 350 MG PO BID, (Reported) Discontinued Reason: Medication dose changed Esomeprazole Magnesium (Nexium), 40 MG ORAL DAILY, (Reported) Discontinued Reason: Pt stopped taking med Fluticasone/Salmeterol (Advair 250-50 Diskus), 1 PUFF INH EVERY 12 HOURS Discontinued Reason: MD discontinued med Gabapentin* (Neurontin*), 300 MG ORAL THREE TIMES A DAY Discontinued Reason: Pt stopped taking med Guaifenesin* (Adult Wal-Tussin*), 10 ML ORAL Q4H Discontinued Reason: Pt stopped taking med Guaifenesin/D-Methorphan Hb/Pe (Robitussin Cough-Cold Cf Liq), 10 ML PO Q8HR, ( Reported) Discontinued Reason: MD discontinued med Hydrocortisone 1% cream (Hydrocortisone 1% cream), 28.4 GM RC EVERY 6 HOURS PRN for Itching, (Reported) Discontinued Reason: Pt stopped taking med Hydrocortisone Acetate 1% Onit (Hydrocortisone 1% Oint), 28 GM TP DAILY Discontinued Reason: Pt stopped taking med Insulin Detemir (Levemir Flexpen), 6 SUBQ DAILY, (Reported) Discontinued Reason: Medication dose changed Levofloxacin (Levofloxacin*), 500 MG ORAL DAILY, (Reported) Discontinued Reason: Pt stopped taking med Lidocaine (Lidoderm), 1 PATCH TOPIC DAILY, (Reported) Discontinued Reason: Pt stopped taking med Montelukast Sodium* (Singulair*), 10 MG ORAL DAILY, (Reported) Discontinued Reason: Pt stopped taking med Nateglinide (Starlix), 120 MG ORAL THREE TIMES A DAY, (Reported) Discontinued Reason: Medication dose changed Oxycodone Hcl* (Oxycodone Hcl*), 30 MG ORAL Q6H PRN for For Pain, (Reported) Discontinued Reason: Medication dose changed Promethazine HCl/Codeine (Prometh-Codein 6.25-10 mg/5 ml), 5 ML PO EVERY 4 HOURS PRN for For Cough, (Reported) Discontinued Reason: Medication dose changed Sitagliptin (Januvia), 100 MG ORAL DAILY, (Reported) Discontinued Reason: Pt stopped taking med Theophylline (Theodur*), 200 MG ORAL EVERY 12 HOURS Discontinued Reason: Medication dose changed Theophylline (Theodur*), 200 MG ORAL EVERY 12 HOURS Discontinued Reason: Medication dose changed Theophylline (Theodur*), 100 MG ORAL TWICE A DAY, (Reported) Discontinued Reason: Pt stopped taking med Unable to Obtain Medications (Unable To Obtain Meds), (Reported) Discontinued Reason: Therapy completed Patient History Healthcare decision maker Resuscitation status Advanced Directive on File Past Medical/Surgical History Past Medical/Surgical History: (1) Shortness of breath (2) NSTEMI (non-ST elevated myocardial infarction) (3) Dyspnea (4) Lumbar spondylosis (5) Lumbar degenerative disc disease (6) Nodular goiter (7) Severe protein-calorie malnutrition (8) Abnormal thyroid function test (9) Cocaine abuse (10) Diabetes mellitus out of control (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 (12) End stage COPD (13) Thyroid function study abnormality (14) lives at home (15) HLD (hyperlipidemia) (16) Patellar fracture (17) Arthritis (18) Drug abuse (19) Abdominal pain (20) Colonic wall thickening (21) Gastroparesis (22) Opioid dependence (23) CVA, old, ataxia (24) HTN (hypertension) (25) Hyperlipemia (26) NSVT (nonsustained ventricular tachycardia) (27) PUD (peptic ulcer disease) Review of Systems All Other Systems: negative except mentioned in HPI Physical Exam General Appearance: WD/WN, no apparent distress Lines, tubes and drains: peripheral HEENT: normocephalic, atraumatic, anicteric, mucous membranes moist, PERRL Neck: non-tender, normal alignment, supple Respiratory/Chest: chest wall non-tender, lungs clear, normal breath sounds, no respiratory distress, no accessory muscle use Cardiovascular/Chest: normal peripheral pulses, normal rate, regular rhythm Abdomen: normal bowel sounds, non tender, soft, no organomegaly, no mass Extremities: other - NO CCE, RLE in brace Last 24 Hour Vital Signs Date Time Temp Pulse Resp B/P (MAP) Pulse Ox O2 Delivery O2 Flow Rate FiO2 02/06/19 10:53 Room Air 02/06/19 10:52 Room Air 02/06/19 09:16 98.6 02/06/19 09:00 Room Air 02/06/19 08:45 127/65 02/06/19 08:45 75 127/65 02/06/19 08:00 97.6 75 18 127/65 (85) 95 02/06/19 04:00 98.6 68 18 155/68 (97) 96 02/06/19 00:00 98.0 78 16 141/79 (99) 95 02/05/19 21:00 Room Air 02/05/19 20:00 98.1 67 18 160/77 (104) 97 02/05/19 19:55 74 18 94 Room Air 21 02/05/19 19:52 74 16 Room Air 02/05/19 19:48 74 18 94 Room Air 21 02/05/19 15:32 Room Air 02/05/19 15:04 98.1 62 16 160/74 (102) 98 02/05/19 14:30 97.9 75 16 142/74 98 Room Air 02/05/19 14:30 97.9 72 16 142/74 98 Room Air Intake and Output 02/05/19 02/06/19 19:00 07:00 Intake Total 550 ml 240 ml Output Total 300 ml Balance 250 ml 240 ml Intake Oral 240 ml IV Total 550 ml Output Urine Total 300 ml Laboratory Tests Test 02/06/19 05:15 02/06/19 09:50 White Blood Count 6.7 K/UL (4.8-10.8) Red Blood Count 3.37 M/UL (4.20-5.40) L Hemoglobin 11.0 G/DL (12.0-16.0) L Hematocrit 32.4 % (37.0-47.0) L Mean Corpuscular Volume 96 FL (80-99) Mean Corpuscular Hemoglobin 32.7 PG (27.0-31.0) H Mean Corpuscular Hemoglobin Concent 34.0 G/DL (32.0-36.0) Red Cell Distribution Width 11.9 % (11.6-14.8) Platelet Count 311 K/UL (150-450) Mean Platelet Volume 6.0 FL (6.5-10.1) L Neutrophils (%) (Auto) % (45.0-75.0) Lymphocytes (%) (Auto) % (20.0-45.0) Monocytes (%) (Auto) % (1.0-10.0) Eosinophils (%) (Auto) % (0.0-3.0) Basophils (%) (Auto) % (0.0-2.0) Differential Total Cells Counted 100 Neutrophils % (Manual) 32 % (45-75) L Lymphocytes % (Manual) 32 % (20-45) Monocytes % (Manual) 3 % (1-10) Eosinophils % (Manual) 33 % (0-3) H Basophils % (Manual) 0 % (0-2) Band Neutrophils 0 % (0-8) Platelet Estimate Adequate Platelet Morphology Normal Macrocytosis 1+ Sodium Level 144 MMOL/L (136-145) Potassium Level 3.4 MMOL/L (3.5-5.1) L Chloride Level 106 MMOL/L (98-107) Carbon Dioxide Level 32 MMOL/L (21-32) Anion Gap 6 mmol/L (5-15) Blood Urea Nitrogen 12 mg/dL (7-18) Creatinine 0.9 MG/DL (0.55-1.30) Estimat Glomerular Filtration Rate > 60 mL/min (>60) Glucose Level 110 MG/DL (74-106) H Calcium Level 9.3 MG/DL (8.5-10.1) Total Bilirubin 0.7 MG/DL (0.2-1.0) Aspartate Amino Transf (AST/SGOT) 17 U/L (15-37) Alanine Aminotransferase (ALT/SGPT) 15 U/L (12-78) Alkaline Phosphatase 138 U/L (46-116) H Total Protein 7.3 G/DL (6.4-8.2) Albumin 3.5 G/DL (3.4-5.0) Globulin 3.8 g/dL Albumin/Globulin Ratio 0.9 (1.0-2.7) L Lipase 99 U/L (73-393) Urine Color Yellow Urine Appearance Slightly cloudy Urine pH 5 (4.5-8.0) Urine Specific Sod 1.020 (1.005-1.035) Urine Protein 1+ (NEGATIVE) H Urine Glucose (UA) Negative (NEGATIVE) Urine Ketones 1+ (NEGATIVE) H Urine Blood Negative (NEGATIVE) Urine Nitrite Negative (NEGATIVE) Urine Bilirubin 1+ (NEGATIVE) H Urine Ictotest Negative (NEGATIVE) Urine Urobilinogen 1 MG/DL (0.0-1.0) H Urine Leukocyte Esterase 2+ (NEGATIVE) H Urine RBC 0-2 /HPF (0 - 2) Urine WBC 2-4 /HPF (0 - 2) Urine Squamous Epithelial Cells Few /LPF (NONE/OCC) Urine Calcium Oxalate Crystals Few /LPF (NONE) Urine Bacteria Many /HPF (NONE) H Urine Opiates Screen Positive (NEGATIVE) H Urine Barbiturates Screen Negative (NEGATIVE) Phencyclidine (PCP) Screen Negative (NEGATIVE) Urine Amphetamines Screen Negative (NEGATIVE) Urine Benzodiazepines Screen Negative (NEGATIVE) Urine Cocaine Screen Positive (NEGATIVE) H Urine Marijuana (THC) Screen Positive (NEGATIVE) H Height (Feet): 5 Height (Inches): 5.00 Weight (Pounds): 100 Medications Current Medications Medications (Trade) Dose Ordered Sig/Sarahi Route PRN Reason Start Time Stop Time Status Last Admin Dose Admin Acetaminophen/ Hydrocodone Bitart (Stuart 5/325) 1 tab Q12H PRN ORAL Mild Pain (Pain Scale 1-3) 02/05/19 16:15 02/12/19 16:14 Albuterol Sulfate (Proventil) 2.5 mg Q8H PRN HHN Shortness of Breath 02/05/19 16:15 02/10/19 16:14 Amlodipine Besylate (Norvasc) 5 mg DAILY ORAL 02/06/19 09:00 03/08/19 08:59 02/06/19 08:45 Aspirin (Ecotrin) 81 mg DAILY ORAL 02/06/19 09:00 03/08/19 08:59 02/06/19 08:45 Budesonide/ Formoterol Fumarate (Symbicort 160/ 4.5) 1 puff TWICE A DAY INH 02/05/19 18:00 03/07/19 17:59 02/06/19 09:00 Dextrose (Dextrose 50%) 25 ml Q30M PRN IV Hypoglycemia 02/05/19 16:30 03/07/19 16:29 Dextrose (Dextrose 50%) 50 ml Q30M PRN IV Hypoglycemia 02/05/19 16:30 03/07/19 16:29 Escitalopram Oxalate (Lexapro) 10 mg DAILY ORAL 02/06/19 09:00 03/08/19 08:59 02/06/19 08:44 Guaifenesin (Robitussin) 200 mg Q4H PRN ORAL For Cough 02/05/19 16:15 03/07/19 16:14 Heparin Sodium (Porcine) (Heparin 5000 units/ml) 5,000 units EVERY 12 HOURS SUBQ 02/05/19 21:00 03/07/19 20:59 02/06/19 08:49 Insulin Aspart (NovoLOG) BEFORE MEALS AND HS SUBQ 02/05/19 21:00 03/07/19 20:59 02/06/19 12:37 Irbesartan (Avapro) 150 mg DAILY ORAL 02/06/19 09:00 03/08/19 08:59 02/06/19 08:45 Levetiracetam (Keppra) 500 mg EVERY 12 HOURS ORAL 02/05/19 21:00 03/07/19 20:59 02/06/19 08:46 Magnesium Hydroxide (Mom) 30 ml DAILYPRN PRN ORAL Constipation 02/05/19 16:15 03/07/19 16:14 Meclizine HCl (Antivert) 25 mg Q8H PRN ORAL for dizziness 02/05/19 16:15 03/07/19 16:14 Morphine Sulfate (Morphine Sulfate) 4 mg Q4H PRN IV Severe Pain (Pain Scale 7-10) 02/05/19 16:15 02/12/19 16:14 02/06/19 08:46 Ondansetron HCl (Zofran) 4 mg Q4H PRN IV Nausea & Vomiting 02/05/19 16:15 03/07/19 16:14 02/06/19 08:46 Oxycodone HCl (Roxicodone) 30 mg Q6H PRN ORAL Moderate Pain (Pain Scale 4-6) 02/05/19 16:15 02/12/19 16:14 02/05/19 18:29 Pravastatin Sodium (Pravachol) 40 mg BEDTIME ORAL 02/05/19 21:00 03/07/19 20:59 02/05/19 20:12 Regadenoson (Lexiscan) 0.4 mg ONCE PRN IV CARDIOLOGY 02/06/19 12:04 02/08/19 12:03 Sodium Chloride 1,000 ml @ 75 mls/hr [id number] IV 02/06/19 11:15 03/08/19 11:14 02/06/19 12:35 Theophylline (Johnson-Dur) 100 mg EVERY 12 HOURS ORAL 02/05/19 21:00 03/07/19 20:59 02/06/19 08:45 Tiotropium Bronson (Spiriva Inhaler) 1 puff DAILY INH 02/06/19 09:00 03/08/19 08:59 02/06/19 09:00 Assessment/Plan Diagnosis [place] I: ASSESSMENT: Alyssa Whittington is a 68 yo F with a history of tobacco, cocaine and marijuana use, chronic obstructive pulmonary disease, hypersensitivity pneumonitis, DM and Sz DO admitted now with an acute R patellar fracture.She is fairly stable from a respiratory standpoint to proceed with proposed operation as planned. PROBLEM LIST: 1. R patellar fracture 2. GLF 3. COPD without evidence of exacerbation 4. H/O Hypersensitivity pneumonitis S/P therapy in the past 5. Borderline enlarged subcarinal LAD (1.7 cm) and R paratracheal LN (9mm), improved on f/u imaging 6. Extensive history of tobacco use. 7. History of marijuana and cocaine use. 8. CHF with mild DD 9. Diabetes. 10. Hypertension & Hyperlipidemia 11. Seizure DO 12. Gout. 13. Chronic neck and back pain/DDD/SS~now with cervical cord compression 14. Opiate dependence. 15. Chronic abdominal pain, GERD and h/o erosive gastritis/mark esophagitis PLAN: CXR Optimize pulmonary hygiene. Mobilize as tolerated. Continue Advair,Spiriva, Singulair & Roflumilast PRN DUOnebs IS F/U ortho recs ---> OCTOR DVT Px: Hep SQ Monitor volumes Aspiration precautions Should have formal PFTs and a screening CT chest as an outpatient Continue to abstain from smoking Dr. Horner, thank you for allowing me to assist in the care of your patient. If I may be of any assistance in the future, please do not hesitate to ask Coy Bee MD Feb 06, 2019 14:08
[2019-02-06] MEDS ORDERED: Promethazine/Codeine 5ml UD ORAL PRN (14:15)
--- NOTE | 2019-02-06 15:04 | NUR ---
RADIOLOGY DEPT., CHEST X-RAY DONE.-P.DYE
[2019-02-06] MEDS: oxyCODONE 15mg IR tab ORAL PRN ×2 (15:46→23:14)
[2019-02-06 16:00] VITALS: BP 143/76
--- NOTE | 2019-02-06 16:10 | Physician Query ---
--------- THIS DOCUMENT IS A PERMANENT PART OF THE MEDICAL RECORD --------- PLEASE COMPLETE DOCUMENT BEFORE SIGNING Dear Dr. Horner Date: 02/06/19 Rug Repairer/CDS Name: Bailey Burnham Exercise your independent professional judgment when responding to the query. Questions asked do not imply a particular answer is desired or expected. We greatly appreciate your clarification on this issue. CLINICAL DOCUMENTATION STATES: RD note: NUTRITION DIAGNOSIS: 1) Increased kcal and protein needs r/t underweight status and pending surgery as evidenced by BMI 16.9, @ 81% IBW, w/ pending ORIF s/p fall. PO DIET RECOMMENDATIONS: CCHO LOW + DOUBLE PROTEINS + Glucerna daily Consult note: Past medical history: Severe protein-calorie malnutrition Please select the most appropriate option: [] Mild Protein/Calorie Malnutrition [] Moderate Protein Malnutrition [] Severe Protein Malnutrition [] Underweight [] Other [] Unable to determine [] Not Applicable Condition Present on Admission: [] Yes [] No [ ] Unable to determine Please also document in your Progress Notes and/or Discharge Summary and indicate if the condition was present on admission. JUJUD
--- NOTE | 2019-02-06 16:29 | Diagnostic Imaging Report ---
Indication: Cough Technique: One view of the chest Comparison: For 30/05/2019 Findings: Lungs and pleural spaces are clear. Heart size is normal . No significant interim change Impression: No acute process
--- NOTE | 2019-02-06 16:45 | Anethesia Preoperative Eval ---
Anesthesia Pre-op PMH/ROS General Date of Evaluation: Feb 06, 2019 Time of Evaluation: 16:43 Anesthesiologist: jeb ASA Score: ASA 3 Mallampati Score Class I : Soft palate, uvula, fauces, pillars visible Class II: Soft palate, uvula, fauces visible Class III: Soft palate, base of uvula visible Class IV: Only hard plate visible Mallampati Classification: Class II Surgeon: Nia Diagnosis: patella fx Surgical Procedure: patella ORIF Anesthesia History: none Social History: smoking, current smoker, alcohol use, drug use Family History: no anesthesia problems Allergies: Uncoded Allergies: electrodes (Allergy, Mild, Itching, 10/10/17) skin redness and itching Medications: see eMAR Patient NPO?: Yes NPO Date: Feb 06, 2019 NPO Time: 00:01 Past Medical History Cardiovascular: Reports: HTN, CAD, MO, arrhythmia - hx Pulmonary: Reports: COPD; Denies: asthma, SHIREEN, other Gastrointestinal/Genitourinary: Reports: GERD; Denies: CRI, ESRD, other Neurologic/Psychiatric: Reports: depression/anxiety, other - seizure; Denies: dementia, CVA, TIA Endocrine: Reports: DM; Denies: hypothyroidism, steroids, other HEENT: Denies: cataract (L), cataract (R), glaucoma, [place] (L), SHO[place]WATER (R), other Hematology/Immune: Reports: anemia Musculoskeletal/Integumentary: Denies: OA, RA, DJD, DDD, edema, other Other: other - chronic pain; opioid dep PMH Narrative: Alyssa Whittington is a 68 F smoker with a history of COPD, chronic cough, HP S/P treatment, cocaine and MJ use, Sz DO p/w a GLF and patellar fx. She has been seen by ortho and will require operative repair. She is fairly stable from a respiratory standpoint. + cough @ baseline no SOB occ wheezing no CP no FC no NVDC no abd pain or urinary complaints. RLE in brace. Her regimen includes Singular, Flonase, Spiriva, Advair, daliresp and PRN HHN's at home though she has been non-compliant. Anesthesia Pre-op Phys. Exam Physician Exam Last Vital Signs Date Time Temp Pulse Resp B/P (MAP) Pulse Ox O2 Delivery O2 Flow Rate FiO2 02/06/19 16:00 97.7 79 18 143/76 (98) 96 02/06/19 10:53 Room Air 02/05/19 19:55 21 Airway Exam Mallampati Score: Class II Anesthesia Pre-op A/P Labs Hematology Test 02/06/19 05:15 White Blood Count 6.7 K/UL (4.8-10.8) Red Blood Count 3.37 M/UL (4.20-5.40) L Hemoglobin 11.0 G/DL (12.0-16.0) L Hematocrit 32.4 % (37.0-47.0) L Mean Corpuscular Volume 96 FL (80-99) Mean Corpuscular Hemoglobin 32.7 PG (27.0-31.0) H Mean Corpuscular Hemoglobin Concent 34.0 G/DL (32.0-36.0) Red Cell Distribution Width 11.9 % (11.6-14.8) Platelet Count 311 K/UL (150-450) Mean Platelet Volume 6.0 FL (6.5-10.1) L Neutrophils (%) (Auto) % (45.0-75.0) Lymphocytes (%) (Auto) % (20.0-45.0) Monocytes (%) (Auto) % (1.0-10.0) Eosinophils (%) (Auto) % (0.0-3.0) Basophils (%) (Auto) % (0.0-2.0) Differential Total Cells Counted 100 Neutrophils % (Manual) 32 % (45-75) L Lymphocytes % (Manual) 32 % (20-45) Monocytes % (Manual) 3 % (1-10) Eosinophils % (Manual) 33 % (0-3) H Basophils % (Manual) 0 % (0-2) Band Neutrophils 0 % (0-8) Platelet Estimate Adequate Platelet Morphology Normal Macrocytosis 1+ Chemistry Test 02/06/19 05:15 Sodium Level 144 MMOL/L (136-145) Potassium Level 3.4 MMOL/L (3.5-5.1) L Chloride Level 106 MMOL/L (98-107) Carbon Dioxide Level 32 MMOL/L (21-32) Anion Gap 6 mmol/L (5-15) Blood Urea Nitrogen 12 mg/dL (7-18) Creatinine 0.9 MG/DL (0.55-1.30) Estimat Glomerular Filtration Rate > 60 mL/min (>60) Glucose Level 110 MG/DL (74-106) H Calcium Level 9.3 MG/DL (8.5-10.1) Total Bilirubin 0.7 MG/DL (0.2-1.0) Aspartate Amino Transf (AST/SGOT) 17 U/L (15-37) Alanine Aminotransferase (ALT/SGPT) 15 U/L (12-78) Alkaline Phosphatase 138 U/L (46-116) H Total Protein 7.3 G/DL (6.4-8.2) Albumin 3.5 G/DL (3.4-5.0) Globulin 3.8 g/dL Albumin/Globulin Ratio 0.9 (1.0-2.7) L Lipase 99 U/L (73-393) Risk Assessment & Plan Plan: Christy Galaviz CRNA Feb 06, 2019 16:45
--- NOTE | 2019-02-06 17:28 | NUR ---
RESPIRATORY NOTE: ABG results entered and reported to Stephen BROWNING.
--- NOTE | 2019-02-06 18:01 | Consultation ---
History of Present Illness General Date patient seen: Feb 06, 2019 Present Illness Allergies: Uncoded Allergies: electrodes (Allergy, Mild, Itching, 10/10/17) skin redness and itching Medication History Scheduled Amlodipine Bes/Olmesartan Med 5-20 Mg Tablet (Alethea 5-20 Mg Tablet), 1 TAB ORAL DAILY, (Reported) Budesonide/Formoterol Fumarate (Symbicort 160-4.5 Mcg Inhaler), 1 PUFF INH TWICE A DAY Escitalopram Oxalate* (Lexapro*), 10 MG ORAL DAILY Heparin Sod (Porcine) (Heparin Sodium*), 5,000 UNITS SUBQ EVERY 12 HOURS, ( Reported) Indomethacin (Indomethacin), 25 MG ORAL TID, (Reported) Levetiracetam (Keppra), 500 MG ORAL EVERY 12 HOURS, (Reported) Pravastatin Sod* (Pravastatin Sod*), 40 MG ORAL BEDTIME, (Reported) Theophylline (Theodur*), 100 MG ORAL TWICE A DAY, (Reported) Tiotropium [place]* (Spiriva*), 1 PUFF INH DAILY Scheduled PRN Albuterol Sulfate* (Albuterol Sulfate Hhn*), 3 ML INH Q8H PRN for Shortness of Breath, (Reported) Diphenhydramine Hcl (Benadryl Allergy), 25 MG PO EVERY 6 HOURS PRN for Itching, (Reported) Hydrocodone Bit/Acetaminophen 5-325* (Genoa 5-325 Tablet*), 1 TAB ORAL BID PRN for For Pain, (Reported) Magnesium Hydroxide* (Milk Of Magnesia*), 30 ML ORAL DAILY PRN for Constipation, (Reported) Meclizine Hcl* (Meclizine*), 25 MG ORAL EVERY 8 HOURS PRN for for dizziness, ( Reported) Metoclopramide Hcl* (Reglan*), 10 MG IVP EVERY 6 HOURS PRN for Abdominal cramps, (Reported) Morphine Sulfate* (Morphine Sulfate*), 4 MG IV EVERY 4 HOURS PRN for For Pain, ( Reported) Ondansetron* (Zofran*), 4 MG IV EVERY 4 HOURS PRN for Nausea & Vomiting, ( Reported) Miscellaneous Medications Insulin Aspart (Novolog), 100 UNIT SQ, (Reported) Discontinued Medications Albuterol Sulfate* (Proair Hfa*), 1-2 PUFFS INH Q6H Discontinued Reason: Medication dose changed Amlodipine Besylate (Norvasc), 5 MG ORAL DAILY Discontinued Reason: Pt stopped taking med Aspirin Ec* (Aspirin Ec*), 81 MG ORAL DAILY Discontinued Reason: Pt stopped taking med Carisoprodol* (Soma*), 350 MG PO BID, (Reported) Discontinued Reason: Medication dose changed Esomeprazole Magnesium (Nexium), 40 MG ORAL DAILY, (Reported) Discontinued Reason: Pt stopped taking med Fluticasone/Salmeterol (Advair 250-50 Diskus), 1 PUFF INH EVERY 12 HOURS Discontinued Reason: MD discontinued med Gabapentin* (Neurontin*), 300 MG ORAL THREE TIMES A DAY Discontinued Reason: Pt stopped taking med Guaifenesin* (Adult Wal-Tussin*), 10 ML ORAL Q4H Discontinued Reason: Pt stopped taking med Guaifenesin/D-Methorphan Hb/Pe (Robitussin Cough-Cold Cf Liq), 10 ML PO Q8HR, ( Reported) Discontinued Reason: MD discontinued med Hydrocortisone 1% cream (Hydrocortisone 1% cream), 28.4 GM RC EVERY 6 HOURS PRN for Itching, (Reported) Discontinued Reason: Pt stopped taking med Hydrocortisone Acetate 1% Onit (Hydrocortisone 1% Oint), 28 GM TP DAILY Discontinued Reason: Pt stopped taking med Insulin Detemir (Levemir Flexpen), 6 SUBQ DAILY, (Reported) Discontinued Reason: Medication dose changed Levofloxacin (Levofloxacin*), 500 MG ORAL DAILY, (Reported) Discontinued Reason: Pt stopped taking med Lidocaine (Lidoderm), 1 PATCH TOPIC DAILY, (Reported) Discontinued Reason: Pt stopped taking med Montelukast Sodium* (Singulair*), 10 MG ORAL DAILY, (Reported) Discontinued Reason: Pt stopped taking med Nateglinide (Starlix), 120 MG ORAL THREE TIMES A DAY, (Reported) Discontinued Reason: Medication dose changed Oxycodone Hcl* (Oxycodone Hcl*), 30 MG ORAL Q6H PRN for For Pain, (Reported) Discontinued Reason: Medication dose changed Promethazine HCl/Codeine (Prometh-Codein 6.25-10 mg/5 ml), 5 ML PO EVERY 4 HOURS PRN for For Cough, (Reported) Discontinued Reason: Medication dose changed Sitagliptin (Januvia), 100 MG ORAL DAILY, (Reported) Discontinued Reason: Pt stopped taking med Theophylline (Theodur*), 200 MG ORAL EVERY 12 HOURS Discontinued Reason: Medication dose changed Theophylline (Theodur*), 200 MG ORAL EVERY 12 HOURS Discontinued Reason: Medication dose changed Theophylline (Theodur*), 100 MG ORAL TWICE A DAY, (Reported) Discontinued Reason: Pt stopped taking med Unable to Obtain Medications (Unable To Obtain Meds), (Reported) Discontinued Reason: Therapy completed Patient History Healthcare decision maker Resuscitation status Advanced Directive on File Physical Exam Last 24 Hour Vital Signs Date Time Temp Pulse Resp B/P (MAP) Pulse Ox O2 Delivery O2 Flow Rate FiO2 02/06/19 16:00 97.7 79 18 143/76 (98) 96 02/06/19 12:00 97.8 82 18 122/69 (86) 96 02/06/19 10:53 Room Air 02/06/19 10:52 Room Air 02/06/19 09:16 98.6 02/06/19 09:00 Room Air 02/06/19 08:45 127/65 02/06/19 08:45 75 127/65 02/06/19 08:00 97.6 75 18 127/65 (85) 95 02/06/19 04:00 98.6 68 18 155/68 (97) 96 02/06/19 00:00 98.0 78 16 141/79 (99) 95 02/05/19 21:00 Room Air 02/05/19 20:00 98.1 67 18 160/77 (104) 97 02/05/19 19:55 74 18 94 Room Air 21 02/05/19 19:52 74 16 Room Air 02/05/19 19:48 74 18 94 Room Air 21 Intake and Output 02/05/19 02/06/19 19:00 07:00 Intake Total 550 ml 240 ml Output Total 300 ml Balance 250 ml 240 ml Intake Oral 240 ml IV Total 550 ml Output Urine Total 300 ml Laboratory Tests Test 02/06/19 05:15 02/06/19 09:50 02/06/19 17:13 White Blood Count 6.7 K/UL (4.8-10.8) Red Blood Count 3.37 M/UL (4.20-5.40) L Hemoglobin 11.0 G/DL (12.0-16.0) L Hematocrit 32.4 % (37.0-47.0) L Mean Corpuscular Volume 96 FL (80-99) Mean Corpuscular Hemoglobin 32.7 PG (27.0-31.0) H Mean Corpuscular Hemoglobin Concent 34.0 G/DL (32.0-36.0) Red Cell Distribution Width 11.9 % (11.6-14.8) Platelet Count 311 K/UL (150-450) Mean Platelet Volume 6.0 FL (6.5-10.1) L Neutrophils (%) (Auto) % (45.0-75.0) Lymphocytes (%) (Auto) % (20.0-45.0) Monocytes (%) (Auto) % (1.0-10.0) Eosinophils (%) (Auto) % (0.0-3.0) Basophils (%) (Auto) % (0.0-2.0) Differential Total Cells Counted 100 Neutrophils % (Manual) 32 % (45-75) L Lymphocytes % (Manual) 32 % (20-45) Monocytes % (Manual) 3 % (1-10) Eosinophils % (Manual) 33 % (0-3) H Basophils % (Manual) 0 % (0-2) Band Neutrophils 0 % (0-8) Platelet Estimate Adequate Platelet Morphology Normal Macrocytosis 1+ Sodium Level 144 MMOL/L (136-145) Potassium Level 3.4 MMOL/L (3.5-5.1) L Chloride Level 106 MMOL/L (98-107) Carbon Dioxide Level 32 MMOL/L (21-32) Anion Gap 6 mmol/L (5-15) Blood Urea Nitrogen 12 mg/dL (7-18) Creatinine 0.9 MG/DL (0.55-1.30) Estimat Glomerular Filtration Rate > 60 mL/min (>60) Glucose Level 110 MG/DL (74-106) H Calcium Level 9.3 MG/DL (8.5-10.1) Total Bilirubin 0.7 MG/DL (0.2-1.0) Aspartate Amino Transf (AST/SGOT) 17 U/L (15-37) Alanine Aminotransferase (ALT/SGPT) 15 U/L (12-78) Alkaline Phosphatase 138 U/L (46-116) H Total Protein 7.3 G/DL (6.4-8.2) Albumin 3.5 G/DL (3.4-5.0) Globulin 3.8 g/dL Albumin/Globulin Ratio 0.9 (1.0-2.7) L Lipase 99 U/L (73-393) Urine Color Yellow Urine Appearance Slightly cloudy Urine pH 5 (4.5-8.0) Urine Specific [place] 1.020 (1.005-1.035) Urine Protein 1+ (NEGATIVE) H Urine Glucose (UA) Negative (NEGATIVE) Urine Ketones 1+ (NEGATIVE) H Urine Blood Negative (NEGATIVE) Urine Nitrite Negative (NEGATIVE) Urine Bilirubin 1+ (NEGATIVE) H Urine Ictotest Negative (NEGATIVE) Urine Urobilinogen 1 MG/DL (0.0-1.0) H Urine Leukocyte Esterase 2+ (NEGATIVE) H Urine RBC 0-2 /HPF (0 - 2) Urine WBC 2-4 /HPF (0 - 2) Urine Squamous Epithelial Cells Few /LPF (NONE/OCC) Urine Calcium Oxalate Crystals Few /LPF (NONE) Urine Bacteria Many /HPF (NONE) H Urine Opiates Screen Positive (NEGATIVE) H Urine Barbiturates Screen Negative (NEGATIVE) Phencyclidine (PCP) Screen Negative (NEGATIVE) Urine Amphetamines Screen Negative (NEGATIVE) Urine Benzodiazepines Screen Negative (NEGATIVE) Urine Cocaine Screen Positive (NEGATIVE) H Urine Marijuana (THC) Screen Positive (NEGATIVE) H Arterial Blood pH 7.419 (7.350-7.450) Arterial Blood Partial Pressure CO2 48.9 mmHg (35.0-45.0) H Arterial Blood Partial Pressure O2 61.3 mmHg (75.0-100.0) L Arterial Blood HCO3 30.9 mmol/L (22.0-26.0) H Arterial Blood Oxygen Saturation 90.6 % (95-100) L Arterial Blood Base Excess 5.6 (-2-2) H Austyn Test Positive Height (Feet): 5 Height (Inches): 5.00 Weight (Pounds): 100 Medications Current Medications Medications (Trade) Dose Ordered Sig/Sarahi Route PRN Reason Start Time Stop Time Status Last Admin Dose Admin Acetaminophen/ Hydrocodone Bitart (Genoa 5/325) 1 tab Q12H PRN ORAL Mild Pain (Pain Scale 1-3) 02/05/19 16:15 02/12/19 16:14 Albuterol Sulfate (Proventil) 2.5 mg Q8H PRN HHN Shortness of Breath 02/05/19 16:15 02/10/19 16:14 Amlodipine Besylate (Norvasc) 5 mg DAILY ORAL 02/06/19 09:00 03/08/19 08:59 02/06/19 08:45 Aspirin (Ecotrin) 81 mg DAILY ORAL 02/06/19 09:00 03/08/19 08:59 02/06/19 08:45 Dextrose (Dextrose 50%) 25 ml Q30M PRN IV Hypoglycemia 02/05/19 16:30 03/07/19 16:29 Dextrose (Dextrose 50%) 50 ml Q30M PRN IV Hypoglycemia 02/05/19 16:30 03/07/19 16:29 Escitalopram Oxalate (Lexapro) 10 mg DAILY ORAL 02/06/19 09:00 03/08/19 08:59 02/06/19 08:44 Guaifenesin (Robitussin) 200 mg Q4H PRN ORAL For Cough 02/05/19 16:15 03/07/19 16:14 Heparin Sodium (Porcine) (Heparin 5000 units/ml) 5,000 units EVERY 12 HOURS SUBQ 02/05/19 21:00 03/07/19 20:59 02/06/19 08:49 Insulin Aspart (NovoLOG) BEFORE MEALS AND HS SUBQ 02/05/19 21:00 03/07/19 20:59 02/06/19 12:37 Irbesartan (Avapro) 150 mg DAILY ORAL 02/06/19 09:00 03/08/19 08:59 02/06/19 08:45 Levetiracetam (Keppra) 500 mg EVERY 12 HOURS ORAL 02/05/19 21:00 03/07/19 20:59 02/06/19 08:46 Magnesium Hydroxide (Mom) 30 ml DAILYPRN PRN ORAL Constipation 02/05/19 16:15 03/07/19 16:14 Meclizine HCl (Antivert) 25 mg Q8H PRN ORAL for dizziness 02/05/19 16:15 03/07/19 16:14 Morphine Sulfate (Morphine Sulfate) 4 mg Q4H PRN IV Severe Pain (Pain Scale 7-10) 02/05/19 16:15 02/12/19 16:14 02/06/19 08:46 Ondansetron HCl (Zofran) 4 mg Q4H PRN IV Nausea & Vomiting 02/05/19 16:15 03/07/19 16:14 02/06/19 08:46 Oxycodone HCl (Roxicodone) 30 mg Q6H PRN ORAL Moderate Pain (Pain Scale 4-6) 02/05/19 16:15 02/12/19 16:14 02/06/19 15:46 Pravastatin Sodium (Pravachol) 40 mg BEDTIME ORAL 02/05/19 21:00 03/07/19 20:59 02/05/19 20:12 Promethazine HCl/ Codeine (Phenergan with Codeine) 5 ml Q4H PRN ORAL For Cough 02/06/19 14:15 03/08/19 14:14 Regadenoson (Lexiscan) 0.4 mg ONCE PRN IV CARDIOLOGY 02/06/19 12:04 02/08/19 12:03 Salmeterol Xinafoate/ Fluticasone (Advair 250/50 Diskus) 1 puffs BID INH 02/06/19 18:00 03/08/19 17:59 Sodium Chloride 1,000 ml @ 75 mls/hr [id number] IV 02/06/19 11:15 03/08/19 11:14 02/06/19 12:35 Tiotropium [place] (Spiriva Inhaler) 1 puff DAILY INH 02/06/19 09:00 03/08/19 08:59 02/06/19 09:00 Assessment/Plan Assessment/Plan: (1) Right knee pain (2) Right knee patella fracture (3) Lumbar DDD/ Spondylosis (4) Opioid Dependency (5) Cocaine abuse (6) H/O CVA (7) Thalamic pain syndrome Seen dictated [facility] Feb 06, 2019 18:01
[2019-02-06] MEDS: Wixela 250/50 Inhaler - 60 dose INH SCH (19:20)
--- NOTE | 2019-02-06 19:29 | NUR ---
HAND-OFF: Report given to NAM Fong.
[2019-02-06 20:00] VITALS: BP 142/83
--- NOTE | 2019-02-06 20:00 | NUR ---
NURSE NOTES: Patient received in bed, aaox4, knee immobilizer in place. IV intact, IVF infusing as ordered. Family at bedside. Pt made aware of NPO status after midnight for surgery.
--- NOTE | 2019-02-06 20:26 | Consultation ---
Consult Note Consult Note [facility] CONSULTATION - NEUROLOGY February 06, 2019 PHYSICIAN SURGEON: Dannielle Kemp M.D. REFERRING PHYSICIAN: Ravindra Horner M.D. HISTORY: Ms Alyssa Whittington is a 68-year-old, right-handed, black lady, who does have a past history of hypertension, dyslipidemia, coronary artery disease, congestive heart failure, chronic obstructive pulmonary disease, cerebrovascular disease with a prior stroke associated with right-sided weakness, parainfluenza and influenza at the end of 2014, episodic loss of consciousness, a cocaine related seizure, and significant C-spine disease. On 02-05-2019 she apparently tripped and fell down and fractured her right patella. Plans are for an open reduction and internal fixation of a patella in the near future. This consultation was requested to evaluate the patient from a neurological point of view with regards to safety of performing surgery in the near future. As per Ms. Whittington she has been functioning relatively well for the last few years. She has not had any further episodes of loss of consciousness. She feels that all that she had yesterday may have been related to legs giving way. At this point in time, she denies any increased weakness on one side or the other, numbness on one side or the other, problems with speech, problems with language, or problems with vision. PAST HISTORY: Significant for high blood pressure, dyslipidemia, coronary artery disease, congestive heart failure, chronic obstructive pulmonary disease , cerebrovascular disease with stroke-associated with right-sided weakness a few years ago, episodic loss of consciousness, a cocaine related seizure, and significant C-spine disease. FAMILY HISTORY: Her mother of leukemia. Her father of a heart attack. PERSONAL HISTORY: Home: She lives alone. 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 Habits: She has been smoking for numerous years and continues to smoke in questionable quantities. She used to drink alcohol in moderation in the past but has not had a drink for numerous years. She has used illicit drugs in the past but denies the use in the near past. PHYSICAL EXAMINATION: GENERAL: She is a well-developed, well-nourished but lean black lady, lying in bed, in no acute distress. VITAL SIGNS: Pulse 79 per minute Blood pressure 143/76 mmHg Respirations 18 per minute Temperature 97.7 degrees Fahrenheit. HEAD: Normocephalic and atraumatic. NECK: No neck rigidity was observed. EENT: Benign. EXTREMITIES: Right knee was in a knee immobilizer and could not be tested. NEUROLOGICAL EXAMINATION: MENTAL STATUS EXAMINATION: She was alert and awake. Her cerebration was slow. She was oriented to person, place, and time except for the exact date. She was able to recall 3/3 words immediately after 1 minute, and after 3 minutes on the second trial. She was able to remember presidents Trump and Obama only with hints. Her mathematical skills were fairly good. Her visuospatial function was preserved. SPEECH: She had a mild dysarthria, but it should be noted that numerous teeth were missing. LANGUAGE: She had no aphasia. CRANIAL NERVE EXAMINATION: II: The visual kearney were intact on confrontation testing. III, IV, : The external ocular movements were full, and the pupils 3 mm in diameter, equal, round, regular, and reactive to light. V: She had normal facial sensations, and the temporales, masseters, and pterygoids functioned normally. VII: She had a trace right 7th central facial paresis. VIII: She was able to hear well bilaterally and had no nystagmus. IX: The palate moved symmetrically on phonation. X: She had no hoarseness of voice. XI: The sternocleidomastoids and trapezii functioned normally. XII: The tongue was in the midline, without any fasciculations or atrophy. MOTOR SYSTEM: The tone was normal in all 4 extremities. Examination of muscle mass revealed no focal wasting. Examination of power revealed G 5/5 power, except for G 5-/5 power in the right finger extensors. The right lower extremity could not be tested adequately because it was in a knee immobilizer and she was giving a poor effort at the level of the hip. SENSORY EXAMINATION: She had intact sensations to pinprick, light touch, and graphesthesia. COORDINATION: She performed well on [id number] testing. She was unable to perform [id number] testing. REFLEXES: 2+ and bilaterally symmetrical at the biceps, triceps, brachioradialis. 1+ at the left knee the right knee could not be tested. 0 at both ankles. The plantar responses were flexor bilaterally. STANCE & GAIT: Could not be tested. DIAGNOSTIC IMPRESSION: 1. Ms Alyssa Whittington is a 68-year-old, right-handed, black lady, who does have a past history of hypertension, dyslipidemia, coronary artery disease, congestive heart failure, chronic obstructive pulmonary disease, cerebrovascular disease with a prior stroke associated with right-sided weakness, parainfluenza and influenza at the end of 2014, episodic loss of consciousness, a cocaine related seizure, and significant C-spine disease. 2. On 02-05-2019 she apparently tripped and fell down and fractured her right patella. Plans are for an open reduction and internal fixation of a patella in the near future. This consultation was requested to evaluate the patient from a neurological point of view with regards to safety of performing surgery in the near future. 3. On neurological examination at this time, she does have slowing of cerebration, problems with recent and remote memory, a mild dysarthria, a mild right hemiparesis involving the face, upper and lower extremities. Right knee is in an immobilizer and swollen. 4. The patient's history and neurological examination are most consistent with recent fall resulting in the right patella fracture. RECOMMENDATIONS: 1. Agree with management thus far. 2. Due to the patient's significant cervical spine disease it would be preferable if the surgery can be done and spinal anesthesia. However if that is not possible then precautions should be taken to not hyperextend the neck during endotracheal intubation. Thank you for entrusting me with the care of Ms Whittington. I shall follow her with you. DANNIELLE KEMP M.D., M.S.P.H. Dannielle Kemp MD Feb 06, 2019 20:26
--- NOTE | 2019-02-06 20:30 | Consultation ---
DATE OF CONSULTATION: 02/06/2019 CARDIOLOGY CONSULTATION CONSULTING PHYSICIAN: Todd Avalos M.D. REFERRING PHYSICIAN: Ravindra Horner M.D. REASON FOR CONSULTATION: Preoperative clearance prior to any surgery. HISTORY OF PRESENT ILLNESS: The patient is a 68-year-old lady with history of hypertension, insulin-dependent diabetes, COPD, and gout, as well as history of substance abuse with cocaine and marijuana, as well as history of prior CVA, presented to the emergency room after a mechanical fall. The patient tripped on a sidewalk and that has resulted in a severe right knee pain. The patient was noted to have a patellar fracture and is scheduled for surgery and a Cardiology clearance was requested for further evaluation. REVIEW OF SYSTEMS: Review of systems was negative other than what was mentioned in the history of present illness. PAST MEDICAL HISTORY: As mentioned above. MEDICATIONS: Per reconciliation. ALLERGIES: She is allergic to adhesive tapes. FAMILY HISTORY: Noncontributory. SOCIAL HISTORY: She had history of substance abuse. Lives at home. PHYSICAL EXAMINATION: VITAL SIGNS: Show blood pressure of 127/65, pulse 75, respirations 18, and she is afebrile. HEAD AND NECK: Showed no JVD or carotid bruits. LUNGS: Clear. CARDIOVASCULAR: Shows regular S1 and S2 with no gallop or murmur. ABDOMEN: Soft. EXTREMITIES: No pitting edema. The left knee is in immobilizer. LABORATORY DATA: Labs show white count of 6.7, hemoglobin 11, hematocrit 32.5, and platelet count of 311,000. Sodium 144, potassium 3.4, BUN of 12, creatinine 0.9, and glucose of 110. Urine toxicology positive for cocaine and marijuana and opiates. ASSESSMENT AND PLAN: 1. Hypertension. Blood pressure currently stable on amlodipine 5 mg daily and Avapro 150 mg daily. 2. Insulin-dependent diabetes. 3. Status post fall and patella fracture. The patient has multiple risk factors for coronary artery disease including hypertension, diabetes, and history of polysubstance abuse. We will get the EKG and echocardiogram and schedule the patient for stress test prior to her surgery. 4. Polysubstance abuse as mentioned above. 5. Chronic obstructive pulmonary disease. On Spiriva. 6. Depression. On Lexapro. Thank you very much, Dr. Horner, for allowing me to participate in the care of this patient. Please do not hesitate to contact me for any questions regarding my evaluation. Todd Avalos M.D. DR: ALONSO JOB#: [id number] CC:
[2019-02-06] MEDS ORDERED: HYDROcodone/Acetamin 7.5/325 tab ORAL PRN (20:45)
--- NOTE | 2019-02-06 21:43 | General Progress Note ---
Assessment/Plan Assessment/Plan: patellar fracture polysubstance abuse ho hypersensitivy pneumonitis COPD ho seizure disorder cervical spondylsis with known cord compression severe central canastenosis of cervical spine ho diabetes ho chf with diastolic dysfuction planning on surgery dw neuro surgery with spinal anaesthesis verena Kramer cleareancdidi from cards and pulmonary pain control per pain managment montiro accucheks dvt and ulcer prohylaxis Subjective Allergies: Uncoded Allergies: electrodes (Allergy, Mild, Itching, 10/10/17) skin redness and itching Subjective co pain in knee no chest pain or sob Objective Last 24 Hour Vital Signs Date Time Temp Pulse Resp B/P (MAP) Pulse Ox O2 Delivery O2 Flow Rate FiO2 02/06/19 19:24 79 18 92 Nasal Cannula 2.0 02/06/19 19:20 79 18 92 Nasal Cannula 2.0 28 02/06/19 16:00 97.7 79 18 143/76 (98) 96 02/06/19 12:00 97.8 82 18 122/69 (86) 96 02/06/19 10:53 Room Air 02/06/19 10:52 Room Air 02/06/19 09:16 98.6 02/06/19 09:00 Room Air 02/06/19 08:45 127/65 02/06/19 08:45 75 127/65 02/06/19 08:00 97.6 75 18 127/65 (85) 95 02/06/19 04:00 98.6 68 18 155/68 (97) 96 02/06/19 00:00 98.0 78 16 141/79 (99) 95 Intake and Output 02/05/19 02/06/19 19:00 07:00 Intake Total 550 ml 240 ml Output Total 300 ml Balance 250 ml 240 ml Intake Oral 240 ml IV Total 550 ml Output Urine Total 300 ml Laboratory Tests 02/06/19 05:15: White Blood Count 6.7, Red Blood Count 3.37L, Hemoglobin 11.0L, Hematocrit 32.4L , Mean Corpuscular Volume 96, Mean Corpuscular Hemoglobin 32.7H, Mean Corpuscular Hemoglobin Concent 34.0, Red Cell Distribution Width 11.9, Platelet Count 311, Mean Platelet Volume 6.0L, Neutrophils (%) (Auto) , Lymphocytes (%) ( Auto) , Monocytes (%) (Auto) , Eosinophils (%) (Auto) , Basophils (%) (Auto) , Differential Total Cells Counted 100, Neutrophils % (Manual) 32L, Lymphocytes % (Manual) 32, Monocytes % (Manual) 3, Eosinophils % (Manual) 33H, Basophils % ( Manual) 0, Band Neutrophils 0, Platelet Estimate Adequate, Platelet Morphology Normal, Macrocytosis 1+, Sodium Level 144, Potassium Level 3.4L, Chloride Level 106, Carbon Dioxide Level 32, Anion Gap 6, Blood Urea Nitrogen 12, Creatinine 0.9, Estimat Glomerular Filtration Rate > 60, Glucose Level 110H, Calcium Level 9.3, Total Bilirubin 0.7, Aspartate Amino Transf (AST/SGOT) 17, Alanine Aminotransferase (ALT/SGPT) 15, Alkaline Phosphatase 138H, Total Protein 7.3, Albumin 3.5, Globulin 3.8, Albumin/Globulin Ratio 0.9L, Lipase 99 02/06/19 09:50: Urine Color Yellow, Urine Appearance Slightly cloudy, Urine pH 5, Urine Specific [place] 1.020, Urine Protein 1+H, Urine Glucose (UA) Negative, Urine Ketones 1+H, Urine Blood Negative, Urine Nitrite Negative, Urine Bilirubin 1+H, Urine Ictotest Negative, Urine Urobilinogen 1H, Urine Leukocyte Esterase 2+H, Urine RBC 0-2, Urine WBC 2-4, Urine Squamous Epithelial Cells Few, Urine Calcium Oxalate Crystals Few, Urine Bacteria ManyH, Urine Opiates Screen PositiveH, Urine Barbiturates Screen Negative, Phencyclidine (PCP) Screen Negative, Urine Amphetamines Screen Negative, Urine Benzodiazepines Screen Negative, Urine Cocaine Screen PositiveH, Urine Marijuana (THC) Screen PositiveH 02/06/19 17:13: Arterial Blood pH 7.419, Arterial Blood Partial Pressure CO2 48.9H, Arterial Blood Partial Pressure O2 61.3L, Arterial Blood HCO3 30.9H, Arterial Blood Oxygen Saturation 90.6L, Arterial Blood Base Excess 5.6H, Austyn Test Positive Height (Feet): 5 Height (Inches): 5.00 Weight (Pounds): 100 General Appearance: WD/WN, no apparent distress Neck: supple Cardiovascular: normal rate Respiratory/Chest: lungs clear Abdomen: soft Neurologic: alert Objective knee tender w rom Ravindra Horner MD Feb 06, 2019 21:43
[2019-02-07] VITALS (15 sets, daily range): BP systolic 108–148; BP diastolic 53–78
[2019-02-07] MEDS: Morphine Sulfate 4mg/ml Inj (IV USE ONLY) IV PRN (02:33)
[2019-02-07] MEDS: NovoLOG Insulin Flexpen SUBQ SCH ×4 (06:01→22:22)
--- NOTE | 2019-02-07 06:45 | Consultation ---
DATE OF CONSULTATION: 02/06/2019 PAIN MANAGEMENT CONSULTATION CONSULTING PHYSICIAN: Lolis Victoria M.D. REFERRING PHYSICIAN: Ravindra Horner M.D. PHYSICIAN AIR POLLUTION ANALYST: Jessica Lanier CHIEF COMPLAINT: Right knee pain. HISTORY OF PRESENT ILLNESS: This is a 68-year-old female who is being seen on the Med/Surg floor of [facility] [place] pain management consultation. The patient in 2014 had been admitted into [facility] due to right knee pain and has patellar fracture status post fall, describing the pain as sharp pain in her knee, rating 10/10. As an outpatient, the patient is receiving oxycodone 30 mg twice a day from Dr. Diaz due to chronic pain, mild degenerative disk disease, spondylosis in the lumbar spine, as well as history of CVA, chronic pain syndrome. At this point, a toxicology was done and found the patient to be positive for cocaine which the patient admits to, and is scheduled for patellar open reduction and internal fixation with Dr. Kramer. At this time, the patient is on morphine 4 mg IV every 4 hours as needed for severe pain and oxycodone 30 mg tablet every 6 hours as needed for moderate pain. This is adequately helping to relieve the pain. We were consulted so the patient would have adequate pain control while here in the hospital. REVIEW OF SYSTEMS: Denies rash, fever, chills, sweating, dizziness, drowsiness, blurred vision, sore throat, or change in her weight. No shortness of breath or chest pain. No nausea, vomiting, diarrhea, or blood in the stool or urine. No bowel or bladder incontinence. No dysuria. She is complaining of right knee pain. PHYSICAL EXAMINATION: GENERAL: Alert, awake, and oriented. VITAL SIGNS: Blood pressure 143/76, heart rate 79, oxygen saturation 96%, respirations 18, and temperature is 97 degrees Fahrenheit. HEENT: PERRLA. NECK: Range of motion is decreased due to the patient's condition. No tenderness to paracervical muscles. No adenopathy. LUNGS: Decreased breath sounds bilaterally. HEART: Regular. ABDOMEN: Benign. BACK: Range of motion is decreased in flexion and extension. EXTREMITIES: Upper and lower extremities range of motion is decreased due to the patient's condition. No cyanosis. No clubbing. Sensory is decreased. Reflexes are not obtainable. No adenopathy. ASSESSMENT AND PLAN: This is a 68-year-old female with right knee pain, right knee patellar fracture, lumbar DDD and spondylosis, history of CVA, Thalamic pain syndrome, cocaine abuse, and opiate dependency. The patient will be continued on morphine and oxycodone at this time. The patient was discussed with Dr. Victoria and he concurred. We will follow the patient. Thank you very much for the courtesy of this consultation. Lolis Victoria M.D. KENNA Lanier DR: RAMBO JOB#: [id number] CC: TRUE
--- NOTE | 2019-02-07 06:58 | Pre-Procedure Note/Attestation ---
Pre-Procedure Note/Attestation Complete Prior to Procedure Planned Procedure: right Procedure Narrative: rt patella ORIF Indications for Procedure Pre-Operative Diagnosis: rt patella fx Attestation I attest that I discussed the nature of the procedure; its benefits; risks and complications; and alternatives (and the risks and benefits of such alternatives ), prior to the procedure, with the patient (or the patient's legal consumer sales representative). I attest that, if there was a reasonable possibility of needing a blood transfusion, the patient (or the patient's legal consumer sales representative) was given the [facility] standardized written summary, pursuant to the Josh Josefa Blood Safety Act ([place] Health and Safety Code # 1645, as amended). I attest that I re-evaluated the patient just prior to the surgery and that there has been no change in the patient's H&P, except as documented below: NONE Jamie Kramer MD Feb 07, 2019 06:58
[2019-02-07 07:04] LABS: ANION GAP 5 mmol/L (5-15); BLOOD UREA NITROGEN 12 mg/dL (7-18); CALCIUM 9.5 MG/DL (8.5-10.1); CARBON DIOXIDE 34 MMOL/L (21-32); CHLORIDE 102 MMOL/L (98-107); CREATININE 0.8 MG/DL (0.55-1.30); POTASSIUM 3.3 MMOL/L (3.5-5.1); SODIUM 141 MMOL/L (136-145)
[2019-02-07 07:07] LABS: HEMATOCRIT 31.1 % (37.0-47.0); HEMOGLOBIN 10.2 G/DL (12.0-16.0); MEAN CORPUSCULAR VOLUME 97 FL (80-99); PLATELET COUNT 296 K/UL (150-450); RED CELL DISTRIBUTION WIDTH 11.6 % (11.6-14.8); WHITE BLOOD COUNT 6.6 K/UL (4.8-10.8)
--- NOTE | 2019-02-07 07:36 | NUR ---
HAND-OFF: Report given to Lucas BROWNING.
--- NOTE | 2019-02-07 08:00 | NUR ---
NURSE NOTES: Received report Christopher BROWNING pt a/a/o x4 laying in bed with no signs of distress or other issues at this time. knee immobilizer on the right leg in place. 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 IV on the right wrist gauge running NS 1/2@75ml/hr. call light within in reach, bed in lowest position. side rales up x3. plan to OR today for: Right Patella reduction and internal fixation, schedule at 14:45. pt needs to have a stress done prior to surgery to call for results to Dr. Steiner. - RN called Dr. Horner to inform for pt's labs: K: 3.3, hgb: 10.2. RN will carry on orders. - RN called Dr. Kramer to inform of the above. I will f/u as needed.
--- NOTE | 2019-02-07 08:50 | General Progress Note ---
Assessment/Plan Assessment/Plan: (1) Right knee pain (2) Right knee patella fracture (3) Lumbar DDD/ Spondylosis (4) Opioid Dependency (5) Cocaine abuse (6) H/O CVA (7) Thalamic pain syndrome Patient to be continued on Morphine and Oxycodone. D/w Dr. Victoria and he concurred. Subjective Date patient seen: Feb 07, 2019 Time patient seen: 08:15 - am Constitutional: Reports: weakness HEENT: Reports: no symptoms Cardiovascular: Reports: no symptoms Respiratory: Reports: no symptoms Gastrointestinal/Abdominal: Reports: no symptoms Genitourinary: Reports: no symptoms Neurologic/Psychiatric: Reports: weakness Endocrine: Reports: no symptoms Hematologic/Lymphatic: Reports: no symptoms Allergies: Uncoded Allergies: electrodes (Allergy, Mild, Itching, 10/10/17) skin redness and itching Subjective Patient is in bed continues to c/o right knee pain. The pain has been tolerated on the Morphine and Oxycodone. Scheduled for surgery later today as per orthopedic surgeon. Objective Last 24 Hour Vital Signs Date Time Temp Pulse Resp B/P (MAP) Pulse Ox O2 Delivery O2 Flow Rate FiO2 02/07/19 08:00 97.5 59 16 116/59 (78) 100 02/07/19 04:00 98.8 68 15 120/59 (79) 98 02/07/19 03:03 98.1 02/07/19 00:00 98.1 71 13 142/68 (92) 98 02/06/19 21:00 Room Air 02/06/19 20:00 98.0 71 17 142/83 (102) 99 02/06/19 19:24 79 18 92 Nasal Cannula 2.0 28 02/06/19 19:20 79 18 92 Nasal Cannula 2.0 28 02/06/19 16:00 97.7 79 18 143/76 (98) 96 02/06/19 12:00 97.8 82 18 122/69 (86) 96 02/06/19 10:53 Room Air 02/06/19 10:52 Room Air 02/06/19 09:00 Room Air Intake and Output 02/06/19 02/07/19 18:59 06:59 Intake Total 1050 ml 825 ml Output Total 110 ml 200 ml Balance 940 ml 625 ml IV Total 450 ml 825 ml Other 600 ml Output Urine Total 110 ml 200 ml # Voids 2 Laboratory Tests 02/06/19 09:50: Urine Color Yellow, Urine Appearance Slightly cloudy, Urine pH 5, Urine Specific [place] 1.020, Urine Protein 1+H, Urine Glucose (UA) Negative, Urine Ketones 1+H, Urine Blood Negative, Urine Nitrite Negative, Urine Bilirubin 1+H, Urine Ictotest Negative, Urine Urobilinogen 1H, Urine Leukocyte Esterase 2+H, Urine RBC 0-2, Urine WBC 2-4, Urine Squamous Epithelial Cells Few, Urine Calcium Oxalate Crystals Few, Urine Bacteria ManyH, Urine Opiates Screen PositiveH, Urine Barbiturates Screen Negative, Phencyclidine (PCP) Screen Negative, Urine Amphetamines Screen Negative, Urine Benzodiazepines Screen Negative, Urine Cocaine Screen PositiveH, Urine Marijuana (THC) Screen PositiveH 02/06/19 17:13: Arterial Blood pH 7.419, Arterial Blood Partial Pressure CO2 48.9H, Arterial Blood Partial Pressure O2 61.3L, Arterial Blood HCO3 30.9H, Arterial Blood Oxygen Saturation 90.6L, Arterial Blood Base Excess 5.6H, Austyn Test Positive 02/07/19 05:30: White Blood Count 6.6, Red Blood Count 3.20L, Hemoglobin 10.2L, Hematocrit 31.1L , Mean Corpuscular Volume 97, Mean Corpuscular Hemoglobin 32.0H, Mean Corpuscular Hemoglobin Concent 32.9, Red Cell Distribution Width 11.6, Platelet Count 296, Mean Platelet Volume 6.6, Neutrophils (%) (Auto) , Lymphocytes (%) ( Auto) , Monocytes (%) (Auto) , Eosinophils (%) (Auto) , Basophils (%) (Auto) , Neutrophils % (Manual) [Pending], Lymphocytes % (Manual) [Pending], Platelet Estimate [Pending], Platelet Morphology [Pending], Sodium Level 141, Potassium Level 3.3L, Chloride Level 102, Carbon Dioxide Level 34H, Anion Gap 5, Blood Urea Nitrogen 12, Creatinine 0.8, Estimat Glomerular Filtration Rate > 60, Glucose Level 109H, Calcium Level 9.5 Height (Feet): 5 Height (Inches): 5.00 Weight (Pounds): 100 General Appearance: no apparent distress, alert EENT: PERRL/EOMI, normal ENT inspection Neck: non-tender, normal alignment Cardiovascular: normal rate, regular rhythm Respiratory/Chest: lungs clear Abdomen: non tender, soft Extremities: other - right knee tenderness to palpation Edema: trace edema Neurologic: alert, oriented x 3 Skin: normal pigmentation Get Queen Feb 07, 2019 08:50
[2019-02-07] MEDS: Irbesartan 150mg tablet ORAL SCH (09:00)
[2019-02-07] MEDS: Heparin 5000 units/ml inj SUBQ SCH (09:00)
[2019-02-07] MEDS: Aspirin EC 81mg tab ORAL SCH (09:00)
--- NOTE | 2019-02-07 09:01 | Pulmonology Progress Note ---
Assessment/Plan Assessment/Plan ASSESSMENT: Alyssa Whittington is a 68 yo F with a history of tobacco, cocaine and marijuana use, chronic obstructive pulmonary disease, hypersensitivity pneumonitis, DM and Sz DO admitted now with an acute R patellar fracture.She is fairly stable from a respiratory standpoint to proceed with proposed operation as planned. PROBLEM LIST: 1. R patellar fracture 2. GLF 3. COPD without evidence of exacerbation 4. H/O Hypersensitivity pneumonitis S/P therapy in the past 5. Borderline enlarged subcarinal LAD (1.7 cm) and R paratracheal LN (9mm), improved on f/u imaging 6. Extensive history of tobacco use. 7. History of marijuana and cocaine use. 8. CHF with mild DD 9. Diabetes. 10. Hypertension & Hyperlipidemia 11. Seizure DO 12. Gout. 13. Chronic neck and back pain/DDD/SS 14. Opiate dependence. 15. Chronic abdominal pain, GERD and h/o erosive gastritis/mark esophagitis 16. GNR UTI PLAN: Optimize pulmonary hygiene. Mobilize as tolerated. Continue Advair,Spiriva, Singulair & Roflumilast PRN DUOnebs IS F/U ortho recs ---> OCTOR DVT Px: Hep SQ Monitor volumes Aspiration precautions Start Abx (CTx) for GNR UTI, F/U C&S Should have formal PFTs and a screening CT chest as an outpatient Continue to abstain from smoking Subjective Allergies: Uncoded Allergies: electrodes (Allergy, Mild, Itching, 10/10/17) skin redness and itching Subjective No change in cough, no wheezing, some SOB, no FC, + pain GNR UTI OCTOR Objective Last 24 Hour Vital Signs Date Time Temp Pulse Resp B/P (MAP) Pulse Ox O2 Delivery O2 Flow Rate FiO2 02/07/19 08:00 97.5 59 16 116/59 (78) 100 02/07/19 04:00 98.8 68 15 120/59 (79) 98 02/07/19 03:03 98.1 02/07/19 00:00 98.1 71 13 142/68 (92) 98 02/06/19 21:00 Room Air 02/06/19 20:00 98.0 71 17 142/83 (102) 99 02/06/19 19:24 79 18 92 Nasal Cannula 2.0 28 4/29/19 19:20 79 18 92 Nasal Cannula 2.0 28 02/06/19 16:00 97.7 79 18 143/76 (98) 96 02/06/19 12:00 97.8 82 18 122/69 (86) 96 02/06/19 10:53 Room Air 02/06/19 10:52 Room Air 02/06/19 09:00 Room Air Intake and Output 02/06/19 02/07/19 18:59 06:59 Intake Total 1050 ml 825 ml Output Total 110 ml 200 ml Balance 940 ml 625 ml IV Total 450 ml 825 ml Other 600 ml Output Urine Total 110 ml 200 ml # Voids 2 General Appearance: WD/WN, no acute distress HEENT: normocephalic, atraumatic, anicteric, mucous membranes moist Respiratory/Chest: lungs clear - but distant scattered coarse, no respiratory distress Cardiovascular: normal peripheral pulses, normal rate, regular rhythm Abdomen: normal bowel sounds, soft, non tender, no organomegaly, non distended , no mass Extremities: no cyanosis, no clubbing, no edema, other - R knee in immobilizer Microbiology Date/Time Source Procedure Growth Status 02/06/19 09:50 Urine,Clean Catch Urine Culture - Preliminary Gram Negative Aguilar Resulted Laboratory Tests 02/06/19 09:50: Urine Color Yellow, Urine Appearance Slightly cloudy, Urine pH 5, Urine Specific [place] 1.020, Urine Protein 1+H, Urine Glucose (UA) Negative, Urine Ketones 1+H, Urine Blood Negative, Urine Nitrite Negative, Urine Bilirubin 1+H, Urine Ictotest Negative, Urine Urobilinogen 1H, Urine Leukocyte Esterase 2+H, Urine RBC 0-2, Urine WBC 2-4, Urine Squamous Epithelial Cells Few, Urine Calcium Oxalate Crystals Few, Urine Bacteria ManyH, Urine Opiates Screen PositiveH, Urine Barbiturates Screen Negative, Phencyclidine (PCP) Screen Negative, Urine Amphetamines Screen Negative, Urine Benzodiazepines Screen Negative, Urine Cocaine Screen PositiveH, Urine Marijuana (THC) Screen PositiveH 02/06/19 17:13: Arterial Blood pH 7.419, Arterial Blood Partial Pressure CO2 48.9H, Arterial Blood Partial Pressure O2 61.3L, Arterial Blood HCO3 30.9H, Arterial Blood Oxygen Saturation 90.6L, Arterial Blood Base Excess 5.6H, Austyn Test Positive 02/07/19 05:30: White Blood Count 6.6, Red Blood Count 3.20L, Hemoglobin 10.2L, Hematocrit 31.1L , Mean Corpuscular Volume 97, Mean Corpuscular Hemoglobin 32.0H, Mean Corpuscular Hemoglobin Concent 32.9, Red Cell Distribution Width 11.6, Platelet Count 296, Mean Platelet Volume 6.6, Neutrophils (%) (Auto) , Lymphocytes (%) ( Auto) , Monocytes (%) (Auto) , Eosinophils (%) (Auto) , Basophils (%) (Auto) , Neutrophils % (Manual) [Pending], Lymphocytes % (Manual) [Pending], Platelet Estimate [Pending], Platelet Morphology [Pending], Sodium Level 141, Potassium Level 3.3L, Chloride Level 102, Carbon Dioxide Level 34H, Anion Gap 5, Blood Urea Nitrogen 12, Creatinine 0.8, Estimat Glomerular Filtration Rate > 60, Glucose Level 109H, Calcium Level 9.5 Current Medications Medications (Trade) Dose Ordered Sig/Sarahi Route PRN Reason Start Time Stop Time Status Last Admin Dose Admin Albuterol Sulfate (Proventil) 2.5 mg Q8H PRN HHN Shortness of Breath 02/05/19 16:15 02/10/19 16:14 Amlodipine Besylate (Norvasc) 5 mg DAILY ORAL 02/06/19 09:00 03/08/19 08:59 02/06/19 08:45 Aspirin (Ecotrin) 81 mg DAILY ORAL 02/06/19 09:00 03/08/19 08:59 02/06/19 08:45 Dextrose (Dextrose 50%) 25 ml Q30M PRN IV Hypoglycemia 02/05/19 16:30 03/07/19 16:29 Dextrose (Dextrose 50%) 50 ml Q30M PRN IV Hypoglycemia 02/05/19 16:30 03/07/19 16:29 Escitalopram Oxalate (Lexapro) 10 mg DAILY ORAL 02/06/19 09:00 03/08/19 08:59 02/07/19 08:50 Guaifenesin (Robitussin) 200 mg Q4H PRN ORAL For Cough 02/05/19 16:15 03/07/19 16:14 Heparin Sodium (Porcine) (Heparin 5000 units/ml) 5,000 units EVERY 12 HOURS SUBQ 02/05/19 21:00 03/07/19 20:59 02/06/19 08:49 Insulin Aspart (NovoLOG) BEFORE MEALS AND HS SUBQ 02/05/19 21:00 03/07/19 20:59 02/07/19 06:01 Irbesartan (Avapro) 150 mg DAILY ORAL 02/06/19 09:00 03/08/19 08:59 02/06/19 08:45 Levetiracetam (Keppra) 500 mg EVERY 12 HOURS ORAL 02/05/19 21:00 03/07/19 20:59 02/07/19 08:50 Magnesium Hydroxide (Mom) 30 ml DAILYPRN PRN ORAL Constipation 02/05/19 16:15 03/07/19 16:14 Meclizine HCl (Antivert) 25 mg Q8H PRN ORAL for dizziness 02/05/19 16:15 03/07/19 16:14 Morphine Sulfate (Morphine Sulfate) 4 mg Q4H PRN IV Severe Pain (Pain Scale 7-10) 02/05/19 16:15 02/12/19 16:14 02/07/19 02:33 Ondansetron HCl (Zofran) 4 mg Q4H PRN IV Nausea & Vomiting 02/05/19 16:15 03/07/19 16:14 02/07/19 02:32 Oxycodone HCl (Roxicodone) 30 mg Q6H PRN ORAL Moderate Pain (Pain Scale 4-6) 02/05/19 16:15 02/12/19 16:14 02/06/19 23:14 Potassium Chloride (K-Dur) 40 meq ONCE ORAL 02/07/19 08:45 02/07/19 10:00 Pravastatin Sodium (Pravachol) 40 mg BEDTIME ORAL 02/05/19 21:00 03/07/19 20:59 02/06/19 21:03 Promethazine HCl/ Codeine (Phenergan with Codeine) 5 ml Q4H PRN ORAL For Cough 02/06/19 14:15 03/08/19 14:14 Regadenoson (Lexiscan) 0.4 mg ONCE PRN IV CARDIOLOGY 02/06/19 12:04 02/08/19 12:03 Salmeterol Xinafoate/ Fluticasone (Advair 250/50 Diskus) 1 puffs BID INH 02/06/19 18:00 03/08/19 17:59 02/06/19 19:20 Sodium Chloride 1,000 ml @ 75 mls/hr [id number] IV 02/06/19 11:15 03/08/19 11:14 02/07/19 01:00 Tiotropium Sigel (Spiriva Inhaler) 1 puff DAILY INH 02/06/19 09:00 03/08/19 08:59 02/06/19 09:00 Coy Bee MD Feb 07, 2019 09:01
[2019-02-07] MEDS: oxyCODONE 15mg IR tab ORAL PRN (09:03)
[2019-02-07] MEDS: Wixela 250/50 Inhaler - 60 dose INH SCH ×2 (09:10→19:49)
[2019-02-07] MEDS: cefTRIAXone 1 GM in D5W 55 ML IVPB SCH (10:35)
--- NOTE | 2019-02-07 11:00 | NUR ---
NURSE NOTES: During Rounds RN noticed IV leaving. RN changed IV: Right FA gauge#24 running 1/2NS@74ml/hr. I will f/u as needed - RN also called Dr. Horner to request change of PO potassium to IV since pt was not able swallow the pills and refused to take them, RN will carry on new orders. I will f/u as needed.
[2019-02-07] MEDS ORDERED: DALIRESP500 MCG PO (11:57)
[2019-02-07] MEDS ORDERED: INDOMETHACIN50 MG PO (11:57)
[2019-02-07] MEDS ORDERED: MONTELUKAST SOD10 MG ORAL (11:57)
[2019-02-07] MEDS ORDERED: ADVAIR 250-501 EACH INH (11:57)
[2019-02-07] MEDS ORDERED: GABAPENTIN300 MG ORAL (11:57)
[2019-02-07] MEDS ORDERED: fentaNYL 100 mcg/2 mL IV ONE (12:54)
[2019-02-07] MEDS ORDERED: Midazolam 2mg/2ml Inj ONE (12:54)
[2019-02-07] MEDS ORDERED: Propofol 200mg/20ml IV ONE (12:58)
[2019-02-07] MEDS ORDERED: Lidocaine 1% MPF 10mg/ml 5ml ONE (12:58)
[2019-02-07] MEDS ORDERED: Duramorph PF 5mg/10ml amp ONE (13:49)
[2019-02-07] MEDS ORDERED: Bupivacaine 0.25% Inj 30ml INJ ONE (13:49)
[2019-02-07] MEDS ORDERED: Bacitracin 50000 Units Vial ONE (13:50)
[2019-02-07] MEDS ORDERED: NeoSporin Gu Irrig 1ml Amp IRRIG ONE (13:51)
[2019-02-07] MEDS ORDERED: Bupivacaine 0.5% Inj 30 ml vial INJ ONE (14:05)
--- NOTE | 2019-02-07 14:08 | NUR ---
Myocardial Perfusion Scan complete.
--- NOTE | 2019-02-07 14:21 | Diagnostic Imaging Report ---
Indication: chest pain Technique: The study was conducted under the supervision of a dairy farm worker. Dolbutamine administration followed by intravenous administration of 31.1 mCi of technetium 99m Myoview was performed. Three plane SPECT imaging of the heart was then performed. A resting study was performed as part of the one-day protocol with 10.4 mCi of technetium 99m myoview injected intravenously at that time. Three plane SPECT imaging of the heart was obtained. Comparison: None Clinical data: 1. Clinical response: Non ischemic 2. Electrocardiographic response: Non ischemic Findings: The myocardial perfusion scan demonstrates no fixed or reversible perfusion defects. LVEF estimated at 62% which is normal. IMPRESSION: Negative myocardial perfusion scan
--- NOTE | 2019-02-07 14:44 | Cardiac Electrophysiology PN ---
Assessment/Plan Assessment/Plan 1. Hypertension. Blood pressure currently stable on amlodipine 5 mg daily and Avapro 150 mg daily. 2. Insulin-dependent diabetes. 3. Status post fall and patella fracture. Echocardiogram EF 75% and nuclear stress test showed no ischemia or scar. OK to proceed with surgery. 4. Polysubstance abuse as mentioned above. 5. Chronic obstructive pulmonary disease. On Spiriva. 6. Depression. On Lexapro. JUNIOR RN and Dr Farley Subjective Subjective NPO for surgery. Had nuclear stress test today that was nonischemic Objective Last 24 Hour Vital Signs Date Time Temp Pulse Resp B/P (MAP) Pulse Ox O2 Delivery O2 Flow Rate FiO2 02/07/19 09:10 76 18 93 Nasal Cannula 2.0 28 02/07/19 09:10 76 18 93 Nasal Cannula 2.0 28 02/07/19 09:00 59 116/59 02/07/19 09:00 Nasal Cannula 2.0 02/07/19 08:00 97.5 59 16 116/59 (78) 100 02/07/19 04:00 98.8 68 15 120/59 (79) 98 02/07/19 03:03 98.1 02/07/19 00:00 98.1 71 13 142/68 (92) 98 02/06/19 21:00 Room Air 02/06/19 20:00 98.0 71 17 142/83 (102) 99 02/06/19 19:24 79 18 92 Nasal Cannula 2.0 28 02/06/19 19:20 79 18 92 Nasal Cannula 2.0 28 02/06/19 16:00 97.7 79 18 143/76 (98) 96 Intake and Output 02/06/19 02/07/19 19:00 07:00 Intake Total 1050 ml 825 ml Output Total 110 ml 200 ml Balance 940 ml 625 ml IV Total 450 ml 825 ml Other 600 ml Output Urine Total 110 ml 200 ml # Voids 2 Laboratory Tests Test 02/06/19 17:13 02/07/19 05:30 Arterial Blood pH 7.419 (7.350-7.450) Arterial Blood Partial Pressure CO2 48.9 mmHg (35.0-45.0) H Arterial Blood Partial Pressure O2 61.3 mmHg (75.0-100.0) L Arterial Blood HCO3 30.9 mmol/L (22.0-26.0) H Arterial Blood Oxygen Saturation 90.6 % (95-100) L Arterial Blood Base Excess 5.6 (-2-2) H Austyn Test Positive White Blood Count 6.6 K/UL (4.8-10.8) Red Blood Count 3.20 M/UL (4.20-5.40) L Hemoglobin 10.2 G/DL (12.0-16.0) L Hematocrit 31.1 % (37.0-47.0) L Mean Corpuscular Volume 97 FL (80-99) Mean Corpuscular Hemoglobin 32.0 PG (27.0-31.0) H Mean Corpuscular Hemoglobin Concent 32.9 G/DL (32.0-36.0) Red Cell Distribution Width 11.6 % (11.6-14.8) Platelet Count 296 K/UL (150-450) Mean Platelet Volume 6.6 FL (6.5-10.1) Neutrophils (%) (Auto) % (45.0-75.0) Lymphocytes (%) (Auto) % (20.0-45.0) Monocytes (%) (Auto) % (1.0-10.0) Eosinophils (%) (Auto) % (0.0-3.0) Basophils (%) (Auto) % (0.0-2.0) Differential Total Cells Counted 100 Neutrophils % (Manual) 49 % (45-75) Lymphocytes % (Manual) 25 % (20-45) Monocytes % (Manual) 6 % (1-10) Eosinophils % (Manual) 20 % (0-3) H Basophils % (Manual) 0 % (0-2) Band Neutrophils 0 % (0-8) Platelet Estimate Adequate Platelet Morphology Normal Hypochromasia 1+ Anisocytosis 1+ Sodium Level 141 MMOL/L (136-145) Potassium Level 3.3 MMOL/L (3.5-5.1) L Chloride Level 102 MMOL/L (98-107) Carbon Dioxide Level 34 MMOL/L (21-32) H Anion Gap 5 mmol/L (5-15) Blood Urea Nitrogen 12 mg/dL (7-18) Creatinine 0.8 MG/DL (0.55-1.30) Estimat Glomerular Filtration Rate > 60 mL/min (>60) Glucose Level 109 MG/DL (74-106) H Calcium Level 9.5 MG/DL (8.5-10.1) Microbiology Date/Time Source Procedure Growth Status 02/06/19 09:50 Urine,Clean Catch Urine Culture - Preliminary Gram Negative Aguilar Resulted Objective HEAD AND NECK: No JVD or carotid bruits. LUNGS: Clear. CARDIOVASCULAR: Regular S1 and S2 with no gallop or murmur. ABDOMEN: Soft. EXTREMITIES: No pitting edema. The left knee is in immobilizer. Todd Avalos MD Feb 07, 2019 14:44
[2019-02-07] MEDS ORDERED: HYDROcodone/Acetamin 7.5/325 tab ORAL PRN (14:45)
[2019-02-07] MEDS ORDERED: HYDROcodone/Acetamin 5/325 tab ORAL PRN (14:45)
[2019-02-07] MEDS ORDERED: HYDROmorphone 1mg/ml Carpuject SUBQ PRN (14:45)
[2019-02-07] MEDS ORDERED: Milk of Magnesia 30ml Ud ORAL PRN (14:45)
--- NOTE | 2019-02-07 14:45 | NUR ---
NURSE NOTES: pt left the floor to OR for Right Patella ORIF. pt left the floor with no signs of distress or other issues at this time. - Dr. Steiner is aware of the stress test results as well as Dr. Kramer. I will f/u as needed.
[2019-02-07] MEDS ORDERED: LR 1000ml ONE (15:00)
[2019-02-07] MEDS ORDERED: Sterile Water Irrig 1000ml IRRIG ONE (15:00)
[2019-02-07] MEDS ORDERED: NS Irrig 2000ml IRRIG ONE (15:32)
[2019-02-07] MEDS ORDERED: LR 1000ml 1,000 ML IVLG SCH (15:46)
[2019-02-07] MEDS ORDERED: Ketorolac 30mg Inj IV PRN (16:00)
[2019-02-07] MEDS ORDERED: DiphenhydrAMINE 50mg/ml Inj IVP PRN (16:00)
[2019-02-07] MEDS ORDERED: fentaNYL 100 mcg/2 mL IV PRN (16:00)
--- NOTE | 2019-02-07 16:00 | Cardiology Report ---
APPROVED REPORT EXAM: Two-dimensional and M-mode echocardiogram with Doppler and color Doppler. INDICATION PRE-OP M-Mode DIMENSIONS IVSd0.7 (0.7-1.1cm)Left Atrium (MM)2.2 (1.6-4.0cm) LVDd3.0 (3.5-5.6cm)Aortic Root2.5 (2.0-3.7cm) PWd1.2 (0.7-1.1cm)Aortic Cusp Exc.1.7 (1.5-2.0cm) IVSs1.3 cm LVDs1.2 (2.5-4.0cm) PWs1.5 cm Normal left ventricular chamber size, systolic function and wall motion . Left ventricular ejection fraction estimated to be 70-75%. Mild left ventricular hypertrophy by 2-D. No evidence of pericardial effusion. All other cardiac chamber sizes are within normal limits. Focal aortic valve sclerosis with normal cusp excursion. Thickened mitral valve leaflets with normal excursion. Mitral annulus and aortic root calcification. Normal pulmonic valve structure. Normal tricuspid valve structure. IVC at normal size with physiologic collapse . A color flow and spectral Doppler study was performed and revealed: Trace aortic insufficiency . Trace mitral regurgitation. Mitral diastolic velocities suggest reduced left ventricular relaxation c/w mild LV diastolic dysfunction (Grade I ) Mild tricuspid regurgitation. Tricuspid systolic velocities suggests peak right ventricular systolic pressure of 17mmHg.
--- NOTE | 2019-02-07 16:32 | Brief Operative Note ---
Immediate Post Operative Note Operative Note Chief Complaint: rt knee pain Pre-op Diagnosis: rt knee patellar fracture Procedure: rt knee patellar ORIF Post-op Diagnosis: same as pre-op Findings: consistent w/pre-op dx studies Surgeon: md aravind Modeling And Simulation Analyst: abilio nuñez Anesthesiologist: md zackary Anesthesia: general, regional Specimen: none Complications: none Condition: stable Fluids: ns Estimated Blood Loss: minimal Drains: none Implant(s) used?: Yes - 2 4.0 screws and 18G wire Sahra Nuñez Feb 07, 2019 16:32
--- NOTE | 2019-02-07 16:43 | Immediate Post-Op Evaluation ---
Immediate Post-Op Evalulation Immediate Post-Op Evalulation Procedure: ORIF of R patellar Fx Date of Evaluation: Feb 07, 2019 Time of Evaluation: 16:42 IV Fluids: 1000 Blood Products: none Estimated Blood Loss: MIN Urinary Output: NONE Blood Pressure Systolic: 103 Blood Pressure Diastolic: 48 Pulse Rate: 76 Respiratory Rate: 20 O2 Sat by Pulse Oximetry: 99 Temperature (Fahrenheit): 97.6 Pain Score (1-10): 1 Nausea: No Vomiting: No Complications none Patient Status: reacts, patent, none Hydration Status: adequate Giovanny Rubin MD Feb 07, 2019 16:43
--- NOTE | 2019-02-07 16:47 | Diagnostic Imaging Report ---
Indication: Intraoperative imaging 2 fluoroscopic views of the right knee were obtained. Findings: Intraoperative imaging showing internal fixation of the patellar fracture with cerclage wire and screws. IMPRESSION: Intraoperative imaging.
--- NOTE | 2019-02-07 17:45 | NUR ---
NURSE NOTES: Received report from Ally BROWNING, pt a/a/o laying in bed with no signs of distress or other issues at this time. pt knee immobilizer in place with ice pack as ordered by . IV on the right FA gauge #24 running LR at 75ml/hr. RN will change IVF as ordered by and will resume order for potassium. RN will check all orders and carry on as indicated. call light within reach, bed in lowest position. side rales up x2. I will f/u as needed.
--- NOTE | 2019-02-07 19:38 | NUR ---
HAND-OFF: Report given to Yulissa BROWNING. pt in stable condition.
--- NOTE | 2019-02-07 19:41 | NUR ---
NURSE NOTES: Received report from NAM Zavala. Patient is post op. A&Ox2-3. On nasal cannula 3L/min. No signs of distress. IV intact, patent, and infusing fluids. Bed in lowest position with call light in reach. Will continue with plan of care.
--- NOTE | 2019-02-07 21:15 | Operative Note - Dictated ---
DATE OF OPERATION: 02/07/2019 PREOPERATIVE DIAGNOSIS: Right knee transverse displaced patella fracture. POSTOPERATIVE DIAGNOSIS: Right knee transverse displaced patella fracture. PROCEDURE: Right knee patella open reduction and internal fixation using two 4.0 mm cannulated screws combined with an 18-gauge wire [id number] tension band. SURGEON: Jamie Kramer M.D. MINE ENGINEER: Sahra Cope PA-C. ANESTHESIOLOGIST: Giovanny Rubin M.D. ANESTHESIA: Spinal anesthesia. ESTIMATED BLOOD LOSS: Less than 20 mL. COMPLICATIONS: None. TOURNIQUET TIME: 50 minutes. BRIEF HISTORY: The patient is a pleasant 68-year-old female, who sustained a mechanical fall and sustained a displaced right patella fracture. She was admitted and was cleared by Medicine. After full discussion of risks and benefits of the surgery and complications associated with it including infection, bleeding, neurovascular complication, possibility of malunion, possibility of nonunion, possible hardware failure, possible need for removing the hardware down the line as well as other complications that may arise, she opted for surgical treatment as described above. OPERATIVE PROCEDURE: The patient was brought to operating room table and was placed supine. All pressure points were well padded. Spinal anesthesia was induced and the right leg was prepped and draped in usual sterile fashion. Care was given to keep her neck in neutral position as directed by the neurologist. The right knee was then prepped and draped in usual sterile fashion and the right leg was exsanguinated and tourniquet was inflated to 275 mmHg. A standard anterior approach to the knee was undertaken. The incision was taken through the subcutaneous tissue. The fracture site was visualized and dissection was performed. The fracture was reduced anatomically. At this point, 2 K-wires were placed from inferior pole of the patella to the superior pole of the patella approximately 4 cm apart from each other. The position of the screws and reduction was checked on AP and lateral on the image intensifier appeared to be acceptable and good. Measurements were made and 38 mm screw appeared to be the right size. Therefore, the K-wires were drilled over and a 38 mm compression 4.0 partially-threaded cancellous screw was placed in. This provided some compression across the fracture site. Subsequently, an 18-gauge wire was then passed through the screw and then in a icnyfc-xt-hjddw fashion, it was placed through the second screw creating a ehfaqv-ty-ihjys tension band wiring technique. The wire was then twisted and additional compression was seen at the fracture site. This fracture reduction was near anatomically. There was about a 1 to 1.5 mm gap, which was due to some of the incongruity of the fracture. The wounds were thoroughly irrigated using copious amount of fluid. The ex-fix wire was cut and the wire was buried into the lateral aspect of the quad tendon. The subcutaneous tissue was closed using 2-0 Vicryl suture and skin was closed using 3-0 Monocryl suture. Sterile dressing was applied and the patient was taken to recovery room in stable condition. All lap counts and instrument counts were correct. Jamie Kramer M.D. DR: KARYN JOB#: [id number] CC: RTUE
--- NOTE | 2019-02-07 22:18 | General Progress Note ---
Assessment/Plan Assessment/Plan: patellar fracture polysubstance abuse ho hypersensitivy pneumonitis COPD ho seizure disorder cervical spondylsis with known cord compression severe central canastenosis of cervical spine ho diabetes ho chf with diastolic dysfuction planning on surgery dw neuro surgery with spinal anaesthesis dw Dr Kramer cleareance from cards and pulmonary getting stress test today pain control per pain managment montiro accucheks dvt and ulcer prohylaxis Subjective Allergies: Uncoded Allergies: electrodes (Allergy, Mild, Itching, 10/10/17) skin redness and itching Subjective co pain in knee no chest pain or sob getting stress test Objective Last 24 Hour Vital Signs Date Time Temp Pulse Resp B/P (MAP) Pulse Ox O2 Delivery O2 Flow Rate FiO2 02/07/19 19:56 77 16 93 Nasal Cannula 3.0 32 02/07/19 19:55 83 16 Nasal Cannula 3.0 32 02/07/19 19:49 83 16 93 Nasal Cannula 3.0 32 02/07/19 19:00 98.7 67 14 120/76 (91) 100 02/07/19 18:30 98.7 65 14 134/65 (88) 100 02/07/19 18:00 98.5 74 15 127/53 (77) 100 02/07/19 17:35 98.0 81 23 127/53 98 Nasal Cannula 3 02/07/19 17:25 81 19 148/67 98 Nasal Cannula 3 02/07/19 17:10 70 16 122/58 100 Nasal Cannula 3 02/07/19 17:00 63 20 133/67 100 Nasal Cannula 3 02/07/19 16:50 56 18 126/64 100 Nasal Cannula 3 02/07/19 16:45 58 15 123/74 100 Simple Mask 6 02/07/19 16:43 76 20 99 02/07/19 16:40 97.8 59 20 108/55 100 Simple Mask 6 02/07/19 12:00 98.4 63 14 137/63 (87) 100 02/07/19 09:10 76 18 93 Nasal Cannula 2.0 28 02/07/19 09:10 76 18 93 Nasal Cannula 2.0 28 02/07/19 09:00 59 116/59 02/07/19 09:00 Nasal Cannula 2.0 02/07/19 08:00 97.5 59 16 116/59 (78) 100 02/07/19 04:00 98.8 68 15 120/59 (79) 98 02/07/19 03:03 98.1 02/07/19 00:00 98.1 71 13 142/68 (92) 98 Intake and Output 02/06/19 02/07/19 19:00 07:00 Intake Total 1050 ml 825 ml Output Total 110 ml 200 ml Balance 940 ml 625 ml IV Total 450 ml 825 ml Other 600 ml Output Urine Total 110 ml 200 ml # Voids 2 Laboratory Tests 02/07/19 05:30: White Blood Count 6.6, Red Blood Count 3.20L, Hemoglobin 10.2L, Hematocrit 31.1L , Mean Corpuscular Volume 97, Mean Corpuscular Hemoglobin 32.0H, Mean Corpuscular Hemoglobin Concent 32.9, Red Cell Distribution Width 11.6, Platelet Count 296, Mean Platelet Volume 6.6, Neutrophils (%) (Auto) , Lymphocytes (%) ( Auto) , Monocytes (%) (Auto) , Eosinophils (%) (Auto) , Basophils (%) (Auto) , Differential Total Cells Counted 100, Neutrophils % (Manual) 49, Lymphocytes % ( Manual) 25, Monocytes % (Manual) 6, Eosinophils % (Manual) 20H, Basophils % ( Manual) 0, Band Neutrophils 0, Platelet Estimate Adequate, Platelet Morphology Normal, Hypochromasia 1+, Anisocytosis 1+, Sodium Level 141, Potassium Level 3.3L, Chloride Level 102, Carbon Dioxide Level 34H, Anion Gap 5, Blood Urea Nitrogen 12, Creatinine 0.8, Estimat Glomerular Filtration Rate > 60, Glucose Level 109H, Calcium Level 9.5 Height (Feet): 5 Height (Inches): 5.00 Weight (Pounds): 100 General Appearance: WD/WN, no apparent distress Neck: supple Cardiovascular: normal rate Respiratory/Chest: lungs clear Abdomen: soft Objective knee tender w rom nneurovascular intact Ravindra Horner MD Feb 07, 2019 22:18
[2019-02-07] MEDS: Enoxaparin 30mg Inj SUBQ SCH (22:23)
[2019-02-07] MEDS: Montelukast 10mg tablet ORAL SCH (22:35)
[2019-02-07] MEDS: Docusate 100mg cap ORAL SCH ×2 (22:35→22:47)
--- NOTE | 2019-02-07 22:45 | Neurology Progress Note ---
Interim History Interim History Interim History Ms. Whittington feels well. She had her surgery today. She is still under the influence of anesthesia. The mind is not clear. She has not noted any change in her strength. She denies any new neurologic symptoms. Review of Systems Neuro Review of Systems Benign. Objective Physical Exam Last Vital Signs Date Time Temp Pulse Resp B/P (MAP) Pulse Ox O2 Delivery O2 Flow Rate FiO2 02/07/19 19:56 77 16 93 Nasal Cannula 3.0 32 02/07/19 19:00 98.7 120/76 (91) Laboratory Tests Test 02/07/19 05:30 White Blood Count 6.6 K/UL (4.8-10.8) Red Blood Count 3.20 M/UL (4.20-5.40) L Hemoglobin 10.2 G/DL (12.0-16.0) L Hematocrit 31.1 % (37.0-47.0) L Mean Corpuscular Volume 97 FL (80-99) Mean Corpuscular Hemoglobin 32.0 PG (27.0-31.0) H Mean Corpuscular Hemoglobin Concent 32.9 G/DL (32.0-36.0) Red Cell Distribution Width 11.6 % (11.6-14.8) Platelet Count 296 K/UL (150-450) Mean Platelet Volume 6.6 FL (6.5-10.1) Neutrophils (%) (Auto) % (45.0-75.0) Lymphocytes (%) (Auto) % (20.0-45.0) Monocytes (%) (Auto) % (1.0-10.0) Eosinophils (%) (Auto) % (0.0-3.0) Basophils (%) (Auto) % (0.0-2.0) Differential Total Cells Counted 100 Neutrophils % (Manual) 49 % (45-75) Lymphocytes % (Manual) 25 % (20-45) Monocytes % (Manual) 6 % (1-10) Eosinophils % (Manual) 20 % (0-3) H Basophils % (Manual) 0 % (0-2) Band Neutrophils 0 % (0-8) Platelet Estimate Adequate Platelet Morphology Normal Hypochromasia 1+ Anisocytosis 1+ Sodium Level 141 MMOL/L (136-145) Potassium Level 3.3 MMOL/L (3.5-5.1) L Chloride Level 102 MMOL/L (98-107) Carbon Dioxide Level 34 MMOL/L (21-32) H Anion Gap 5 mmol/L (5-15) Blood Urea Nitrogen 12 mg/dL (7-18) Creatinine 0.8 MG/DL (0.55-1.30) Estimat Glomerular Filtration Rate > 60 mL/min (>60) Glucose Level 109 MG/DL (74-106) H Calcium Level 9.5 MG/DL (8.5-10.1) Neurologic Exam Objective PHYSICAL EXAMINATION: GENERAL: She is a well-developed, well-nourished but lean black lady, lying in bed, in no acute distress. HEAD: Normocephalic and atraumatic. NECK: No neck rigidity was observed. EENT: Benign. EXTREMITIES: Right knee was in a knee immobilizer and could not be tested. NEUROLOGICAL EXAMINATION: MENTAL STATUS EXAMINATION: She was drowsy but could be aroused. Her cerebration was slow. She was oriented to person, place, and time except for the exact date. She was unable to cooperate for further mental status tests. SPEECH: She had a mild dysarthria, but it should be noted that numerous teeth were missing. LANGUAGE: She had no aphasia. CRANIAL NERVE EXAMINATION: II: The visual kearney were intact on confrontation testing. III, IV, : The external ocular movements were full, and the pupils 3 mm in diameter, equal, round, regular, and reactive to light. V: She had normal facial sensations, and the temporales, masseters, and pterygoids functioned normally. VII: She had a trace right 7th central facial paresis. VIII: She was able to hear well bilaterally and had no nystagmus. IX: The palate moved symmetrically on phonation. X: She had no hoarseness of voice. XI: The sternocleidomastoids and trapezii functioned normally. XII: The tongue was in the midline, without any fasciculations or atrophy. MOTOR SYSTEM: The tone was normal in all 4 extremities. Examination of muscle mass revealed no focal wasting. Examination of power revealed G 5/5 power, except for G 5-/5 power in the right finger extensors. The right lower extremity could not be tested adequately because it was in a knee immobilizer and she was giving a poor effort at the level of the hip. SENSORY EXAMINATION: She had intact sensations to pinprick, light touch, and graphesthesia. COORDINATION: She performed well on iydrpd-is-expz testing. She was unable to perform jjet-pz-bdou testing. REFLEXES: 2+ and bilaterally symmetrical at the biceps, triceps, brachioradialis. 1+ at the left knee the right knee could not be tested. 0 at both ankles. The plantar responses were flexor bilaterally. STANCE & GAIT: Could not be tested. Impression/Recommendations Diagnostic Impression 1. Ms Alyssa Whittington is a 68-year-old, right-handed, black lady, who does have a past history of hypertension, dyslipidemia, coronary artery disease, congestive heart failure, chronic obstructive pulmonary disease, cerebrovascular disease with a prior stroke associated with right-sided weakness , parainfluenza and influenza at the end of 2014, episodic loss of consciousness , a cocaine related seizure, and significant C-spine disease. 2. On 02-05-2019 she apparently tripped and fell down and fractured her right patella. She had surgery for the problem on 02/07/19. 3. On neurological examination at this time, she is still under the influence of anesthesia. She does have slowing of cerebration, problems with recent and remote memory, a mild dysarthria, a mild right hemiparesis involving the face, upper and lower extremities. The right knee is in an immobilizer and swollen. 4. The patient's history and neurological examination are most consistent with recent fall resulting in the right patella fracture which has been surgically treated today. Recommendations 1. Continue present management.. 2. Mobilize rapidly. 3. Observe. DANNIELLE GAYLE M.D., M.S.P.H. Dannielle Gayle MD Feb 07, 2019 22:45
[2019-02-07] MEDS: D5 1/2NS w/KCl 20mEq 1,000 ML IV SCH (22:51)
[2019-02-07] MEDS: ceFAZolin sod 1 GM in D5W 55 ML IV SCH (22:54)
[2019-02-08] VITALS: BP 117/60
[2019-02-08 04:00] VITALS: BP 119/55
[2019-02-08] MEDS: Morphine Sulfate 4mg/ml Inj (IV USE ONLY) IV PRN ×3 (04:11→18:45)
[2019-02-08] MEDS: ceFAZolin sod 1 GM in D5W 55 ML IV SCH (05:03)
[2019-02-08] MEDS: NovoLOG Insulin Flexpen SUBQ SCH ×4 (06:27→21:00)
[2019-02-08 07:21] LABS: BASOPHILS % (AUTO) 0.7 % (0.0-2.0); EOSINOPHILS % (AUTO) 13.1 % (0.0-3.0); HEMATOCRIT 28.1 % (37.0-47.0); HEMOGLOBIN 9.2 G/DL (12.0-16.0); LYMPHOCYTES % (AUTO) 12.8 % (20.0-45.0); MEAN CORPUSCULAR VOLUME 99 FL (80-99); NEUTROPHILS % (AUTO) 64.5 % (45.0-75.0); PLATELET COUNT 278 K/UL (150-450); RED BLOOD COUNT 2.84 M/UL (4.20-5.40); RED CELL DISTRIBUTION WIDTH 11.9 % (11.6-14.8); WHITE BLOOD COUNT 8.4 K/UL (4.8-10.8)
--- NOTE | 2019-02-08 07:38 | Cardiac Electrophysiology PN ---
Assessment/Plan Assessment/Plan 1. Hypertension. Blood pressure currently stable on amlodipine 5 mg daily and Avapro 150 mg daily. 2. Insulin-dependent diabetes. 3. Status post fall and patella fracture. Echocardiogram EF 75% and nuclear stress test showed no ischemia or scar. Tolerated surgery well. 4. Polysubstance abuse as mentioned above. 5. Chronic obstructive pulmonary disease. On Spiriva. 6. Depression. On Lexapro. 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 Had nuclear stress test was nonischemic Objective Last 24 Hour Vital Signs Date Time Temp Pulse Resp B/P (MAP) Pulse Ox O2 Delivery O2 Flow Rate FiO2 02/08/19 04:00 98.2 79 16 119/55 (76) 98 02/08/19 00:00 98.2 69 15 117/60 (79) 99 02/07/19 21:00 Nasal Cannula 2.0 02/07/19 20:00 98.0 73 18 133/78 (96) 98 02/07/19 19:56 77 16 93 Nasal Cannula 3.0 32 02/07/19 19:55 83 16 Nasal Cannula 3.0 32 02/07/19 19:49 83 16 93 Nasal Cannula 3.0 32 02/07/19 19:00 98.7 67 14 120/76 (91) 100 02/07/19 18:30 98.7 65 14 134/65 (88) 100 02/07/19 18:00 98.5 74 15 127/53 (77) 100 02/07/19 17:35 98.0 81 23 127/53 98 Nasal Cannula 3 02/07/19 17:25 81 19 148/67 98 Nasal Cannula 3 02/07/19 17:10 70 16 122/58 100 Nasal Cannula 3 02/07/19 17:00 63 20 133/67 100 Nasal Cannula 3 02/07/19 16:50 56 18 126/64 100 Nasal Cannula 3 02/07/19 16:45 58 15 123/74 100 Simple Mask 6 02/07/19 16:43 76 20 99 02/07/19 16:40 97.8 59 20 108/55 100 Simple Mask 6 02/07/19 12:00 98.4 63 14 137/63 (87) 100 02/07/19 09:10 76 18 93 Nasal Cannula 2.0 28 02/07/19 09:10 76 18 93 Nasal Cannula 2.0 28 02/07/19 09:00 59 116/59 02/07/19 09:00 Nasal Cannula 2.0 02/07/19 08:00 97.5 59 16 116/59 (78) 100 Intake and Output 02/07/19 02/08/19 19:00 07:00 Intake Total 1100 ml Output Total 15 ml Balance 1085 ml IV Total 1100 ml Estimated Blood Loss 15 ml Laboratory Tests Test 02/08/19 06:00 White Blood Count 8.4 K/UL (4.8-10.8) Red Blood Count 2.84 M/UL (4.20-5.40) L Hemoglobin 9.2 G/DL (12.0-16.0) L Hematocrit 28.1 % (37.0-47.0) L Mean Corpuscular Volume 99 FL (80-99) Mean Corpuscular Hemoglobin 32.4 PG (27.0-31.0) H Mean Corpuscular Hemoglobin Concent 32.7 G/DL (32.0-36.0) Red Cell Distribution Width 11.9 % (11.6-14.8) Platelet Count 278 K/UL (150-450) Mean Platelet Volume 7.3 FL (6.5-10.1) Neutrophils (%) (Auto) 64.5 % (45.0-75.0) Lymphocytes (%) (Auto) 12.8 % (20.0-45.0) L Monocytes (%) (Auto) 9.0 % (1.0-10.0) Eosinophils (%) (Auto) 13.1 % (0.0-3.0) H Basophils (%) (Auto) 0.7 % (0.0-2.0) Microbiology Date/Time Source Procedure Growth Status 02/06/19 09:50 Urine,Clean Catch Urine Culture - Final Escherichia Coli Complete Objective HEAD AND NECK: No JVD or carotid bruits. LUNGS: Clear. CARDIOVASCULAR: Regular S1 and S2 with no gallop or murmur. ABDOMEN: Soft. EXTREMITIES: No pitting edema. S/P left knee surgery Todd Avalos MD February 08, 2019 07:38
--- NOTE | 2019-02-08 07:40 | NUR ---
NURSE NOTES: received report from NAM Duenas. patient in bed. alert. verbally responsive. no respiratory distress noted with 3l/min via NC. iv RFA intact. running fluid. bed in the lowest position . call light within reach. will continue to monitor.
[2019-02-08 08:00] VITALS: BP 116/55
--- NOTE | 2019-02-08 08:00 | NUR ---
HAND-OFF: Report given to NAM Davis.
--- NOTE | 2019-02-08 08:24 | Orthopedic Progress Note ---
Orthopedic - Progress Note Subjective Symptoms: c/o post-op knee pain Objective Laboratory Tests Test 02/08/19 06:00 White Blood Count 8.4 K/UL (4.8-10.8) Red Blood Count 2.84 M/UL (4.20-5.40) L Hemoglobin 9.2 G/DL (12.0-16.0) L Hematocrit 28.1 % (37.0-47.0) L Mean Corpuscular Volume 99 FL (80-99) Mean Corpuscular Hemoglobin 32.4 PG (27.0-31.0) H Mean Corpuscular Hemoglobin Concent 32.7 G/DL (32.0-36.0) Red Cell Distribution Width 11.9 % (11.6-14.8) Platelet Count 278 K/UL (150-450) Mean Platelet Volume 7.3 FL (6.5-10.1) Neutrophils (%) (Auto) 64.5 % (45.0-75.0) Lymphocytes (%) (Auto) 12.8 % (20.0-45.0) L Monocytes (%) (Auto) 9.0 % (1.0-10.0) Eosinophils (%) (Auto) 13.1 % (0.0-3.0) H Basophils (%) (Auto) 0.7 % (0.0-2.0) Last 24 Hour Vital Signs Date Time Temp Pulse Resp B/P (MAP) Pulse Ox O2 Delivery O2 Flow Rate FiO2 02/08/19 04:00 98.2 79 16 119/55 (76) 98 02/08/19 00:00 98.2 69 15 117/60 (79) 99 02/07/19 21:00 Nasal Cannula 2.0 02/07/19 20:00 98.0 73 18 133/78 (96) 98 02/07/19 19:56 77 16 93 Nasal Cannula 3.0 32 02/07/19 19:55 83 16 Nasal Cannula 3.0 32 02/07/19 19:49 83 16 93 Nasal Cannula 3.0 32 02/07/19 19:00 98.7 67 14 120/76 (91) 100 02/07/19 18:30 98.7 65 14 134/65 (88) 100 02/07/19 18:00 98.5 74 15 127/53 (77) 100 02/07/19 17:35 98.0 81 23 127/53 98 Nasal Cannula 3 02/07/19 17:25 81 19 148/67 98 Nasal Cannula 3 02/07/19 17:10 70 16 122/58 100 Nasal Cannula 3 02/07/19 17:00 63 20 133/67 100 Nasal Cannula 3 02/07/19 16:50 56 18 126/64 100 Nasal Cannula 3 02/07/19 16:45 58 15 123/74 100 Simple Mask 6 02/07/19 16:43 76 20 99 02/07/19 16:40 97.8 59 20 108/55 100 Simple Mask 6 02/07/19 12:00 98.4 63 14 137/63 (87) 100 02/07/19 09:10 76 18 93 Nasal Cannula 2.0 28 02/07/19 09:10 76 18 93 Nasal Cannula 2.0 28 02/07/19 09:00 59 116/59 02/07/19 09:00 Nasal Cannula 2.0 Intake and Output 02/07/19 02/08/19 19:00 07:00 Intake Total 1100 ml 240 ml Output Total 15 ml Balance 1085 ml 240 ml Intake Oral 240 ml IV Total 1100 ml Estimated Blood Loss 15 ml Laboratory Tests Test 02/08/19 06:00 White Blood Count 8.4 K/UL (4.8-10.8) Red Blood Count 2.84 M/UL (4.20-5.40) L Hemoglobin 9.2 G/DL (12.0-16.0) L Hematocrit 28.1 % (37.0-47.0) L Mean Corpuscular Volume 99 FL (80-99) Mean Corpuscular Hemoglobin 32.4 PG (27.0-31.0) H Mean Corpuscular Hemoglobin Concent 32.7 G/DL (32.0-36.0) Red Cell Distribution Width 11.9 % (11.6-14.8) Platelet Count 278 K/UL (150-450) Mean Platelet Volume 7.3 FL (6.5-10.1) Neutrophils (%) (Auto) 64.5 % (45.0-75.0) Lymphocytes (%) (Auto) 12.8 % (20.0-45.0) L Monocytes (%) (Auto) 9.0 % (1.0-10.0) Eosinophils (%) (Auto) 13.1 % (0.0-3.0) H Basophils (%) (Auto) 0.7 % (0.0-2.0) Wound: clean, dry, intact Drains: none Neuro Status: normal Vascular Status: normal Additional Comments Xray reviewed Assessment Post-op Diagnosis POD 1 Procedure Performed rt knee patellar ORIF Plan Plan: PT - WBAT, full extension x4 weeks, discharge plan - fu dr nazario 2 weeks Sahra Cope February 08, 2019 08:24
--- NOTE | 2019-02-08 08:52 | General Progress Note ---
Assessment/Plan Assessment/Plan: (1) Right knee pain (2) Right knee patella fracture s/p orif (3) Lumbar DDD/ Spondylosis (4) Opioid Dependency (5) Cocaine abuse (6) H/O CVA (7) Thalamic pain syndrome Patient to be continued on Morphine and Oxycodone. D/w Dr. Victoria and he concurred. Subjective Date patient seen: February 08, 2019 Time patient seen: 07:15 - am Constitutional: Reports: weakness HEENT: Reports: no symptoms Cardiovascular: Reports: no symptoms Respiratory: Reports: no symptoms Gastrointestinal/Abdominal: Reports: no symptoms Neurologic/Psychiatric: Reports: no symptoms Endocrine: Reports: no symptoms Hematologic/Lymphatic: Reports: no symptoms Allergies: Uncoded Allergies: electrodes (Allergy, Mild, Itching, 10/10/17) skin redness and itching Subjective Patient is s/p ORIF of right knee patella fx. She is in bed continues to c/o pain which has been tolerated on the Oxycodone and Morphine. no new complaints at this time. Objective Last 24 Hour Vital Signs Date Time Temp Pulse Resp B/P (MAP) Pulse Ox O2 Delivery O2 Flow Rate FiO2 02/08/19 04:00 98.2 79 16 119/55 (76) 98 02/08/19 00:00 98.2 69 15 117/60 (79) 99 02/07/19 21:00 Nasal Cannula 2.0 02/07/19 20:00 98.0 73 18 133/78 (96) 98 02/07/19 19:56 77 16 93 Nasal Cannula 3.0 32 02/07/19 19:55 83 16 Nasal Cannula 3.0 32 02/07/19 19:49 83 16 93 Nasal Cannula 3.0 32 02/07/19 19:00 98.7 67 14 120/76 (91) 100 02/07/19 18:30 98.7 65 14 134/65 (88) 100 02/07/19 18:00 98.5 74 15 127/53 (77) 100 02/07/19 17:35 98.0 81 23 127/53 98 Nasal Cannula 3 02/07/19 17:25 81 19 148/67 98 Nasal Cannula 3 02/07/19 17:10 70 16 122/58 100 Nasal Cannula 3 02/07/19 17:00 63 20 133/67 100 Nasal Cannula 3 02/07/19 16:50 56 18 126/64 100 Nasal Cannula 3 02/07/19 16:45 58 15 123/74 100 Simple Mask 6 02/07/19 16:43 76 20 99 02/07/19 16:40 97.8 59 20 108/55 100 Simple Mask 6 02/07/19 12:00 98.4 63 14 137/63 (87) 100 02/07/19 09:10 76 18 93 Nasal Cannula 2.0 28 02/07/19 09:10 76 18 93 Nasal Cannula 2.0 28 02/07/19 09:00 59 116/59 02/07/19 09:00 Nasal Cannula 2.0 Intake and Output 02/07/19 02/08/19 18:59 06:59 Intake Total 1100 ml 240 ml Output Total 15 ml Balance 1085 ml 240 ml Intake Oral 240 ml IV Total 1100 ml Estimated Blood Loss 15 ml Laboratory Tests 02/08/19 06:00: White Blood Count 8.4, Red Blood Count 2.84L, Hemoglobin 9.2L, Hematocrit 28.1L , Mean Corpuscular Volume 99, Mean Corpuscular Hemoglobin 32.4H, Mean Corpuscular Hemoglobin Concent 32.7, Red Cell Distribution Width 11.9, Platelet Count 278, Mean Platelet Volume 7.3, Neutrophils (%) (Auto) 64.5, Lymphocytes (% ) (Auto) 12.8L, Monocytes (%) (Auto) 9.0, Eosinophils (%) (Auto) 13.1H, Basophils (%) (Auto) 0.7 Height (Feet): 5 Height (Inches): 5.00 Weight (Pounds): 110 General Appearance: no apparent distress, alert EENT: PERRL/EOMI, normal ENT inspection Neck: non-tender, normal alignment Cardiovascular: normal rate, regular rhythm Respiratory/Chest: decreased breath sounds Abdomen: non tender, soft Extremities: other - right knee bandages applied Edema: trace edema Neurologic: alert, oriented x 3 Skin: warm/dry Get Queen February 08, 2019 08:52
[2019-02-08] MEDS: Wixela 250/50 Inhaler - 60 dose INH SCH ×2 (08:53→18:00)
[2019-02-08] MEDS: cefTRIAXone 1 GM in D5W 55 ML IVPB SCH (09:18)
--- NOTE | 2019-02-08 09:57 | 48 Hour Post Anesthesia Eval ---
Post Anesthesia Evaluation Procedure: ORIF of R patellar Fx Date of Evaluation: February 08, 2019 Airway: patent Nausea: No Vomiting: No Pain Intensity: 2 Hydration Status: adequate Cardiopulmonary Status: at baseline Mental Status/LOC: patient returned to baseline Post-Anesthesia Complications: 0 Follow-up care needed: N/A - further care as per primary team Sejal Sanchez MD February 08, 2019 09:57
[2019-02-08] MEDS: Irbesartan 150mg tablet ORAL SCH (10:08)
[2019-02-08] MEDS: Docusate 100mg cap ORAL SCH ×3 (10:09→18:46)
[2019-02-08] MEDS: Aspirin EC 81mg tab ORAL SCH (10:13)
--- NOTE | 2019-02-08 10:13 | Diagnostic Imaging Report ---
Indication: Postoperative, knee pain, patellar fracture Technique: 2 views of the right knee Comparison: 02/05/2019 Findings: Interim repair of previously demonstrated patellar fracture with 2 screws and a cerclage wire. Good anatomic alignment. There appears to be decreased joint effusion. Impression: Postoperative right knee. No unusual features
[2019-02-08] MEDS: Enoxaparin 30mg Inj SUBQ SCH ×3 (10:22→21:21)
--- NOTE | 2019-02-08 10:42 | NUR ---
P.T Note: P.T consult received/acknowledged , P.T evaluation/tx attempted however patient refused despite pain medication taken and education re: the benefits of functional mobilities/activities and risk of prolonged bedrest. Pt stated she's in too much pain. RN notified . RN stated stated the next pain medication is not due until 1pm. Will re attempt this PM once given pain meds.
[2019-02-08] MEDS: D5 1/2NS w/KCl 20mEq 1,000 ML IV SCH (11:17)
[2019-02-08] MEDS: oxyCODONE 15mg IR tab ORAL PRN (11:18)
[2019-02-08 12:00] VITALS: BP 135/72
--- NOTE | 2019-02-08 13:19 | NUR ---
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 98.2 HR 75 RR 20 B/P 116/53 2L NC O2 SAT @98% IS: IVF D5KCL @ 75ML/HR CEFTRIAXONE IV LOVENOX SUBC ADVAIR INH PT/OT EVAL MED/SURG STATUS
--- NOTE | 2019-02-08 13:38 | Pulmonology Progress Note ---
Assessment/Plan Assessment/Plan ASSESSMENT: Alyssa Whittington is a 68 yo F with a history of tobacco, cocaine and marijuana use, chronic obstructive pulmonary disease, hypersensitivity pneumonitis, DM and Sz DO admitted now with an acute R patellar fracture.She is fairly stable from a respiratory standpoint to proceed with proposed operation as planned. PROBLEM LIST: 1. R patellar fracture S/P ORIF 02/07/19 2. GLF 3. COPD without evidence of exacerbation 4. H/O Hypersensitivity pneumonitis S/P therapy in the past 5. Borderline enlarged subcarinal LAD (1.7 cm) and R paratracheal LN (9mm), improved on f/u imaging 6. Extensive history of tobacco use. 7. History of marijuana and cocaine use. 8. CHF with mild DD 9. Diabetes. 10. Hypertension & Hyperlipidemia 11. Seizure DO 12. Gout. 13. Chronic neck and back pain/DDD/SS 14. Opiate dependence. 15. Chronic abdominal pain, GERD and h/o erosive gastritis/mark esophagitis 16. E coli UTI PLAN: Optimize pulmonary hygiene. Mobilize as tolerated. Continue Advair,Spiriva, Singulair & Roflumilast PRN DUOnebs IS F/U ortho recs DVT Px: Hep SQ Monitor volumes Aspiration precautions Continue Abx (CTx) for E coli UTI, F/U C&S Should have formal PFTs and a screening CT chest as an outpatient Continue to abstain from smoking Subjective Allergies: Uncoded Allergies: electrodes (Allergy, Mild, Itching, 10/10/17) skin redness and itching Subjective POD S/P R patellar ORIF, doing well Less cough, no wheezing, some SOB, no FC, + pain E coli UTI Objective Last 24 Hour Vital Signs Date Time Temp Pulse Resp B/P (MAP) Pulse Ox O2 Delivery O2 Flow Rate FiO2 02/08/19 10:14 71 127/62 02/08/19 10:08 127/62 02/08/19 09:00 Nasal Cannula 3.0 02/08/19 08:56 84 20 99 Nasal Cannula 2.0 28 02/08/19 08:55 84 20 99 Nasal Cannula 2.0 28 02/08/19 08:54 82 20 99 Nasal Cannula 2.0 28 02/08/19 08:54 82 20 99 Nasal Cannula 2.0 28 02/08/19 08:53 82 20 Nasal Cannula 2.0 28 02/08/19 08:00 98.2 75 13 116/55 (75) 98 02/08/19 04:00 98.2 79 16 119/55 (76) 98 02/08/19 00:00 98.2 69 15 117/60 (79) 99 02/07/19 21:00 Nasal Cannula 2.0 02/07/19 20:00 98.0 73 18 133/78 (96) 98 02/07/19 19:56 77 16 93 Nasal Cannula 3.0 32 02/07/19 19:55 83 16 Nasal Cannula 3.0 32 02/07/19 19:49 83 16 93 Nasal Cannula 3.0 32 02/07/19 19:00 98.7 67 14 120/76 (91) 100 02/07/19 18:30 98.7 65 14 134/65 (88) 100 02/07/19 18:00 98.5 74 15 127/53 (77) 100 02/07/19 17:35 98.0 81 23 127/53 98 Nasal Cannula 3 02/07/19 17:25 81 19 148/67 98 Nasal Cannula 3 02/07/19 17:10 70 16 122/58 100 Nasal Cannula 3 02/07/19 17:00 63 20 133/67 100 Nasal Cannula 3 02/07/19 16:50 56 18 126/64 100 Nasal Cannula 3 02/07/19 16:45 58 15 123/74 100 Simple Mask 6 02/07/19 16:43 76 20 99 02/07/19 16:40 97.8 59 20 108/55 100 Simple Mask 6 Intake and Output 02/07/19 02/08/19 18:59 06:59 Intake Total 1100 ml 240 ml Output Total 15 ml Balance 1085 ml 240 ml Intake Oral 240 ml IV Total 1100 ml Estimated Blood Loss 15 ml General Appearance: WD/WN, no acute distress HEENT: normocephalic, atraumatic, anicteric, mucous membranes moist Respiratory/Chest: chest wall non-tender, lungs clear - but distant, no respiratory distress, no accessory muscle use Cardiovascular: normal peripheral pulses, normal rate, regular rhythm Abdomen: normal bowel sounds, soft, non tender, no organomegaly, non distended , no mass Extremities: no cyanosis, no clubbing, no edema Microbiology Date/Time Source Procedure Growth Status 02/06/19 09:50 Urine,Clean Catch Urine Culture - Final Escherichia Coli Complete Laboratory Tests 02/08/19 06:00: White Blood Count 8.4, Red Blood Count 2.84L, Hemoglobin 9.2L, Hematocrit 28.1L , Mean Corpuscular Volume 99, Mean Corpuscular Hemoglobin 32.4H, Mean Corpuscular Hemoglobin Concent 32.7, Red Cell Distribution Width 11.9, Platelet Count 278, Mean Platelet Volume 7.3, Neutrophils (%) (Auto) 64.5, Lymphocytes (% ) (Auto) 12.8L, Monocytes (%) (Auto) 9.0, Eosinophils (%) (Auto) 13.1H, Basophils (%) (Auto) 0.7 Current Medications Medications (Trade) Dose Ordered Sig/Sarahi Route PRN Reason Start Time Stop Time Status Last Admin Dose Admin Acetaminophen (Tylenol) 650 mg Q4H PRN ORAL temp>100.2 or headache 02/07/19 14:45 03/09/19 14:44 Albuterol Sulfate (Proventil) 2.5 mg Q8H PRN HHN Shortness of Breath 02/05/19 16:15 02/10/19 16:14 Amlodipine Besylate (Norvasc) 5 mg DAILY ORAL 02/06/19 09:00 03/08/19 08:59 02/08/19 10:14 Aspirin (Ecotrin) 81 mg DAILY ORAL 02/06/19 09:00 03/08/19 08:59 02/08/19 10:13 Ceftriaxone Sodium 1 gm/ Dextrose 55 ml @ 110 mls/hr Q24H IVPB 02/07/19 10:00 02/14/19 09:59 02/08/19 09:18 Dextrose (Dextrose 50%) 25 ml Q30M PRN IV Hypoglycemia 02/05/19 16:30 03/07/19 16:29 Dextrose (Dextrose 50%) 50 ml Q30M PRN IV Hypoglycemia 02/05/19 16:30 03/07/19 16:29 Dextrose/ Electrolytes 1,000 ml @ 75 mls/hr [id number] IV 02/07/19 21:00 03/09/19 20:59 02/08/19 11:17 Docusate Sodium (Colace) 100 mg THREE TIMES A DAY ORAL 02/07/19 18:00 03/09/19 17:59 02/08/19 10:09 Enoxaparin Sodium (Lovenox) 30 mg EVERY 12 HOURS SUBQ 02/07/19 21:00 02/21/19 20:59 02/08/19 10:22 Escitalopram Oxalate (Lexapro) 10 mg DAILY ORAL 02/06/19 09:00 03/08/19 08:59 02/08/19 10:10 Ferrous Sulfate (Feosol) 325 mg THREE TIMES A DAY ORAL 02/07/19 21:00 03/09/19 20:59 02/08/19 10:12 Guaifenesin (Robitussin) 200 mg Q4H PRN ORAL For Cough 02/05/19 16:15 03/07/19 16:14 Insulin Aspart (NovoLOG) BEFORE MEALS AND HS SUBQ 02/05/19 21:00 03/07/19 20:59 02/08/19 12:57 Irbesartan (Avapro) 150 mg DAILY ORAL 02/06/19 09:00 03/08/19 08:59 02/08/19 10:08 Levetiracetam (Keppra) 500 mg EVERY 12 HOURS ORAL 02/05/19 21:00 03/07/19 20:59 02/08/19 10:07 Magnesium Hydroxide (Mom) 30 ml DAILYPRN PRN ORAL Constipation 02/07/19 14:45 03/09/19 14:44 Meclizine HCl (Antivert) 25 mg Q8H PRN ORAL for dizziness 02/05/19 16:15 03/07/19 16:14 Montelukast Sodium (Singulair) 10 mg QPM ORAL 02/07/19 16:30 03/09/19 16:29 02/07/19 22:35 Morphine Sulfate (Morphine Sulfate) 4 mg Q4H PRN IV Severe Pain (Pain Scale 7-10) 02/05/19 16:15 02/12/19 16:14 02/08/19 08:57 Ondansetron HCl (Zofran) 4 mg Q4H PRN IV Nausea & Vomiting 02/05/19 16:15 03/07/19 16:14 02/07/19 02:32 Oxycodone HCl (Roxicodone) 30 mg Q6H PRN ORAL Moderate Pain (Pain Scale 4-6) 02/05/19 16:15 02/12/19 16:14 02/08/19 11:18 Pravastatin Sodium (Pravachol) 40 mg BEDTIME ORAL 02/05/19 21:00 03/07/19 20:59 02/07/19 22:35 Promethazine HCl/ Codeine (Phenergan with Codeine) 5 ml Q4H PRN ORAL For Cough 02/06/19 14:15 03/08/19 14:14 Salmeterol Xinafoate/ Fluticasone (Advair 250/50 Diskus) 1 puffs BID INH 02/06/19 18:00 03/08/19 17:59 02/08/19 08:53 Tiotropium [place] (Spiriva Inhaler) 1 puff DAILY INH 02/06/19 09:00 03/08/19 08:59 02/08/19 08:53 Coy Bee MD February 08, 2019 13:38
--- NOTE | 2019-02-08 14:57 | Diagnostic Imaging Report ---
APPROVED REPORT CPT Code: 03088 Present Symptoms Comments: BILATERAL LEGS PAIN. BILATERAL: Imaging reveals a patent deep venous system bilaterally. There is no evidence of thrombus within the femoral, popliteal or tibial segments. The greater saphenous veins are also within normal limits. Doppler indicates normal spontaneous flow within these segments.
[2019-02-08 16:00] VITALS: BP 124/60
[2019-02-08] MEDS: Montelukast 10mg tablet ORAL SCH (17:09)
[2019-02-08] MEDS ORDERED: Tubing IV Secondary IV ONE (19:21)
--- NOTE | 2019-02-08 19:41 | NUR ---
HAND-OFF: Report given to sandra Elder RN.
--- NOTE | 2019-02-08 19:42 | NUR ---
NURSE NOTES: Received pt from NAM Davis. Pt awake and resting in bed. IV site intact and patent. Pt tolerating nasal cannula 3L. Bed in lowest position. Bed alarm and lock is on. Call light within reach. Will continue to monitor.
--- NOTE | 2019-02-08 19:45 | Neurology Progress Note ---
Interim History Interim History Interim History Ms. Whittington is miserable. She complains of severe pain. The mind is not clear. She has not noted any change in her strength. She denies any new neurologic symptoms. She is not very cooperative. Review of Systems Neuro Review of Systems Benign. Objective Physical Exam Last Vital Signs Date Time Temp Pulse Resp B/P (MAP) Pulse Ox O2 Delivery O2 Flow Rate FiO2 02/08/19 16:00 99.2 81 17 124/60 (81) 93 02/08/19 09:00 Nasal Cannula 3.0 02/08/19 08:56 28 Laboratory Tests Test 02/08/19 06:00 White Blood Count 8.4 K/UL (4.8-10.8) Red Blood Count 2.84 M/UL (4.20-5.40) L Hemoglobin 9.2 G/DL (12.0-16.0) L Hematocrit 28.1 % (37.0-47.0) L Mean Corpuscular Volume 99 FL (80-99) Mean Corpuscular Hemoglobin 32.4 PG (27.0-31.0) H Mean Corpuscular Hemoglobin Concent 32.7 G/DL (32.0-36.0) Red Cell Distribution Width 11.9 % (11.6-14.8) Platelet Count 278 K/UL (150-450) Mean Platelet Volume 7.3 FL (6.5-10.1) Neutrophils (%) (Auto) 64.5 % (45.0-75.0) Lymphocytes (%) (Auto) 12.8 % (20.0-45.0) L Monocytes (%) (Auto) 9.0 % (1.0-10.0) Eosinophils (%) (Auto) 13.1 % (0.0-3.0) H Basophils (%) (Auto) 0.7 % (0.0-2.0) Neurologic Exam Objective PHYSICAL EXAMINATION: GENERAL: She is a well-developed, well-nourished but lean black lady, lying in bed, in no acute distress. HEAD: Normocephalic and atraumatic. NECK: No neck rigidity was observed. EENT: Benign. EXTREMITIES: Right knee was in a knee immobilizer and could not be tested. NEUROLOGICAL EXAMINATION: MENTAL STATUS EXAMINATION: She was awake but not alert. Her cerebration was slow. She was oriented to person, place, and time except for the exact date. She was unable to cooperate for further mental status tests. SPEECH: She had a mild dysarthria, but it should be noted that numerous teeth were missing. LANGUAGE: She had no aphasia. CRANIAL NERVE EXAMINATION: II: The visual kearney were intact on confrontation testing. III, IV, : The external ocular movements were full, and the pupils 3 mm in diameter, equal, round, regular, and reactive to light. V: She had normal facial sensations, and the temporales, masseters, and pterygoids functioned normally. VII: She had a trace right 7th central facial paresis. VIII: She was able to hear well bilaterally and had no nystagmus. IX: The palate moved symmetrically on phonation. X: She had no hoarseness of voice. XI: The sternocleidomastoids and trapezii functioned normally. XII: The tongue was in the midline, without any fasciculations or atrophy. MOTOR SYSTEM: The tone was normal in all 4 extremities. Examination of muscle mass revealed no focal wasting. Examination of power revealed G 5/5 power, except for G 5-/5 power in the right finger extensors. The right lower extremity could not be tested adequately because it was in a knee immobilizer and she was giving a poor effort at the level of the hip. SENSORY EXAMINATION: She had intact sensations to pinprick, light touch, and graphesthesia. COORDINATION: She performed well on [id number] testing. She was unable to perform [id number] testing. REFLEXES: 2+ and bilaterally symmetrical at the biceps, triceps, brachioradialis. 1+ at the left knee the right knee could not be tested. 0 at both ankles. The plantar responses were flexor bilaterally. STANCE & GAIT: Could not be tested. Impression/Recommendations Diagnostic Impression 1. Ms Alyssa Whittington is a 68-year-old, right-handed, black lady, who does have a past history of hypertension, dyslipidemia, coronary artery disease, congestive heart failure, chronic obstructive pulmonary disease, cerebrovascular disease with a prior stroke associated with right-sided weakness , parainfluenza and influenza at the end of 2014, episodic loss of consciousness , a cocaine related seizure, and significant C-spine disease. 2. On 02-05-2019 she apparently tripped and fell down and fractured her right patella. She had surgery for the problem on 02/07/19. 3. She is miserable. She complains of severe pain. The mind is not clear. She has not noted any change in her strength. She denies any new neurologic symptoms. She is not very cooperative. 4. On neurological examination at this time she does have slowing of cerebration , problems with recent and remote memory, a mild dysarthria, a mild right hemiparesis involving the face, upper and lower extremities. The right knee is in an immobilizer and swollen. 5. The patient's history and neurological examination are most consistent with recent fall resulting in the right patella fracture which has been surgically treated. She is in severe post-operative pain. Recommendations 1. Continue present management. 2. Mobilize rapidly. 3. Observe. DANNIELLE GAYLE M.D., M.S.P.H. Dannielle Gayle MD February 08, 2019 19:45
[2019-02-08 20:00] VITALS: BP 148/63
--- NOTE | 2019-02-08 21:25 | General Progress Note ---
Assessment/Plan Assessment/Plan: patellar fracture polysubstance abuse ho hypersensitivy pneumonitis COPD ho seizure disorder cervical spondylsis with known cord compression severe central canastenosis of cervical spine ho diabetes ho chf with diastolic dysfuction planning on surgery with cardiac clearance dw neuro surgery with spinal anaesthesis dw Dr Nia harveyncddii from cards and pulmonary stress test noted pain control per pain managment montiro accucheks dvt and ulcer prohylaxis Subjective Allergies: Uncoded Allergies: electrodes (Allergy, Mild, Itching, 10/10/17) skin redness and itching Subjective co pain in knee no chest pain or sob Objective Last 24 Hour Vital Signs Date Time Temp Pulse Resp B/P (MAP) Pulse Ox O2 Delivery O2 Flow Rate FiO2 02/08/19 16:00 99.2 81 17 124/60 (81) 93 02/08/19 12:00 97.3 79 13 135/72 (93) 99 02/08/19 10:14 71 127/62 02/08/19 10:08 127/62 02/08/19 09:00 Nasal Cannula 3.0 02/08/19 08:56 84 20 99 Nasal Cannula 2.0 28 02/08/19 08:55 84 20 99 Nasal Cannula 2.0 28 02/08/19 08:54 82 20 99 Nasal Cannula 2.0 28 02/08/19 08:54 82 20 99 Nasal Cannula 2.0 28 02/08/19 08:53 82 20 Nasal Cannula 2.0 28 02/08/19 08:00 98.2 75 13 116/55 (75) 98 02/08/19 04:00 98.2 79 16 119/55 (76) 98 02/08/19 00:00 98.2 69 15 117/60 (79) 99 Intake and Output 02/07/19 02/08/19 19:00 07:00 Intake Total 1100 ml 240 ml Output Total 15 ml Balance 1085 ml 240 ml Intake Oral 240 ml IV Total 1100 ml Estimated Blood Loss 15 ml Laboratory Tests 02/08/19 06:00: White Blood Count 8.4, Red Blood Count 2.84L, Hemoglobin 9.2L, Hematocrit 28.1L , Mean Corpuscular Volume 99, Mean Corpuscular Hemoglobin 32.4H, Mean Corpuscular Hemoglobin Concent 32.7, Red Cell Distribution Width 11.9, Platelet Count 278, Mean Platelet Volume 7.3, Neutrophils (%) (Auto) 64.5, Lymphocytes (% ) (Auto) 12.8L, Monocytes (%) (Auto) 9.0, Eosinophils (%) (Auto) 13.1H, Basophils (%) (Auto) 0.7 Height (Feet): 5 Height (Inches): 5.00 Weight (Pounds): 110 General Appearance: WD/WN EENT: PERRL/EOMI Neck: supple Cardiovascular: normal rate Respiratory/Chest: lungs clear Abdomen: soft Objective knee tender w rom nneurovascular intact Ravindra Horner MD February 08, 2019 21:25
--- NOTE | 2019-02-08 21:30 | NUR ---
NURSE NOTES: PT refused lovenox. Pt also refused to let me check her blood sugar nor administer novolog. After educating the pt on the importance of the medications pt stated "Im tried of being poked, leave me alone."
[2019-02-09] VITALS: BP 150/76
[2019-02-09] MEDS: oxyCODONE 15mg IR tab ORAL PRN ×2 (00:27→10:59)
[2019-02-09] MEDS: D5 1/2NS w/KCl 20mEq 1,000 ML IV SCH ×2 (00:32→13:30)
--- NOTE | 2019-02-09 01:05 | Cardiology Report ---
APPROVED REPORT EKG Measurement Heart [id number] Normal sinus rhythm Possible Left atrial enlargement Left axis deviation Possible septal infarct, age undetermined Incomplete RBBB Nonspecific T wave abnormality Abnormal ECG
[2019-02-09 04:00] VITALS: BP 142/73
[2019-02-09] MEDS: NovoLOG Insulin Flexpen SUBQ SCH ×4 (06:59→23:01)
--- NOTE | 2019-02-09 07:18 | NUR ---
HAND-OFF: Report given to NAM Davis. Endorsed plan of care.
--- NOTE | 2019-02-09 07:19 | NUR ---
NURSE NOTES: received report from Nghia Elder RN. patient in bed. alert. verbally responsive. no respiratory distress noted with NC3l/min. c/o mild pain on rt patella. ice pack in place. IV on rt upper arm running fluid. puric draining well. bed in the lowest position, call light within reach, alarm on. will continue to monitor.
[2019-02-09 07:40] LABS: BASOPHILS % (AUTO) 1.2 % (0.0-2.0); EOSINOPHILS % (AUTO) 5.8 % (0.0-3.0); HEMATOCRIT 27.9 % (37.0-47.0); HEMOGLOBIN 9.3 G/DL (12.0-16.0); LYMPHOCYTES % (AUTO) 22.6 % (20.0-45.0); MEAN CORPUSCULAR VOLUME 97 FL (80-99); NEUTROPHILS % (AUTO) 62.4 % (45.0-75.0); PLATELET COUNT 261 K/UL (150-450); RED BLOOD COUNT 2.88 M/UL (4.20-5.40); RED CELL DISTRIBUTION WIDTH 11.4 % (11.6-14.8); WHITE BLOOD COUNT 6.3 K/UL (4.8-10.8)
[2019-02-09 08:00] VITALS: BP 129/59
[2019-02-09] MEDS: Morphine Sulfate 4mg/ml Inj (IV USE ONLY) IV PRN ×3 (08:16→21:33)
[2019-02-09] MEDS: Aspirin EC 81mg tab ORAL SCH (08:17)
[2019-02-09] MEDS: Docusate 100mg cap ORAL SCH ×3 (08:17→17:09)
[2019-02-09] MEDS: Irbesartan 150mg tablet ORAL SCH (08:17)
[2019-02-09] MEDS: Enoxaparin 30mg Inj SUBQ SCH ×2 (08:20→21:33)
[2019-02-09] MEDS: Wixela 250/50 Inhaler - 60 dose INH SCH ×2 (08:48→21:00)
--- NOTE | 2019-02-09 08:49 | General Progress Note ---
Assessment/Plan Assessment/Plan: (1) Right knee pain (2) Right knee patella fracture s/p orif (3) Lumbar DDD/ Spondylosis (4) Opioid Dependency (5) Cocaine abuse (6) H/O CVA (7) Thalamic pain syndrome Patient to be continued on Morphine and Oxycodone. D/w Dr. Victoria and he concurred. Subjective Date patient seen: February 09, 2019 Time patient seen: 07:00 - am Allergies: Uncoded Allergies: electrodes (Allergy, Mild, Itching, 10/10/17) skin redness and itching Subjective Constitutional: Reports: weakness HEENT: Reports: no symptoms Cardiovascular: Reports: no symptoms Respiratory: Reports: no symptoms Gastrointestinal/Abdominal: Reports: no symptoms Neurologic/Psychiatric: Reports: no symptoms Endocrine: Reports: no symptoms Hematologic/Lymphatic: Reports: no symptoms Subjective Patient is in bed reports that the pain is at a 2/10 and tolerated on the Morphine and Oxycodone. She has no new complaints at this time. Objective Last 24 Hour Vital Signs Date Time Temp Pulse Resp B/P (MAP) Pulse Ox O2 Delivery O2 Flow Rate FiO2 02/09/19 08:17 129/59 02/09/19 08:17 72 129/59 02/09/19 08:00 97.8 72 18 129/59 (82) 99 02/09/19 04:00 98.8 76 18 142/73 (96) 98 02/09/19 00:00 100.1 83 20 150/76 (100) 98 02/08/19 21:40 Nasal Cannula 2.0 28 02/08/19 21:40 Nasal Cannula 2.0 28 02/08/19 21:39 Nasal Cannula 2.0 28 02/08/19 21:38 Nasal Cannula 2.0 28 02/08/19 21:00 Nasal Cannula 3.0 02/08/19 20:00 99.5 89 20 148/63 (91) 95 02/08/19 16:00 99.2 81 17 124/60 (81) 93 02/08/19 12:00 97.3 79 13 135/72 (93) 99 02/08/19 10:14 71 127/62 02/08/19 10:08 127/62 02/08/19 09:00 Nasal Cannula 3.0 02/08/19 08:56 84 20 99 Nasal Cannula 2.0 28 02/08/19 08:55 84 20 99 Nasal Cannula 2.0 28 02/08/19 08:54 82 20 99 Nasal Cannula 2.0 28 02/08/19 08:54 82 20 99 Nasal Cannula 2.0 28 02/08/19 08:53 82 20 Nasal Cannula 2.0 28 Intake and Output 02/08/19 02/09/19 19:00 07:00 Intake Total 875 ml Output Total 600 ml Balance 875 ml -600 ml Intake Oral 240 ml IV Total 635 ml Output Urine Total 600 ml Laboratory Tests 02/09/19 06:21: White Blood Count 6.3, Red Blood Count 2.88L, Hemoglobin 9.3L, Hematocrit 27.9L , Mean Corpuscular Volume 97, Mean Corpuscular Hemoglobin 32.5H, Mean Corpuscular Hemoglobin Concent 33.6, Red Cell Distribution Width 11.4L, Platelet Count 261, Mean Platelet Volume 6.5, Neutrophils (%) (Auto) 62.4, Lymphocytes (%) (Auto) 22.6, Monocytes (%) (Auto) 8.0, Eosinophils (%) (Auto) 5.8H, Basophils (%) (Auto) 1.2 Height (Feet): 5 Height (Inches): 5.00 Weight (Pounds): 110 Objective General Appearance: no apparent distress, alert EENT: PERRL/EOMI, normal ENT inspection Neck: non-tender, normal alignment Cardiovascular: normal rate, regular rhythm Respiratory/Chest: decreased breath sounds Abdomen: non tender, soft Extremities: other - right knee bandages applied Edema: trace edema Neurologic: alert, oriented x 3 Skin: warm/dry Get Queen February 09, 2019 08:49
[2019-02-09] MEDS: cefTRIAXone 1 GM in D5W 55 ML IVPB SCH (10:39)
[2019-02-09 12:00] VITALS: BP 131/78
--- NOTE | 2019-02-09 14:40 | Pulmonology Progress Note ---
Assessment/Plan Assessment/Plan ASSESSMENT: Alyssa Whittington is a 68 yo F with a history of tobacco, cocaine and marijuana use, chronic obstructive pulmonary disease, hypersensitivity pneumonitis, DM and Sz DO admitted now with an acute R patellar fracture.She is fairly stable from a respiratory standpoint to proceed with proposed operation as planned. PROBLEM LIST: 1. R patellar fracture S/P ORIF 02/07/19 2. GLF 3. COPD without evidence of exacerbation 4. H/O Hypersensitivity pneumonitis S/P therapy in the past 5. Borderline enlarged subcarinal LAD (1.7 cm) and R paratracheal LN (9mm), improved on f/u imaging 6. Extensive history of tobacco use. 7. History of marijuana and cocaine use. 8. CHF with mild DD 9. Diabetes. 10. Hypertension & Hyperlipidemia 11. Seizure DO 12. Gout. 13. Chronic neck and back pain/DDD/SS 14. Opiate dependence. 15. Chronic abdominal pain, GERD and h/o erosive gastritis/mark esophagitis 16. E coli UTI PLAN: Optimize pulmonary hygiene. Mobilize as tolerated. Continue Advair,Spiriva, Singulair & Roflumilast PRN DUOnebs IS F/U ortho recs DVT Px: Hep SQ Monitor volumes Aspiration precautions Continue Abx (CTx) for E coli UTI, F/U C&S Should have formal PFTs and a screening CT chest as an outpatient Continue to abstain from smoking Subjective Allergies: Uncoded Allergies: electrodes (Allergy, Mild, Itching, 10/10/17) skin redness and itching Subjective SAMEER + pain less cough, no wheezing, some SOB, no FC Objective Last 24 Hour Vital Signs Date Time Temp Pulse Resp B/P (MAP) Pulse Ox O2 Delivery O2 Flow Rate FiO2 02/09/19 12:00 98.5 81 20 131/78 (95) 97 02/09/19 09:00 Nasal Cannula 3.0 02/09/19 08:53 94 Nasal Cannula 2.0 28 02/09/19 08:53 74 18 Nasal Cannula 2.0 28 02/09/19 08:52 Nasal Cannula 2.0 28 02/09/19 08:51 74 18 94 Nasal Cannula 2.0 28 02/09/19 08:51 84 18 94 Nasal Cannula 2.0 28 02/09/19 08:50 75 18 94 Nasal Cannula 2.0 28 02/09/19 08:50 74 18 94 Nasal Cannula 2.0 28 02/09/19 08:17 129/59 02/09/19 08:17 72 129/59 02/09/19 08:00 97.8 72 18 129/59 (82) 99 02/09/19 04:00 98.8 76 18 142/73 (96) 98 02/09/19 00:00 100.1 83 20 150/76 (100) 98 02/08/19 21:40 Nasal Cannula 2.0 28 02/08/19 21:40 Nasal Cannula 2.0 28 02/08/19 21:39 Nasal Cannula 2.0 28 02/08/19 21:38 Nasal Cannula 2.0 28 02/08/19 21:00 Nasal Cannula 3.0 02/08/19 20:00 99.5 89 20 148/63 (91) 95 02/08/19 16:00 99.2 81 17 124/60 (81) 93 Intake and Output 02/08/19 02/09/19 18:59 06:59 Intake Total 875 ml Output Total 600 ml Balance 875 ml -600 ml Intake Oral 240 ml IV Total 635 ml Output Urine Total 600 ml General Appearance: WD/WN, no acute distress HEENT: normocephalic, atraumatic, anicteric, mucous membranes moist Respiratory/Chest: chest wall non-tender, lungs clear, normal breath sounds, no respiratory distress, no accessory muscle use Cardiovascular: normal peripheral pulses, normal rate, regular rhythm Abdomen: normal bowel sounds, soft, non tender, no organomegaly, non distended , no mass Extremities: no cyanosis, no clubbing, no edema, other - R leg in immobilizer wound dressed Laboratory Tests 02/09/19 06:21: White Blood Count 6.3, Red Blood Count 2.88L, Hemoglobin 9.3L, Hematocrit 27.9L , Mean Corpuscular Volume 97, Mean Corpuscular Hemoglobin 32.5H, Mean Corpuscular Hemoglobin Concent 33.6, Red Cell Distribution Width 11.4L, Platelet Count 261, Mean Platelet Volume 6.5, Neutrophils (%) (Auto) 62.4, Lymphocytes (%) (Auto) 22.6, Monocytes (%) (Auto) 8.0, Eosinophils (%) (Auto) 5.8H, Basophils (%) (Auto) 1.2 Current Medications Medications (Trade) Dose Ordered Sig/Sarahi Route PRN Reason Start Time Stop Time Status Last Admin Dose Admin Acetaminophen (Tylenol) 650 mg Q4H PRN ORAL temp>100.2 or headache 02/07/19 14:45 03/09/19 14:44 Albuterol Sulfate (Proventil) 2.5 mg Q8H PRN HHN Shortness of Breath 02/05/19 16:15 02/10/19 16:14 Amlodipine Besylate (Norvasc) 5 mg DAILY ORAL 02/06/19 09:00 03/08/19 08:59 02/09/19 08:17 Aspirin (Ecotrin) 81 mg DAILY ORAL 02/06/19 09:00 03/08/19 08:59 02/09/19 08:17 Ceftriaxone Sodium 1 gm/ Dextrose 55 ml @ 110 mls/hr Q24H IVPB 02/07/19 10:00 02/14/19 09:59 02/09/19 10:39 Dextrose (Dextrose 50%) 25 ml Q30M PRN IV Hypoglycemia 02/05/19 16:30 03/07/19 16:29 Dextrose (Dextrose 50%) 50 ml Q30M PRN IV Hypoglycemia 02/05/19 16:30 03/07/19 16:29 Dextrose/ Electrolytes 1,000 ml @ 75 mls/hr [id number] IV 02/07/19 21:00 03/09/19 20:59 02/09/19 13:30 Docusate Sodium (Colace) 100 mg THREE TIMES A DAY ORAL 02/07/19 18:00 03/09/19 17:59 02/09/19 13:30 Enoxaparin Sodium (Lovenox) 30 mg EVERY 12 HOURS SUBQ 02/07/19 21:00 02/21/19 20:59 02/09/19 08:20 Escitalopram Oxalate (Lexapro) 10 mg DAILY ORAL 02/06/19 09:00 03/08/19 08:59 02/09/19 08:17 Ferrous Sulfate (Feosol) 325 mg THREE TIMES A DAY ORAL 02/07/19 21:00 03/09/19 20:59 02/09/19 13:30 Guaifenesin (Robitussin) 200 mg Q4H PRN ORAL For Cough 02/05/19 16:15 03/07/19 16:14 Insulin Aspart (NovoLOG) BEFORE MEALS AND HS SUBQ 02/05/19 21:00 03/07/19 20:59 02/09/19 11:39 Irbesartan (Avapro) 150 mg DAILY ORAL 02/06/19 09:00 03/08/19 08:59 02/09/19 08:17 Levetiracetam (Keppra) 500 mg EVERY 12 HOURS ORAL 02/05/19 21:00 03/07/19 20:59 02/09/19 08:17 Magnesium Hydroxide (Mom) 30 ml DAILYPRN PRN ORAL Constipation 02/07/19 14:45 03/09/19 14:44 Meclizine HCl (Antivert) 25 mg Q8H PRN ORAL for dizziness 02/05/19 16:15 03/07/19 16:14 Montelukast Sodium (Singulair) 10 mg QPM ORAL 02/07/19 16:30 03/09/19 16:29 02/08/19 17:09 Morphine Sulfate (Morphine Sulfate) 4 mg Q4H PRN IV Severe Pain (Pain Scale 7-10) 02/05/19 16:15 02/12/19 16:14 02/09/19 08:16 Ondansetron HCl (Zofran) 4 mg Q4H PRN IV Nausea & Vomiting 02/05/19 16:15 03/07/19 16:14 02/07/19 02:32 Oxycodone HCl (Roxicodone) 30 mg Q6H PRN ORAL Moderate Pain (Pain Scale 4-6) 02/05/19 16:15 02/12/19 16:14 02/09/19 10:59 Pravastatin Sodium (Pravachol) 40 mg BEDTIME ORAL 02/05/19 21:00 03/07/19 20:59 02/08/19 21:20 Promethazine HCl/ Codeine (Phenergan with Codeine) 5 ml Q4H PRN ORAL For Cough 02/06/19 14:15 03/08/19 14:14 Salmeterol Xinafoate/ Fluticasone (Advair 250/50 Diskus) 1 puffs BID INH 02/06/19 18:00 03/08/19 17:59 02/09/19 08:48 Tiotropium [place] (Spiriva Inhaler) 1 puff DAILY INH 02/06/19 09:00 03/08/19 08:59 02/09/19 08:48 Coy Bee MD February 09, 2019 14:40
[2019-02-09 16:00] VITALS: BP 129/62
[2019-02-09] MEDS: Montelukast 10mg tablet ORAL SCH (16:18)
--- NOTE | 2019-02-09 16:49 | NUR ---
P.T Note: late entry 02/08/19 1520 P.T evaluation completed and treatment initiated. Please refer to P.T evaluation for current functional status. Pt is limited by severe pain on the R knee ( currently wearing Knee immobilizer ) limited mobility performance and independence. Pt currently require MAX A X 1 and extended time to initiate and complete supine to/from sitting and vice versa. Pt able to sit at the EOB however unable to stand despite multiple attempts due to weakness and pain increasing with mobility 07/20. Skilled P.T service is warranted to improve strength, endurance and activity tolerance to increase her mobility independence. recommend SNF for further rehab VS Home P.T at NH.
--- NOTE | 2019-02-09 17:07 | Cardiac Electrophysiology PN ---
Assessment/Plan Assessment/Plan 1. Hypertension. Continue amlodipine 5 mg daily and Avapro 150 mg daily. 2. Insulin-dependent diabetes. 3. Status post fall and patella fracture. S/P ORIF. Echocardiogram EF 75% and nuclear stress test showed no ischemia or scar. Tolerated surgery well. 4. Polysubstance abuse 5. Chronic obstructive pulmonary disease. On Spiriva. 6. Depression. On Lexapro. DW RN Subjective Subjective Tolerated patellar surgery. No CP or SOB. Objective Last 24 Hour Vital Signs Date Time Temp Pulse Resp B/P (MAP) Pulse Ox O2 Delivery O2 Flow Rate FiO2 02/09/19 12:00 98.5 81 20 131/78 (95) 97 02/09/19 09:00 Nasal Cannula 3.0 02/09/19 08:53 94 Nasal Cannula 2.0 28 02/09/19 08:53 74 18 Nasal Cannula 2.0 28 02/09/19 08:52 Nasal Cannula 2.0 28 02/09/19 08:51 74 18 94 Nasal Cannula 2.0 02/09/19 08:51 84 18 94 Nasal Cannula 2.0 28 02/09/19 08:50 75 18 94 Nasal Cannula 2.0 28 02/09/19 08:50 74 18 94 Nasal Cannula 2.0 28 02/09/19 08:17 129/59 02/09/19 08:17 72 129/59 02/09/19 08:00 97.8 72 18 129/59 (82) 99 02/09/19 04:00 98.8 76 18 142/73 (96) 98 02/09/19 00:00 100.1 83 20 150/76 (100) 98 02/08/19 21:40 Nasal Cannula 2.0 28 02/08/19 21:40 Nasal Cannula 2.0 28 02/08/19 21:39 Nasal Cannula 2.0 28 02/08/19 21:38 Nasal Cannula 2.0 28 02/08/19 21:00 Nasal Cannula 3.0 02/08/19 20:00 99.5 89 20 148/63 (91) 95 Intake and Output 02/08/19 02/09/19 18:59 06:59 Intake Total 875 ml Output Total 600 ml Balance 875 ml -600 ml Intake Oral 240 ml IV Total 635 ml Output Urine Total 600 ml Laboratory Tests Test 02/09/19 06:21 White Blood Count 6.3 K/UL (4.8-10.8) Red Blood Count 2.88 M/UL (4.20-5.40) L Hemoglobin 9.3 G/DL (12.0-16.0) L Hematocrit 27.9 % (37.0-47.0) L Mean Corpuscular Volume 97 FL (80-99) Mean Corpuscular Hemoglobin 32.5 PG (27.0-31.0) H Mean Corpuscular Hemoglobin Concent 33.6 G/DL (32.0-36.0) Red Cell Distribution Width 11.4 % (11.6-14.8) L Platelet Count 261 K/UL (150-450) Mean Platelet Volume 6.5 FL (6.5-10.1) Neutrophils (%) (Auto) 62.4 % (45.0-75.0) Lymphocytes (%) (Auto) 22.6 % (20.0-45.0) Monocytes (%) (Auto) 8.0 % (1.0-10.0) Eosinophils (%) (Auto) 5.8 % (0.0-3.0) H Basophils (%) (Auto) 1.2 % (0.0-2.0) Objective HEAD AND NECK: No JVD or carotid bruits. LUNGS: Clear. CARDIOVASCULAR: Regular S1 and S2 with no gallop or murmur. ABDOMEN: Soft. EXTREMITIES: No pitting edema. S/P left knee surgery Todd Avalos MD February 09, 2019 17:07
--- NOTE | 2019-02-09 18:50 | Neurology Progress Note ---
Interim History Interim History Interim History Ms. Whittington feels better today. She worked with the PT today. She however was unable to weight-bear on her legs. She complains of severe right knee pain. The mind is not clear. She has not noted any change in her strength. She denies any new neurologic symptoms. She is still not very cooperative. Review of Systems Neuro Review of Systems Benign. Objective Physical Exam Last Vital Signs Date Time Temp Pulse Resp B/P (MAP) Pulse Ox O2 Delivery O2 Flow Rate FiO2 02/09/19 16:00 98.2 76 18 129/62 (84) 96 02/09/19 09:00 Nasal Cannula 3.0 02/09/19 08:53 28 Laboratory Tests Test 02/09/19 06:21 White Blood Count 6.3 K/UL (4.8-10.8) Red Blood Count 2.88 M/UL (4.20-5.40) L Hemoglobin 9.3 G/DL (12.0-16.0) L Hematocrit 27.9 % (37.0-47.0) L Mean Corpuscular Volume 97 FL (80-99) Mean Corpuscular Hemoglobin 32.5 PG (27.0-31.0) H Mean Corpuscular Hemoglobin Concent 33.6 G/DL (32.0-36.0) Red Cell Distribution Width 11.4 % (11.6-14.8) L Platelet Count 261 K/UL (150-450) Mean Platelet Volume 6.5 FL (6.5-10.1) Neutrophils (%) (Auto) 62.4 % (45.0-75.0) Lymphocytes (%) (Auto) 22.6 % (20.0-45.0) Monocytes (%) (Auto) 8.0 % (1.0-10.0) Eosinophils (%) (Auto) 5.8 % (0.0-3.0) H Basophils (%) (Auto) 1.2 % (0.0-2.0) Neurologic Exam Objective PHYSICAL EXAMINATION: GENERAL: She is a well-developed, well-nourished but lean black lady, lying in bed, in no acute distress. HEAD: Normocephalic and atraumatic. NECK: No neck rigidity was observed. EENT: Benign. EXTREMITIES: Right knee was in a knee immobilizer and could not be tested. NEUROLOGICAL EXAMINATION: MENTAL STATUS EXAMINATION: She was awake but not completely alert. Her cerebration was slow. She was oriented to person, place, and time except for the exact date and month. She was unable to cooperate for further mental status tests. SPEECH: She had a mild dysarthria, but it should be noted that numerous teeth were missing. LANGUAGE: She had no aphasia. CRANIAL NERVE EXAMINATION: II: The visual kearney were intact on confrontation testing. III, IV, : The external ocular movements were full, and the pupils 3 mm in diameter, equal, round, regular, and reactive to light. V: She had normal facial sensations, and the temporales, masseters, and pterygoids functioned normally. VII: She had a trace right 7th central facial paresis. VIII: She was able to hear well bilaterally and had no nystagmus. IX: The palate moved symmetrically on phonation. X: She had no hoarseness of voice. XI: The sternocleidomastoids and trapezii functioned normally. XII: The tongue was in the midline, without any fasciculations or atrophy. MOTOR SYSTEM: The tone was normal in all 4 extremities. Examination of muscle mass revealed no focal wasting. Examination of power revealed G 5/5 power, except for G 5-/5 power in the right finger extensors. The right lower extremity could not be tested adequately because it was in a knee immobilizer and she was giving a poor effort at the level of the hip. SENSORY EXAMINATION: She had intact sensations to pinprick, light touch, and graphesthesia. COORDINATION: She performed well on [id number] testing. She was unable to perform [id number] testing. REFLEXES: 2+ and bilaterally symmetrical at the biceps, triceps, brachioradialis. 1+ at the left knee the right knee could not be tested. 0 at both ankles. The plantar responses were flexor bilaterally. STANCE & GAIT: Could not be tested. Impression/Recommendations Diagnostic Impression 1. Ms Alyssa Whittington is a 68-year-old, right-handed, black lady, who does have a past history of hypertension, dyslipidemia, coronary artery disease, congestive heart failure, chronic obstructive pulmonary disease, cerebrovascular disease with a prior stroke associated with right-sided weakness , parainfluenza and influenza at the end of 2014, episodic loss of consciousness , a cocaine related seizure, and significant C-spine disease. 2. On 02-05-2019 she apparently tripped and fell down and fractured her right patella. She had surgery for the problem on 02/07/19. 3. She feels better today. She worked with the PT today. She however was unable to weight-bear on her legs. She complains of severe right knee pain. The mind is not clear. She has not noted any change in her strength. She denies any new neurologic symptoms. She is still not very cooperative. 4. On neurological examination at this time she does have slowing of cerebration , problems with recent and remote memory, a mild dysarthria, a mild right hemiparesis involving the face, upper and lower extremities. The right knee is in an immobilizer and swollen. 5. The patient's history and neurological examination are most consistent with recent fall resulting in the right patella fracture which has been surgically treated. She is in less pain but still not very cooperative. Recommendations 1. Continue present management. 2. Mobilize rapidly. 3. Observe. DANNIELLE GAYLE M.D., M.S.P.H. Dannielle Gayle MD February 09, 2019 18:50
--- NOTE | 2019-02-09 19:19 | NUR ---
HAND-OFF: Report given to NAM cramer.
--- NOTE | 2019-02-09 20:21 | NUR ---
NURSE NOTES: Patient in bed, awake, verbally responsive. No s/s respiratory distress noted. IV in place, running fluids. Bed in the lowest position, call light within reach, alarm on. Right knee dressing dry and intact. Will continue to monitor.
[2019-02-09 20:27] VITALS: BP 129/59
--- NOTE | 2019-02-09 21:41 | General Progress Note ---
Assessment/Plan Assessment/Plan: patellar fracture polysubstance abuse ho hypersensitivy pneumonitis COPD ho seizure disorder cervical spondylsis with known cord compression severe central canastenosis of cervical spine ho diabetes ho chf with diastolic dysfuction post op stress test noted pain control per pain managment montiro accucheks dvt and ulcer prohylaxis will need snf Subjective Allergies: Uncoded Allergies: electrodes (Allergy, Mild, Itching, 10/10/17) skin redness and itching Subjective pain controlled post op no chest pain or sob Objective Last 24 Hour Vital Signs Date Time Temp Pulse Resp B/P (MAP) Pulse Ox O2 Delivery O2 Flow Rate FiO2 02/09/19 21:00 90 20 96 Nasal Cannula 2.0 28 02/09/19 20:58 91 20 97 Nasal Cannula 2.0 28 02/09/19 20:58 97 Nasal Cannula 2.0 28 02/09/19 20:58 Nasal Cannula 2.0 28 02/09/19 20:57 91 20 Nasal Cannula 2.0 02/09/19 20:27 99.2 73 18 129/59 (82) 98 02/09/19 16:00 98.2 76 18 129/62 (84) 96 02/09/19 12:00 98.5 81 20 131/78 (95) 97 02/09/19 09:00 Nasal Cannula 3.0 02/09/19 08:53 94 Nasal Cannula 2.0 02/09/19 08:53 74 18 Nasal Cannula 2.0 02/09/19 08:52 Nasal Cannula 2.0 02/09/19 08:51 74 18 94 Nasal Cannula 2.0 02/09/19 08:51 84 18 94 Nasal Cannula 2.0 28 02/09/19 08:50 75 18 94 Nasal Cannula 2.0 28 02/09/19 08:50 74 18 94 Nasal Cannula 2.0 28 02/09/19 08:17 129/59 02/09/19 08:17 72 129/59 02/09/19 08:00 97.8 72 18 129/59 (82) 99 02/09/19 04:00 98.8 76 18 142/73 (96) 98 02/09/19 00:00 100.1 83 20 150/76 (100) 98 Intake and Output 02/08/19 02/09/19 19:00 07:00 Intake Total 875 ml Output Total 600 ml Balance 875 ml -600 ml Intake Oral 240 ml IV Total 635 ml Output Urine Total 600 ml Laboratory Tests 02/09/19 06:21: White Blood Count 6.3, Red Blood Count 2.88L, Hemoglobin 9.3L, Hematocrit 27.9L , Mean Corpuscular Volume 97, Mean Corpuscular Hemoglobin 32.5H, Mean Corpuscular Hemoglobin Concent 33.6, Red Cell Distribution Width 11.4L, Platelet Count 261, Mean Platelet Volume 6.5, Neutrophils (%) (Auto) 62.4, Lymphocytes (%) (Auto) 22.6, Monocytes (%) (Auto) 8.0, Eosinophils (%) (Auto) 5.8H, Basophils (%) (Auto) 1.2 Height (Feet): 5 Height (Inches): 5.00 Weight (Pounds): 110 General Appearance: WD/WN, no apparent distress Neck: supple Cardiovascular: normal rate Respiratory/Chest: lungs clear Abdomen: soft Objective knee in brace neurovascular intact Ravindra Horner MD February 09, 2019 21:41
--- NOTE | 2019-02-09 23:55 | NUR ---
NURSE NOTES: Per patient, son took home her purse and dentures.
[2019-02-10] VITALS (7 sets, daily range): BP systolic 104–143; BP diastolic 59–72
[2019-02-10] MEDS: D5 1/2NS w/KCl 20mEq 1,000 ML IV SCH ×2 (02:59→16:01)
--- NOTE | 2019-02-10 06:17 | NUR ---
NURSE NOTES: Patient asleep, no distress, v/s stable.
[2019-02-10] MEDS: NovoLOG Insulin Flexpen SUBQ SCH ×4 (06:36→21:43)
--- NOTE | 2019-02-10 07:25 | NUR ---
HAND-OFF: Report given to AUBREE AREVALO RN.
[2019-02-10 07:28] LABS: BASOPHILS % (AUTO) 1.1 % (0.0-2.0); EOSINOPHILS % (AUTO) 11.8 % (0.0-3.0); HEMATOCRIT 29.3 % (37.0-47.0); HEMOGLOBIN 9.5 G/DL (12.0-16.0); LYMPHOCYTES % (AUTO) 25.1 % (20.0-45.0); MEAN CORPUSCULAR VOLUME 98 FL (80-99); MONOCYTES % (AUTO) 8.1 % (1.0-10.0); NEUTROPHILS % (AUTO) 53.8 % (45.0-75.0); PLATELET COUNT 283 K/UL (150-450); RED BLOOD COUNT 2.98 M/UL (4.20-5.40); RED CELL DISTRIBUTION WIDTH 11.6 % (11.6-14.8); WHITE BLOOD COUNT 5.8 K/UL (4.8-10.8)
--- NOTE | 2019-02-10 07:35 | NUR ---
NURSE NOTES: Received patient on bed, awake. IV site intact and patent. Knee bandage and imobilizer in place. Bed in low and locked position, call light in reach. No signs of pain or respiratory distress. Room board updated, will continue to monitor.
[2019-02-10 07:46] LABS: ALANINE AMINOTRANSFERASE 20 U/L (12-78); ALBUMIN 2.4 G/DL (3.4-5.0); ALBUMIN/GLOBULIN RATIO 0.6 (1.0-2.7); ALKALINE PHOSPHATASE 130 U/L (46-116); ANION GAP 2 mmol/L (5-15); ASPARTATE AMINO TRANSFERASE 20 U/L (15-37); BILIRUBIN,TOTAL 0.2 MG/DL (0.2-1.0); BLOOD UREA NITROGEN 5 mg/dL (7-18); CALCIUM 9.4 MG/DL (8.5-10.1); CARBON DIOXIDE 33 MMOL/L (21-32); CHLORIDE 103 MMOL/L (98-107); CREATININE 0.7 MG/DL (0.55-1.30); POTASSIUM 4.3 MMOL/L (3.5-5.1); SODIUM 138 MMOL/L (136-145)
[2019-02-10] MEDS: Irbesartan 150mg tablet ORAL SCH (08:28)
[2019-02-10] MEDS: Docusate 100mg cap ORAL SCH ×4 (08:28→17:20)
[2019-02-10] MEDS: Aspirin EC 81mg tab ORAL SCH (08:28)
[2019-02-10] MEDS: Enoxaparin 30mg Inj SUBQ SCH ×2 (08:29→21:42)
--- NOTE | 2019-02-10 08:30 | NUR ---
NURSE NOTES: patient refused scheduled colace dose. Risks versus benefits explained. Wasted medication and recorded in [facility].
[2019-02-10] MEDS: Morphine Sulfate 4mg/ml Inj (IV USE ONLY) IV PRN ×2 (08:42→17:14)
--- NOTE | 2019-02-10 09:04 | General Progress Note ---
Assessment/Plan Assessment/Plan: (1) Right knee pain (2) Right knee patella fracture s/p orif (3) Lumbar DDD/ Spondylosis (4) Opioid Dependency (5) Cocaine abuse (6) H/O CVA (7) Thalamic pain syndrome Patient to be continued on Morphine and Oxycodone. D/w Dr. Victoria and he concurred. Subjective Date patient seen: February 10, 2019 Time patient seen: 07:00 - am Allergies: Uncoded Allergies: electrodes (Allergy, Mild, Itching, 10/10/17) skin redness and itching Subjective Constitutional: Reports: weakness HEENT: Reports: no symptoms Cardiovascular: Reports: no symptoms Respiratory: Reports: no symptoms Gastrointestinal/Abdominal: Reports: no symptoms Neurologic/Psychiatric: Reports: no symptoms Endocrine: Reports: no symptoms Hematologic/Lymphatic: Reports: no symptoms Subjective Patient reports that she continues to c/o right knee pain is doing PT to the best of her abilities, the pain has been tolerated on the Morphine and Oxycodone. She has no new complaints at this time. Objective Last 24 Hour Vital Signs Date Time Temp Pulse Resp B/P (MAP) Pulse Ox O2 Delivery O2 Flow Rate FiO2 02/10/19 08:28 143/65 02/10/19 08:28 78 143/65 02/10/19 08:00 97.8 78 18 143/65 (91) 100 02/10/19 04:00 98.6 65 18 129/71 (90) 100 02/10/19 00:57 99.2 02/10/19 00:00 97.7 76 18 122/62 (82) 96 02/09/19 23:46 Nasal Cannula 3.0 02/09/19 22:03 99.2 02/09/19 21:00 90 20 96 Nasal Cannula 2.0 28 02/09/19 20:58 91 20 97 Nasal Cannula 2.0 28 02/09/19 20:58 97 Nasal Cannula 2.0 28 02/09/19 20:58 Nasal Cannula 2.0 28 02/09/19 20:57 91 20 Nasal Cannula 2.0 28 02/09/19 20:27 99.2 73 18 129/59 (82) 98 02/09/19 16:00 98.2 76 18 129/62 (84) 96 02/09/19 12:00 98.5 81 20 131/78 (95) 97 Intake and Output 02/09/19 02/10/19 19:00 07:00 Intake Total 1345 ml 525 ml Output Total 1400 ml Balance -55 ml 525 ml Intake Oral 860 ml IV Total 485 ml 525 ml Output Urine Total 1400 ml # Voids 2 Laboratory Tests 02/10/19 05:45: White Blood Count 5.8, Red Blood Count 2.98L, Hemoglobin 9.5L, Hematocrit 29.3L , Mean Corpuscular Volume 98, Mean Corpuscular Hemoglobin 32.0H, Mean Corpuscular Hemoglobin Concent 32.5, Red Cell Distribution Width 11.6, Platelet Count 283, Mean Platelet Volume 6.3L, Neutrophils (%) (Auto) 53.8, Lymphocytes ( %) (Auto) 25.1, Monocytes (%) (Auto) 8.1, Eosinophils (%) (Auto) 11.8H, Basophils (%) (Auto) 1.1, Sodium Level 138, Potassium Level 4.3, Chloride Level 103, Carbon Dioxide Level 33H, Anion Gap 2L, Blood Urea Nitrogen 5L, Creatinine 0.7, Estimat Glomerular Filtration Rate > 60, Glucose Level 165H, Calcium Level 9.4, Magnesium Level 1.8, Total Bilirubin 0.2, Aspartate Amino Transf (AST/SGOT ) 20, Alanine Aminotransferase (ALT/SGPT) 20, Alkaline Phosphatase 130H, Total Protein 6.5, Albumin 2.4L, Globulin 4.1, Albumin/Globulin Ratio 0.6L Height (Feet): 5 Height (Inches): 5.00 Weight (Pounds): 110 Objective General Appearance: no apparent distress, alert EENT: PERRL/EOMI, normal ENT inspection Neck: non-tender, normal alignment Cardiovascular: normal rate, regular rhythm Respiratory/Chest: decreased breath sounds Abdomen: non tender, soft Extremities: other - right knee bandages applied Edema: trace edema Neurologic: alert, oriented x 3 Skin: warm/dry Get Queen February 10, 2019 09:04
[2019-02-10] MEDS: Wixela 250/50 Inhaler - 60 dose INH SCH ×2 (09:10→19:45)
--- NOTE | 2019-02-10 09:52 | Pulmonology Progress Note ---
Assessment/Plan Assessment/Plan Alyssa Whittington is a 68 yo F with a history of tobacco, cocaine and marijuana use, chronic obstructive pulmonary disease, hypersensitivity pneumonitis, DM and Sz DO admitted now with an acute R patellar fracture s/p ORIF 02/07/19 PROBLEM LIST: 1. R patellar fracture S/P ORIF 02/07/19 2. GLF 3. COPD without evidence of exacerbation 4. H/O Hypersensitivity pneumonitis S/P therapy in the past 5. Borderline enlarged subcarinal LAD (1.7 cm) and R paratracheal LN (9mm), improved on f/u imaging 6. Extensive history of tobacco use. 7. History of marijuana and cocaine use. 8. CHF with mild DD 9. Diabetes. 10. Hypertension & Hyperlipidemia 11. Seizure DO 12. Gout. 13. Chronic neck and back pain/DDD/SS 14. Opiate dependence. 15. Chronic abdominal pain, GERD and h/o erosive gastritis/mark esophagitis 16. E coli UTI PLAN: Optimize pulmonary hygiene. Mobilize as tolerated. Continue Advair,Spiriva, Singulair & Roflumilast PRN DUOnebs IS F/U ortho recs DVT Px: Hep SQ Monitor volumes Aspiration precautions Continue Abx (CTx) for E coli UTI, F/U C&S Should have formal PFTs and a screening CT chest as an outpatient Continue to abstain from smoking Subjective ROS Limited/Unobtainable: No Interval Events: none Constitutional: Reports: no symptoms HEENT: Repors: no symptoms Respiratory: Reports: no symptoms Cardiovascular: Reports: no symptoms Gastrointestinal/Abdominal: Reports: no symptoms Musculoskeletal: Reports: pain Allergies: Uncoded Allergies: electrodes (Allergy, Mild, Itching, 10/10/17) skin redness and itching Subjective Breathing stable, no cough, no wheezing. Objective Last 24 Hour Vital Signs Date Time Temp Pulse Resp B/P (MAP) Pulse Ox O2 Delivery O2 Flow Rate FiO2 02/10/19 09:10 88 20 97 Nasal Cannula 2.0 02/10/19 09:10 96 Nasal Cannula 2.0 02/10/19 09:10 Nasal Cannula 2.0 28 02/10/19 09:10 90 20 96 Nasal Cannula 2.0 02/10/19 09:10 82 18 Nasal Cannula 2.0 28 02/10/19 08:28 143/65 02/10/19 08:28 78 143/65 02/10/19 08:00 97.8 78 18 143/65 (91) 100 02/10/19 04:00 98.6 65 18 129/71 (90) 100 02/10/19 00:57 99.2 02/10/19 00:00 97.7 76 18 122/62 (82) 96 02/09/19 23:46 Nasal Cannula 3.0 02/09/19 22:03 99.2 02/09/19 21:00 90 20 96 Nasal Cannula 2.0 28 02/09/19 20:58 91 20 97 Nasal Cannula 2.0 28 02/09/19 20:58 97 Nasal Cannula 2.0 28 02/09/19 20:58 Nasal Cannula 2.0 28 02/09/19 20:57 91 20 Nasal Cannula 2.0 28 02/09/19 20:27 99.2 73 18 129/59 (82) 98 02/09/19 16:00 98.2 76 18 129/62 (84) 96 02/09/19 12:00 98.5 81 20 131/78 (95) 97 Intake and Output 02/09/19 02/10/19 19:00 07:00 Intake Total 1345 ml 525 ml Output Total 1400 ml Balance -55 ml 525 ml Intake Oral 860 ml IV Total 485 ml 525 ml Output Urine Total 1400 ml # Voids 2 General Appearance: no acute distress HEENT: atraumatic Respiratory/Chest: lungs clear Cardiovascular: normal rate Abdomen: soft, non tender Extremities: no edema Laboratory Tests 02/10/19 05:45: White Blood Count 5.8, Red Blood Count 2.98L, Hemoglobin 9.5L, Hematocrit 29.3L , Mean Corpuscular Volume 98, Mean Corpuscular Hemoglobin 32.0H, Mean Corpuscular Hemoglobin Concent 32.5, Red Cell Distribution Width 11.6, Platelet Count 283, Mean Platelet Volume 6.3L, Neutrophils (%) (Auto) 53.8, Lymphocytes ( %) (Auto) 25.1, Monocytes (%) (Auto) 8.1, Eosinophils (%) (Auto) 11.8H, Basophils (%) (Auto) 1.1, Sodium Level 138, Potassium Level 4.3, Chloride Level 103, Carbon Dioxide Level 33H, Anion Gap 2L, Blood Urea Nitrogen 5L, Creatinine 0.7, Estimat Glomerular Filtration Rate > 60, Glucose Level 165H, Calcium Level 9.4, Magnesium Level 1.8, Total Bilirubin 0.2, Aspartate Amino Transf (AST/SGOT ) 20, Alanine Aminotransferase (ALT/SGPT) 20, Alkaline Phosphatase 130H, Total Protein 6.5, Albumin 2.4L, Globulin 4.1, Albumin/Globulin Ratio 0.6L Current Medications Medications (Trade) Dose Ordered Sig/Sarahi Route PRN Reason Start Time Stop Time Status Last Admin Dose Admin Acetaminophen (Tylenol) 650 mg Q4H PRN ORAL temp>100.2 or headache 02/07/19 14:45 03/09/19 14:44 02/10/19 00:27 Albuterol Sulfate (Proventil) 2.5 mg Q8H PRN HHN Shortness of Breath 02/05/19 16:15 02/10/19 16:14 Amlodipine Besylate (Norvasc) 5 mg DAILY ORAL 02/06/19 09:00 03/08/19 08:59 02/10/19 08:28 Aspirin (Ecotrin) 81 mg DAILY ORAL 02/06/19 09:00 03/08/19 08:59 02/10/19 08:28 Ceftriaxone Sodium 1 gm/ Dextrose 55 ml @ 110 mls/hr Q24H IVPB 02/07/19 10:00 02/14/19 09:59 02/09/19 10:39 Dextrose (Dextrose 50%) 25 ml Q30M PRN IV Hypoglycemia 02/05/19 16:30 03/07/19 16:29 Dextrose (Dextrose 50%) 50 ml Q30M PRN IV Hypoglycemia 02/05/19 16:30 03/07/19 16:29 Dextrose/ Electrolytes 1,000 ml @ 75 mls/hr [id number] IV 02/07/19 21:00 03/09/19 20:59 02/10/19 02:59 Docusate Sodium (Colace) 100 mg THREE TIMES A DAY ORAL 02/07/19 18:00 03/09/19 17:59 02/09/19 17:09 Enoxaparin Sodium (Lovenox) 30 mg EVERY 12 HOURS SUBQ 02/07/19 21:00 02/21/19 20:59 02/10/19 08:29 Escitalopram Oxalate (Lexapro) 10 mg DAILY ORAL 02/06/19 09:00 03/08/19 08:59 02/10/19 08:28 Ferrous Sulfate (Feosol) 325 mg THREE TIMES A DAY ORAL 02/07/19 21:00 03/09/19 20:59 02/10/19 08:28 Guaifenesin (Robitussin) 200 mg Q4H PRN ORAL For Cough 02/05/19 16:15 03/07/19 16:14 Insulin Aspart (NovoLOG) BEFORE MEALS AND HS SUBQ 02/05/19 21:00 03/07/19 20:59 02/10/19 06:36 Irbesartan (Avapro) 150 mg DAILY ORAL 02/06/19 09:00 03/08/19 08:59 02/10/19 08:28 Levetiracetam (Keppra) 500 mg EVERY 12 HOURS ORAL 02/05/19 21:00 03/07/19 20:59 02/10/19 08:28 Magnesium Hydroxide (Mom) 30 ml DAILYPRN PRN ORAL Constipation 02/07/19 14:45 03/09/19 14:44 Meclizine HCl (Antivert) 25 mg Q8H PRN ORAL for dizziness 02/05/19 16:15 03/07/19 16:14 Montelukast Sodium (Singulair) 10 mg QPM ORAL 02/07/19 16:30 03/09/19 16:29 02/09/19 16:18 Morphine Sulfate (Morphine Sulfate) 4 mg Q4H PRN IV Severe Pain (Pain Scale 7-10) 02/05/19 16:15 02/12/19 16:14 02/10/19 08:42 Ondansetron HCl (Zofran) 4 mg Q4H PRN IV Nausea & Vomiting 02/05/19 16:15 03/07/19 16:14 02/07/19 02:32 Oxycodone HCl (Roxicodone) 30 mg Q6H PRN ORAL Moderate Pain (Pain Scale 4-6) 02/05/19 16:15 02/12/19 16:14 02/09/19 10:59 Pravastatin Sodium (Pravachol) 40 mg BEDTIME ORAL 02/05/19 21:00 03/07/19 20:59 02/09/19 21:30 Promethazine HCl/ Codeine (Phenergan with Codeine) 5 ml Q4H PRN ORAL For Cough 02/06/19 14:15 03/08/19 14:14 Salmeterol Xinafoate/ Fluticasone (Advair 250/50 Diskus) 1 puffs BID INH 02/06/19 18:00 03/08/19 17:59 02/10/19 09:10 Tiotropium Cameron (Spiriva Inhaler) 1 puff DAILY INH 02/06/19 09:00 03/08/19 08:59 02/10/19 09:10 Jose Alfredo Wang MD February 10, 2019 09:52
[2019-02-10] MEDS: cefTRIAXone 1 GM in D5W 55 ML IVPB SCH (10:49)
[2019-02-10] MEDS: oxyCODONE 15mg IR tab ORAL PRN ×2 (12:49→19:46)
--- NOTE | 2019-02-10 13:09 | Cardiac Electrophysiology PN ---
Assessment/Plan Assessment/Plan 1. Hypertension. Continue amlodipine 5 mg daily and Avapro 150 mg daily. 2. Insulin-dependent diabetes. 3. Status post fall and patella fracture. S/P ORIF. Echocardiogram EF 75% and nuclear stress test showed no ischemia or scar. Tolerated surgery well. 4. Polysubstance abuse 5. Chronic obstructive pulmonary disease. On Spiriva. 6. Depression. On Lexapro. DW RN Subjective Subjective No CP or SOB. Objective Last 24 Hour Vital Signs Date Time Temp Pulse Resp B/P (MAP) Pulse Ox O2 Delivery O2 Flow Rate FiO2 02/10/19 11:59 98.2 82 18 138/68 (91) 100 02/10/19 09:10 76 18 96 Nasal Cannula 2.0 28 02/10/19 09:10 88 20 97 Nasal Cannula 2.0 28 02/10/19 09:10 96 Nasal Cannula 2.0 28 02/10/19 09:10 76 18 96 Nasal Cannula 2.0 28 02/10/19 09:10 Nasal Cannula 2.0 28 02/10/19 09:10 90 20 96 Nasal Cannula 2.0 28 02/10/19 09:10 82 18 Nasal Cannula 2.0 28 02/10/19 09:00 Nasal Cannula 3.0 02/10/19 08:28 143/65 02/10/19 08:28 78 143/65 02/10/19 08:00 97.8 78 18 143/65 (91) 100 02/10/19 04:00 98.6 65 18 129/71 (90) 100 02/10/19 00:57 99.2 02/10/19 00:00 97.7 76 18 122/62 (82) 96 02/09/19 23:46 Nasal Cannula 3.0 02/09/19 22:03 99.2 02/09/19 21:00 90 20 96 Nasal Cannula 2.0 28 02/09/19 20:58 91 20 97 Nasal Cannula 2.0 28 02/09/19 20:58 97 Nasal Cannula 2.0 28 02/09/19 20:58 Nasal Cannula 2.0 28 02/09/19 20:57 91 20 Nasal Cannula 2.0 28 02/09/19 20:27 99.2 73 18 129/59 (82) 98 02/09/19 16:00 98.2 76 18 129/62 (84) 96 Intake and Output 02/09/19 02/10/19 19:00 07:00 Intake Total 1345 ml 525 ml Output Total 1400 ml Balance -55 ml 525 ml Intake Oral 860 ml IV Total 485 ml 525 ml Output Urine Total 1400 ml # Voids 2 Laboratory Tests Test 02/10/19 05:45 White Blood Count 5.8 K/UL (4.8-10.8) Red Blood Count 2.98 M/UL (4.20-5.40) L Hemoglobin 9.5 G/DL (12.0-16.0) L Hematocrit 29.3 % (37.0-47.0) L Mean Corpuscular Volume 98 FL (80-99) Mean Corpuscular Hemoglobin 32.0 PG (27.0-31.0) H Mean Corpuscular Hemoglobin Concent 32.5 G/DL (32.0-36.0) Red Cell Distribution Width 11.6 % (11.6-14.8) Platelet Count 283 K/UL (150-450) Mean Platelet Volume 6.3 FL (6.5-10.1) L Neutrophils (%) (Auto) 53.8 % (45.0-75.0) Lymphocytes (%) (Auto) 25.1 % (20.0-45.0) Monocytes (%) (Auto) 8.1 % (1.0-10.0) Eosinophils (%) (Auto) 11.8 % (0.0-3.0) H Basophils (%) (Auto) 1.1 % (0.0-2.0) Sodium Level 138 MMOL/L (136-145) Potassium Level 4.3 MMOL/L (3.5-5.1) Chloride Level 103 MMOL/L (98-107) Carbon Dioxide Level 33 MMOL/L (21-32) H Anion Gap 2 mmol/L (5-15) L Blood Urea Nitrogen 5 mg/dL (7-18) L Creatinine 0.7 MG/DL (0.55-1.30) Estimat Glomerular Filtration Rate > 60 mL/min (>60) Glucose Level 165 MG/DL (74-106) H Calcium Level 9.4 MG/DL (8.5-10.1) Magnesium Level 1.8 MG/DL (1.8-2.4) Total Bilirubin 0.2 MG/DL (0.2-1.0) Aspartate Amino Transf (AST/SGOT) 20 U/L (15-37) Alanine Aminotransferase (ALT/SGPT) 20 U/L (12-78) Alkaline Phosphatase 130 U/L (46-116) H Total Protein 6.5 G/DL (6.4-8.2) Albumin 2.4 G/DL (3.4-5.0) L Globulin 4.1 g/dL Albumin/Globulin Ratio 0.6 (1.0-2.7) L Objective HEAD AND NECK: No JVD or carotid bruits. LUNGS: Clear. CARDIOVASCULAR: Regular S1 and S2 with no gallop or murmur. ABDOMEN: Soft. EXTREMITIES: No pitting edema. S/P left knee surgery Todd Avalos MD February 10, 2019 13:09
--- NOTE | 2019-02-10 14:34 | NUR ---
RD ASSESSMENT & RECOMMENDATIONS SEE CARE ACTIVITY FOR COMPLETE ASSESSMENT DAILY ESTIMATED NEEDS: Needs based on DM, Underweight, surgery (Actual 46kg) 30-35 kcals/kg 5625-6269 total kcals 1-2 g protein/kg 46-92 g total protein 25-30 mL/kg 2191-2096 total fluid mLs NUTRITION DIAGNOSIS: 1) Increased kcal and protein needs r/t underweight status and surgery as evidenced by BMI 16.9, @ 81% IBW, s/p R-knee ORIF s/p fall. CURRENT DIET:CCHO MED PO DIET RECOMMENDATIONS: CCHO LOW + DOUBLE PROTEINS + Glucerna BID ADDITIONAL RECOMMENDATIONS: 1) Glucerna 1 can BID 2) Updated HgbA1c 3) Calibrated bed scale or standing scale for wt assessment 4) Check lytes daily, replete as needed 5) Consider DC added D5 for improved BG
--- NOTE | 2019-02-10 15:26 | Neurology Progress Note ---
Interim History Interim History Interim History Ms. Whittington feels better. The right knee is less painful at rest. She however is still needing pain medicine regularly. She worked with the PT today. She however was unable to weight-bear on her legs. The mind is not clear. She has not noted any change in her strength. She denies any new neurologic symptoms. Review of Systems Neuro Review of Systems Benign. Objective Physical Exam Last Vital Signs Date Time Temp Pulse Resp B/P (MAP) Pulse Ox O2 Delivery O2 Flow Rate FiO2 02/10/19 11:59 98.2 82 18 138/68 (91) 100 02/10/19 09:10 Nasal Cannula 2.0 28 Laboratory Tests Test 02/10/19 05:45 White Blood Count 5.8 K/UL (4.8-10.8) Red Blood Count 2.98 M/UL (4.20-5.40) L Hemoglobin 9.5 G/DL (12.0-16.0) L Hematocrit 29.3 % (37.0-47.0) L Mean Corpuscular Volume 98 FL (80-99) Mean Corpuscular Hemoglobin 32.0 PG (27.0-31.0) H Mean Corpuscular Hemoglobin Concent 32.5 G/DL (32.0-36.0) Red Cell Distribution Width 11.6 % (11.6-14.8) Platelet Count 283 K/UL (150-450) Mean Platelet Volume 6.3 FL (6.5-10.1) L Neutrophils (%) (Auto) 53.8 % (45.0-75.0) Lymphocytes (%) (Auto) 25.1 % (20.0-45.0) Monocytes (%) (Auto) 8.1 % (1.0-10.0) Eosinophils (%) (Auto) 11.8 % (0.0-3.0) H Basophils (%) (Auto) 1.1 % (0.0-2.0) Sodium Level 138 MMOL/L (136-145) Potassium Level 4.3 MMOL/L (3.5-5.1) Chloride Level 103 MMOL/L (98-107) Carbon Dioxide Level 33 MMOL/L (21-32) H Anion Gap 2 mmol/L (5-15) L Blood Urea Nitrogen 5 mg/dL (7-18) L Creatinine 0.7 MG/DL (0.55-1.30) Estimat Glomerular Filtration Rate > 60 mL/min (>60) Glucose Level 165 MG/DL (74-106) H Calcium Level 9.4 MG/DL (8.5-10.1) Magnesium Level 1.8 MG/DL (1.8-2.4) Total Bilirubin 0.2 MG/DL (0.2-1.0) Aspartate Amino Transf (AST/SGOT) 20 U/L (15-37) Alanine Aminotransferase (ALT/SGPT) 20 U/L (12-78) Alkaline Phosphatase 130 U/L (46-116) H Total Protein 6.5 G/DL (6.4-8.2) Albumin 2.4 G/DL (3.4-5.0) L Globulin 4.1 g/dL Albumin/Globulin Ratio 0.6 (1.0-2.7) L Neurologic Exam Objective PHYSICAL EXAMINATION: GENERAL: She is a well-developed, well-nourished but lean black lady, lying in bed, in no acute distress. HEAD: Normocephalic and atraumatic. NECK: No neck rigidity was observed. EENT: Benign. EXTREMITIES: Right knee was in a knee immobilizer and could not be tested. NEUROLOGICAL EXAMINATION: MENTAL STATUS EXAMINATION: She was awake but not completely alert. Her cerebration was slow. She was oriented to person, place, and time except for the exact date. She was unable to cooperate for further mental status tests. SPEECH: She had a mild dysarthria, but it should be noted that numerous teeth were missing. LANGUAGE: She had no aphasia. CRANIAL NERVE EXAMINATION: II: The visual kearney were intact on confrontation testing. III, IV, : The external ocular movements were full, and the pupils 3 mm in diameter, equal, round, regular, and reactive to light. V: She had normal facial sensations, and the temporales, masseters, and pterygoids functioned normally. VII: She had a trace right 7th central facial paresis. VIII: She was able to hear well bilaterally and had no nystagmus. IX: The palate moved symmetrically on phonation. X: She had no hoarseness of voice. XI: The sternocleidomastoids and trapezii functioned normally. XII: The tongue was in the midline, without any fasciculations or atrophy. MOTOR SYSTEM: The tone was normal in all 4 extremities. Examination of muscle mass revealed no focal wasting. Examination of power revealed G 5/5 power, except for G 5-/5 power in the right finger extensors. The right lower extremity could not be tested adequately because it was in a knee immobilizer and she was giving a poor effort at the level of the hip. SENSORY EXAMINATION: She had intact sensations to pinprick, light touch, and graphesthesia. COORDINATION: She performed well on [id number] testing. She was unable to perform [id number] testing. REFLEXES: 2+ and bilaterally symmetrical at the biceps, triceps, brachioradialis. 1+ at the left knee the right knee could not be tested. 0 at both ankles. The plantar responses were flexor bilaterally. STANCE & GAIT: Could not be tested. Impression/Recommendations Diagnostic Impression 1. Ms Alyssa Whittington is a 68-year-old, right-handed, black lady, who does have a past history of hypertension, dyslipidemia, coronary artery disease, congestive heart failure, chronic obstructive pulmonary disease, cerebrovascular disease with a prior stroke associated with right-sided weakness , parainfluenza and influenza at the end of 2014, episodic loss of consciousness , a cocaine related seizure, and significant C-spine disease. 2. On 02-05-2019 she apparently tripped and fell down and fractured her right patella. She had surgery for the problem on 02/07/19. 3. She feels better. The right knee is less painful at rest. She however is still needing pain medicine regularly. She worked with the PT today. She however was unable to weight-bear on her legs. The mind is not clear. She has not noted any change in her strength. She denies any new neurologic symptoms. 4. On neurological examination at this time she does have slowing of cerebration , problems with recent and remote memory, a mild dysarthria, a mild right hemiparesis involving the face, upper and lower extremities. The right knee is in an immobilizer and swollen. 5. The patient's history and neurological examination are most consistent with recent fall resulting in the right patella fracture which has been surgically treated. She is in less pain, but still poorly functional. Recommendations 1. Continue present management. 2. Mobilize rapidly. 3. Observe. DANNIELLE GAYLE M.D., M.S.P.H. Dannielle Gayle MD February 10, 2019 15:26
[2019-02-10] MEDS: Montelukast 10mg tablet ORAL SCH (16:30)
--- NOTE | 2019-02-10 16:35 | NUR ---
TRANSPORTATION PLANNING ENGINEER NOTES SPOKE WITH BHARAT FROM [facility], NO BEDS TODAY, HOWEVER A BED WILL BE AVAILABLE ON WEDNESDAY. [facility] TO FOLLOW UP ON WEDNESDAY WITH BED ASSIGNMENT. [facility] [phone]
--- NOTE | 2019-02-10 17:28 | NUR ---
PT NOTE: Pt refused to participate in afternoon treatment session. States feeling improvements to R knee post therapeutic activities from morning session. States not wanting to perform therapeutic exercises due to feeling fatigued and about to eat her dinner and would prefer to do PT tomorrow. Notified nurse of pt status and left nurse call light within easy reach. Will attempt PT treatment session tomorrow.
--- NOTE | 2019-02-10 17:30 | NUR ---
NURSE NOTES: patient refused physical therapy. Risks versus benefits explained.
--- NOTE | 2019-02-10 19:19 | NUR ---
HAND-OFF: Report given to NAM Selby.
--- NOTE | 2019-02-10 19:25 | NUR ---
NURSE NOTES: Patient in bed, awake, verbally responsive. No s/s respiratory distress noted. Bed in the lowest position, call light within reach, alarm on. Right knee dressing dry and intact. Will continue to monitor.
--- NOTE | 2019-02-10 23:24 | General Progress Note ---
Assessment/Plan Assessment/Plan: patellar fracture polysubstance abuse ho hypersensitivy pneumonitis COPD ho seizure disorder cervical spondylsis with known cord compression severe central canastenosis of cervical spine ho diabetes ho chf with diastolic dysfuction post op stress test noted pain control per pain managment montiro accucheks dvt and ulcer prohylaxis will need snf dw casemanager to arrange Subjective Allergies: Uncoded Allergies: electrodes (Allergy, Mild, Itching, 10/10/17) skin redness and itching Subjective no chest pain or sob pain controlled Objective Last 24 Hour Vital Signs Date Time Temp Pulse Resp B/P (MAP) Pulse Ox O2 Delivery O2 Flow Rate FiO2 02/10/19 20:00 98.5 92 18 104/59 (74) 94 02/10/19 19:53 83 18 95 Nasal Cannula 2.0 28 02/10/19 19:52 95 Nasal Cannula 2.0 28 02/10/19 19:52 Nasal Cannula 2.0 28 02/10/19 19:52 83 18 95 Nasal Cannula 2.0 28 02/10/19 19:51 83 18 Nasal Cannula 2.0 28 02/10/19 16:00 99.0 102 18 129/72 (91) 100 02/10/19 11:59 98.2 82 18 138/68 (91) 100 02/10/19 09:10 76 18 96 Nasal Cannula 2.0 28 02/10/19 09:10 88 20 97 Nasal Cannula 2.0 28 02/10/19 09:10 96 Nasal Cannula 2.0 28 02/10/19 09:10 76 18 96 Nasal Cannula 2.0 28 02/10/19 09:10 Nasal Cannula 2.0 28 02/10/19 09:10 90 20 96 Nasal Cannula 2.0 28 02/10/19 09:10 82 18 Nasal Cannula 2.0 28 02/10/19 09:00 Nasal Cannula 3.0 02/10/19 08:28 143/65 02/10/19 08:28 78 143/65 02/10/19 08:00 97.8 78 18 143/65 (91) 100 02/10/19 04:00 98.6 65 18 129/71 (90) 100 02/10/19 00:57 99.2 02/10/19 00:00 97.7 76 18 122/62 (82) 96 02/09/19 23:46 Nasal Cannula 3.0 Intake and Output 02/09/19 02/10/19 18:59 06:59 Intake Total 1345 ml 525 ml Output Total 1400 ml Balance -55 ml 525 ml Intake Oral 860 ml IV Total 485 ml 525 ml Output Urine Total 1400 ml # Voids 2 Laboratory Tests 02/10/19 05:45: White Blood Count 5.8, Red Blood Count 2.98L, Hemoglobin 9.5L, Hematocrit 29.3L , Mean Corpuscular Volume 98, Mean Corpuscular Hemoglobin 32.0H, Mean Corpuscular Hemoglobin Concent 32.5, Red Cell Distribution Width 11.6, Platelet Count 283, Mean Platelet Volume 6.3L, Neutrophils (%) (Auto) 53.8, Lymphocytes ( %) (Auto) 25.1, Monocytes (%) (Auto) 8.1, Eosinophils (%) (Auto) 11.8H, Basophils (%) (Auto) 1.1, Sodium Level 138, Potassium Level 4.3, Chloride Level 103, Carbon Dioxide Level 33H, Anion Gap 2L, Blood Urea Nitrogen 5L, Creatinine 0.7, Estimat Glomerular Filtration Rate > 60, Glucose Level 165H, Calcium Level 9.4, Magnesium Level 1.8, Total Bilirubin 0.2, Aspartate Amino Transf (AST/SGOT ) 20, Alanine Aminotransferase (ALT/SGPT) 20, Alkaline Phosphatase 130H, Total Protein 6.5, Albumin 2.4L, Globulin 4.1, Albumin/Globulin Ratio 0.6L Height (Feet): 5 Height (Inches): 5.00 Weight (Pounds): 110 General Appearance: WD/WN, no apparent distress Neck: supple Cardiovascular: normal rate Respiratory/Chest: lungs clear Abdomen: soft Objective knee in brace neurovascular intact Ravindra Horner MD February 10, 2019 23:24
[2019-02-11 00:30] VITALS: BP 104/48
[2019-02-11] MEDS: Morphine Sulfate 4mg/ml Inj (IV USE ONLY) IV PRN ×2 (03:01→13:12)
[2019-02-11 04:00] VITALS: BP 126/60
[2019-02-11] MEDS: D5 1/2NS w/KCl 20mEq 1,000 ML IV SCH ×3 (05:00→21:58)
--- NOTE | 2019-02-11 06:00 | NUR ---
NURSE NOTES: PATIENT ASLEEP, NO DISTRESS, V/S STABLE.
[2019-02-11] MEDS: NovoLOG Insulin Flexpen SUBQ SCH ×4 (06:35→21:54)
[2019-02-11 06:38] LABS: BASOPHILS % (AUTO) 0.7 % (0.0-2.0); HEMATOCRIT 28.6 % (37.0-47.0); HEMOGLOBIN 9.4 G/DL (12.0-16.0); LYMPHOCYTES % (AUTO) 28.8 % (20.0-45.0); MEAN CORPUSCULAR VOLUME 98 FL (80-99); MONOCYTES % (AUTO) 6.2 % (1.0-10.0); NEUTROPHILS % (AUTO) 47.3 % (45.0-75.0); PLATELET COUNT 289 K/UL (150-450); RED CELL DISTRIBUTION WIDTH 11.8 % (11.6-14.8); WHITE BLOOD COUNT 5.3 K/UL (4.8-10.8)
--- NOTE | 2019-02-11 07:07 | NUR ---
HAND-OFF: Report given to NITISH FLORES RN.
[2019-02-11 08:00] VITALS: BP 128/62
[2019-02-11] MEDS: Wixela 250/50 Inhaler - 60 dose INH SCH ×2 (08:41→18:55)
[2019-02-11] MEDS: Docusate 100mg cap ORAL SCH ×3 (09:00→16:58)
[2019-02-11] MEDS: Aspirin EC 81mg tab ORAL SCH (09:09)
[2019-02-11] MEDS: Irbesartan 150mg tablet ORAL SCH (09:09)
[2019-02-11] MEDS: Enoxaparin 30mg Inj SUBQ SCH ×2 (09:14→20:57)
[2019-02-11] MEDS: oxyCODONE 15mg IR tab ORAL PRN ×2 (09:18→16:57)
[2019-02-11] MEDS: cefTRIAXone 1 GM in D5W 55 ML IVPB SCH (09:18)
[2019-02-11 12:00] VITALS: BP 119/68
--- NOTE | 2019-02-11 13:39 | Neurology Progress Note ---
Interim History Interim History Interim History Ms. Whittington feels unwell. The right knee is much more painful even at rest. The pain medicine is not helping much. She has not worked with the PT today. She is still unable to weight-bear on her legs. The mind is not clear. She has not noted any change in her strength. She denies any new neurologic symptoms. Review of Systems Neuro Review of Systems Benign. Objective Physical Exam Last Vital Signs Date Time Temp Pulse Resp B/P (MAP) Pulse Ox O2 Delivery O2 Flow Rate FiO2 02/11/19 12:00 98.1 73 18 119/68 (85) 96 02/11/19 09:00 Room Air 02/11/19 08:39 21 02/11/19 07:15 2.0 Laboratory Tests Test 02/11/19 05:45 White Blood Count 5.3 K/UL (4.8-10.8) Red Blood Count 2.90 M/UL (4.20-5.40) L Hemoglobin 9.4 G/DL (12.0-16.0) L Hematocrit 28.6 % (37.0-47.0) L Mean Corpuscular Volume 98 FL (80-99) Mean Corpuscular Hemoglobin 32.4 PG (27.0-31.0) H Mean Corpuscular Hemoglobin Concent 32.9 G/DL (32.0-36.0) Red Cell Distribution Width 11.8 % (11.6-14.8) Platelet Count 289 K/UL (150-450) Mean Platelet Volume 6.7 FL (6.5-10.1) Neutrophils (%) (Auto) 47.3 % (45.0-75.0) Lymphocytes (%) (Auto) 28.8 % (20.0-45.0) Monocytes (%) (Auto) 6.2 % (1.0-10.0) Eosinophils (%) (Auto) 17.0 % (0.0-3.0) H Basophils (%) (Auto) 0.7 % (0.0-2.0) Neurologic Exam Objective PHYSICAL EXAMINATION: GENERAL: She is a well-developed, well-nourished but lean black lady, lying in bed, in no acute distress. HEAD: Normocephalic and atraumatic. NECK: No neck rigidity was observed. EENT: Benign. EXTREMITIES: Right knee was in a knee immobilizer and could not be tested. NEUROLOGICAL EXAMINATION: MENTAL STATUS EXAMINATION: She was awake but not completely alert. Her cerebration was slow. She was oriented to person, place, and time except for the exact date. She was unable to cooperate for further mental status tests. SPEECH: She had a mild dysarthria, but it should be noted that numerous teeth were missing. LANGUAGE: She had no aphasia. CRANIAL NERVE EXAMINATION: II: The visual kearney were intact on confrontation testing. III, IV, : The external ocular movements were full, and the pupils 3 mm in diameter, equal, round, regular, and reactive to light. V: She had normal facial sensations, and the temporales, masseters, and pterygoids functioned normally. VII: She had a trace right 7th central facial paresis. VIII: She was able to hear well bilaterally and had no nystagmus. IX: The palate moved symmetrically on phonation. X: She had no hoarseness of voice. XI: The sternocleidomastoids and trapezii functioned normally. XII: The tongue was in the midline, without any fasciculations or atrophy. MOTOR SYSTEM: The tone was normal in all 4 extremities. Examination of muscle mass revealed no focal wasting. Examination of power revealed G 5/5 power, except for G 5-/5 power in the right finger extensors. The right lower extremity could not be tested adequately because it was in a knee immobilizer and she was giving a poor effort at the level of the hip. SENSORY EXAMINATION: She had intact sensations to pinprick, light touch, and graphesthesia. COORDINATION: She performed well on [id number] testing. She was unable to perform [id number] testing. REFLEXES: 2+ and bilaterally symmetrical at the biceps, triceps, brachioradialis. 1+ at the left knee the right knee could not be tested. 0 at both ankles. The plantar responses were flexor bilaterally. STANCE & GAIT: Could not be tested. Impression/Recommendations Diagnostic Impression 1. Ms Alyssa Whittington is a 68-year-old, right-handed, black lady, who does have a past history of hypertension, dyslipidemia, coronary artery disease, congestive heart failure, chronic obstructive pulmonary disease, cerebrovascular disease with a prior stroke associated with right-sided weakness , parainfluenza and influenza at the end of 2014, episodic loss of consciousness , a cocaine related seizure, and significant C-spine disease. 2. On 02-05-2019 she apparently tripped and fell down and fractured her right patella. She had surgery for the problem on 02/07/19. 3. She feels unwell. The right knee is much more painful even at rest. The pain medicine is not helping much. She has not worked with the PT today. She is still unable to weight-bear on her legs. The mind is not clear. She has not noted any change in her strength. She denies any new neurologic symptoms. 4. On neurological examination at this time she does have slowing of cerebration , problems with recent and remote memory, a mild dysarthria, a mild right hemiparesis involving the face, upper and lower extremities. The right knee is in an immobilizer and swollen. 5. The patient's history and neurological examination are most consistent with recent fall resulting in the right patella fracture which has been surgically treated. She is in more pain, and still poorly functional. Recommendations 1. Continue present management. 2. Mobilize rapidly. 3. Observe. DANNIELLE GAYLE M.D., M.S.P.H. Dannielle Gayle MD February 11, 2019 13:39
--- NOTE | 2019-02-11 13:50 | NUR ---
NURSE NOTES: PT AXOX3, CRYING IN PAIN. RN ADMINISTERED PRN MORPHINE 4MG IVP ORDERED. PT SAYS "I NEED TO PEE!" PT'S EXTERNAL CATHETER PULLED OUT BY PT. RN ASKED PT IF SHE WOULD LIKE TO USE PUREWICK OR BEDPAN. PT STATES SHE WANTS PUREWICK. RN ADJUSTED PUREWICK ON PT AND PT CALMED DOWN. WILL CONTINUE TO MONITOR.
[2019-02-11 16:00] VITALS: BP 127/64
--- NOTE | 2019-02-11 16:00 | NUR ---
NURSE NOTES: GTUBE DRESSING CHANGED. NO S/S INFECTION NOTED.
--- NOTE | 2019-02-11 16:17 | Cardiac Electrophysiology PN ---
Assessment/Plan Assessment/Plan 1. Hypertension. Continue amlodipine 5 mg daily and Avapro 150 mg daily. Echocardiogram EF 75% Nuclear stress test showed no ischemia or scar. 2. Insulin-dependent diabetes. 3. Status post fall and patella fracture. S/P ORIF. Tolerated surgery well. 4. Polysubstance abuse 5. Chronic obstructive pulmonary disease. On Spiriva. 6. Depression. On Lexapro. DW RN Subjective Subjective No CP or SOB.On NMB. Alert in NAD Objective Last 24 Hour Vital Signs Date Time Temp Pulse Resp B/P (MAP) Pulse Ox O2 Delivery O2 Flow Rate FiO2 02/11/19 16:00 98.4 75 18 127/64 (85) 95 02/11/19 12:00 98.1 73 18 119/68 (85) 96 02/11/19 09:09 128/62 02/11/19 09:09 79 128/62 02/11/19 09:00 Room Air 02/11/19 08:39 79 18 97 Room Air 21 02/11/19 08:39 84 16 96 Room Air 21 02/11/19 08:30 81 18 96 Room Air 21 02/11/19 08:30 87 16 97 Room Air 21 02/11/19 08:00 99.1 82 18 128/62 (84) 98 02/11/19 07:15 88 16 Nasal Cannula 2.0 28 02/11/19 07:15 Nasal Cannula 2.0 28 02/11/19 07:15 96 Nasal Cannula 2.0 28 02/11/19 04:00 98.9 78 18 126/60 (82) 94 02/11/19 03:31 99.2 02/11/19 00:30 99.2 80 18 104/48 (66) 96 02/10/19 23:28 Nasal Cannula 3.0 02/10/19 20:00 98.5 92 18 104/59 (74) 94 02/10/19 19:53 83 18 95 Nasal Cannula 2.0 28 02/10/19 19:52 95 Nasal Cannula 2.0 28 02/10/19 19:52 Nasal Cannula 2.0 28 02/10/19 19:52 83 18 95 Nasal Cannula 2.0 28 02/10/19 19:51 83 18 Nasal Cannula 2.0 28 Intake and Output 02/10/19 02/11/19 19:00 07:00 Intake Total 1005 ml 825 ml Output Total 1000 ml Balance 5 ml 825 ml Intake Oral 480 ml IV Total 525 ml 825 ml Output Urine Total 1000 ml # Voids 3 Laboratory Tests Test 02/11/19 05:45 White Blood Count 5.3 K/UL (4.8-10.8) Red Blood Count 2.90 M/UL (4.20-5.40) L Hemoglobin 9.4 G/DL (12.0-16.0) L Hematocrit 28.6 % (37.0-47.0) L Mean Corpuscular Volume 98 FL (80-99) Mean Corpuscular Hemoglobin 32.4 PG (27.0-31.0) H Mean Corpuscular Hemoglobin Concent 32.9 G/DL (32.0-36.0) Red Cell Distribution Width 11.8 % (11.6-14.8) Platelet Count 289 K/UL (150-450) Mean Platelet Volume 6.7 FL (6.5-10.1) Neutrophils (%) (Auto) 47.3 % (45.0-75.0) Lymphocytes (%) (Auto) 28.8 % (20.0-45.0) Monocytes (%) (Auto) 6.2 % (1.0-10.0) Eosinophils (%) (Auto) 17.0 % (0.0-3.0) H Basophils (%) (Auto) 0.7 % (0.0-2.0) Objective HEAD AND NECK: No JVD or carotid bruits. LUNGS: Clear. CARDIOVASCULAR: Regular S1 and S2 with no gallop or murmur. ABDOMEN: Soft. EXTREMITIES: No pitting edema. S/P left knee surgery Todd Avalos MD February 11, 2019 16:17
--- NOTE | 2019-02-11 16:21 | NUR ---
PT Note Attempted to see patient this PM but was sound asleep, unable to be aroused. Will check again in AM.
--- NOTE | 2019-02-11 16:42 | NUR ---
NURSE NOTES: PT ABLE TO TURN WITH MINIMAL ASSIST. IN NO APPARENT DISTRESS AT THIS TIME. PT ABLE TO DEMONSTRATE HOW TO USE CALL LIGHT TO CALL FOR ASSIST. CALL LIGHT WITHIN REACH. BED ALARM ON. WILL CONTINUE TO MONITOR.
[2019-02-11] MEDS: Montelukast 10mg tablet ORAL SCH ×2 (17:01→17:04)
--- NOTE | 2019-02-11 19:13 | NUR ---
HAND-OFF: Report given to Nicanor HESTER RN.
[2019-02-11 20:00] VITALS: BP 132/58
--- NOTE | 2019-02-11 20:06 | NUR ---
NURSE NOTES: Patient in bed, awake, alert, verbally responsive. No s/s respiratory distress noted. No complaints of pain at this time. Bed in the lowest position, call light within reach, alarm on. Right knee dressing dry and intact. Will continue to monitor.
--- NOTE | 2019-02-11 20:44 | Pulmonology Progress Note ---
Assessment/Plan Assessment/Plan PROBLEM LIST: 1. R patellar fracture S/P ORIF 02/07/19 2. GLF 3. COPD without evidence of exacerbation 4. H/O Hypersensitivity pneumonitis S/P therapy in the past 5. Borderline enlarged subcarinal LAD (1.7 cm) and R paratracheal LN (9mm), improved on f/u imaging 6. Extensive history of tobacco use. 7. History of marijuana and cocaine use. 8. CHF with mild DD 9. Diabetes. 10. Hypertension & Hyperlipidemia 11. Seizure DO 12. Gout. 13. Chronic neck and back pain/DDD/SS 14. Opiate dependence. 15. Chronic abdominal pain, GERD and h/o erosive gastritis/mark esophagitis 16. E coli UTI PLAN: Optimize pulmonary hygiene. Mobilize as tolerated. Continue Advair,Spiriva, Singulair & Roflumilast PRN DUOnebs IS F/U ortho recs DVT Px: Hep SQ Monitor volumes Aspiration precautions Continue Abx (CTx) for E coli UTI, F/U C&S Should have formal PFTs and a screening CT chest as an outpatient Continue to abstain from smoking Subjective Constitutional: Reports: no symptoms HEENT: Repors: no symptoms Respiratory: Reports: productive cough, shortness of breath Cardiovascular: Reports: no symptoms Gastrointestinal/Abdominal: Reports: no symptoms Musculoskeletal: Reports: pain Allergies: Uncoded Allergies: electrodes (Allergy, Mild, Itching, 10/10/17) skin redness and itching Subjective stilliwth pain on o2 coughing at times some phlegm no bleeding no cp nv or fever Objective Last 24 Hour Vital Signs Date Time Temp Pulse Resp B/P (MAP) Pulse Ox O2 Delivery O2 Flow Rate FiO2 02/11/19 18:59 76 18 94 Room Air 21 02/11/19 18:55 75 18 94 Room Air 21 02/11/19 16:00 98.4 75 18 127/64 (85) 95 02/11/19 12:00 98.1 73 18 119/68 (85) 96 02/11/19 09:09 128/62 02/11/19 09:09 79 128/62 02/11/19 09:00 Room Air 02/11/19 08:39 79 18 97 Room Air 21 02/11/19 08:39 84 16 96 Room Air 21 02/11/19 08:30 81 18 96 Room Air 21 02/11/19 08:30 87 16 97 Room Air 21 02/11/19 08:00 99.1 82 18 128/62 (84) 98 02/11/19 07:15 88 16 Nasal Cannula 2.0 28 02/11/19 07:15 Nasal Cannula 2.0 28 02/11/19 07:15 96 Nasal Cannula 2.0 28 02/11/19 04:00 98.9 78 18 126/60 (82) 94 02/11/19 03:31 99.2 02/11/19 00:30 99.2 80 18 104/48 (66) 96 02/10/19 23:28 Nasal Cannula 3.0 Intake and Output 02/10/19 02/11/19 18:59 06:59 Intake Total 930 ml 825 ml Output Total 1000 ml Balance -70 ml 825 ml Intake Oral 480 ml IV Total 450 ml 825 ml Output Urine Total 1000 ml # Voids 3 General Appearance: WD/WN Respiratory/Chest: rhonchi Cardiovascular: normal rate, regular rhythm, edema Abdomen: normal bowel sounds, soft, non tender Skin: lesions Neurologic/Psychiatric: abnormal gait, alert Lymphatic: no neck adenopathy, no groin adenopathy Laboratory Tests 02/11/19 05:45: White Blood Count 5.3, Red Blood Count 2.90L, Hemoglobin 9.4L, Hematocrit 28.6L , Mean Corpuscular Volume 98, Mean Corpuscular Hemoglobin 32.4H, Mean Corpuscular Hemoglobin Concent 32.9, Red Cell Distribution Width 11.8, Platelet Count 289, Mean Platelet Volume 6.7, Neutrophils (%) (Auto) 47.3, Lymphocytes (% ) (Auto) 28.8, Monocytes (%) (Auto) 6.2, Eosinophils (%) (Auto) 17.0H, Basophils (%) (Auto) 0.7 Current Medications Medications (Trade) Dose Ordered Sig/Sarahi Route PRN Reason Start Time Stop Time Status Last Admin Dose Admin Acetaminophen (Tylenol) 650 mg Q4H PRN ORAL temp>100.2 or headache 02/07/19 14:45 03/09/19 14:44 02/10/19 00:27 Amlodipine Besylate (Norvasc) 5 mg DAILY ORAL 02/06/19 09:00 03/08/19 08:59 02/11/19 09:09 Aspirin (Ecotrin) 81 mg DAILY ORAL 02/06/19 09:00 03/08/19 08:59 02/11/19 09:09 Ceftriaxone Sodium 1 gm/ Dextrose 55 ml @ 110 mls/hr Q24H IVPB 02/07/19 10:00 02/14/19 09:59 02/11/19 09:18 Dextrose (Dextrose 50%) 25 ml Q30M PRN IV Hypoglycemia 02/05/19 16:30 03/07/19 16:29 Dextrose (Dextrose 50%) 50 ml Q30M PRN IV Hypoglycemia 02/05/19 16:30 03/07/19 16:29 Dextrose/ Electrolytes 1,000 ml @ 75 mls/hr [id number] IV 02/07/19 21:00 03/09/19 20:59 02/11/19 09:21 Docusate Sodium (Colace) 100 mg THREE TIMES A DAY ORAL 02/07/19 18:00 03/09/19 17:59 02/09/19 17:09 Enoxaparin Sodium (Lovenox) 30 mg EVERY 12 HOURS SUBQ 02/07/19 21:00 02/21/19 20:59 02/11/19 09:14 Escitalopram Oxalate (Lexapro) 10 mg DAILY ORAL 02/06/19 09:00 03/08/19 08:59 02/11/19 09:08 Ferrous Sulfate (Feosol) 325 mg THREE TIMES A DAY ORAL 02/07/19 21:00 03/09/19 20:59 02/11/19 16:57 Guaifenesin (Robitussin) 200 mg Q4H PRN ORAL For Cough 02/05/19 16:15 03/07/19 16:14 Insulin Aspart (NovoLOG) BEFORE MEALS AND HS SUBQ 02/05/19 21:00 03/07/19 20:59 02/11/19 11:43 Irbesartan (Avapro) 150 mg DAILY ORAL 02/06/19 09:00 03/08/19 08:59 02/11/19 09:09 Levetiracetam (Keppra) 500 mg EVERY 12 HOURS ORAL 02/05/19 21:00 03/07/19 20:59 02/11/19 09:08 Magnesium Hydroxide (Mom) 30 ml DAILYPRN PRN ORAL Constipation 02/07/19 14:45 03/09/19 14:44 Meclizine HCl (Antivert) 25 mg Q8H PRN ORAL for dizziness 02/05/19 16:15 03/07/19 16:14 Montelukast Sodium (Singulair) 10 mg QPM ORAL 02/07/19 16:30 03/09/19 16:29 02/11/19 17:04 Morphine Sulfate (Morphine Sulfate) 4 mg Q4H PRN IV Severe Pain (Pain Scale 7-10) 02/05/19 16:15 02/12/19 16:14 02/11/19 13:12 Ondansetron HCl (Zofran) 4 mg Q4H PRN IV Nausea & Vomiting 02/05/19 16:15 03/07/19 16:14 02/07/19 02:32 Oxycodone HCl (Roxicodone) 30 mg Q6H PRN ORAL Moderate Pain (Pain Scale 4-6) 02/05/19 16:15 02/12/19 16:14 02/11/19 16:57 Pravastatin Sodium (Pravachol) 40 mg BEDTIME ORAL 02/05/19 21:00 03/07/19 20:59 02/10/19 21:41 Promethazine HCl/ Codeine (Phenergan with Codeine) 5 ml Q4H PRN ORAL For Cough 02/06/19 14:15 03/08/19 14:14 Salmeterol Xinafoate/ Fluticasone (Advair 250/50 Diskus) 1 puffs BID INH 02/06/19 18:00 03/08/19 17:59 02/11/19 18:55 Tiotropium [place] (Spiriva Inhaler) 1 puff DAILY INH 02/06/19 09:00 03/08/19 08:59 02/11/19 08:41 Marielle Camacho DO February 11, 2019 20:44
--- NOTE | 2019-02-11 21:37 | General Progress Note ---
Assessment/Plan Assessment/Plan: patellar fracture polysubstance abuse ho hypersensitivy pneumonitis COPD ho seizure disorder cervical spondylsis with known cord compression severe central canastenosis of cervical spine ho diabetes ho chf with diastolic dysfuction post op stress test noted pain control per pain managment montiro accucheks dvt and ulcer prohylaxis dw casemanager to arrange ok for dc to snf awaiting placement Subjective Allergies: Uncoded Allergies: electrodes (Allergy, Mild, Itching, 10/10/17) skin redness and itching Subjective no chest pain or sob pain controlled Objective Last 24 Hour Vital Signs Date Time Temp Pulse Resp B/P (MAP) Pulse Ox O2 Delivery O2 Flow Rate FiO2 02/11/19 18:59 76 18 94 Room Air 21 02/11/19 18:55 75 18 94 Room Air 21 02/11/19 16:00 98.4 75 18 127/64 (85) 95 02/11/19 12:00 98.1 73 18 119/68 (85) 96 02/11/19 09:09 128/62 02/11/19 09:09 79 128/62 02/11/19 09:00 Room Air 02/11/19 08:39 79 18 97 Room Air 21 02/11/19 08:39 84 16 96 Room Air 21 02/11/19 08:30 81 18 96 Room Air 21 02/11/19 08:30 87 16 97 Room Air 21 02/11/19 08:00 99.1 82 18 128/62 (84) 98 02/11/19 07:15 88 16 Nasal Cannula 2.0 28 02/11/19 07:15 Nasal Cannula 2.0 28 02/11/19 07:15 96 Nasal Cannula 2.0 28 02/11/19 04:00 98.9 78 18 126/60 (82) 94 02/11/19 03:31 99.2 02/11/19 00:30 99.2 80 18 104/48 (66) 96 02/10/19 23:28 Nasal Cannula 3.0 Intake and Output 02/10/19 02/11/19 18:59 06:59 Intake Total 930 ml 825 ml Output Total 1000 ml Balance -70 ml 825 ml Intake Oral 480 ml IV Total 450 ml 825 ml Output Urine Total 1000 ml # Voids 3 Laboratory Tests 02/11/19 05:45: White Blood Count 5.3, Red Blood Count 2.90L, Hemoglobin 9.4L, Hematocrit 28.6L , Mean Corpuscular Volume 98, Mean Corpuscular Hemoglobin 32.4H, Mean Corpuscular Hemoglobin Concent 32.9, Red Cell Distribution Width 11.8, Platelet Count 289, Mean Platelet Volume 6.7, Neutrophils (%) (Auto) 47.3, Lymphocytes (% ) (Auto) 28.8, Monocytes (%) (Auto) 6.2, Eosinophils (%) (Auto) 17.0H, Basophils (%) (Auto) 0.7 Height (Feet): 5 Height (Inches): 5.00 Weight (Pounds): 110 General Appearance: WD/WN, no apparent distress Neck: supple Cardiovascular: normal rate Respiratory/Chest: lungs clear Abdomen: soft Objective knee in brace neurovascular intact Ravindra Horner MD February 11, 2019 21:37
[2019-02-12] VITALS: BP 108/64
[2019-02-12] MEDS: oxyCODONE 15mg IR tab ORAL PRN ×2 (01:33→14:05)
[2019-02-12 04:00] VITALS: BP 122/64
--- NOTE | 2019-02-12 06:24 | NUR ---
NURSE NOTES: PATIENT ASLEEP, V/S STABLE.
[2019-02-12] MEDS: NovoLOG Insulin Flexpen SUBQ SCH ×5 (06:45→20:28)
--- NOTE | 2019-02-12 07:10 | NUR ---
HAND-OFF: Report given to NITISH FLORES RN.
[2019-02-12 07:11] LABS: ANION GAP 4 mmol/L (5-15); BLOOD UREA NITROGEN 7 mg/dL (7-18); CALCIUM 9.7 MG/DL (8.5-10.1); CARBON DIOXIDE 33 MMOL/L (21-32); CHLORIDE 103 MMOL/L (98-107); CREATININE 0.7 MG/DL (0.55-1.30); POTASSIUM 4.8 MMOL/L (3.5-5.1); SODIUM 140 MMOL/L (136-145)
[2019-02-12 07:27] LABS: BASOPHILS % (AUTO) 0.9 % (0.0-2.0); HEMATOCRIT 26.6 % (37.0-47.0); HEMOGLOBIN 8.8 G/DL (12.0-16.0); LYMPHOCYTES % (AUTO) 29.6 % (20.0-45.0); MEAN CORPUSCULAR VOLUME 98 FL (80-99); MONOCYTES % (AUTO) 8.1 % (1.0-10.0); NEUTROPHILS % (AUTO) 44.4 % (45.0-75.0); PLATELET COUNT 312 K/UL (150-450); RED BLOOD COUNT 2.71 M/UL (4.20-5.40); RED CELL DISTRIBUTION WIDTH 11.8 % (11.6-14.8); WHITE BLOOD COUNT 4.8 K/UL (4.8-10.8)
--- NOTE | 2019-02-12 07:51 | NUR ---
NURSE NOTES: PT AXOX3, CALM, RESTING IN BED. PT WITH RIGHT KNEE IMMOBILIZER. PT ABLE TO TURN WITH ASSIST. STATES MODERATE PAIN ON RIGHT KNEE, SEVERE WITH MOVEMENT. CURRENTLY EATING BREAKFAST IN BED. IN NO APPARENT DISTRESS AT THIS TIME. BED IN LOWEST POSITION WITH BEDSIDE RAILS X2 RAISED. CALL LIGHT WITHIN REACH. WILL CONTINUE TO MONITOR.
[2019-02-12 08:00] VITALS: BP 119/57
[2019-02-12] MEDS: Morphine Sulfate 4mg/ml Inj (IV USE ONLY) IV PRN ×3 (08:17→20:37)
[2019-02-12] MEDS: Irbesartan 150mg tablet ORAL SCH (08:24)
[2019-02-12] MEDS: Enoxaparin 30mg Inj SUBQ SCH ×2 (08:24→20:26)
[2019-02-12] MEDS: Aspirin EC 81mg tab ORAL SCH (08:24)
[2019-02-12] MEDS: Docusate 100mg cap ORAL SCH ×3 (08:25→16:59)
--- NOTE | 2019-02-12 09:39 | NUR ---
NURSE NOTES: RN ADMINISTERED PRN MILK OF MAGNESIA FOR CONSTIPATION. PT HAS GAS AND BOWEL SOUNDS IN ALL 4 QUADRANTS. PT HESITANT TO TAKE MILK OF MAGNESIA. PT EDUCATED PRN MORPHINE AND ROXICODONE CAN CAUSE CONSTIPATION AND PT NEEDS TO HAVE BM TO PREVENT ABDOMINAL DISCOMFORT. IN NO APPARENT DISTRESS AT THIS TIME. WILL CONTINUE TO MONITOR.
[2019-02-12] MEDS: D5 1/2NS w/KCl 20mEq 1,000 ML IV SCH (10:00)
[2019-02-12] MEDS: cefTRIAXone 1 GM in D5W 55 ML IVPB SCH (10:00)
[2019-02-12] MEDS: Wixela 250/50 Inhaler - 60 dose INH SCH ×2 (10:01→19:27)
--- NOTE | 2019-02-12 10:37 | General Progress Note ---
Assessment/Plan Assessment/Plan: (1) Right knee pain (2) Right knee patella fracture s/p orif (3) Lumbar DDD/ Spondylosis (4) Opioid Dependency (5) Cocaine abuse (6) H/O CVA (7) Thalamic pain syndrome Patient to be continued on Morphine and Oxycodone. D/w Dr. Victoria and he concurred. Subjective Date patient seen: February 12, 2019 Time patient seen: 09:00 - am Allergies: Uncoded Allergies: electrodes (Allergy, Mild, Itching, 10/10/17) skin redness and itching Subjective Constitutional: Reports: weakness HEENT: Reports: no symptoms Cardiovascular: Reports: no symptoms Respiratory: Reports: no symptoms Gastrointestinal/Abdominal: Reports: no symptoms Neurologic/Psychiatric: Reports: no symptoms Endocrine: Reports: no symptoms Hematologic/Lymphatic: Reports: no symptoms Subjective Patient has been tolerating the pain on the Morphine and Oxycodone. She has been doing PT at the best of her abilities. Has no new complaints at this time. Objective Last 24 Hour Vital Signs Date Time Temp Pulse Resp B/P (MAP) Pulse Ox O2 Delivery O2 Flow Rate FiO2 02/12/19 10:02 86 18 98 Room Air 21 02/12/19 10:02 86 18 98 Room Air 21 02/12/19 10:01 87 18 98 Room Air 21 02/12/19 10:01 87 18 98 Room Air 21 02/12/19 09:00 Room Air 02/12/19 08:25 87 119/57 02/12/19 08:24 119/57 02/12/19 08:00 98.0 87 18 119/57 (77) 100 02/12/19 07:49 Nasal Cannula 2.0 28 02/12/19 07:49 84 18 Nasal Cannula 2.0 28 02/12/19 07:49 98 Nasal Cannula 2.0 28 02/12/19 04:00 99.1 74 18 122/64 (83) 93 02/12/19 00:00 99.0 73 18 108/64 (79) 96 02/11/19 22:21 Room Air 02/11/19 20:00 99.2 76 18 132/58 (82) 96 02/11/19 19:01 94 Nasal Cannula 2.0 02/11/19 19:01 76 18 Nasal Cannula 2.0 28 02/11/19 19:01 Nasal Cannula 2.0 28 02/11/19 18:59 76 18 94 Room Air 21 02/11/19 18:55 75 18 94 Room Air 21 02/11/19 16:00 98.4 75 18 127/64 (85) 95 02/11/19 12:00 98.1 73 18 119/68 (85) 96 Intake and Output 02/11/19 02/12/19 19:00 07:00 Intake Total 1380 ml 1140 ml Balance 1380 ml 1140 ml Intake Oral 240 ml IV Total 730 ml 900 ml Other 650 ml # Voids 3 Laboratory Tests 02/12/19 05:00: White Blood Count 4.8, Red Blood Count 2.71L, Hemoglobin 8.8L, Hematocrit 26.6L , Mean Corpuscular Volume 98, Mean Corpuscular Hemoglobin 32.4H, Mean Corpuscular Hemoglobin Concent 33.1, Red Cell Distribution Width 11.8, Platelet Count 312, Mean Platelet Volume 6.1L, Neutrophils (%) (Auto) 44.4L, Lymphocytes (%) (Auto) 29.6, Monocytes (%) (Auto) 8.1, Eosinophils (%) (Auto) 17.0H, Basophils (%) (Auto) 0.9, Sodium Level 140, Potassium Level 4.8, Chloride Level 103, Carbon Dioxide Level 33H, Anion Gap 4L, Blood Urea Nitrogen 7, Creatinine 0.7, Estimat Glomerular Filtration Rate > 60, Glucose Level 164H, Calcium Level 9.7 Height (Feet): 5 Height (Inches): 5.00 Weight (Pounds): 110 Objective General Appearance: no apparent distress, alert EENT: PERRL/EOMI, normal ENT inspection Neck: non-tender, normal alignment Cardiovascular: normal rate, regular rhythm Respiratory/Chest: decreased breath sounds Abdomen: non tender, soft Extremities: other - right knee bandages applied Edema: trace edema Neurologic: alert, oriented x 3 Skin: warm/dry Get Queen February 12, 2019 10:37
[2019-02-12 12:00] VITALS: BP 121/63
--- NOTE | 2019-02-12 13:40 | Neurology Progress Note ---
Interim History Interim History Interim History Ms. Whittington feels better. The right knee is less painful at rest. The pain medicine is helping. She has not worked with the PT today. She is still unable to weight-bear on her legs. The mind is not clear. She has not noted any change in her strength. She denies any new neurologic symptoms. Review of Systems Neuro Review of Systems Benign. Objective Physical Exam Last Vital Signs Date Time Temp Pulse Resp B/P (MAP) Pulse Ox O2 Delivery O2 Flow Rate FiO2 02/12/19 12:00 98.0 82 19 121/63 (82) 99 02/12/19 10:02 Room Air 21 02/12/19 07:49 2.0 Laboratory Tests Test 02/12/19 05:00 White Blood Count 4.8 K/UL (4.8-10.8) Red Blood Count 2.71 M/UL (4.20-5.40) L Hemoglobin 8.8 G/DL (12.0-16.0) L Hematocrit 26.6 % (37.0-47.0) L Mean Corpuscular Volume 98 FL (80-99) Mean Corpuscular Hemoglobin 32.4 PG (27.0-31.0) H Mean Corpuscular Hemoglobin Concent 33.1 G/DL (32.0-36.0) Red Cell Distribution Width 11.8 % (11.6-14.8) Platelet Count 312 K/UL (150-450) Mean Platelet Volume 6.1 FL (6.5-10.1) L Neutrophils (%) (Auto) 44.4 % (45.0-75.0) L Lymphocytes (%) (Auto) 29.6 % (20.0-45.0) Monocytes (%) (Auto) 8.1 % (1.0-10.0) Eosinophils (%) (Auto) 17.0 % (0.0-3.0) H Basophils (%) (Auto) 0.9 % (0.0-2.0) Sodium Level 140 MMOL/L (136-145) Potassium Level 4.8 MMOL/L (3.5-5.1) Chloride Level 103 MMOL/L (98-107) Carbon Dioxide Level 33 MMOL/L (21-32) H Anion Gap 4 mmol/L (5-15) L Blood Urea Nitrogen 7 mg/dL (7-18) Creatinine 0.7 MG/DL (0.55-1.30) Estimat Glomerular Filtration Rate > 60 mL/min (>60) Glucose Level 164 MG/DL (74-106) H Calcium Level 9.7 MG/DL (8.5-10.1) Neurologic Exam Objective PHYSICAL EXAMINATION: GENERAL: She is a well-developed, well-nourished but lean black lady, lying in bed, in no acute distress. HEAD: Normocephalic and atraumatic. NECK: No neck rigidity was observed. EENT: Benign. EXTREMITIES: Right knee was in a knee immobilizer and could not be tested. NEUROLOGICAL EXAMINATION: MENTAL STATUS EXAMINATION: She was awake and alert. Her cerebration was faster. She was oriented to person, place, and time except for the exact date. She was unable to cooperate for further mental status tests. SPEECH: She had a mild dysarthria, but it should be noted that numerous teeth were missing. LANGUAGE: She had no aphasia. CRANIAL NERVE EXAMINATION: II: The visual kearney were intact on confrontation testing. III, IV, : The external ocular movements were full, and the pupils 3 mm in diameter, equal, round, regular, and reactive to light. V: She had normal facial sensations, and the temporales, masseters, and pterygoids functioned normally. VII: She had a trace right 7th central facial paresis. VIII: She was able to hear well bilaterally and had no nystagmus. IX: The palate moved symmetrically on phonation. X: She had no hoarseness of voice. XI: The sternocleidomastoids and trapezii functioned normally. XII: The tongue was in the midline, without any fasciculations or atrophy. MOTOR SYSTEM: The tone was normal in all 4 extremities. Examination of muscle mass revealed no focal wasting. Examination of power revealed G 5/5 power, except for G 5-/5 power in the right finger extensors. The right lower extremity could not be tested adequately because it was in a knee immobilizer and she was giving a poor effort at the level of the hip and foot. SENSORY EXAMINATION: She had intact sensations to pinprick, light touch, and graphesthesia. COORDINATION: She performed well on [id number] testing. She was unable to perform [id number] testing. REFLEXES: 2+ and bilaterally symmetrical at the biceps, triceps, brachioradialis. 1+ at the left knee the right knee could not be tested. 0 at both ankles. The plantar responses were flexor bilaterally. STANCE & GAIT: Could not be tested. Impression/Recommendations Diagnostic Impression 1. Ms Alyssa Whittington is a 68-year-old, right-handed, black lady, who does have a past history of hypertension, dyslipidemia, coronary artery disease, congestive heart failure, chronic obstructive pulmonary disease, cerebrovascular disease with a prior stroke associated with right-sided weakness , parainfluenza and influenza at the end of 2014, episodic loss of consciousness , a cocaine related seizure, and significant C-spine disease. 2. On 02-05-2019 she apparently tripped and fell down and fractured her right patella. She had surgery for the problem on 02/07/19. 3. She feels better. The right knee is less painful at rest. The pain medicine is helping. She has not worked with the PT today. She is still unable to weight- bear on her legs. The mind is not clear. She has not noted any change in her strength. She denies any new neurologic symptoms. 4. On neurological examination at this time her cerebration is faster, she does have problems with recent and remote memory, a mild dysarthria, and a mild right hemiparesis involving the face, upper and lower extremities. The right knee is in an immobilizer and swollen. 5. The patient's history and neurological examination are most consistent with recent fall resulting in the right patella fracture which has been surgically treated. She is in less pain, but still poorly functional. Recommendations 1. Continue present management. 2. Mobilize rapidly. 3. Observe. DANNIELLE GAYLE M.D., M.S.P.H. Dannielle Gayle MD February 12, 2019 13:40
[2019-02-12 16:00] VITALS: BP 122/59
[2019-02-12] MEDS: Montelukast 10mg tablet ORAL SCH (16:09)
--- NOTE | 2019-02-12 17:44 | Cardiac Electrophysiology PN ---
Assessment/Plan Assessment/Plan 1. Hypertension. Continue amlodipine 5 mg daily and Avapro 150 mg daily. Echocardiogram EF 75% Nuclear stress test showed no ischemia or scar. 2. Insulin-dependent diabetes. 3. Status post fall and patella fracture. S/P ORIF. Tolerated surgery well. 4. Polysubstance abuse 5. Chronic obstructive pulmonary disease. On Spiriva. 6. Depression. On Lexapro. DW RN Subjective Subjective No CP or SOB. Alert in NAD. Family at bedside Objective Last 24 Hour Vital Signs Date Time Temp Pulse Resp B/P (MAP) Pulse Ox O2 Delivery O2 Flow Rate FiO2 02/12/19 16:00 97.9 84 18 122/59 (80) 97 02/12/19 12:00 98.0 82 19 121/63 (82) 99 02/12/19 10:02 86 18 98 Room Air 21 02/12/19 10:02 86 18 98 Room Air 21 02/12/19 10:01 87 18 98 Room Air 21 02/12/19 10:01 87 18 98 Room Air 21 02/12/19 09:00 Room Air 02/12/19 08:25 87 119/57 02/12/19 08:24 119/57 02/12/19 08:00 98.0 87 18 119/57 (77) 100 02/12/19 07:49 Nasal Cannula 2.0 28 02/12/19 07:49 84 18 Nasal Cannula 2.0 02/12/19 07:49 98 Nasal Cannula 2.0 28 02/12/19 04:00 99.1 74 18 122/64 (83) 93 02/12/19 00:00 99.0 73 18 108/64 (79) 96 02/11/19 22:21 Room Air 02/11/19 20:00 99.2 76 18 132/58 (82) 96 02/11/19 19:01 94 Nasal Cannula 2.0 28 02/11/19 19:01 76 18 Nasal Cannula 2.0 28 02/11/19 19:01 Nasal Cannula 2.0 28 02/11/19 18:59 76 18 94 Room Air 21 02/11/19 18:55 75 18 94 Room Air 21 Intake and Output 02/11/19 02/12/19 19:00 07:00 Intake Total 1380 ml 1140 ml Balance 1380 ml 1140 ml Intake Oral 240 ml IV Total 730 ml 900 ml Other 650 ml # Voids 3 Laboratory Tests Test 02/12/19 05:00 White Blood Count 4.8 K/UL (4.8-10.8) Red Blood Count 2.71 M/UL (4.20-5.40) L Hemoglobin 8.8 G/DL (12.0-16.0) L Hematocrit 26.6 % (37.0-47.0) L Mean Corpuscular Volume 98 FL (80-99) Mean Corpuscular Hemoglobin 32.4 PG (27.0-31.0) H Mean Corpuscular Hemoglobin Concent 33.1 G/DL (32.0-36.0) Red Cell Distribution Width 11.8 % (11.6-14.8) Platelet Count 312 K/UL (150-450) Mean Platelet Volume 6.1 FL (6.5-10.1) L Neutrophils (%) (Auto) 44.4 % (45.0-75.0) L Lymphocytes (%) (Auto) 29.6 % (20.0-45.0) Monocytes (%) (Auto) 8.1 % (1.0-10.0) Eosinophils (%) (Auto) 17.0 % (0.0-3.0) H Basophils (%) (Auto) 0.9 % (0.0-2.0) Sodium Level 140 MMOL/L (136-145) Potassium Level 4.8 MMOL/L (3.5-5.1) Chloride Level 103 MMOL/L (98-107) Carbon Dioxide Level 33 MMOL/L (21-32) H Anion Gap 4 mmol/L (5-15) L Blood Urea Nitrogen 7 mg/dL (7-18) Creatinine 0.7 MG/DL (0.55-1.30) Estimat Glomerular Filtration Rate > 60 mL/min (>60) Glucose Level 164 MG/DL (74-106) H Calcium Level 9.7 MG/DL (8.5-10.1) Objective HEAD AND NECK: No JVD or carotid bruits. LUNGS: Clear. CARDIOVASCULAR: Regular S1 and S2 with no gallop or murmur. ABDOMEN: Soft. EXTREMITIES: No pitting edema. S/P left knee surgery Todd Avalos MD February 12, 2019 17:44
--- NOTE | 2019-02-12 18:31 | Pulmonology Progress Note ---
Assessment/Plan Assessment/Plan PROBLEM LIST: 1. R patellar fracture S/P ORIF 02/07/19 2. GLF 3. COPD without evidence of exacerbation 4. H/O Hypersensitivity pneumonitis S/P therapy in the past 5. Borderline enlarged subcarinal LAD (1.7 cm) and R paratracheal LN (9mm), improved on f/u imaging 6. Extensive history of tobacco use. 7. History of marijuana and cocaine use. 8. CHF with mild DD 9. Diabetes. 10. Hypertension & Hyperlipidemia 11. Seizure DO 12. Gout. 13. Chronic neck and back pain/DDD/SS 14. Opiate dependence. 15. Chronic abdominal pain, GERD and h/o erosive gastritis/mark esophagitis 16. E coli UTI PLAN: better tday Optimize pulmonary hygiene. Mobilize as tolerated. Continue Advair,Spiriva, Singulair & Roflumilast PRN DUOnebs IS F/U ortho recs DVT Px: Hep SQ Monitor volumes Aspiration precautions Continue Abx (CTx) for E coli UTI, F/U C&S Should have formal PFTs and a screening CT chest as an outpatient Continue to abstain from smoking Subjective Constitutional: Reports: no symptoms HEENT: Repors: no symptoms Respiratory: Reports: productive cough, shortness of breath Cardiovascular: Reports: no symptoms Gastrointestinal/Abdominal: Reports: no symptoms Genitourinary: Reports: no symptoms Neurologic: Reports: no symptoms Psychiatric: Reports: no symptoms Allergies: Uncoded Allergies: electrodes (Allergy, Mild, Itching, 10/10/17) skin redness and itching Subjective stilliwth pain on o2 much less shortness of breathtoday coughing at times some phlegm no bleeding no cp nv or fever Objective Last 24 Hour Vital Signs Date Time Temp Pulse Resp B/P (MAP) Pulse Ox O2 Delivery O2 Flow Rate FiO2 02/12/19 16:00 97.9 84 18 122/59 (80) 97 02/12/19 12:00 98.0 82 19 121/63 (82) 99 02/12/19 10:02 86 18 98 Room Air 21 02/12/19 10:02 86 18 98 Room Air 21 02/12/19 10:01 87 18 98 Room Air 21 02/12/19 10:01 87 18 98 Room Air 21 02/12/19 09:00 Room Air 02/12/19 08:25 87 119/57 02/12/19 08:24 119/57 02/12/19 08:00 98.0 87 18 119/57 (77) 100 02/12/19 07:49 Nasal Cannula 2.0 28 02/12/19 07:49 84 18 Nasal Cannula 2.0 28 02/12/19 07:49 98 Nasal Cannula 2.0 28 02/12/19 04:00 99.1 74 18 122/64 (83) 93 02/12/19 00:00 99.0 73 18 108/64 (79) 96 02/11/19 22:21 Room Air 02/11/19 20:00 99.2 76 18 132/58 (82) 96 02/11/19 19:01 94 Nasal Cannula 2.0 02/11/19 19:01 76 18 Nasal Cannula 2.0 28 02/11/19 19:01 Nasal Cannula 2.0 28 02/11/19 18:59 76 18 94 Room Air 21 02/11/19 18:55 75 18 94 Room Air 21 Intake and Output 02/11/19 02/12/19 19:00 07:00 Intake Total 1380 ml 1140 ml Balance 1380 ml 1140 ml Intake Oral 240 ml IV Total 730 ml 900 ml Other 650 ml # Voids 3 General Appearance: cachetic Respiratory/Chest: rhonchi - reduced Cardiovascular: normal peripheral pulses, normal rate, regular rhythm Extremities: no cyanosis Neurologic/Psychiatric: no motor/sensory deficits, abnormal gait, alert, oriented x 3 Laboratory Tests 02/12/19 05:00: White Blood Count 4.8, Red Blood Count 2.71L, Hemoglobin 8.8L, Hematocrit 26.6L , Mean Corpuscular Volume 98, Mean Corpuscular Hemoglobin 32.4H, Mean Corpuscular Hemoglobin Concent 33.1, Red Cell Distribution Width 11.8, Platelet Count 312, Mean Platelet Volume 6.1L, Neutrophils (%) (Auto) 44.4L, Lymphocytes (%) (Auto) 29.6, Monocytes (%) (Auto) 8.1, Eosinophils (%) (Auto) 17.0H, Basophils (%) (Auto) 0.9, Sodium Level 140, Potassium Level 4.8, Chloride Level 103, Carbon Dioxide Level 33H, Anion Gap 4L, Blood Urea Nitrogen 7, Creatinine 0.7, Estimat Glomerular Filtration Rate > 60, Glucose Level 164H, Calcium Level 9.7 Current Medications Medications (Trade) Dose Ordered Sig/Sarahi Route PRN Reason Start Time Stop Time Status Last Admin Dose Admin Acetaminophen (Tylenol) 650 mg Q4H PRN ORAL temp>100.2 or headache 02/07/19 14:45 03/09/19 14:44 02/10/19 00:27 Amlodipine Besylate (Norvasc) 5 mg DAILY ORAL 02/06/19 09:00 03/08/19 08:59 02/11/19 09:09 Aspirin (Ecotrin) 81 mg DAILY ORAL 02/06/19 09:00 03/08/19 08:59 02/12/19 08:24 Ceftriaxone Sodium 1 gm/ Dextrose 55 ml @ 110 mls/hr Q24H IVPB 02/07/19 10:00 02/14/19 09:59 02/12/19 10:00 Dextrose (Dextrose 50%) 25 ml Q30M PRN IV Hypoglycemia 02/05/19 16:30 03/07/19 16:29 Dextrose (Dextrose 50%) 50 ml Q30M PRN IV Hypoglycemia 02/05/19 16:30 03/07/19 16:29 Dextrose/ Electrolytes 1,000 ml @ 75 mls/hr [id number] IV 02/07/19 21:00 03/09/19 20:59 02/12/19 10:00 Docusate Sodium (Colace) 100 mg THREE TIMES A DAY ORAL 02/07/19 18:00 03/09/19 17:59 02/12/19 16:59 Enoxaparin Sodium (Lovenox) 30 mg EVERY 12 HOURS SUBQ 02/07/19 21:00 02/21/19 20:59 02/12/19 08:24 Escitalopram Oxalate (Lexapro) 10 mg DAILY ORAL 02/06/19 09:00 03/08/19 08:59 02/12/19 08:16 Ferrous Sulfate (Feosol) 325 mg THREE TIMES A DAY ORAL 02/07/19 21:00 03/09/19 20:59 02/12/19 16:59 Guaifenesin (Robitussin) 200 mg Q4H PRN ORAL For Cough 02/05/19 16:15 03/07/19 16:14 Insulin Aspart (NovoLOG) BEFORE MEALS AND HS SUBQ 02/05/19 21:00 03/07/19 20:59 02/12/19 16:35 Irbesartan (Avapro) 150 mg DAILY ORAL 02/06/19 09:00 03/08/19 08:59 02/11/19 09:09 Levetiracetam (Keppra) 500 mg EVERY 12 HOURS ORAL 02/05/19 21:00 03/07/19 20:59 02/12/19 08:16 Magnesium Hydroxide (Mom) 30 ml DAILYPRN PRN ORAL Constipation 02/07/19 14:45 03/09/19 14:44 02/12/19 08:17 Meclizine HCl (Antivert) 25 mg Q8H PRN ORAL for dizziness 02/05/19 16:15 03/07/19 16:14 Montelukast Sodium (Singulair) 10 mg QPM ORAL 02/07/19 16:30 03/09/19 16:29 02/12/19 16:09 Morphine Sulfate (Morphine Sulfate) 4 mg Q4H PRN IV Severe Pain (Pain Scale 7-10) 02/12/19 12:15 02/19/19 12:14 02/12/19 16:10 Ondansetron HCl (Zofran) 4 mg Q4H PRN IV Nausea & Vomiting 02/05/19 16:15 03/07/19 16:14 02/07/19 02:32 Oxycodone HCl (Roxicodone) 30 mg Q6H PRN ORAL Moderate Pain (Pain Scale 4-6) 02/12/19 10:37 02/19/19 10:36 02/12/19 14:05 Pravastatin Sodium (Pravachol) 40 mg BEDTIME ORAL 02/05/19 21:00 03/07/19 20:59 02/11/19 20:53 Promethazine HCl/ Codeine (Phenergan with Codeine) 5 ml Q4H PRN ORAL For Cough 02/06/19 14:15 03/08/19 14:14 Salmeterol Xinafoate/ Fluticasone (Advair 250/50 Diskus) 1 puffs BID INH 02/06/19 18:00 03/08/19 17:59 02/12/19 10:01 Tiotropium [place] (Spiriva Inhaler) 1 puff DAILY INH 02/06/19 09:00 03/08/19 08:59 02/12/19 10:01 Marielle Camacho DO February 12, 2019 18:31
--- NOTE | 2019-02-12 19:08 | NUR ---
HAND-OFF: Report given to Torres SEGAL RN.
--- NOTE | 2019-02-12 19:54 | NUR ---
NURSE NOTES: Received patient in bed, awake, able to verbalize needs, assisted onto bedpan, urine yellow. Patient denies any pain or discomfort at this time. Surgical dressing intact. IV intact, no s/s of infiltration, on IVF. Bed is in lowest position and locked. Call light and belongings within reach, bed alarm on.
[2019-02-12 20:00] VITALS: BP 121/53
[2019-02-13] VITALS: BP 123/63
[2019-02-13] MEDS: Morphine Sulfate 4mg/ml Inj (IV USE ONLY) IV PRN ×3 (01:26→10:37)
[2019-02-13 04:00] VITALS: BP 121/56
[2019-02-13] MEDS: D5 1/2NS w/KCl 20mEq 1,000 ML IV SCH (05:44)
[2019-02-13] MEDS: NovoLOG Insulin Flexpen SUBQ SCH (06:01)
--- NOTE | 2019-02-13 06:59 | NUR ---
HAND-OFF: Report given to NAM Gómez.
[2019-02-13 08:00] VITALS: BP 128/66
--- NOTE | 2019-02-13 08:01 | NUR ---
NURSE NOTES: Received report from Keesha BROWNING. Patient is awake alert and oriented x4 no acute distress noted, sitting in high gao position eating breakfast. Right knee dressing clean, dry, intact, knee immobilizer in place. Fall and seizure precautions maintained. IV intact and asymptomatic. Patient updated on plan of care. Side rails upx3, bed low and locked, call light in reach. Will continue to monitor.
[2019-02-13] MEDS: Aspirin EC 81mg tab ORAL SCH (08:31)
[2019-02-13] MEDS: Docusate 100mg cap ORAL SCH (08:31)
[2019-02-13] MEDS: Irbesartan 150mg tablet ORAL SCH (08:31)
[2019-02-13] MEDS: Enoxaparin 30mg Inj SUBQ SCH (08:33)
--- NOTE | 2019-02-13 08:44 | General Progress Note ---
Assessment/Plan Assessment/Plan: (1) Right knee pain (2) Right knee patella fracture s/p orif (3) Lumbar DDD/ Spondylosis (4) Opioid Dependency (5) Cocaine abuse (6) H/O CVA (7) Thalamic pain syndrome Patient to be continued on Morphine and Oxycodone. D/w Dr. Victoria and he concurred. Subjective Date patient seen: February 13, 2019 Time patient seen: 07:00 - am Allergies: Uncoded Allergies: electrodes (Allergy, Mild, Itching, 10/10/17) skin redness and itching Subjective Constitutional: Reports: weakness HEENT: Reports: no symptoms Cardiovascular: Reports: no symptoms Respiratory: Reports: no symptoms Gastrointestinal/Abdominal: Reports: no symptoms Neurologic/Psychiatric: Reports: no symptoms Endocrine: Reports: no symptoms Hematologic/Lymphatic: Reports: no symptoms Subjective In bed no signs of pain or distress. Pain is tolerated on the Oxycodone and Morphine. No new complaints at this time. Objective Last 24 Hour Vital Signs Date Time Temp Pulse Resp B/P (MAP) Pulse Ox O2 Delivery O2 Flow Rate FiO2 02/13/19 08:31 128/66 02/13/19 08:31 75 128/66 02/13/19 08:00 97.5 75 18 128/66 (86) 98 02/13/19 06:51 96 Room Air 02/13/19 06:51 Room Air 02/13/19 04:00 98.2 73 18 121/56 (77) 95 02/13/19 00:00 98.7 72 18 123/63 (83) 95 02/12/19 22:32 Room Air 02/12/19 20:00 99.0 74 18 121/53 (75) 97 02/12/19 19:33 Room Air 21 02/12/19 19:32 95 Room Air 21 02/12/19 19:31 85 18 95 Room Air 21 02/12/19 19:27 85 18 95 Room Air 02/12/19 16:00 97.9 84 18 122/59 (80) 97 02/12/19 12:00 98.0 82 19 121/63 (82) 99 02/12/19 10:02 86 18 98 Room Air 21 02/12/19 10:02 86 18 98 Room Air 21 02/12/19 10:01 87 18 98 Room Air 21 02/12/19 10:01 87 18 98 Room Air 21 02/12/19 09:00 Room Air Intake and Output 02/12/19 02/13/19 19:00 07:00 Intake Total 1605 ml 725 ml Balance 1605 ml 725 ml Intake Oral 200 ml IV Total 805 ml 525 ml Other 800 ml # Voids 5 Height (Feet): 5 Height (Inches): 5.00 Weight (Pounds): 110 Objective General Appearance: no apparent distress, alert EENT: PERRL/EOMI, normal ENT inspection Neck: non-tender, normal alignment Cardiovascular: normal rate, regular rhythm Respiratory/Chest: decreased breath sounds Abdomen: non tender, soft Extremities: other - right knee bandages applied Edema: trace edema Neurologic: alert, oriented x 3 Skin: warm/dry Get Queen February 13, 2019 08:44
--- NOTE | 2019-02-13 09:20 | NUR ---
RESPIRATORY NOTE: Noted that Spiriva inhalant capsule(s) that are needed to go into Spiriva inhaler not provided at time of rounding on pt. All other rx administered as directed(Tony. Will call pharmacy to inquire about fufilling pt rx order for Spiriva doses.
[2019-02-13] MEDS: Wixela 250/50 Inhaler - 60 dose INH SCH (09:52)
[2019-02-13] MEDS: cefTRIAXone 1 GM in D5W 55 ML IVPB SCH (10:37)
--- NOTE | 2019-02-13 10:38 | NUR ---
DISCHARGE PLANNED PT. WILL DC TO [facility] ROOM [address] SKILLED T- FOR NURSE TRO NURSE REPORT [facility] WILL WAREHOUSE SHIPPING CLERK AT [phone]
[2019-02-13] MEDS ORDERED: ZOFRAN4 M3 ORAL (11:00)
[2019-02-13] MEDS ORDERED: ASPIRIN81 MG ORAL (11:01)
[2019-02-13] MEDS ORDERED: LOVENOX10 MG SUBQ (11:02)
[2019-02-13] MEDS ORDERED: NOVOLOG100 UNITS1 SUBQ (11:09)
[2019-02-13] MEDS ORDERED: OXYCODONE HCL30 MG ORAL (11:12)
[2019-02-13] MEDS: oxyCODONE 15mg IR tab ORAL PRN (11:25)
[2019-02-13 12:00] VITALS: BP 125/72
--- NOTE | 2019-02-13 12:00 | Neurology Progress Note ---
Interim History Interim History Interim History Ms. Whittington feels better. The right knee is less painful at rest. The pain medicine is helping. She has not worked with the PT today. She is still unable to weight-bear on her legs. The mind is not clear. She has not noted any change in her strength. She denies any new neurologic symptoms. Plans are to go for rehab today. Review of Systems Neuro Review of Systems Benign. Objective Physical Exam Last Vital Signs Date Time Temp Pulse Resp B/P (MAP) Pulse Ox O2 Delivery O2 Flow Rate FiO2 02/13/19 09:15 88 20 96 Room Air 21 02/13/19 08:31 128/66 02/13/19 08:00 97.5 02/12/19 07:49 2.0 Neurologic Exam Objective PHYSICAL EXAMINATION: GENERAL: She is a well-developed, well-nourished but lean black lady, lying in bed, in no acute distress. HEAD: Normocephalic and atraumatic. NECK: No neck rigidity was observed. EENT: Benign. EXTREMITIES: Right knee was in a knee immobilizer and could not be tested. NEUROLOGICAL EXAMINATION: MENTAL STATUS EXAMINATION: She was awake and alert. Her cerebration was faster. She was oriented to person, place, and time except for the exact date. She was unable to cooperate for further mental status tests. SPEECH: She had a mild dysarthria, but it should be noted that numerous teeth were missing. LANGUAGE: She had no aphasia. CRANIAL NERVE EXAMINATION: II: The visual kearney were intact on confrontation testing. III, IV, : The external ocular movements were full, and the pupils 3 mm in diameter, equal, round, regular, and reactive to light. V: She had normal facial sensations, and the temporales, masseters, and pterygoids functioned normally. VII: She had a trace right 7th central facial paresis. VIII: She was able to hear well bilaterally and had no nystagmus. IX: The palate moved symmetrically on phonation. X: She had no hoarseness of voice. XI: The sternocleidomastoids and trapezii functioned normally. XII: The tongue was in the midline, without any fasciculations or atrophy. MOTOR SYSTEM: The tone was normal in all 4 extremities. Examination of muscle mass revealed no focal wasting. Examination of power revealed G 5/5 power, except for G 5-/5 power in the right finger extensors. The right lower extremity could not be tested adequately because it was in a knee immobilizer and she was giving a poor effort at the level of the hip and foot. SENSORY EXAMINATION: She had intact sensations to pinprick, light touch, and graphesthesia. COORDINATION: She performed well on [id number] testing. She was unable to perform [id number] testing. REFLEXES: 2+ and bilaterally symmetrical at the biceps, triceps, brachioradialis. 1+ at the left knee the right knee could not be tested. 0 at both ankles. The plantar responses were flexor bilaterally. STANCE & GAIT: Could not be tested. Impression/Recommendations Diagnostic Impression 1. Ms Alyssa Whittington is a 68-year-old, right-handed, black lady, who does have a past history of hypertension, dyslipidemia, coronary artery disease, congestive heart failure, chronic obstructive pulmonary disease, cerebrovascular disease with a prior stroke associated with right-sided weakness , parainfluenza and influenza at the end of 2014, episodic loss of consciousness , a cocaine related seizure, and significant C-spine disease. 2. On 02-05-2019 she apparently tripped and fell down and fractured her right patella. She had surgery for the problem on 02/07/19. 3. She feels better. The right knee is less painful at rest. The pain medicine is helping. She has not worked with the PT today. She is still unable to weight- bear on her legs. The mind is not clear. She has not noted any change in her strength. She denies any new neurologic symptoms. Plans are to go for rehab today. 4. On neurological examination at this time her cerebration is faster, she does have problems with recent and remote memory, a mild dysarthria, and a mild right hemiparesis involving the face, upper and lower extremities. The right knee is in an immobilizer and swollen. 5. The patient's history and neurological examination are most consistent with recent fall resulting in the right patella fracture which has been surgically treated. She is in less pain, but still poorly functional. Recommendations 1. Continue present management. 2. Mobilize rapidly. 3. Agree with rehab to mobilize her. DANNIELLE K. VIRIDIANA, M.D., M.S.P.H. Dannielle Gayle MD February 13, 2019 12:00
--- NOTE | 2019-02-13 12:00 | NUR ---
NURSE NOTES: Report given to Amy BROWNING at [facility]
--- NOTE | 2019-02-13 12:21 | Cardiac Electrophysiology PN ---
Assessment/Plan Assessment/Plan 1. Hypertension. Continue amlodipine 5 mg daily and Avapro 150 mg daily. Echocardiogram EF 75% Nuclear stress test showed no ischemia or scar. 2. Insulin-dependent diabetes. 3. Status post fall and patella fracture. S/P ORIF. Tolerated surgery well. Going to rehab 4. Polysubstance abuse 5. Chronic obstructive pulmonary disease. On Spiriva. 6. Depression. On Lexapro. 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 Alert in NAD.DC in progress to rehab Objective Last 24 Hour Vital Signs Date Time Temp Pulse Resp B/P (MAP) Pulse Ox O2 Delivery O2 Flow Rate FiO2 02/13/19 09:15 88 20 96 Room Air 21 02/13/19 09:15 88 20 96 Room Air 21 02/13/19 08:31 128/66 02/13/19 08:31 75 128/66 02/13/19 08:00 97.5 75 18 128/66 (86) 98 02/13/19 06:51 96 Room Air 21 02/13/19 06:51 Room Air 21 02/13/19 04:00 98.2 73 18 121/56 (77) 95 02/13/19 00:00 98.7 72 18 123/63 (83) 95 02/12/19 22:32 Room Air 02/12/19 20:00 99.0 74 18 121/53 (75) 97 02/12/19 19:33 Room Air 21 02/12/19 19:32 95 Room Air 21 02/12/19 19:31 85 18 95 Room Air 21 02/12/19 19:27 85 18 95 Room Air 21 02/12/19 16:00 97.9 84 18 122/59 (80) 97 Intake and Output 02/12/19 02/13/19 19:00 07:00 Intake Total 1605 ml 725 ml Balance 1605 ml 725 ml Intake Oral 200 ml IV Total 805 ml 525 ml Other 800 ml # Voids 5 Objective HEAD AND NECK: No JVD or carotid bruits. LUNGS: Clear. CARDIOVASCULAR: Regular S1 and S2 with no gallop or murmur. ABDOMEN: Soft. EXTREMITIES: No pitting edema. S/P left knee surgery Todd Avalos MD February 13, 2019 12:21
--- NOTE | 2019-02-13 12:21 | NUR ---
NURSE NOTES: Patient discharged. No acute distress on discharge. Patient transported via S ambulance. IV removed intact. Belongings given to EMS personnel. Patient educated on discharge instructions and plan of care and reports understanding. Belongings and instructions signed for. Patient transferred safely to [facility], escorted off unit by S personnel at 1213.
--- NOTE | 2019-02-14 11:34 | Discharge Summary ---
Discharge Summary Discharge Summary _ DATE OF ADMISSION: 02/05/2019 DATE OF DISCHARGE: 02/13/2019 DISCHARGED BY: Dr. Horner REASON FOR ADMISSION: 68 years old female with past medical history of hypertension, COPD, nonobstructive coronary artery disease, history of polysubstance abuse, including cocaine and marijuana, chronic back pain, congestive heart failure with diastolic dysfunction , severe lumbar stenosis, severe cervical spondylosis , seizure disorder, gout, chronic pain , presented to emergency department status post mechanical fall. Patient tripped on the sidewalk and reported severe right knee pain. She was unable to ambulated after the fall. Patient denied loss of consciousness or blackouts. Patient denied chest pain and shortness of breath Patient denied dizziness and palpitations. No seizure stigmata. No bowel or bladder incontinence. No fever, no chills. No headache, no change in vision. Upon evaluation vital signs revealed elevated blood pressure 163/75, otherwise stable. Chemistry demonstrated potassium 3.4, stable other electrolytes and renal parameters Glucose 128. No leukocytosis. Hemoglobin 11.7, hematocrit 35.3. EKG revealed normal sinus rhythm, no acute ischemic changes. X-ray of the right knee demonstrated patellar fracture. Chest x-ray showed no acute cardiopulmonary pathology. Patient subsequently was a admitted for further management. CONSULTANTS: air box tester Dr. Pinon neurologist Dr. Gayle pulmonary orthopedic surgery Dr. Kramer pain specialist Dr. Victoria [facility] COURSE: Patient admitted. Patient started on gentle IV hydration. Pain management was addressed. Supportive care provided. Orthopedic surgery , cardiology and pulmonology consults were requested. Meatcutter and alterations supervisor seen patient for clearance prior to surgery. Echocardiogram revealed preserved ejection fraction of 70 to 75%, no evidence of wall motion abnormality, no evidence of pericardial effusion. Mild left ventricular hypertrophy noted. Right ventricular systolic pressure of 17. Venous duplex bilateral lower extremity reveal no evidence of acute DVT. Supplemental oxygen provided as needed to keep pulse oximetry above 92%. Pulmonary toilet provided as needed. Patient subsequently undergone myocardial perfusion scan test which demonstrated no fixed or reversible perfusion defects. Ejection fraction estimated to be 62%. After clearance for surgery, patient subsequently undergone open reduction internal fixation of right knee patellar fracture. Pain management was addressed. Pain specialist consult was requested due to issues of chronic pain along with the acute pain postoperatively. Pain management was provided as per pain specialist recommendation. 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 Fall precaution maintained. Patient required skilled rehabilitation services as per physical therapy recommendation. Blood pressure was managed with calcium channel peewee and ARB. Blood sugar was managed with sliding scale of insulin . Per alterations supervisor, no evidence of COPD exacerbation. Patient was continued with inhalers: Advair and Spiriva, Singulair and Roflumilast. Nebulizing treatment provided as needed. Patient encouraged to use incentive spirometer while in the bed. DVT and GI prophylaxis provided. Volumes and cardiorenal parameters were closely monitored. Aspiration precaution maintained. Director Family recommended formal PFT and screening CT chest as outpatient. Patient was counseled on abstinence from smoking and illicit street drugs. Urine culture revealed E. coli with colony count more than 100 K. Patient started on antibiotic. Seizure precaution maintained. No evidence of seizure activity while in the hospital.. Neurologist followed with close neurological examination and further recommendation. Supportive care provided. Bowel regimen instituted. Pain was controlled. Patient clinically stabilized and was ready for transfer to [facility] facility for further rehabilitation. FINAL DIAGNOSES: Right knee transversed displaced patella fracture secondary to mechanical fall Status post open reduction internal fixation of right patella fracture E. coli UTI Thalamic pain syndrome Opiate dependency Polysubstance abuse/cocaine, marijuana, tobacco COPD History of hypersensitivity pneumonitis Extensive history of tobacco use CHF with mild diastolic dysfunction Hypertension Hyperlipidemia Diabetes mellitus Seizure disorder Gout Chronic abdominal pain GERD History of erosive gastritis/Ana esophagitis Lumbar DDD/spondylosis Cervical spondylosis with known cord compression DISCHARGE MEDICATIONS: See Medication Reconciliation list. DISCHARGE INSTRUCTIONS: Patient was discharged to the [facility] facility. Follow up with medical doctor at the facility. I have been assigned to dictate discharge summary for this account. I was not involved in the patient's management. Helen Miramontes NP February 14, 2019 11:34
== END 2019-02-13 12:12 | DRG 515 ==
LOC: EMR 12:27 → EDBEDREQ 13:53 → 4E 14:13 → SDSOVERFLO 02-10 08:53 → 4E 02-10 08:55
PROC: 0QSD04Z Reposition Right Patella with Internal Fixation Device, Open Approach (ICD-10-PCS; principal; 2019-02-07 14:45)
DX: S82.031A Displaced transverse fracture of right patella, initial encounter for closed fracture (principal); E43 Unspecified severe protein-calorie malnutrition; F11.20 Opioid dependence, uncomplicated; I69.951 Hemiplegia and hemiparesis following unspecified cerebrovascular disease affecting right dominant side; N39.0 Urinary tract infection, site not specified; Z68.1 Body mass index [BMI] 19.9 or less, adult; I50.30 Unspecified diastolic (congestive) heart failure; W19.XXXA Unspecified fall, initial encounter; Y92.9 Unspecified place or not applicable; I11.0 Hypertensive heart disease with heart failure; J44.9 Chronic obstructive pulmonary disease, unspecified; I25.10 Atherosclerotic heart disease of native coronary artery without angina pectoris; E11.9 Type 2 diabetes mellitus without complications; Z79.4 Long term (current) use of insulin; F14.10 Cocaine abuse, uncomplicated; F12.10 Cannabis abuse, uncomplicated; M48.02 Spinal stenosis, cervical region; M48.061 Spinal stenosis, lumbar region without neurogenic claudication; M47.896 Other spondylosis, lumbar region; G40.909 Epilepsy, unspecified, not intractable, without status epilepticus; G89.0 Central pain syndrome; F32.9 Major depressive disorder, single episode, unspecified; K21.9 Gastro-esophageal reflux disease without esophagitis; B96.20 Unspecified Escherichia coli [E. coli] as the cause of diseases classified elsewhere
CPT/HCPCS: 29505; 36415; 36600; 71045; 76000; 78452; 80048; 80053; 80299; 80307; 80329; 81001; 82803; 82962; 83690; 83735; 85007; 85025; 85610; 85730; 87086; 87181; 90471; 90715; 93005; 93017; 93306; 93970; 94003; 94150; 94640; 94664; 94760; 96372; 96374; 99285; J1815; J2250; J2405; J2785; J8499

== ENCOUNTER 2019-05-05 12:13 | Outpatient (CLI) | payer MEDICARE, MEDICAID ==
[~2019-05-05 12:13] MED LIST changes: +AZOR 5-20 MG T1 EACH ORAL; +DALIRESP500 MCG PO; +GABAPENTIN300 MG ORAL; +INDOMETHACIN50 MG PO; +LOVENOX10 MG SUBQ; +MONTELUKAST SOD10 MG ORAL; +NOVOLOG100 UNITS1 SUBQ; +OXYCODONE HCL30 MG ORAL; +ZOFRAN4 M3 ORAL
--- NOTE | 2019-05-08 15:18 | Diagnostic Imaging Report ---
Indication: Right shoulder pain and frozen shoulder Technique: Sagittal T1, sagittal and coronal T2 fat saturated PROPELLER,, sagittal, coronal, and axial proton density fat saturated PROPELLER images of the right shoulder Comparison: none Findings: There is an osteochondral defect of the superior past of the humeral head, with an osseous fragment surrounded by edema. This is nondisplaced. It is ovoid, measures 1.5 cm in diameter The rotator cuff is intact without evidence of tear. The bicipital tendon and anchor are unremarkable. The remainder of the marrow signal is normal. Impression: 1.5 cm ovoid osteochondral defect of the humeral head, etiology not demonstrated but most likely traumatic in origin. No other significant abnormality demonstrated This agrees with the preliminary interpretation provided overnight by Dr. Badillo
== END 2019-05-05 14:13 | disposition home or self-care (01) ==
LOC: MRI 12:13
DX: M75.01 Adhesive capsulitis of right shoulder (principal)

== ENCOUNTER 2019-05-21 14:32 | Emergency (ER) | payer MEDICARE, MEDICAID ==
[~2019-05-21] VITALS: Ht 165.1 cm; Wt 49.9 kg
[2019-05-21 14:46] VITALS: BP 145/56
--- NOTE | 2019-05-21 14:50 | NUR ---
ED Nurse Note: Patient walked into ED c/o right shoulder pain for 1 week. patient reports MRI was done 2 days ago and waiting for result. patient reports she takes oxycodone for patient. patient is alert awake x4 ambulatory.
--- NOTE | 2019-05-21 15:47 | Emergency Room Report ---
History of Present Illness General Chief Complaint: Pain Source: Medical Record Present Illness HPI 68 YO female w. hx of multiple chronic pain syndromes. presents c/o persistent right shoulder pain that is 10/10 in severity x 1 month. Recent MRI with dx of frozen shoulder, no obvious acute pathology per official radiology report. She reports that she takes Percocet which is not providing much relief for her. Patient states that she did have some physical therapy which also did not provide adequate relief. Patient reports that she just had her MRI done 2 days ago if she is going to be following up with Dr. Ford up or was an human resources services specialist that sent her for MRI tomorrow morning as her pain is unbearable. Patient denies fevers, chills, recent joint injections, or additional trauma or fall. Patient reports initially she sustained her injury after falling and breaking her right knee she states that she attempted to break her fall with her right arm and she believes that when she had received an injury to the right shoulder. Patient reports she is right-hand dominant and states the pain is exacerbated with attempts to use the right arm and raise it above the 30 degree angle. No other relieving factors at this time. Denies numbness tingling or loss of sensation or gross motor movements of the extremities, incontinence of bowel or bladder. Denies CP, Palpitations, SOB, cough, LOC, AMS, dizziness, Changes in Vision, weakness or a sudden severe headache. Allergies: Uncoded Allergies: electrodes (Allergy, Mild, Itching, 10/10/17) skin redness and itching Patient History Past Medical History: see triage record, old chart reviewed - including recent MRI imaging report. Past Surgical History: none Pertinent Family History: none Social History: Reports: smoking, drug use Now: No Reviewed Nursing Documentation: PMH: Agreed; PSxH: Agreed Nursing Documentation-PMH Past Medical History: No History, Except For Hx Cardiac Problems: No Hx Hypertension: Yes Hx Pacemaker: No Hx Asthma: Yes Hx COPD: Yes Hx Diabetes: Yes Hx Cancer: No Hx Gastrointestinal Problems: Yes Hx Dialysis: No Hx Neurological Problems: No Hx Cerebrovascular Accident: Yes - pt reports CVA in 2006 or 2007 Hx Transient Ischemic Attacks: No Hx Dementia: No Hx Alzheimer's Disease: No Hx Parkinson's Disease: No Hx Meningitis: No Hx Encephalitis: No Hx Seizures: Yes - last seizure 01/24/2017, treated at [facility] Hx Multiple Sclerosis: No Hx Cerebral Palsy: No Hx Amyotrophic Lat Sclerosis: No Hx Guillian-Chester Syndrome: No Hx Paralysis: No Hx Peripheral Neuropathy: No Hx Spinal Cord Injury: No Hx Head Trauma: No Hx Traumatic Brain Injury: No Hx Memory Loss: No Hx Concentration Difficulty: Yes - pt reports mild difficulty Hx Speech Problem: Yes - s/p CVA Hx Tremors: Yes - mild at RUE Hx Vertigo: No Hx Dizziness: No Hx Syncope: No Hx Headaches: Yes Hx Dysphasia: No Hx Numbness: Yes - some numbness on RT side s/p CVA Hx Weakness: Yes - RT side s/p CVA Hx Fatigue: No Hx Neurologic Surgery: No Hx Brain Shunt: No Review of Systems All Other Systems: negative except mentioned in HPI Physical Exam Vital Signs Date Time Temp Pulse Resp B/P (MAP) Pulse Ox O2 Delivery O2 Flow Rate FiO2 05/21/19 14:46 98.2 72 17 145/56 (85) 94 Room Air Sp02 EP Interpretation: reviewed, normal General Appearance: no apparent distress, alert, GCS 15, non-toxic Head: normocephalic, atraumatic Eyes: bilateral eye normal inspection, bilateral eye PERRL ENT: hearing grossly normal, normal voice Neck: full range of motion Respiratory: chest non-tender, lungs clear, normal breath sounds, speaking full sentences Cardiovascular #1: regular rate, rhythm, no edema, normal capillary refill Cardiovascular #2: 2+ radial (R), 2+ radial (L) Gastrointestinal: non tender, soft Rectal: deferred Musculoskeletal: back normal, gait/station normal, normal range of motion, tender - Severe ttp to superficial touch to the right shoulder. Pt. has pain with raising arm past 30* point. no erythema, no swelling, no obvious deformities, step-off or clicking. NVi. Neurologic: alert, oriented x3, responsive, motor strength/tone normal, sensory intact, normal gait, speech normal, other - equal power electronics engineer strength., grossly normal Psychiatric: judgement/insight normal Skin: other - no bruises, no erythema, no skin color changes. Medical Decision Making PA Attestation Dr. Duran is my supervising Physician whom patient management has been discussed with. Diagnostic Impression: Primary Impression: Localized pain of right shoulder joint Additional Impression: Opioid dependence Qualified Codes: F11.20 - Opioid dependence, uncomplicated ER Course 68 YO female w. hx of multiple chronic pain syndromes. presents c/o persistent right shoulder pain that is 10/10 in severity x 1 month. Recent MRI with dx of frozen shoulder, no obvious acute pathology per official radiology report. She reports that she takes Percocet which is not providing much relief for her. Patient states that she did have some physical therapy which also did not provide adequate relief. Patient reports that she just had her MRI done 2 days ago if she is going to be following up with Dr. Ford up or was an human resources services specialist that sent her for MRI tomorrow morning as her pain is unbearable. Patient denies fevers, chills, recent joint injections, or additional trauma or fall. Patient reports initially she sustained her injury after falling and breaking her right knee she states that she attempted to break her fall with her right arm and she believes that when she had received an injury to the right shoulder. Patient reports she is right-hand dominant and states the pain is exacerbated with attempts to use the right arm and raise it above the 30 degree angle. No other relieving factors at this time. Denies numbness tingling or loss of sensation or gross motor movements of the extremities, incontinence of bowel or bladder. Denies CP, Palpitations, SOB, cough, LOC, AMS, dizziness, Changes in Vision, weakness or a sudden severe headache. *Old chart reviewed with hx of chronic pain, opiate dependence, OR/ cardiac hx and cocaine/drug abuse hx. Ddx considered but are not limited to Fracture, dislocation, contusion, Sprain/ Strain/Spasm, Cervical disk disease, DVT, abscess, Neoplastic mets, radiculopathy, drug-seeking, dissection, OR just to name a few. Vital signs: are WNL, pt. is afebrile H&PE are most consistent with musculoskeletal injury will perform imaging to r/ o fractures/dislocations. ORDERS: - Imaging not ordered as pt. just had normal MRI which is more detailed and advanced compared to the x-rays that I would have ordered. I do not feel additional radiation would change my management of this patient nor provide additional benefit. -Pt. NAD, non-toxic in appearance. ED INTERVENTIONS: - 2mg Morphine IM -Lidoderm Patch TP. -I do not identify an emergent condition at this time. With current presentation , pt. is stable for close outpatient follow up and conservative treatment. D/ w pt. to return promptly to ED with worsening or new symptoms.- Pt. verbalizes' understanding and agreement with proposed treatment plan.proposed treatment plan. Pt. to follow up with Orthopedist whom has been managing her. DISCHARGE: At this time pt. is stable for d/c to home. Will provide printed patient care instructions, and any necessary prescriptions. Care plan and follow up instructions have been discussed with the patient prior to discharge. Last Vital Signs Date Time Temp Pulse Resp B/P (MAP) Pulse Ox O2 Delivery O2 Flow Rate FiO2 05/21/19 14:46 98.2 72 17 145/56 94 Room Air Status: improved Disposition: HOME, SELF-CARE Condition: Stable Scripts Cyclobenzaprine Hcl* (FLEXERIL*) 10 Mg Tablet 10 MG ORAL THREE TIMES A DAY for 3 Days, #9 TAB Prov: Saundra Schrader 05/21/19 Lidocaine (Lidoderm) 1 Each Adh..patch 1 PATCH TOPIC DAILY, #30 PATCH 0 Refills Patch(es) may remain in place for up to 12 hours in any 24-hour period. Prov: Saundra Schrader 05/21/19 Patient Instructions: Chronic Pain, Shoulder Pain, [id number], Shoulder Range of Motion Exercises Additional Instructions: Take medications as directed. Follow up with a Primary Care Provider in 3-5 days, even if your symptoms have resolved. --Please review list of primary care clinics, if you do not already have a primary care provider Return sooner to ED if new symptoms occur, or current symptoms become worse. - Please note that this Emergency Department Report was dictated using [employer] server technology software, occasionally this can lead to erroneous entry secondary to interpretation by the dictation equipment. Saundra Schrader May 21, 2019 15:47
[2019-05-21] MEDS ORDERED: Morphine Sulfate 2mg/ml Inj(IV/IM USE ONLY) IM ONE (16:00)
--- NOTE | 2019-05-21 16:06 | NUR ---
HAND-OFF: Report given to Tano BROWNING.
[2019-05-21] MEDS ORDERED: LIDODERM700 M1 TOPIC (16:18)
[2019-05-21] MEDS ORDERED: CYCLOBENZAPRINE10 MG ORAL (16:18)
[2019-05-21 16:25] VITALS: BP 138/62
--- NOTE | 2019-05-21 16:25 | NUR ---
ER DISCHARGE NOTE: Patient is cleared to be discharged per ERMD, pt is aox4, on room air, with stable vital signs. pt was given dc and prescription instructions, pt was able to verbalize understanding, pt id band removed without complications. pt is able to ambulate with steady gait. pt took all belongings.
== END 2019-05-21 16:25 | disposition home or self-care (01) ==
LOC: EMR 15:24
DX: M25.511 Pain in right shoulder (principal); F11.20 Opioid dependence, uncomplicated; Z88.8 Allergy status to other drugs, medicaments and biological substances; F17.200 Nicotine dependence, unspecified, uncomplicated; I10 Essential (primary) hypertension; J44.9 Chronic obstructive pulmonary disease, unspecified; E11.9 Type 2 diabetes mellitus without complications; Z86.73 Personal history of transient ischemic attack (TIA), and cerebral infarction without residual deficits
CPT/HCPCS: 96372; 99283; J2270

== ENCOUNTER 2019-06-01 09:30 | Outpatient (CLI) | payer MEDICARE, MEDICAID ==
[~2019-06-01 09:30] MED LIST changes: +CYCLOBENZAPRINE10 MG ORAL
--- NOTE | 2019-06-01 12:11 | Diagnostic Imaging Report ---
Indication: Shortness of breath Technique: One view of the chest Comparison: none Findings: Lungs and pleural spaces are clear. Heart size is normal. Impression: No acute process
== END 2019-06-01 11:30 | disposition home or self-care (01) ==
LOC: RAD 09:30
DX: Z01.818 Encounter for other preprocedural examination (principal); I10 Essential (primary) hypertension; R06.02 Shortness of breath
CPT/HCPCS: 71046

== ENCOUNTER → 2020-09-02 | Outpatient (CLI) | payer MEDICARE, MEDICAID ==
--- NOTE | 2020-09-02 17:18 | Diagnostic Imaging Report ---
EXAM: MR Left Lower Extremity Without Intravenous Contrast, Knee CLINICAL HISTORY: PAIN TECHNIQUE: Multiplanar magnetic resonance images of the left knee without intravenous contrast. COMPARISON: No relevant prior studies available. FINDINGS: Within the proximal tibia and there is serpiginous low signal with central fat intensity suggestive of osteonecrosis. There appears to be an area of cortical break with underlying fracturing in the medial compartment best seen on the sagittal images 14 through 17 on series 4 and 5. There is 1-2 mm of articular depression within the medial tibial plateau. No fractures in the lateral tibial plateau. Additional region of osteonecrosis within the lateral trochlea with an intact overlying articular surface. A third smaller region of osteonecrosis within the posterior medial femoral condyle (image [id number]). Subchondral edema also present within the far medial aspect of the posterior femoral condyle favored related to degenerative changes. The ACL is intact. The PCL is intact. Medial collateral ligament is intact. Fibular collateral ligament is intact. Extensor mechanism is intact. Popliteus is intact. No acute tendinous abnormality. Medial meniscus is intact. Lateral meniscus is intact. No clearly identified high-grade partial or full-thickness cartilaginous defect. Large joint effusion with areas of synovitis. In addition there is a Irvin's cyst which measures 2.4 x 1.3 x 4.0 cm. Areas along the posterior skin surface and subcutaneous fat suggestive of prior dissection planes potentially from a prior surgery. Scattered soft tissue edema about the knee. IMPRESSION: 1. Large area of osteonecrosis within the medial and lateral tibial plateaus extending into the proximal tibial metaphysis. A small fracture extending into the medial tibial plateau (image [id number]) with 1-2 mm of medial tibial plateau depression. 2. 2 additional areas of osteonecrosis within the lateral trochlea and posterior medial femoral condyle. 3. Intact menisci, cruciates, and collateral ligaments. 4. Subchondral cystic changes within the posterior nonweightbearing medial femoral condyle. No clearly identified overlying cartilaginous defect. Etiology indeterminate. 5. Large joint effusion. 6. Irvin's cyst.
== END | disposition home or self-care (01) ==
LOC: MRI 11:22
DX: M25.562 Pain in left knee (principal); M87.9 Osteonecrosis, unspecified; M25.462 Effusion, left knee; M71.22 Synovial cyst of popliteal space [Baker], left knee